=== PATIENT | female | born 1940 | race Caucasian/White ===

== ENCOUNTER → 2016-12-27 | Outpatient (CLI) | payer OTHER ==
[~2016-12-27] MED LIST: ALL60 PO; ASPI81TA28 PO; CALC1CHW2 PO; CYAN10004 PO; FEXO1TAB49 PO; GLUCTAB18 PO; HMLI SC; HYDC25 PO; HYDR-5688 PO; INSU1INJ32 SC; INSU1INJ33 SC; INSUINJ12 SC; LATA0.5S OPB; LEVO100T PO; LOSA1TAB38 PO; METF1000 PO; MULT-506 PO; NF454 PO; PRLSR20 PO; SIMV20TA5 PO
[2016-12-27 11:27] LABS: ESTIMATED AVERAGE GLUCOSE 160 mg/dl; HA1C FLAG Normal (Normal)
[2016-12-27 16:21] LABS: RATIO 11.5 mcg/mg (0-30.0)
== END | disposition home or self-care (01) ==
LOC: C.LAB1850 09:53
PROVIDERS: ATTEND Nurse Practitioner Family
DX: E11.65 Type 2 diabetes mellitus with hyperglycemia (principal)

== ENCOUNTER → 2017-02-05 | Outpatient (CLI) | payer OTHER ==
--- NOTE | 2017-02-06 15:02 | MAMMOGRAPHY REPORT ---
BILATERAL DIGITAL SCREENING MAMMOGRAM TOMOSYNTHESIS WITH CAD: 02/05/2017 CLINICAL HISTORY: Asymptomatic. Personal history of breast cancer. TECHNIQUE: Breast tomosynthesis in addition to standard 2D mammography was performed. Current study was also evaluated with a Computer Aided Detection (CAD) system. COMPARISON: Comparison is made to exams dated: 09/10/2016 mammogram, 09/10/2016 ultrasound biopsy, 08/28/2016 mammogram, 08/28/2016 ultrasound, 02/05/2016 mammogram, and 02/02/2015 mammogram - [facility]. BREAST COMPOSITION: There are scattered areas of fibroglandular density in both breasts. FINDINGS: There is a 9.9 x 7.7 x 10.0 mm mass with associated architectural distortion, a few round internal calcifications and an internal ribbon-shaped metallic biopsy marker in the 4:00 left breas t. This is increasingly dense and prominent comparing to prior mammograms. Even though pathology w as benign yielding fat necrosis, would recommend further characterization with repeat targeted ultra sound and possible additional mammographic views to ensure stability in size on ultrasound measureme nts. There are diffuse benign appearing rim calcifications throughout the left breast. Evidence of prior surgery with asymmetry of the size of the breasts, right greater than left. Stable mammographic ap pearance of the right breast, without evidence of a new suspicious mass, architectural distortion or suspicious mass or calcification. IMPRESSION: ACR BI-RADS CATEGORY 0: INCOMPLETE EVALUATION: NEED ADDITIONAL IMAGING EVALUATION The 10 mm mass with associated architectural distortion and internal biopsy marker in the left breas t needs additional evaluation. The patient will be called to schedule an appointment. Approximately 10% of breast cancers are not detected with mammography. A negative mammographic repor t should not delay biopsy if a clinically suggestive mass is present. Zara Keane M.D. ay/:02/05/2017 17:14:57 Precision Machining Instructor: Isabela RUSS)(Aneudy), [facility] letter sent: Addl Imaging 0 BI-RADS Code: ACR BI-RADS Category 0: Incomplete Evaluation: Need Additional Imaging Evaluation
== END | disposition home or self-care (01) ==
LOC: C.MAMM 10:36
PROVIDERS: ATTEND Obstetrics & Gynecology
DX: Z12.31 Encounter for screening mammogram for malignant neoplasm of breast (principal); Z85.3 Personal history of malignant neoplasm of breast; N63 Unspecified lump in breast

== ENCOUNTER → 2017-02-18 | Outpatient (CLI) | payer OTHER ==
--- NOTE | 2017-02-18 15:29 | MAMMOGRAPHY REPORT ---
ULTRASOUND OF BOTH BREASTS: 02/18/2017 CLINICAL HISTORY: 77-year-old woman called back from screening mammography for an increasing asymmet ry/mass with associated architectural distortion in the 4:00 left breast. This mass was previously biopsied under ultrasound guidance and yielded benign fat necrosis. She is a history of remote left breast cancer status post breast conservation treatment. COMPARISON: Comparison is made to exams dated: 02/05/2017 mammogram, 09/10/2016 mammogram, 6 ultrasound biopsy, 08/28/2016 mammogram, 08/28/2016 ultrasound, and 02/05/2016 mammogram - [facility]. FINDINGS: Real-time high-resolution sonographic evaluation was performed in the 4:00 left breast are reevaluate the previously biopsied hypoechoic solid mass. An irregular hypoechoic solid mass is ag ain identified measuring approximately 8.0 x 7.4 x 6.3 mm. When comparing to the prior ultrasound p erformed 08/28/2016, the mass appears minimally increased in size. At that time it measured 8.7 x 7 .1 x 5.5 mm. I discussed with the patient the interval mammographic change even when comparing to the mammograms obtained prior to biopsy. Comparing to the 08/28/2016 exam the mass containing the internal ribbon- shaped biopsy marker clip is increasingly dense and larger in size. Based on the CC measurements, i t currently measures 6.6 x 9.7 mm, previously 5.9 x 8.2 mm. Given this interval change this remains suspicious and surgical consultation for surgical excision is recommended. IMPRESSION: ACR BI-RADS CATEGORY 4: SUSPICIOUS - FOLLOW-UP RECOMMENDED An 8 mm mass with associated architectural distortion in the 4:00 left breast that has been previous ly biopsied and yielded fat necrosis is increasing in size both mammographically and sonographically since the biopsy. Therefore, it remains suspicious and surgical consultation for surgical excision al biopsy is recommended. These results and recommendations were discussed with the patient at the time of the exam. Zara Keane M.D. ay/:02/18/2017 10:49:01 Attending Technologist: Papa MORALES(Kevin)(M), [facility] Dental Hygiene Teacher: Dr. Zara Keane, [facility] letter sent: Abnormal 4/5 BI-RADS Code: ACR BI-RADS Category 4: Suspicious
== END | disposition home or self-care (01) ==
LOC: C.MAMM 10:04
PROVIDERS: ATTEND Obstetrics & Gynecology
DX: N63 Unspecified lump in breast (principal); N64.89 Other specified disorders of breast

== ENCOUNTER → 2017-03-10 | Outpatient (CLI) | payer OTHER ==
[2017-03-10 12:11] LABS: ALT/SGPT 21 U/L (12-78); BLOOD UREA NITROGEN 15 mg/dl (7-18); BUN/CREATININE RATIO 24.9 (10-20); CARBON DIOXIDE 30 mmol/L (21-32); CHLORIDE 100 mmol/L (98-107); CREATININE 0.59 mg/dl (0.60-1.20); GLUCOSE 125 mg/dl (70-99); POTASSIUM 3.8 mmol/L (3.5-5.1); SODIUM 136 mmol/L (136-145)
[2017-03-10 12:14] LABS: ALB/GLOB RATIO 1.1 (0.9-2); ALKALINE PHOSPHATASE 72 U/L (45-117); AST/SGOT 15 U/L (15-37)
[2017-03-10 13:12] LABS: CALCIUM 9.3 mg/dl (8.5-10.1)
[2017-03-10 15:15] LABS: RATIO 9.9 mcg/mg (0-30.0)
== END | disposition home or self-care (01) ==
LOC: C.LAB1850 10:01
PROVIDERS: ATTEND Internal Medicine Pulmonary Disease
DX: I10 Essential (primary) hypertension (principal); E03.9 Hypothyroidism, unspecified; E78.5 Hyperlipidemia, unspecified; E11.9 Type 2 diabetes mellitus without complications

== ENCOUNTER → 2017-03-25 | Outpatient (CLI) | payer OTHER ==
[2017-03-25 14:36] LABS: BASO % 0.5 %; BASO ABS # 0.04 K/uL (0-0.2); COMPLETE YES; EOS % 1.6 %; HEMATOCRIT 41.5 % (37-47); IG% 0.1 %; LYMPH % 20.3 %; LYMPH ABS # 1.78 K/uL (1.2-3.4); MEAN CELL VOLUME 84.9 fL (80-100); MEAN CORPUSCULAR HEMOGLOBIN 29.7 pg (25-34); MEAN CORPUSCULAR HGB CONC 34.9 g/dl (32-36); MEAN PLATELET VOLUME 10.2 fL (7.4-10.4); MONO % 8.3 %; NEUT % 69.2 %; PLATELET COUNT 282 K/uL (130-400); RED BLOOD COUNT 4.89 M/uL (4.2-5.4); WHITE BLOOD COUNT 8.76 K/uL (4.8-10.8)
== END | disposition home or self-care (01) ==
LOC: C.CPL 12:46
PROVIDERS: ATTEND Surgery
DX: Z01.810 Encounter for preprocedural cardiovascular examination (principal); Z01.812 Encounter for preprocedural laboratory examination; N63 Unspecified lump in breast

== ENCOUNTER → 2017-06-05 | Outpatient (CLI) | payer OTHER ==
[~2017-06-05] MED LIST changes: -ALL60 PO; -CALC1CHW2 PO; -INSU1INJ33 SC; -INSUINJ12 SC
[2017-06-05 12:23] LABS: ESTIMATED AVERAGE GLUCOSE 151 mg/dl; HA1C FLAG Normal (Normal)
== END | disposition home or self-care (01) ==
LOC: C.LAB1850 09:41
PROVIDERS: ATTEND Nurse Practitioner Family
DX: E11.9 Type 2 diabetes mellitus without complications (principal)

== ENCOUNTER → 2017-09-01 | Outpatient (CLI) | payer OTHER ==
[2017-09-01 10:48] LABS: ALT/SGPT 17 U/L (12-78); AST/SGOT 8 U/L (15-37); BLOOD UREA NITROGEN 12 mg/dl (7-18); CALCIUM 9.2 mg/dl (8.5-10.1); CARBON DIOXIDE 30 mmol/L (21-32); CHLORIDE 100 mmol/L (98-107); CREATININE 0.57 mg/dl (0.60-1.20); GLUCOSE 141 mg/dl (70-99); POTASSIUM 3.9 mmol/L (3.5-5.1); SODIUM 135 mmol/L (136-145)
[2017-09-01 10:58] LABS: ALKALINE PHOSPHATASE 90 U/L (45-117); CHOLESTEROL 135 mg/dl (0-200); CHOLESTEROL/HDL RATIO 2.5; HDL CHOLESTEROL 53 mg/dl; LDL CHOLESTEROL CALCULATED 61 mg/dl; TRIGLYCERIDES 104 mg/dl (0-150); VERY LOW DENSITY LIPOPROT CALC 21 mg/dl
[2017-09-01 11:12] LABS: ESTIMATED AVERAGE GLUCOSE 151 mg/dl; HA1C FLAG Normal (Normal)
== END | disposition home or self-care (01) ==
LOC: C.LAB1850 09:31
PROVIDERS: ATTEND Internal Medicine Pulmonary Disease
DX: I10 Essential (primary) hypertension (principal); E03.9 Hypothyroidism, unspecified; E78.5 Hyperlipidemia, unspecified; R93.8 Abnormal findings on diagnostic imaging of other specified body structures; E11.9 Type 2 diabetes mellitus without complications

== ENCOUNTER → 2017-09-10 | Outpatient (CLI) | payer OTHER ==
--- NOTE | 2017-09-10 14:31 | DIAGNOSTIC IMAGING REPORT ---
CAROTID DOPPLER NECK ART CLINICAL HISTORY: 77 years-old Female presenting with DIZZINESS. TECHNIQUE: Real-time grayscale and color and spectral Doppler ultrasound imaging of the bilateral carotid arteries was performed. NASCET criteria was used in evaluating this study. COMPARISON: 07/27/2015. FINDINGS: Right: Common carotid: Atherosclerosis. Peak systolic velocity 65 cm/s. Internal carotid artery: Atherosclerosis of the proximal ICA. Peak systolic velocity 81 cm/s. Systolic ratio: 1.2. External carotid artery: Atherosclerosis. Peak systolic velocity 115 cm/s. Left: Common carotid: Atherosclerosis. Peak systolic velocity 61 cm/s. Internal carotid artery: Atherosclerosis of the proximal ICA. Peak systolic velocity 88 cm/s. Systolic ratio: 1.4. External carotid artery: Atherosclerosis. Peak systolic velocity 92 cm/s. Bilateral antegrade flow within the vertebral arteries. Reference ranges: Stenosis measurements are compared to reference velocity parameters. ICA peak systolic velocity (PSV) < 125 cm/s normal or indicating < 50% stenosis; ICA PSV 125-230 cm/s equivalent to 50-69% stenosis; ICA PSV > 230 cm/s equivalent to greater than or equal to 70% stenosis. ICA PSV to common carotid artery PSV ratio < 2 normal or < 50% stenosis; 2-4 equates to 50-69% stenosis, > 4 equates to greater than or equal to 70% stenosis. Normal ICA end-diastolic velocity less than 40. Blood pressure Brachial: Right: 159/75 mmHg, Left: 161/76 mmHg. IMPRESSION: No hemodynamically significant stenosis seen within the carotid arteries. Electronically signed by: Aristides Barfield M.D. 09/10/2017 2:30 PM Dictated Date/Time: 09/10/2017 2:28 PM
== END | disposition home or self-care (01) ==
LOC: C.ULTR 13:50
PROVIDERS: ATTEND Physician Assistant Medical
DX: R42 Dizziness and giddiness (principal); R29.6 Repeated falls

== ENCOUNTER → 2017-11-21 | Outpatient (CLI) | payer OTHER ==
[2017-11-17 14:48] LABS: BLOOD UREA NITROGEN 20 mg/dl (7-18); CREATININE 0.59 mg/dl (0.60-1.20)
[~2017-11-21] MED LIST changes: +GADAVIST IV PRN; -HYDR-5688 PO; -NF454 PO; +VERA240T80 PO
--- NOTE | 2017-11-21 14:33 | DIAGNOSTIC IMAGING REPORT ---
BRAIN COMBO HISTORY: 77 years-old Female GAIT APRAXIA,E11.49,Z00.00,Z79.4 acute ataxia with dizziness COMPARISON: Brain MRI 04/19/2009 TECHNIQUE: Multiplanar multisequence MRI of the brain was obtained both with and without the use of 9 mL Gadavist FINDINGS: There is no restricted diffusion to suggest acute infarction. Midline structures including the corpus callosum, brainstem, optic chiasm and pituitary gland are unremarkable. Subcentimeter pineal gland cyst, 5 mm. No cerebellar tonsillar herniation. Degenerative changes of the cervical spine. Major flow voids at the level of the skull base appear to be patent. Mastoid air cells are clear. Orbits appear symmetric. Paranasal sinuses are generally clear. The scalp, calvarium and soft tissues are within normal limits. There is no abnormal intra-axial or extra-axial enhancement identified. The coronal postcontrast T1 images are mildly motion degraded. There is mild atrophy with redemonstration of minimal scattered T2/flair signal abnormalities in the periventricular white matter suggesting very minimal chronic microvascular ischemic changes. There is no acute intracranial hemorrhage, midline shift, abnormal extra-axial collections, hydrocephalus or intracranial mass. IMPRESSION: 1. No acute intracranial abnormality. 2. No acute infarction or abnormal enhancement. The above report was generated using voice recognition software. It may contain grammatical, syntax or spelling errors. Electronically signed by: Mikal Payne M.D. 11/21/2017 2:31 PM Dictated Date/Time: 11/21/2017 2:24 PM
== END | disposition home or self-care (01) ==
LOC: C.MRIBC 12:53
PROVIDERS: ATTEND Psychiatry & Neurology Neurology
DX: Z00.00 Encounter for general adult medical examination without abnormal findings (principal); R48.2 Apraxia; E11.49 Type 2 diabetes mellitus with other diabetic neurological complication

== ENCOUNTER → 2018-02-09 | Outpatient (CLI) | payer OTHER ==
[~2018-02-09] MED LIST changes: -GADAVIST IV PRN
--- NOTE | 2018-02-10 07:45 | MAMMOGRAPHY REPORT ---
BILATERAL DIGITAL SCREENING MAMMOGRAM TOMOSYNTHESIS WITH CAD: 02/09/2018 CLINICAL HISTORY: Asymptomatic. Personal history of breast cancer. TECHNIQUE: Bilateral breast tomosynthesis in addition to standard 2D mammography was performed. Curre nt study was also evaluated with a Computer Aided Detection (CAD) system. COMPARISON: Comparison is made to exams dated: 04/01/2017 mammogram, 04/01/2017 specimen, 04/01/2017 local ization, 02/18/2017 ultrasound, 02/05/2017 mammogram, and 09/10/2016 mammogram - [facility]. BREAST COMPOSITION: The tissue of both breasts is heterogeneously dense, which may obscure small mas ses. FINDINGS: A linear scar marker overlies the upper outer middle one third of the left breast, denoting the area of recent surgery. There is expected architectural distortion at the recent surgical site in the upper outer middle to posterior, approximate 4:00 left breast, in which final pathology result s yielded benign fat necrosis. However, there is a newly visualized 13 x 14 mm focal asymmetry in th e upper outer anterior left breast, which could be near an area of remote surgery given that previous mammograms demonstrate a periareolar scar marker, although additional spot compression tomosynthesis views and possible ultrasound are recommended. There are diffuse benign-appearing rodlike and rim calcifications throughout the left greater than ri ght breast. No other suspicious mass, architectural distortion or cluster of microcalcifications is s een. IMPRESSION: ACR BI-RADS CATEGORY 0: INCOMPLETE EVALUATION: NEED ADDITIONAL IMAGING EVALUATION The newly visualized 13 x 14 mm focal asymmetry in the upper outer anterior left breast needs additio nal evaluation. The patient will be called to schedule an appointment. Approximately 10% of breast cancers are not detected with mammography. A negative mammographic report should not delay biopsy if a clinically suggestive mass is present. Zara Keane M.D. ay/:02/09/2018 11:32:53 Horse Buyer: Kamla RUSS)(Aneudy), [facility] letter sent: Addl Imaging 0 BI-RADS Code: ACR BI-RADS Category 0: Incomplete Evaluation: Need Additional Imaging Evaluation
== END | disposition home or self-care (01) ==
LOC: C.MAMM 10:17
PROVIDERS: ATTEND Obstetrics & Gynecology
DX: Z12.31 Encounter for screening mammogram for malignant neoplasm of breast (principal); N64.89 Other specified disorders of breast

== ENCOUNTER → 2018-02-18 | Outpatient (CLI) | payer OTHER ==
--- NOTE | 2018-02-18 15:31 | MAMMOGRAPHY REPORT ---
UNILATERAL LEFT DIGITAL DIAGNOSTIC MAMMOGRAM TOMOSYNTHESIS AND TARGETED LEFT ULTRASOUND: 02/18/2018 CLINICAL HISTORY: 78-year-old woman with a remote history of left breast cancer status post breast co nservation treatment and more recently status post biopsy and excision of fat necrosis in the 4:00 le ft breast. She was called back from screening mammography performed 02/09/2018 for an increasing foca l asymmetry in the upper outer anterior left breast. TECHNIQUE: Spot compression left CC and MLO tomosynthesis images were obtained. COMPARISON: Comparison is made to exams dated: 02/09/2018 mammogram, 04/01/2017 mammogram, 04/01/2017 loc alization, 04/01/2017 specimen, 02/18/2017 ultrasound, and 02/05/2017 mammogram - [facility]. BREAST COMPOSITION: There are scattered areas of fibroglandular density in the left breast. FINDINGS: Spot compression tomosynthesis views of the left breast demonstrate expected architectural distortion in the 4:00 posterior left breast, at the site of recent benign surgical excision which polish elded fat necrosis. There is persistent irregular versus spiculated focal asymmetry in the upper out er anterior left breast measuring approximately 2.3 x 1.6 cm. When comparing to all available prior mammograms, there was always dense glandular tissue in that location but it appears to be becoming mo re concentrated. There are also numerous benign oil cysts in the same location. Further evaluation with ultrasound was performed. Overall, there are innumerable benign-appearing coarse rodlike and ri m calcifications throughout the left breast. Targeted ultrasound was performed in the upper outer left breast. The ultrasound exam is somewhat li mited given the numerous shadowing areas of oil cysts/fat necrosis as well as numerous prior surgerie s of the left breast. In the 12:00 axis, 2 cm from the nipple, there is a hypoechoic shadowing mass measuring approximately 1.3 cm, with numerous curvilinear shadowing rim calcifications along the supe rficial aspect of the mass, suggesting it represents fat necrosis. No internal vascularity is docume nted. There is another irregular hypoechoic lesion deep to the scar in the 4:00 left breast, represe nting scarring in the area of fat necrosis excision. IMPRESSION: ACR-BI-RADS CATEGORY 3: PROBABLY BENIGN, TARGETED ULTRASOUND ACR-BI-RADS CATEGORY 3: PRO BABLY BENIGN The 2.3 x 1.6 cm focal asymmetry with associated rim calcification seen mammographically most likely represents focal fat necrosis with associated oil cysts on ultrasound, identified in the 12:00 axis. Given that it appears increasingly conspicuous comparing to prior mammograms, although it most likel y represents an additional area of fat necrosis, a short follow-up left diagnostic tomosynthesis mamm ogram and repeat targeted ultrasound in approximately 4-6 months is recommended to ensure stability. These results and recommendations were discussed with the patient at the time of the exam. Approximately 10% of breast cancers are not detected with mammography. A negative mammographic report should not delay biopsy if a clinically suggestive mass is present. Zara Keane M.D. ay/:02/18/2018 12:39:32 Fire Extinguisher Charger: Natalie Medina, [facility] letter sent: Follow Up Recommended 3 BI-RADS Code: ACR-BI-RADS Category 3: Probably Benign Ultrasound BI-RADS: ACR-BI-RADS Category 3: Pr obably Benign
== END | disposition home or self-care (01) ==
LOC: C.MAMM 09:54
PROVIDERS: ATTEND Obstetrics & Gynecology
DX: N64.89 Other specified disorders of breast (principal)

== ENCOUNTER → 2018-03-03 | Outpatient (CLI) | payer OTHER ==
[2018-03-03 12:25] LABS: BASO % 0.3 %; BASO ABS # 0.02 K/uL (0-0.2); EOS % 1.5 %; EOS ABS # 0.11 K/uL (0-0.5); HEMATOCRIT 39.7 % (37-47); HEMOGLOBIN 13.9 g/dL (12.0-16.0); IG# 0.01 K/uL (0.00-0.02); LYMPH % 25.5 %; LYMPH ABS # 1.81 K/uL (1.2-3.4); MEAN CELL VOLUME 83.8 fL (80-100); MEAN CORPUSCULAR HEMOGLOBIN 29.3 pg (25-34); MEAN PLATELET VOLUME 9.9 fL (7.4-10.4); MONO % 8.3 %; MONO ABS # 0.59 K/uL (0.11-0.59); NEUT % 64.3 %; NEUT ABS # 4.57 K/uL (1.4-6.5); PLATELET COUNT 244 K/uL (130-400); RED CELL DISTRIBUTION WIDTH CV 13.2 % (11.5-14.5); WHITE BLOOD COUNT 7.11 K/uL (4.8-10.8)
[2018-03-03 12:41] LABS: ALBUMIN 3.4 gm/dl (3.4-5.0); ALT/SGPT 19 U/L (12-78); AST/SGOT 12 U/L (15-37); BLOOD UREA NITROGEN 17 mg/dl (7-18); CALCIUM 8.7 mg/dl (8.5-10.1); CARBON DIOXIDE 30 mmol/L (21-32); CHOLESTEROL 141 mg/dl (0-200); CREATININE 0.59 mg/dl (0.60-1.20); GLUCOSE 138 mg/dl (70-99); POTASSIUM 4.2 mmol/L (3.5-5.1); SODIUM 136 mmol/L (136-145)
[2018-03-03 12:45] LABS: HEMOGLOBIN A1C 7.3 % (4.5-5.6)
[2018-03-03 12:51] LABS: ALKALINE PHOSPHATASE 87 U/L (45-117); LDL CHOLESTEROL CALCULATED 77 mg/dl; TOTAL PROTEIN 6.8 gm/dl (6.4-8.2)
[2018-03-03 13:46] LABS: CREATININE RANDOM URINE 60.3 mg/dl
== END | disposition home or self-care (01) ==
LOC: C.LAB1850 10:38
PROVIDERS: ATTEND Nurse Practitioner Family
DX: I10 Essential (primary) hypertension (principal); E03.9 Hypothyroidism, unspecified; E11.49 Type 2 diabetes mellitus with other diabetic neurological complication; Z79.4 Long term (current) use of insulin

== ENCOUNTER → 2018-05-18 | Outpatient (CLI) | payer OTHER ==
--- NOTE | 2018-05-19 07:29 | MAMMOGRAPHY REPORT ---
UNILATERAL LEFT DIGITAL DIAGNOSTIC MAMMOGRAM TOMOSYNTHESIS WITH CAD: 05/18/2018 CLINICAL HISTORY: 78-year-old woman presents for follow-up in the left breast for a 2.3 x 1.6 cm foca l asymmetry with associated rim calcification in the upper outer anterior left breast, near skin irre gularity denoting a prior surgical incision. Patient has a personal history of breast cancer status p ost breast conservation treatment, and also more recently a history of biopsy-proven and surgically e xcised fat necrosis in the left breast. TECHNIQUE: The study was acquired using full field digital technology and interpreted from soft copy. Breast tomosynthesis in addition to standard 2D mammography was performed. Current study was also ev aluated with a Computer Aided Detection (CAD) system. COMPARISON: Comparison is made to exams dated: 02/18/2018 mammogram, 02/09/2018 mammogram, 04/01/2017 ma mmogram, 02/05/2017 mammogram, 09/10/2016 mammogram, and 02/05/2016 mammogram - [facility] enter. BREAST COMPOSITION: There are scattered areas of fibroglandular density in left breast. FINDINGS: There is skin irregularity in the upper outer anterior left breast, denoting 1 of the areas of prior surgical excision. There is expected architectural distortion and additional skin irregula rity in the upper outer middle to posterior left breast, denoting a second area of prior surgery. Th ere are diffuse benign rim calcifications and coarse rodlike calcifications throughout the left breas t. There are also mild to moderate vascular calcification. The previously described 23 x 16 mm foca l asymmetry in the upper outer anterior left breast is stable comparing to the 02/09/2018 mammograms a nd most likely represents normal glandular tissue and fat necrosis. However, given that it appeared more focal comparing to prior remote mammograms, another close follow-up left diagnostic tomosynthesi s mammogram and possible ultrasound is recommended in 3 more months to ensure longer stability. IMPRESSION: ACR-BI-RADS CATEGORY 3: PROBABLY BENIGN 1. Stable mammographic appearance of the left breast including postsurgical/posttreatment changes an d a 23 x 16 mm focal asymmetry in the upper outer anterior breast, which has numerous associated rim calcifications and most likely represents benign fat necrosis. Another 3 month follow-up left diagno stic tomosynthesis mammogram and possible ultrasound is recommended to ensure longer stability. These results and recommendations were discussed with the patient at the time of the exam. She tenta tively scheduled a follow-up appointment prior to leaving our department. Some breast cancers are not detected with mammography. A negative mammographic report should not rosemarie y biopsy if a clinically suggestive mass is present. Zara Keane M.D. ay/:05/18/2018 12:39:17 Professor Of Communication: RT Luis Antonio(Kevin)(M), [facility] letter sent: Follow Up Recommended 3 BI-RADS Code: ACR-BI-RADS Category 3: Probably Benign
== END | disposition home or self-care (01) ==
LOC: C.MAMM 10:42
PROVIDERS: ATTEND Obstetrics & Gynecology
DX: R92.1 Mammographic calcification found on diagnostic imaging of breast (principal); Z85.3 Personal history of malignant neoplasm of breast; Z98.890 Other specified postprocedural states

== ENCOUNTER → 2018-06-11 | Outpatient (CLI) | payer OTHER ==
[2018-06-11 12:16] LABS: BASO % 0.8 %; BASO ABS # 0.05 K/uL (0-0.2); EOS % 1.7 %; EOS ABS # 0.11 K/uL (0-0.5); HEMATOCRIT 38.3 % (37-47); HEMOGLOBIN 13.4 g/dL (12.0-16.0); IG# 0.01 K/uL (0.00-0.02); LYMPH % 21.5 %; LYMPH ABS # 1.42 K/uL (1.2-3.4); MEAN CELL VOLUME 84.7 fL (80-100); MEAN CORPUSCULAR HEMOGLOBIN 29.6 pg (25-34); MEAN PLATELET VOLUME 10.2 fL (7.4-10.4); MONO % 7.3 %; MONO ABS # 0.48 K/uL (0.11-0.59); NEUT % 68.5 %; NEUT ABS # 4.55 K/uL (1.4-6.5); PLATELET COUNT 219 K/uL (130-400); RED CELL DISTRIBUTION WIDTH CV 13.3 % (11.5-14.5); RED CELL DISTRIBUTION WIDTH SD 41.1 fL (36.4-46.3); WHITE BLOOD COUNT 6.62 K/uL (4.8-10.8)
[2018-06-11 12:29] LABS: HEMOGLOBIN A1C 7.3 % (4.5-5.6)
[2018-06-11 12:48] LABS: ALBUMIN 3.3 gm/dl (3.4-5.0); ALKALINE PHOSPHATASE 80 U/L (45-117); ALT/SGPT 21 U/L (12-78); AST/SGOT 11 U/L (15-37); BLOOD UREA NITROGEN 12 mg/dl (7-18); CALCIUM 8.9 mg/dl (8.5-10.1); CARBON DIOXIDE 26 mmol/L (21-32); CHOLESTEROL 116 mg/dl (0-200); CREATININE 0.65 mg/dl (0.60-1.20); GLUCOSE 148 mg/dl (70-99); LDL CHOLESTEROL CALCULATED 47 mg/dl; POTASSIUM 3.9 mmol/L (3.5-5.1); SODIUM 134 mmol/L (136-145); TOTAL PROTEIN 6.7 gm/dl (6.4-8.2)
== END | disposition home or self-care (01) ==
LOC: C.LAB1850 10:09
PROVIDERS: ATTEND Nurse Practitioner Family
DX: E11.49 Type 2 diabetes mellitus with other diabetic neurological complication (principal); E03.9 Hypothyroidism, unspecified; E78.5 Hyperlipidemia, unspecified

== ENCOUNTER 2022-07-09 12:04 | Inpatient (IN) ==
--- NOTE | 2022-07-09 12:57 | Emergency Department Note ---
History of Present Illness General Chief complaint: Illness Time Seen by Provider: 07/09/22 12:46 History of Present Illness This 82-year-old female patient presents to the emergency department via ambulance for evaluation of increasingly more aggressive behavior. Per EMS the patient's daughter states that her health has been progressively declining and she has a history of dementia with increasing aggressive behavior. The patient's daughter would like her evaluated and possibly placed. She was seen in the emergency department on 06/29/2022 for a possible fall, but no injury was noted on exam. She did have a work-up on 06/14/2022 that showed a normal CBC, PT/INR, APTT, and TSH. Her glucose was 287, magnesium low at 1.6, total bili elevated at 1.8, but CMP was otherwise normal. She was found to have a UTI with greater than 100,000 E. coli that was pansensitive and she was treated with antibiotics that affected her blood sugars per her granddaughter. She also had a negative CT scan of the head, normal chest x-ray, and CT scan of the C-spine with degenerative changes but no acute changes on 06/14/2022. Her EKG on 06/14/2022 showed a normal sinus rhythm at 71 bpm with the QRS axis shifted to the left with T wave inversion more evident in the anterior leads. The patient states that she has been having problems with her balance recently and having trouble with weakness getting up and down out of chairs etc. She lives at home with her daughter who also has some health issues. She has been having problems with pain under her left sided ribs, but not sure if she fell or had any injury to that area. She has also been complaining of nausea and upset stomach as well. She denies any chest pain, shortness of breath, vomiting, fevers, cough, URI symptoms, dysuria, or changes in her bowel movements. Denies hematochezia, melena, hematuria, hemoptysis, or hematemesis. At the patient's request I was able to speak with her granddaughter from [place], [place], who had been here the last time the patient had been evaluated. Her mother and father had a history of dementia and her brother had Parkinson's. She has had a tremor in her hand for years, instability, and muscle weakness and they are concerned she might have Parkinson's as well. Was treated with medication for Parkinson's in the past, but it made her sick and she stopped taking it. She has not seen a neurologist recently about her symptoms. Her grandson Kristian is her POA and makes medical decisions for her. Home Medications Medication Instructions Recorded Confirmed Type latanoprost 0.005 % eye drops 1 drp OPB HS 06/02/19 07/09/22 History multivitamin (Multiple Vitamins 1 tab PO DAILY 06/02/19 07/09/22 History tablet) insulin lispro 100 unit/mL 3 units subcut DAILY PRN SLIDING 04/13/20 07/09/22 History subcutaneous pen (Humalog KwikPen SCALE (U-100) Insulin) glucosamine-chondroitin 250 mg-200 2 tab PO QAM 02/28/21 07/09/22 History mg tablet (Osteo Bi-Flex) insulin degludec 200 unit/mL (3 14 unit (0.07 mL) subcut HS #9 mL 05/11/21 07/09/22 Rx mL) subcutaneous pen (Tresiba FlexTouch U-200 insulin) hydrochlorothiazide 25 mg tablet 25 mg PO DAILY #90 tabs 06/26/21 07/09/22 Rx losartan 100 mg tablet 100 mg PO DAILY #90 tabs 06/26/21 07/09/22 Rx metformin 1,000 mg tablet 1,000 mg PO BID #180 tabs 06/26/21 07/09/22 Rx simvastatin 20 mg tablet 20 mg PO DAILY #90 tabs 06/26/21 07/09/22 Rx levothyroxine 88 mcg tablet 88 mcg PO DAILY 90 days #90 tabs 08/03/21 07/09/22 Rx verapamil 240 mg 24 hr 240 mg PO DAILY 06/14/22 07/09/22 History capsule,extended release aspirin 81 mg tablet,delayed 81 mg PO DAILY 07/09/22 07/09/22 History release Allergies Allergy/AdvReac Type Severity Reaction Status Date / Time Bactrim Allergy Intermediate RASH Verified 11/21/17 14:01 duloxetine Allergy Intermediate BALANCE Verified 07/09/22 16:47 PROBLEMS gabapentin Allergy Intermediate BALANCE Verified 07/09/22 16:47 PROBLEMS nitrofurantoin Allergy Intermediate HIVES Verified 07/09/22 16:47 nortriptyline Allergy Intermediate balance Verified 07/09/22 16:47 problems pregabalin [From Lyrica] Allergy Intermediate BALANCE Verified 07/09/22 16:47 ISSUES sulfamethoxazole Allergy Intermediate RASH Verified 07/09/22 16:47 trimethoprim Allergy Intermediate RASH Verified 07/09/22 16:47 lisinopril AdvReac Mild COUGH Verified 07/09/22 16:47 repaglinide AdvReac Mild GI UPSET Verified 07/09/22 16:47 Fluoride Preparations AdvReac Mild SICK Uncoded 07/09/22 16:47 STOMACH, MOUTH/THROAT SORENESS FROM FLUORIDE TREATMENT Past Med/Surg History Medical History Arthritis Degenerative joint disease Diabetes mellitus, type 2 Diabetic peripheral neuropathy Gait disorder UNSTEADY BALANCE Glaucoma History of anemia History of colon polyps Hx of migraines "CLUSTER MIGRAINES" HX: breast cancer LEFT (SURGERY +RADIATION) Hyperlipidemia Hypertension Hypothyroidism Overactive bladder Syncope Transient ischemic attack (TIA) ? HX TIA'S "MANY YEARS AGO" Vaginal wall prolapse Surgical History Family history of reaction to anesthesia DAUGHTER-WAKES UP IN MIDDLE OF SURGERIES History of breast biopsy History of cataract surgery RT/LEFT History of foot surgery LEFT History of knee surgery LEFT History of lumpectomy LEFT BREAST History of tooth extraction History of total abdominal hysterectomy History of tubal ligation History of vaginal surgery anterior colporrhaphy, repair of cystocele Family History Family/Other Obstructive sleep apnea Ovarian cancer Breast cancer Father Diabetes Cardiac disorder Hypertension Family history of diabetes mellitus Grandmother Diabetes Mother Cardiac disorder Hypertension Family history of diabetes mellitus Grandfather Stroke Daughter Family history of diabetes mellitus Social History Smoking Status: Never smoker Second Hand Exposure: No; Hx Alcohol Use: No Preferred Language: [place] [employer] Required: No Beliefs That Will Affect Care: None marital status: / Current Living Situation: Family Current Living Situation Comment: WITH DAUGHTER current occupational status: retired Feels Safe at Home: Yes Assistive Devices: Cane and Walker Review of Systems See HPI for pertinent positives & negatives. and A total of 10 systems reviewed and were otherwise negative Physical Exam Vital Signs Vital Signs - 24 hr 07/09/22 12:15 07/09/22 12:27 07/09/22 13:39 Temperature 37 C 37.0 C Temperature Source Oral Oral Pulse Rate 94 H Pulse Rate [Finger] 94 H Pulse Rate from SpO2 Sensor Pulse Rhythm Regular Pulse Strength Normal Pulse Strength [Finger] Normal Respiratory Rate 24 24 Respiratory Effort / Characteristics Non-Labored Spontaneous Non-Labored Spontaneous Respiratory Depth Normal Normal Respiratory Pattern Regular Regular Blood Pressure 192/87 H Blood Pressure [Right Arm] 192/87 H Blood Pressure Mean 122 Blood Pressure Mean [Right Arm] 122 Blood Pressure Position Lying Blood Pressure Position [Right Arm] Lying Pulse Oximetry 93 93 93 Oxygen Delivery Method Room Air Room Air Room Air Sepsis Recent Fever Within 48 Hours No Sepsis New/Unexplained Change in Mental Status N/A Sepsis Action Taken by Nursing No Action Required 07/09/22 12:50 07/09/22 13:00 07/09/22 13:00 Temperature Temperature Source Pulse Rate 75 90 Pulse Rate [Finger] Pulse Rate from SpO2 Sensor 88 91 H Pulse Rhythm Pulse Strength Pulse Strength [Finger] Respiratory Rate 25 H 26 H Respiratory Effort / Characteristics Respiratory Depth Respiratory Pattern Blood Pressure 131/102 H Blood Pressure [Right Arm] Blood Pressure Mean 111 Blood Pressure Mean [Right Arm] Blood Pressure Position Blood Pressure Position [Right Arm] Pulse Oximetry 94 94 Oxygen Delivery Method Sepsis Recent Fever Within 48 Hours Sepsis New/Unexplained Change in Mental Status Sepsis Action Taken by Nursing 07/09/22 13:10 07/09/22 13:20 07/09/22 13:30 Temperature Temperature Source Pulse Rate 99 H 91 H Pulse Rate [Finger] Pulse Rate from SpO2 Sensor 99 H 89 Pulse Rhythm Pulse Strength Pulse Strength [Finger] Respiratory Rate 17 19 Respiratory Effort / Characteristics Respiratory Depth Respiratory Pattern Blood Pressure 162/74 H Blood Pressure [Right Arm] Blood Pressure Mean 103 Blood Pressure Mean [Right Arm] Blood Pressure Position Blood Pressure Position [Right Arm] Pulse Oximetry 95 95 Oxygen Delivery Method Sepsis Recent Fever Within 48 Hours Sepsis New/Unexplained Change in Mental Status Sepsis Action Taken by Nursing 07/09/22 13:30 07/09/22 13:40 07/09/22 13:50 Temperature Temperature Source Pulse Rate 74 80 79 Pulse Rate [Finger] Pulse Rate from SpO2 Sensor 75 80 80 Pulse Rhythm Pulse Strength Pulse Strength [Finger] Respiratory Rate 19 22 18 Respiratory Effort / Characteristics Respiratory Depth Respiratory Pattern Blood Pressure Blood Pressure [Right Arm] Blood Pressure Mean Blood Pressure Mean [Right Arm] Blood Pressure Position Blood Pressure Position [Right Arm] Pulse Oximetry 91 93 93 Oxygen Delivery Method Sepsis Recent Fever Within 48 Hours Sepsis New/Unexplained Change in Mental Status Sepsis Action Taken by Nursing 07/09/22 14:00 07/09/22 14:00 07/09/22 14:10 Temperature Temperature Source Pulse Rate 77 67 Pulse Rate [Finger] Pulse Rate from SpO2 Sensor 76 75 Pulse Rhythm Pulse Strength Pulse Strength [Finger] Respiratory Rate 20 14 Respiratory Effort / Characteristics Respiratory Depth Respiratory Pattern Blood Pressure 168/70 H Blood Pressure [Right Arm] Blood Pressure Mean 102 Blood Pressure Mean [Right Arm] Blood Pressure Position Blood Pressure Position [Right Arm] Pulse Oximetry 92 Oxygen Delivery Method Sepsis Recent Fever Within 48 Hours Sepsis New/Unexplained Change in Mental Status Sepsis Action Taken by Nursing 07/09/22 14:51 07/09/22 15:00 07/09/22 15:00 Temperature Temperature Source Pulse Rate 96 H Pulse Rate [Finger] Pulse Rate from SpO2 Sensor 96 H Pulse Rhythm Pulse Strength Pulse Strength [Finger] Respiratory Rate 16 23 Respiratory Effort / Characteristics Respiratory Depth Respiratory Pattern Blood Pressure 173/95 H Blood Pressure [Right Arm] Blood Pressure Mean 121 Blood Pressure Mean [Right Arm] Blood Pressure Position Blood Pressure Position [Right Arm] Pulse Oximetry 94 Oxygen Delivery Method Sepsis Recent Fever Within 48 Hours Sepsis New/Unexplained Change in Mental Status Sepsis Action Taken by Nursing 07/09/22 15:10 07/09/22 15:20 07/09/22 15:30 Temperature Temperature Source Pulse Rate 93 H 91 H Pulse Rate [Finger] Pulse Rate from SpO2 Sensor 88 91 H Pulse Rhythm Pulse Strength Pulse Strength [Finger] Respiratory Rate 22 24 Respiratory Effort / Characteristics Respiratory Depth Respiratory Pattern Blood Pressure 174/82 H Blood Pressure [Right Arm] Blood Pressure Mean 112 Blood Pressure Mean [Right Arm] Blood Pressure Position Blood Pressure Position [Right Arm] Pulse Oximetry 94 94 Oxygen Delivery Method Sepsis Recent Fever Within 48 Hours Sepsis New/Unexplained Change in Mental Status Sepsis Action Taken by Nursing 07/09/22 15:30 07/09/22 15:40 07/09/22 15:50 Temperature Temperature Source Pulse Rate 92 H 90 92 H Pulse Rate [Finger] Pulse Rate from SpO2 Sensor 92 H 91 H 93 H Pulse Rhythm Pulse Strength Pulse Strength [Finger] Respiratory Rate 19 26 H 20 Respiratory Effort / Characteristics Respiratory Depth Respiratory Pattern Blood Pressure Blood Pressure [Right Arm] Blood Pressure Mean Blood Pressure Mean [Right Arm] Blood Pressure Position Blood Pressure Position [Right Arm] Pulse Oximetry 95 93 96 Oxygen Delivery Method Sepsis Recent Fever Within 48 Hours Sepsis New/Unexplained Change in Mental Status Sepsis Action Taken by Nursing 07/09/22 16:00 07/09/22 16:00 07/09/22 16:10 Temperature Temperature Source Pulse Rate 94 H 93 H Pulse Rate [Finger] Pulse Rate from SpO2 Sensor 94 H 95 H Pulse Rhythm Pulse Strength Pulse Strength [Finger] Respiratory Rate 23 23 Respiratory Effort / Characteristics Respiratory Depth Respiratory Pattern Blood Pressure 193/95 H Blood Pressure [Right Arm] Blood Pressure Mean 127 Blood Pressure Mean [Right Arm] Blood Pressure Position Blood Pressure Position [Right Arm] Pulse Oximetry 95 95 Oxygen Delivery Method Sepsis Recent Fever Within 48 Hours Sepsis New/Unexplained Change in Mental Status Sepsis Action Taken by Nursing 07/09/22 16:20 07/09/22 16:30 07/09/22 16:31 Temperature Temperature Source Pulse Rate 92 H 96 H Pulse Rate [Finger] Pulse Rate from SpO2 Sensor 91 H 96 H Pulse Rhythm Pulse Strength Pulse Strength [Finger] Respiratory Rate 25 H 25 H Respiratory Effort / Characteristics Respiratory Depth Respiratory Pattern Blood Pressure 164/104 H Blood Pressure [Right Arm] Blood Pressure Mean 124 Blood Pressure Mean [Right Arm] Blood Pressure Position Blood Pressure Position [Right Arm] Pulse Oximetry 94 95 Oxygen Delivery Method Sepsis Recent Fever Within 48 Hours Sepsis New/Unexplained Change in Mental Status Sepsis Action Taken by Nursing 07/09/22 16:31 07/09/22 16:40 07/09/22 16:50 Temperature Temperature Source Pulse Rate 94 H 88 88 Pulse Rate [Finger] Pulse Rate from SpO2 Sensor 95 H 89 88 Pulse Rhythm Pulse Strength Pulse Strength [Finger] Respiratory Rate 22 20 9 L Respiratory Effort / Characteristics Respiratory Depth Respiratory Pattern Blood Pressure Blood Pressure [Right Arm] Blood Pressure Mean Blood Pressure Mean [Right Arm] Blood Pressure Position Blood Pressure Position [Right Arm] Pulse Oximetry 95 94 95 Oxygen Delivery Method Sepsis Recent Fever Within 48 Hours Sepsis New/Unexplained Change in Mental Status Sepsis Action Taken by Nursing VITALS: Vitals are noted on the nurse's note and reviewed by myself. Vital sig ns stable. GENERAL: 82-year-old female, in no acute distress, nondiaphoretic, well- developed well-nourished. SKIN: Capillary refill <2 sec. No tenting of the skin. HEAD: Normocephalic, atraumatic. EARS: External auditory canals clear, tympanic membranes pearly wooten without erythema or effusion bilaterally. EYES: PERRLA. EOMI. Conjunctivae without injection, sclerae without icterus. NOSE: Patent without discharge. MOUTH: Mucous membranes moist. Uvula midline. Airway patent. Tongue does not deviate. NECK: Supple without nuchal rigidity. No cervical spine tenderness. HEART: Regular rate and rhythm without murmurs gallops or rubs. LUNGS: Clear to auscultation bilaterally without wheezes, rales or rhonchi. No retractions or accessory muscle use. CHEST: The patient has had previous surgery to the left breast with scar tissue present. She has an area of ecchymosis under the left breast where she is tender to palpation. No obvious evidence for infection or abscess. ABDOMEN: Positive bowel sounds x 4. Normal tympanic percussion. Soft, tender to palpation in the left upper quadrant and left flank, without masses or organomegaly. Flores sign negative. No guarding or rebound tenderness. No focal RLQ or LLQ tenderness. MUSCULOSKELETAL: Her bilateral upper and lower extremities are nontender to palpation. Peripheral pulses 2+. NEURO: The patient has periods of lucidity and periods of confusion. The patient sometimes gives accurate information and sometimes false information per her family. Course Administered Medications Atorvastatin Calcium (Atorvastatin 10 Mg Tab) 10 mg PO PM [facility] Stop: 08/08/22 20:59 Last Admin: 07/09/22 21:27 Dose: 10 mg Documented By: BRYON Insulin Glargine (Lantus Per Unit Charge) 8 units SQ HS [facility]; Protocol Stop: 08/08/22 20:59 Last Admin: 07/09/22 21:25 Dose: 8 units Documented By: BRYON Co-signed By: RENAN Latanoprost (Latanoprost 0.005% Op Soln 2.5 Ml Btl) 1 drops OPB HS [facility] Stop: 08/08/22 20:59 Last Admin: 07/09/22 21:27 Dose: 1 drops Documented By: BRYON Discontinued Medications Sodium Chloride (Nss) 500 mls @ 999 mls/hr IV .Q31M STA Stop: 07/09/22 13:55 Last Infusion: 07/09/22 18:06 Dose: 0 mls/hr Documented By: Admin: 07/09/22 13:45 Dose: 999 mls/hr Documented By: RICARDO Ioversol (Optiray 300 100ml) 93 ml IV ONCE ONE Stop: 07/09/22 14:31 Last Admin: 07/09/22 14:26 Dose: 93 ml Documented By: YANY Medical Decision Making Differential Diagnosis Differential diagnosis includes hepatitis, pancreatitis, cholecystitis, cholelithiasis, appendicitis, kidney stone, pyelonephritis, UTI, gastritis, gastroenteritis, mesenteric adenitis, obstruction, constipation, hernia, ab dominal abscess, perforation, diverticulitis, IBD, ischemic colitis, abdominal aortic aneurysm, ovarian cyst, ovarian torsion, acute salpingitis, sepsis, pneumonia, VT, PE, COVID, dementia, acute intracranial etiology, Parkinson's, or others. Laboratory Data Attestation: I reviewed the patient's lab results. Result diagrams: 07/09/22 13:40 07/09/22 13:40 Lab Results 07/09/22 07/09/22 07/09/22 Range/Units 13:40 13:40 15:00 WBC 4.59 L (4.8-10.8) K/ul RBC 4.89 (3.93-5.22) M/uL Hgb 14.3 (12.0-16.0) g/dl Hct 41.4 (34.1-44.9) % MCV 84.7 (80.0-100.0) fL MCH 29.2 (25.0-34.0) pg MCHC 34.5 (32.0-36.0) g/dL RDW Std Deviation 37.8 (36.4-46.3) fL RDW Coeff of Thai 12.5 (11.5-14.5) % Plt Count 141 (130-400) K/uL MPV 10.2 (9.4-12.3) fL Immature Gran % (Auto) 0.2 % Neut % (Auto) 72.2 % Lymph % (Auto) 12.4 % [place] % (Auto) 15.0 % Eos % (Auto) 0.0 % Baso % (Auto) 0.2 % Neut # (Auto) 3.31 (1.4-6.5) K/uL Lymph # (Auto) 0.57 L (1.2-3.4) K/uL [place] # (Auto) 0.69 (0.24-0.82) K/uL Eos # (Auto) 0.00 (0-0.50) K/uL Baso # (Auto) 0.01 (0-0.2) K/uL Immature Gran # (Auto) 0.01 (0.00-0.02) K/uL Sodium 136 (136-145) mmol/L Potassium 3.4 L (3.5-5.1) mmol/L Chloride 97 L (98-107) mmol/L Carbon Dioxide 32 (21-32) mmol/L Anion Gap 7 (3-11) BUN 13 (6-23) mg/dl Creatinine 0.64 (0.6-1.2) mg/dl Est Cr Clr Drug Dosing 75.3 ml/min Est GFR ( Amer) 97.7 ml/min Est GFR (Non-Af Amer) 84.3 ml/min BUN/Creatinine Ratio 20.3 H (10-20) Glucose 245 H (70-99(Fasting)) mg/dl Lactate (0.4-2.0) mmol/L Calcium 8.7 (8.5-10.1) mg/dl Total Bilirubin 1.2 H (0.2-1.0) mg/dl AST 17 (13-39) U/L ALT 13 (7-52) U/L Alkaline Phosphatase 67 (34-104) U/L Troponin I High Sens 21.1 H D (0-14) pg/ml Total Protein 6.1 (6.0-8.3) gm/dl Albumin 3.5 (3.4-5.0) gm/dl Globulin 2.6 (2.5-4.0) gm/dl Albumin/Globulin Ratio 1.3 (0.9-2) Lipase 35 (11-82) U/L Urine Color Yellow Urine Appearance Clear (Clear) Urine pH 7.0 (4.5-7.5) Ur Specific [place] 1.018 (1.000-1.030) Urine Protein Negative (Negative) Urine Glucose (UA) 2+ H (Negative) Urine Ketones 1+ H (Negative) Urine Blood Negative (Negative) Urine Nitrite Negative (Negative) Urine Bilirubin Negative (Negative) Urine Urobilinogen Negative (Negative) Ur Leukocyte Esterase Negative (Negative) SARS-CoV-2, RNA, NAAT (NEGATIVE) 07/09/22 07/09/22 Range/Units 16:16 16:17 WBC (4.8-10.8) K/ul RBC (3.93-5.22) M/uL Hgb (12.0-16.0) g/dl Hct (34.1-44.9) % MCV (80.0-100.0) fL MCH (25.0-34.0) pg MCHC (32.0-36.0) g/dL RDW Std Deviation (36.4-46.3) fL RDW Coeff of Thai (11.5-14.5) % Plt Count (130-400) K/uL MPV (9.4-12.3) fL Immature Gran % (Auto) % Neut % (Auto) % Lymph % (Auto) % [place] % (Auto) % Eos % (Auto) % Baso % (Auto) % Neut # (Auto) (1.4-6.5) K/uL Lymph # (Auto) (1.2-3.4) K/uL [place] # (Auto) (0.24-0.82) K/uL Eos # (Auto) (0-0.50) K/uL Baso # (Auto) (0-0.2) K/uL Immature Gran # (Auto) (0.00-0.02) K/uL Sodium (136-145) mmol/L Potassium (3.5-5.1) mmol/L Chloride (98-107) mmol/L Carbon Dioxide (21-32) mmol/L Anion Gap (3-11) BUN (6-23) mg/dl Creatinine (0.6-1.2) mg/dl Est Cr Clr Drug Dosing ml/min Est GFR ( Amer) ml/min Est GFR (Non-Af Amer) ml/min BUN/Creatinine Ratio (10-20) Glucose (70-99(Fasting)) mg/dl Lactate 1.2 (0.4-2.0) mmol/L Calcium (8.5-10.1) mg/dl Total Bilirubin (0.2-1.0) mg/dl AST (13-39) U/L ALT (7-52) U/L Alkaline Phosphatase (34-104) U/L Troponin I High Sens (0-14) pg/ml Total Protein (6.0-8.3) gm/dl Albumin (3.4-5.0) gm/dl Globulin (2.5-4.0) gm/dl Albumin/Globulin Ratio (0.9-2) Lipase (11-82) U/L Urine Color Urine Appearance (Clear) Urine pH (4.5-7.5) Ur Specific [place] (1.000-1.030) Urine Protein (Negative) Urine Glucose (UA) (Negative) Urine Ketones (Negative) Urine Blood (Negative) Urine Nitrite (Negative) Urine Bilirubin (Negative) Urine Urobilinogen (Negative) Ur Leukocyte Esterase (Negative) SARS-CoV-2, RNA, NAAT POSITIVE A* (NEGATIVE) Imaging Data Radiologist's Impression: Abdomen/Pelvis CT 07/09/22 13:[address] WITH IV CONTRAST CT DOSE: 853.93 mGycm HISTORY: left sided abdominal pain TECHNIQUE: Multiaxial CT images of the abdomen and pelvis were performed following the use of intravenous contrast. A dose lowering technique was utilized adhering to the principles of ALARA. COMPARISON STUDY: None. FINDINGS: Mild dependent changes seen at the lung bases. No pneumoperitoneum. No pneumatosis. No suspicious lytic or blastic osseous lesions. Deformity and multiple calcifications within the left breast which is partially visualized on this study. This favors postoperative change. The gallbladder is unremarkable. The adrenal glands and pancreas are within normal limits. No hepatic or splenic masses identified. No retroperitoneal lymphadenopathy. Calcified plaque throughout the mildly ectatic abdominal aorta. There is also moderate bilateral hydroureteronephrosis to the level the bladder which is also distended. No renal or ureteral stones identified. There is pelvic floor collapse. Status post hysterectomy. Colonic diverticulosis. No evidence for acute diverticulitis. No bowel wall thickening or obstruction. Normal appendix. This is best seen on image 251. No pelvic free fluid or pelvic lymphadenopathy. IMPRESSION: 1. Mild to moderate bilateral hydroureteronephrosis to the level of the bladder which is also distended. This favors bladder outlet obstruction. This could be due to the pelvic floor collapse. Consider catheterization for decompression. 2. No bowel wall thickening or obstruction. 3. Colonic diverticulosis. No evidence for acute diverticulitis. 4. Partially visualized postoperative changes within the left breast. ACT 112: Negative or not required by law. Electronically signed by: Wilbert Figueroa M.D. 07/09/2022 3:41 PM Chest X-Ray 07/09/22 13:25 XR chest 1V portable HISTORY: left lower chest pain COMPARISON: Chest 06/14/2022. FINDINGS: The cardiac silhouette is top normal in size. The right lung is clear. No pleural fusions. No pneumothorax. No evidence for pulmonary edema. Small patchy density at the left lung base are noted. IMPRESSION: Small patchy density within the left lung base which favors subsegmental atelectasis. A pneumonia could also have a similar appearance in the appropriate clinical setting. This will be reassessed on the same day abdomen and pelvis CT. ACT 112: Negative or not required by law. Electronically signed by: Wilbert Figueroa M.D. 07/09/2022 1:53 PM MDM Narrative I examined the patient. An IV lock was placed and labs were drawn. The patient was given normal saline solution 500 mL bolus. She declined medication for pain or nausea while in the emergency department. Continuous playground monitor: Order was placed for continuous playground monitor. Patient was placed on the playground monitor. Patient was noted to be in normal sinus rhythm at an initial rate of 71 bpm. EKG was reviewed by myself and Dr. Francis and showed normal sinus rhythm at 96 bpm, but we do not appreciate any ST elevation. Troponin was mildly elevated at 21.1. White blood cell count low at 4.59 with low lymphocytes at 0.57, but remainder of CBC was normal. Glucose elevated at 245 and total bilirubin elevated at 1.2. Sodium was low at 3.4. BUN, creatinine, and remainder of the LFTs were normal. Lipase normal at 35. Lactate level normal. Urinalysis with 2+ glucose and 1+ ketones, but no obvious evidence for infection. Chest x-ray was reviewed by myself and read by radiology as above and shows small patchy density within the left lung base which favors subsegmental atelectasis. Lungs are clear on exam and she has not been coughing per patient. However, prior to admission her COVID test did come back positive. CT scan of the abdomen and pelvis with contrast was reviewed by myself and read by radiology as above and showed mild to moderate bilateral Parks ureter nephrosis as well as bladder outlet obstruction which may be due to pelvic floor collapse. No other acute findings. A Handy catheter was placed. The patient has multiple contributing factors as above as well as deterioration of her health status and being able to take care of herself at home. I have spoken with the patient's granddaughter as well as her granddaughter in law (who was in communication with her grandson who is her power of insurance defense attorney) during her evaluation in the emergency department and they feel the patient is not thriving well at home. The patient was independently evaluated by Dr. Francis, who agreed with my assessment and treatment plan and admission was recommended. Blood cultures and urine culture are pending. I spoke with the hospitalist Dr. Robins who agreed to the admission. Please see their dictation for ongoing management of this patient. The care of this patient was transferred in stable condition. Impression & Plan Behavioral change, Bladder outlet obstruction, Elevated troponin, COVID-19, Weakness Discharge Plan Visit Data Chief Complaint: Illness ED Provider: Tien Francis ED Midlevel Provider: Lamar Gill Discharge Problem: Behavioral change, Bladder outlet obstruction, Elevated troponin, COVID-19, Weakness Patient Disposition: Admitted As Inpatient Condition: Good Discharge Instructions Interventions: ED Discharge Assessment Last Done: 07/09/22 18:11
[2022-07-09] MEDS ORDERED: SODIUM CHLORIDE 0.9% 500 ML IV STA (13:25)
[2022-07-09 13:45] LABS: Basophils # (auto) 0.01 K/uL (0-0.2); Basophils % (auto) 0.2 %; Hematocrit (blood only) 41.4 % (34.1-44.9); Hemoglobin 14.3 g/dl (12.0-16.0); Immature Granulocytes # (auto) 0.01 K/uL (0.00-0.02); Immature Granulocytes % (auto) 0.2 %; Lymphocytes # (auto) 0.57 K/uL (1.2-3.4); Lymphocytes % (auto) 12.4 %; Mean Corpuscular Hemoglobin 29.2 pg (25.0-34.0); Mean Corpuscular Hgb Conc 34.5 g/dL (32.0-36.0); Mean Corpuscular Volume 84.7 fL (80.0-100.0); Mean Platelet Volume 10.2 fL (9.4-12.3); Monocytes # (auto) 0.69 K/uL (0.24-0.82); Neutrophils # (auto) 3.31 K/uL (1.4-6.5); Neutrophils % (auto) 72.2 %; Platelet Count 141 K/uL (130-400); RDW Coefficient of Variation 12.5 % (11.5-14.5); RDW Standard Deviation 37.8 fL (36.4-46.3); Red Blood Count 4.89 M/uL (3.93-5.22); White Blood Count 4.59 K/ul (4.8-10.8)
--- NOTE | 2022-07-09 13:54 | XRay Report ---
XR chest 1V portable HISTORY: left lower chest pain COMPARISON: Chest 06/14/2022. FINDINGS: The cardiac silhouette is top normal in size. The right lung is clear. No pleural fusions. No pneumothorax. No evidence for pulmonary edema. Small patchy density at the left lung base are note d. IMPRESSION: Small patchy density within the left lung base which favors subsegmental atelectasis. A pneumonia cou ld also have a similar appearance in the appropriate clinical setting. This will be reassessed on the same day abdomen and pelvis CT. ACT 112: Negative or not required by law. Electronically signed by: Wilbert Figueroa M.D. 07/09/2022 1:53 PM
[2022-07-09 14:08] LABS: Albumin Globulin Ratio 1.3 (0.9-2); Albumin Level 3.5 gm/dl (3.4-5.0); BUN Creatinine Ratio 20.3 (10-20); Bilirubin,Total 1.2 mg/dl (0.2-1.0); Calcium 8.7 mg/dl (8.5-10.1); Creatinine Clr Calc Pharmacy 75.3 ml/min; Est GFR (African American) 97.7 ml/min; Est GFR (Non-African American) 84.3 ml/min; Globulin 2.6 gm/dl (2.5-4.0); Potassium 3.4 mmol/L (3.5-5.1); Total Protein 6.1 gm/dl (6.0-8.3)
[2022-07-09 14:14] LABS: Troponin I High Sensitivity 21.1 pg/ml (0-14)
--- NOTE | 2022-07-09 14:16 | Electrocardiogram Report ---
Test Reason : Blood Pressure : / mmHG Vent. Rate : 096 BPM Atrial Rate : 096 BPM P-R Int : 162 ms QRS Dur : 096 ms QT Int : 360 ms P-R-T Axes : 074 -41 053 degrees QTc Int : 454 ms Normal sinus rhythm Left axis deviation Inferior infarct , age undetermined Nonspecific ST abnormality Abnormal ECG When compared with ECG of 14-JUN-2022 14:21, ST elevation now present in Anterior leads Confirmed by Manuel Arevalo ([id number]) on 07/09/2022 2:16:30 PM Referred By: REFERRED SELF Confirmed By:Manuel Arevalo
[2022-07-09] MEDS ORDERED: OPTIRAY 300 100mL IV ONE (14:30)
[2022-07-09 15:10] LABS: Appearance Urine Clear (Clear); Bilirubin Urine Negative (Negative); Blood Urine Negative (Negative); Color Urine Yellow; Glucose Urine UA 2+ (Negative); Ketones Urine 1+ (Negative); Leukocyte Esterase Urine Negative (Negative); Nitrite Urine Negative (Negative); Protein Urine Negative (Negative); Specific Gravity Urine 1.018 (1.000-1.030); Urobilinogen Urine Negative (Negative)
--- NOTE | 2022-07-09 15:21 | Emergency Department Note ---
ED Visit Note I was consulted by the Advanced Practice Provider. I saw the patient personally and performed a substantive portion of the visit. This includes aspects of the HPI, MDM, diagnostic interpretations, and disposition/plan. Patient presents with some weakness. She was found to be COVID-positive, she has an apparent bladder outlet obstruction. She has an elevated troponin. I suspect there is some debilitation here as well. Given the circumstances, hospitalization and further work-up is warranted. She may require inpatient hospital rehab or rehab placement. .
--- NOTE | 2022-07-09 15:42 | CT Scan Report ---
ABDOMEN AND PELVIS CT WITH IV CONTRAST CT DOSE: 853.93 mGycm HISTORY: left sided abdominal pain TECHNIQUE: Multiaxial CT images of the abdomen and pelvis were performed following the use of intrave nous contrast. A dose lowering technique was utilized adhering to the principles of ALARA. COMPARISON STUDY: None. FINDINGS: Mild dependent changes seen at the lung bases. No pneumoperitoneum. No pneumatosis. No susp icious lytic or blastic osseous lesions. Deformity and multiple calcifications within the left breast which is partially visualized on this study. This favors postoperative change. The gallbladder is un remarkable. The adrenal glands and pancreas are within normal limits. No hepatic or splenic masses id entified. No retroperitoneal lymphadenopathy. Calcified plaque throughout the mildly ectatic abdomina l aorta. There is also moderate bilateral hydroureteronephrosis to the level the bladder which is als o distended. No renal or ureteral stones identified. There is pelvic floor collapse. Status post hyst erectomy. Colonic diverticulosis. No evidence for acute diverticulitis. No bowel wall thickening or o bstruction. Normal appendix. This is best seen on image 251. No pelvic free fluid or pelvic lymphaden opathy. IMPRESSION: 1. Mild to moderate bilateral hydroureteronephrosis to the level of the bladder which is also distend ed. This favors bladder outlet obstruction. This could be due to the pelvic floor collapse. Consider catheterization for decompression. 2. No bowel wall thickening or obstruction. 3. Colonic diverticulosis. No evidence for acute diverticulitis. 4. Partially visualized postoperative changes within the left breast. ACT 112: Negative or not required by law. Electronically signed by: Wilbert Figueroa M.D. 07/09/2022 3:41 PM
--- NOTE | 2022-07-09 17:00 | History & Physical Report ---
Date of Service July 09, 2022 Assessment & Plan (1) COVID-19: Plan: Patient admitted with falls, behavior changes and gemmeralized weakness COVID 19 infection likely playing major role. Not meeting criteria for steroids at the moment. will also hold remdesevir. will monitor (2) Fall: Plan: patient vinh need PT?OT (3) Behavioral change: Plan: may be delirium from COVID 19 will monitor (4) Bladder outlet obstruction: Plan: placed rouse: draining urine Vinh monitor creatinine (5) Hypothyroidism: Plan: resume home meds (6) Parkinsonism: (7) Hypertension: Plan: resume home meds (8) Hyperlipidemia: Plan: cont statin switched to atorvastatin DUE TO INTERACTION WITH VERAPAMIL (9) Type 2 diabetes mellitus: Plan: glycemic control (10) Gait disorder: History of Present Illness Chief Complaint: worsening confusion and fall. Primary Care Provider: Anderson Dowell MD History was obtained by discussing with the grandson. Patient is a 82 yo female with PMH described below. She has been combating dementia and slowly has been decreasing her physical skills to ambulate, however in the past 2 weeks, her dementia has worsened. she has been somewhat agressive and confused. Her grandson reports that he has not seen her for past few days as he is sick. However, family has been with her and noted fall which prompted them to bring patient in the hospital. While in the ER, patient was found to have COVID 19. She has been vaccinated. Allergies Allergy/AdvReac Type Severity Reaction Status Date / Time Bactrim Allergy Intermediate RASH Verified 11/21/17 14:01 duloxetine Allergy Intermediate BALANCE Verified 07/09/22 16:47 PROBLEMS gabapentin Allergy Intermediate BALANCE Verified 07/09/22 16:47 PROBLEMS nitrofurantoin Allergy Intermediate HIVES Verified 07/09/22 16:47 nortriptyline Allergy Intermediate balance Verified 07/09/22 16:47 problems pregabalin [From Lyrica] Allergy Intermediate BALANCE Verified 07/09/22 16:47 ISSUES sulfamethoxazole Allergy Intermediate RASH Verified 07/09/22 16:47 trimethoprim Allergy Intermediate RASH Verified 07/09/22 16:47 lisinopril AdvReac Mild COUGH Verified 07/09/22 16:47 repaglinide AdvReac Mild GI UPSET Verified 07/09/22 16:47 Fluoride Preparations AdvReac Mild SICK Uncoded 07/09/22 16:47 STOMACH, MOUTH/THROAT SORENESS FROM FLUORIDE TREATMENT Home Medications Medication Instructions Recorded Confirmed Type latanoprost 0.005 % eye drops 1 drp OPB HS 06/02/19 07/09/22 History multivitamin (Multiple Vitamins 1 tab PO DAILY 06/02/19 07/09/22 History tablet) insulin lispro 100 unit/mL 3 units subcut DAILY PRN SLIDING 04/13/20 07/09/22 History subcutaneous pen (Humalog KwikPen SCALE (U-100) Insulin) glucosamine-chondroitin 250 mg-200 2 tab PO QAM 02/28/21 07/09/22 History mg tablet (Osteo Bi-Flex) insulin degludec 200 unit/mL (3 14 unit (0.07 mL) subcut HS #9 mL 05/11/21 07/09/22 Rx mL) subcutaneous pen (Tresiba FlexTouch U-200 insulin) hydrochlorothiazide 25 mg tablet 25 mg PO DAILY #90 tabs 06/26/21 07/09/22 Rx losartan 100 mg tablet 100 mg PO DAILY #90 tabs 06/26/21 07/09/22 Rx metformin 1,000 mg tablet 1,000 mg PO BID #180 tabs 06/26/21 07/09/22 Rx simvastatin 20 mg tablet 20 mg PO DAILY #90 tabs 06/26/21 07/09/22 Rx levothyroxine 88 mcg tablet 88 mcg PO DAILY 90 days #90 tabs 08/03/21 07/09/22 Rx verapamil 240 mg 24 hr 240 mg PO DAILY 06/14/22 07/09/22 History capsule,extended release aspirin 81 mg tablet,delayed 81 mg PO DAILY 07/09/22 07/09/22 History release Past Med/Surg History Medical History Arthritis Degenerative joint disease Diabetes mellitus, type 2 Diabetic peripheral neuropathy Gait disorder UNSTEADY BALANCE Glaucoma History of anemia History of colon polyps Hx of migraines "CLUSTER MIGRAINES" HX: breast cancer LEFT (SURGERY +RADIATION) Hyperlipidemia Hypertension Hypothyroidism Overactive bladder Syncope Transient ischemic attack (TIA) ? HX TIA'S "MANY YEARS AGO" Vaginal wall prolapse Surgical History Family history of reaction to anesthesia DAUGHTER-WAKES UP IN MIDDLE OF SURGERIES History of breast biopsy History of cataract surgery RT/LEFT History of foot surgery LEFT History of knee surgery LEFT History of lumpectomy LEFT BREAST History of tooth extraction History of total abdominal hysterectomy History of tubal ligation History of vaginal surgery anterior colporrhaphy, repair of cystocele Family History Family/Other Obstructive sleep apnea Ovarian cancer Breast cancer Father Diabetes Cardiac disorder Hypertension Family history of diabetes mellitus Grandmother Diabetes Mother Cardiac disorder Hypertension Family history of diabetes mellitus Grandfather Stroke Daughter Family history of diabetes mellitus Social History Smoking Status: Never smoker Second Hand Exposure: No; Hx Alcohol Use: Yes Alcohol type: hard liquor Hx Substance Use: No Preferred Language: Argentine Communication Ability: Effective Technical Sales Representatives Required: No Beliefs That Will Affect Care: None marital status: / Current Living Situation: Family Current Living Situation Comment: WITH DAUGHTER current occupational status: retired Other Information That Helps Us Care for You: No Feels Safe at Home: Yes Safety Concerns: Feels Safe At This Time Assistive Devices: Cane and Walker Review of Systems Review of Systems: Unobtainable due to cognitive status Physical Exam Physical Exam: GENERAL: Non-toxic in appearance. Confused INTEGUMENTARY: Warm, dry, and Francis. HEAD: Normocephalic. EYES: without scleral icterus or trauma. ENT/OROPHARYNX: clear and moist. LYMPHADENOPATHY/NECK: Trachea midline, no lymphdenopathy RESPIRATORY: Clear to auscultation bilaterally. No increased work of breathing. CARDIOVASCULAR: Regular rate and rhythm. GI/ABDOMEN: Soft and nontender. No organomegaly or pulsatile mass. EXTREMITIES: Warm and well perfused. NEUROLOGICAL: Intact without focal deficits. PSYCHIATRIC: normal affect. MUSCULOSKELETAL: Normally developed with good muscle tone. Results & Data Results & Data ([facility]) Vital Signs (Past 12 Hours) Vital Signs Temp Pulse Pulse Resp BP BP Pulse Ox 07/09/22 14:51 16 07/09/22 14:10 67 14 07/09/22 14:00 77 20 92 07/09/22 14:00 168/70 H 07/09/22 13:50 79 18 93 07/09/22 13:40 80 22 93 07/09/22 13:30 74 19 91 07/09/22 13:30 162/74 H 07/09/22 13:20 91 H 19 95 07/09/22 13:10 99 H 17 95 07/09/22 13:00 90 26 H 94 07/09/22 13:00 131/102 H 07/09/22 12:50 75 25 H 94 07/09/22 13:39 93 07/09/22 12:27 37.0 C 94 H 24 192/87 H 93 07/09/22 12:15 37 C 94 H 24 192/87 H 93 O2 Del Method 07/09/22 14:51 07/09/22 14:10 07/09/22 14:00 07/09/22 14:00 07/09/22 13:50 07/09/22 13:40 07/09/22 13:30 07/09/22 13:30 07/09/22 13:20 07/09/22 13:10 07/09/22 13:00 07/09/22 13:00 07/09/22 12:50 07/09/22 13:39 Room Air 07/09/22 12:27 Room Air 07/09/22 12:15 Room Air PG Care Time/CCT Total # of Minutes Spent Total Time Spent with Patient: Total time spent is greater than 50% in coordination of care (as documented) at patient's floor/unit and/or counseling patient: Coding Level of Care Code 78875 Initial Inpt Care Lvl 3 Diagnoses COVID-19 U07.1 Fall W19.XXXA Behavioral change R46.89 Bladder outlet obstruction N32.0 Hypothyroidism E03.9 Parkinsonism G20 Hypertension I10 Hyperlipidemia E78.5 Type 2 diabetes mellitus E11.9 Gait disorder R26.9
[2022-07-09] MEDS ORDERED: NON-FORMULARY MEDICATION (Insulin Lispro [Humalog Kwikpen Insulin] 100 unit/mL insulin pen SQ PRN (17:36)
[2022-07-09] MEDS ORDERED: ONDANSETRON INJ 2 MG/ML 2 ML VIAL IV PRN (17:45)
[2022-07-09] MEDS ORDERED: ACETAMINOPHEN 325 MG TAB PO PRN (17:45)
[2022-07-09] MEDS ORDERED: PHARMACY GLYCEMIC MGMT CONSULT PRN (19:26)
[2022-07-09] MEDS ORDERED: DEXTROSE 50% 50 ML SYRINGE IV PRN (19:30)
[2022-07-09] MEDS ORDERED: CARBOHYDRATES FOR HYPOGLYCEMIA PO PRN (19:30)
[2022-07-09] MEDS ORDERED: GLUCAGON FOR INJ 1 MG VIAL IM PRN (19:30)
[2022-07-09] MEDS ORDERED: GLUCOSE 10 TAB/TUBE PO PRN (19:30)
[2022-07-09] MEDS ORDERED: GLUCOSE 40% GEL 15 GM TUBE PO PRN (19:30)
--- NOTE | 2022-07-09 19:36 | Pharmacy Report ---
Pharmacy Glycemic Short Note 2 - Date of Service July 09, 2022 - Glycemic Short BSG Results (Last 24 hours): 07/09/22 13:40 Glucose 245 H OUTPATIENT ANTIDIABETIC REGIMEN: * Tresiba 14 units SC HS * Humalog sliding scale * Metformin 1000 mg PO BIDM * HbA1c pending ASSESSMENT: * 82 yo F admitted today secondary to dementia with increasingly more aggressive behavior. Pharmacy has been consulted to assist with inpatient glycemic management. Updated A1c will be drawn tomorrow morning. Patient takes both insulin and metformin as an outpatient. Currently NPO. * Serum BSG in ED was 245 mg/dL. Will have floor RN update BSG upon arrival and cover patient with Novolog. Targeting a goal of 110-140 mg/dL with Novolog based on weight/stress of 2.5. Avoiding overnight checks due to dementia. * Will transition Tresiba to Lantus. Given NPO status, will reduce home dose by ~40% this evening. Hold outpatient metformin for the time being. PLAN FOR INPATIENT GLYCEMIC CONTROL: * Hold outpatient oral diabetes medications * Basal insulin * Lantus 8 units SC HS * Bolus insulin * NovoLog per scale ACHS or Q6hrs while NPO * Goal Range: Low 110 mg/dL - High 140 mg/dL * Correction Factor: 25 mg/dL/unit * Nutritional / Prandial insulin per carb ratio of 1 unit per 8 grams CHO consumed
[2022-07-09] MEDS ORDERED: NON-FORMULARY MEDICATION (Insulin Degludec [Tresiba Flextouch U-200] 200 unit/mL (3 mL) in SQ SCH (21:00)
[2022-07-09] MEDS ORDERED: LANTUS PER UNIT CHARGE SQ SCH (21:00)
[2022-07-09] MEDS: LATANOPROST 0.005% OP SOLN 2.5 ML BTL OPB SCH (21:27)
[2022-07-09] MEDS: ATORVASTATIN 10 MG TAB PO SCH (21:27)
[2022-07-09] MEDS ORDERED: PNEUMOCOCCAL POLYSACCHARIDES 25 MCG/0.5 ML VIAL/SYR IM ONE (23:17)
[2022-07-10] MEDS: LEVOTHYROXINE SODIUM 88 MCG TABLET PO SCH (06:11)
[2022-07-10 07:43] LABS: Estimated Average Glucose 237 mg/dl; Hemoglobin A1C 9.9 % (4.5-5.6)
[2022-07-10] MEDS: ENOXAPARIN INJ 30 MG/0.3 ML SYR SQ SCH (08:47)
[2022-07-10] MEDS: ASPIRIN 81 MG ECTAB PO SCH (08:47)
[2022-07-10] MEDS: LOSARTAN POTASSIUM 50 MG TAB PO SCH (08:48)
[2022-07-10] MEDS: VERAPAMIL HCL 240 MG TABCR PO SCH (08:48)
[2022-07-10] MEDS: MULTIVITAMIN TAB PO SCH (08:48)
[2022-07-10] MEDS ORDERED: NON-FORMULARY MEDICATION (Glucosamine-Chondroitin [Osteo Bi-Flex] 250-200 mg Tablet) PO SCH (09:00)
[2022-07-10] MEDS ORDERED: Nursing to Pharmacy Communication SCH (11:15)
--- NOTE | 2022-07-10 11:54 | Pharmacy Report ---
Pharmacy Glycemic Short Note 2 - Date of Service July 10, 2022 - Glycemic Short BSG Results (Last 24 hours): 07/09/22 07/09/22 07/10/22 13:40 23:55 06:25 Glucose 245 H POC Glucose 192 H 157 H 07/10/22 11:24 Glucose POC Glucose 153 H OUTPATIENT ANTIDIABETIC REGIMEN: * Tresiba 14 units SC HS * Humalog sliding scale * Metformin 1000 mg PO BIDM * HbA1c 9.9% (07/10/22) ASSESSMENT: 07/10/22 * Patient's BSG this morning was 157 mg/dL. * Will increase Lantus to 10 units as fasting BSG slightly above goal range. * Continue Novolog weight-based stress 2-3 BACKGROUND * 82 yo F admitted today secondary to dementia with increasingly more aggressive behavior. Pharmacy has been consulted to assist with inpatient glycemic management. Updated A1c will be drawn tomorrow morning. Patient takes both insulin and metformin as an outpatient. Currently NPO. * Serum BSG in ED was 245 mg/dL. Will have floor RN update BSG upon arrival and cover patient with Novolog. Targeting a goal of 110-140 mg/dL with Novolog based on weight/stress of 2.5. Avoiding overnight checks due to dementia. * Will transition Tresiba to Lantus. Given NPO status, will reduce home dose by ~40% this evening. Hold outpatient metformin for the time being. PLAN FOR INPATIENT GLYCEMIC CONTROL: * Hold outpatient oral diabetes medications * Basal insulin * Bddkaw19 units SC HS * Bolus insulin * NovoLog per scale ACHS or Q6hrs while NPO * Goal Range: Low 110 mg/dL - High 140 mg/dL * Correction Factor: 25 mg/dL/unit * Nutritional / Prandial insulin per carb ratio of 1 unit per 8 grams CHO consumed
[2022-07-10] MEDS: INSULIN ASPART PER UNIT SC SCH ×3 (12:24→20:19)
--- NOTE | 2022-07-10 16:36 | OB/GYN Consultation ---
Date of Consultation July 10, 2022 History of Present Illness Reason for Consultation: cystocele with urinary retention Attending Physician: Frederick Robins History of Present Illness Patient is an 82-year-old 3 para 3-0-0-3 female who was admitted because of change in mental status along with a positive COVID test. She was noted to have a large cystocele on admission with difficulty with urination. This is resolved when a Handy catheter was placed. The patient states that she had been able to urinate without much difficulty prior to her admission. She may have to change position to empty her bladder more completely prior to this admission but otherwise feels she can empty her bladder fairly well. She has had a longstanding cystocele following abdominal hysterectomy and BSO which was performed in her 40s for abnormal bleeding.. She had undergone an anterior repair, enterocele and rectocele repair in 1999. Unfortunately this was unsuccessful and she was having issues of pelvic pressure several months later. Since then she has intermittently been seen in our office with a complaints of pelvic pressure. In 2002 cube pessary was placed but was very uncomfortable and had to be removed. Since then she has been reluctant to have a pessary because of the unpleasant experience she had with the cube pessary. She was last seen for an exam in 2018.At that visit, the cystocele was addressed but at that time she was not interested in a pessary as she felt it was not necessary. She does not have any vaginal bleeding or discharge that has been a problem. On exam, done in the hospital bed, there is no obvious cystocele nor does it protrude with cough and Valsalva maneuver. Handy catheter is still in place however. On vaginal exam, she does have a redundant anterior vaginal wall but otherwise it is hard to assess the degree of prolapse. At this time, we will wait till she is discharged from the hospital and is feeling better before we pursue a pessary fitting in the office. We will have our office call her to set up appointment in the near future. Allergies Allergy/AdvReac Type Severity Reaction Status Date / Time Bactrim Allergy Intermediate RASH Verified 11/21/17 14:01 duloxetine Allergy Intermediate BALANCE Verified 07/09/22 16:47 PROBLEMS gabapentin Allergy Intermediate BALANCE Verified 07/09/22 16:47 PROBLEMS nitrofurantoin Allergy Intermediate HIVES Verified 07/09/22 16:47 nortriptyline Allergy Intermediate balance Verified 07/09/22 16:47 problems pregabalin [From Lyrica] Allergy Intermediate BALANCE Verified 07/09/22 16:47 ISSUES sulfamethoxazole Allergy Intermediate RASH Verified 07/09/22 16:47 trimethoprim Allergy Intermediate RASH Verified 07/09/22 16:47 lisinopril AdvReac Mild COUGH Verified 07/09/22 16:47 repaglinide AdvReac Mild GI UPSET Verified 07/09/22 16:47 Fluoride Preparations AdvReac Mild SICK Uncoded 07/09/22 16:47 STOMACH, MOUTH/THROAT SORENESS FROM FLUORIDE TREATMENT Home Medications Medication Instructions Recorded Confirmed Type latanoprost 0.005 % eye drops 1 drp OPB HS 06/02/19 07/09/22 History multivitamin (Multiple Vitamins 1 tab PO DAILY 06/02/19 07/09/22 History tablet) insulin lispro 100 unit/mL 3 units subcut DAILY PRN SLIDING 04/13/20 07/09/22 History subcutaneous pen (Humalog KwikPen SCALE (U-100) Insulin) glucosamine-chondroitin 250 mg-200 2 tab PO QAM 02/28/21 07/09/22 History mg tablet (Osteo Bi-Flex) insulin degludec 200 unit/mL (3 14 unit (0.07 mL) subcut HS #9 mL 05/11/21 07/09/22 Rx mL) subcutaneous pen (Tresiba FlexTouch U-200 insulin) hydrochlorothiazide 25 mg tablet 25 mg PO DAILY #90 tabs 06/26/21 07/09/22 Rx losartan 100 mg tablet 100 mg PO DAILY #90 tabs 06/26/21 07/09/22 Rx metformin 1,000 mg tablet 1,000 mg PO BID #180 tabs 06/26/21 07/09/22 Rx simvastatin 20 mg tablet 20 mg PO DAILY #90 tabs 06/26/21 07/09/22 Rx levothyroxine 88 mcg tablet 88 mcg PO DAILY 90 days #90 tabs 08/03/21 07/09/22 Rx verapamil 240 mg 24 hr 240 mg PO DAILY 06/14/22 07/09/22 History capsule,extended release aspirin 81 mg tablet,delayed 81 mg PO DAILY 07/09/22 07/09/22 History release Patient History Medical History Arthritis Degenerative joint disease Diabetes mellitus, type 2 Diabetic peripheral neuropathy Gait disorder UNSTEADY BALANCE Glaucoma History of anemia History of colon polyps Hx of migraines "CLUSTER MIGRAINES" HX: breast cancer LEFT (SURGERY +RADIATION) Hyperlipidemia Hypertension Hypothyroidism Overactive bladder Syncope Transient ischemic attack (TIA) ? HX TIA'S "MANY YEARS AGO" Vaginal wall prolapse Surgical History Family history of reaction to anesthesia DAUGHTER-WAKES UP IN MIDDLE OF SURGERIES History of breast biopsy History of cataract surgery RT/LEFT History of foot surgery LEFT History of knee surgery LEFT History of lumpectomy LEFT BREAST History of tooth extraction History of total abdominal hysterectomy History of tubal ligation History of vaginal surgery anterior colporrhaphy, repair of cystocele Family History Family/Other Obstructive sleep apnea Ovarian cancer Breast cancer Father Diabetes Cardiac disorder Hypertension Family history of diabetes mellitus Grandmother Diabetes Mother Cardiac disorder Hypertension Family history of diabetes mellitus Grandfather Stroke Daughter Family history of diabetes mellitus Social History Smoking Status: Never smoker Second Hand Exposure: No; Hx Alcohol Use: Yes Alcohol type: hard liquor Hx Substance Use: No Preferred Language: Maltese Communication Ability: Effective Lard Mixer Required: No Beliefs That Will Affect Care: None marital status: / Current Living Situation: Family Current Living Situation Comment: WITH DAUGHTER current occupational status: retired Other Information That Helps Us Care for You: No Feels Safe at Home: Yes Safety Concerns: Feels Safe At This Time Assistive Devices: Cane and Walker Results & Data ([facility]) Vital Signs (Past 12 Hours) Vital Signs Temp Pulse Pulse Resp BP Pulse Ox O2 Del Method 07/10/22 15:50 97.9 F 84 18 110/65 94 Room Air 07/10/22 14:53 85 07/10/22 11:00 98.2 F 74 16 138/72 94 Room Air 07/10/22 08:27 Room Air 07/10/22 07:57 97.7 F 71 16 184/76 H 95 Room Air 07/10/22 06:58 69 PG Care Time/CCT Total # of Minutes Spent Total Time Spent with Patient: Total time spent is greater than 50% in coordination of care (as documented) at patient's floor/unit and/or counseling patient: Coding Level of Care Code 66076 Inpt Consult Level 3
[2022-07-10] MEDS ORDERED: INSULIN ASPART PER UNIT SC SCH (19:30)
[2022-07-10] MEDS ORDERED: OLANZapine 10 MG/2.1 ML SDV IM STA (20:17)
[2022-07-10] MEDS: LATANOPROST 0.005% OP SOLN 2.5 ML BTL OPB SCH (20:20)
[2022-07-10] MEDS: LANTUS PER UNIT CHARGE SQ SCH (20:20)
[2022-07-10] MEDS: ATORVASTATIN 10 MG TAB PO SCH (20:21)
--- NOTE | 2022-07-10 21:01 | Hospitalist Progress Note ---
Date of Service July 10, 2022 Assessment & Plan (1) COVID-19: Plan: Patient admitted with falls, behavior changes and generalized weakness for past 2 weeks COVID 19 infection likely playing role. Not meeting criteria for steroids at the moment. will also hold remdesevir. will monitor Stable on 07/10 (2) Fall: Plan: patient vinh need PT?OT Given her repeat falls patient will need to be placed. D/W Kristian who is the POA/GrandSon on 07/10 He showed be the first contact on the chart, informed rice milling supervisor. (3) Behavioral change: Plan: may be delirium from COVID 19 will monitor Appears improved on 07/10 This will likely wax and wane (4) Bladder outlet obstruction: Plan: Secondary to pelvic floor collapse Appears with rouse cathete, urine is draining consulted CITY COLLECTOR (5) Hypothyroidism: Plan: resume home meds (6) Parkinsonism: Plan: appears stable. may consider discussion with Neuro is meds need to be started. Doubt this played role into recurrent falls. Likely more COVID 19 (7) Hypertension: Plan: resume home meds (8) Hyperlipidemia: Plan: cont statin switched to satorvastatin (9) Type 2 diabetes mellitus: Plan: glycemic control (10) Gait disorder: Plan: consult PT./OT Plan LOVENOX DNR/DNI after discussing with Kristian HUNG Admission and Anticipated Discharge Date Admission Date: July 09, 2022 Subjective 82 YO FEMALE reports feeling well. She is enjoying the view of [employer]. She reports no new symptoms. Review of Systems Review of Systems: All systems reviewed & are unremarkable except as noted in HPI & below Physical Exam Constitutional: WD/WN, vitals as above Eyes: PERRL, conjunctivae normal, anicteric sclerae ENMT: external ear and nose normal, oropharynx normal Neck: trachea midline, no thyromegaly Respiratory: normal respiratory effort, lungs clear to auscultation Cardiovascular: RRR, no murmur, no edema Gastrointestinal (Abdomen): normal bowel sounds, soft, nontender, no hepatosplenomegaly Musculoskeletal: no cyanosis or clubbing, extremities motor strength 5/5 Skin: no rashes, warm and dry Neurologic: PERRL, EOMI, accommodation nl, no face palsy, no dysarthria Psychiatric: A+Ox3, euthymic affect (only does not know year, but is correct with month and day) Lymphatic: no cervical or axillary lymphadenopathy Results & Data Results & Data ([facility]) Vital Signs (Past 12 Hours) Vital Signs Temp Pulse Pulse Resp BP Pulse Ox O2 Del Method 07/10/22 19:34 36.9 C 82 16 168/72 H 96 Room Air 07/10/22 15:50 36.6 C 84 18 110/65 94 Room Air 07/10/22 14:53 85 07/10/22 11:00 36.8 C 74 16 138/72 94 Room Air PG Care Time/CCT Total # of Minutes Spent Total Time Spent with Patient: Total time spent is greater than 50% in coordination of care (as documented) at patient's floor/unit and/or counseling patient: Coding Level of Care Code 29120 Subseq Hosp Care Lvl 3 Diagnoses COVID-19 U07.1 Fall W19.XXXA Behavioral change R46.89 Bladder outlet obstruction N32.0 Hypothyroidism E03.9 Parkinsonism G20 Hypertension I10 Hyperlipidemia E78.5 Type 2 diabetes mellitus E11.9 Gait disorder R26.9 Time Spent (min) 35
[2022-07-11] MEDS: LEVOTHYROXINE SODIUM 88 MCG TABLET PO SCH (05:58)
[2022-07-11 08:31] LABS: Hematocrit (blood only) 45.4 % (34.1-44.9); Hemoglobin 16.2 g/dl (12.0-16.0); Mean Corpuscular Hemoglobin 29.5 pg (25.0-34.0); Mean Corpuscular Hgb Conc 35.7 g/dL (32.0-36.0); Mean Corpuscular Volume 82.7 fL (80.0-100.0); Mean Platelet Volume 10.2 fL (9.4-12.3); Platelet Count 158 K/uL (130-400); RDW Coefficient of Variation 12.6 % (11.5-14.5); RDW Standard Deviation 38.2 fL (36.4-46.3); Red Blood Count 5.49 M/uL (3.93-5.22); White Blood Count 4.86 K/ul (4.8-10.8)
[2022-07-11] MEDS: MULTIVITAMIN TAB PO SCH (08:38)
[2022-07-11] MEDS: ASPIRIN 81 MG ECTAB PO SCH (08:38)
[2022-07-11] MEDS: VERAPAMIL HCL 240 MG TABCR PO SCH (08:38)
[2022-07-11] MEDS: LOSARTAN POTASSIUM 50 MG TAB PO SCH (08:38)
[2022-07-11] MEDS: ENOXAPARIN INJ 30 MG/0.3 ML SYR SQ SCH (08:39)
[2022-07-11] MEDS: INSULIN ASPART PER UNIT SC SCH ×4 (08:52→21:30)
[2022-07-11 08:59] LABS: BUN Creatinine Ratio 24.6 (10-20); Creatinine Clr Calc Pharmacy 75.5 ml/min; Est GFR (African American) 99.2 ml/min; Est GFR (Non-African American) 85.6 ml/min; Potassium 2.5 mmol/L (3.5-5.1)
[2022-07-11] MEDS ORDERED: POTASSIUM CHLORIDE CRTAB 20 MEQ TABCR PO STA ×2 (09:02→17:49)
--- NOTE | 2022-07-11 17:02 | Hospitalist Progress Note ---
Date of Service July 11, 2022 Assessment & Plan (1) COVID-19: Plan: Patient admitted with falls, behavior changes and generalized weakness for past 2 weeks COVID 19 infection likely playing role. Not meeting criteria for steroids at the moment. will also hold remdesevir. (2) Hypokalemia: Plan: K 2.5 this morning from 3.4 two days ago. She is on HCTZ as outpatient and may just be overall body depleted in potassium. Will replace and trend for now. (3) Fall: Plan: Appreciate PT/OT evals Given her repeat falls patient will need to be placed. D/W Kristian who is the POA/GrandSon on 07/10 He showed be the first contact on the chart, informed social secretary. (4) Behavioral change: Plan: may be delirium from COVID 19 will monitor This will likely wax and wane (5) Bladder outlet obstruction: Plan: Secondary to pelvic floor collapse Resolved with rouse catheter, urine is draining consulted TWISTER DOFFER - will follow up as outpatient (6) Hypothyroidism: Plan: TSH 2.55 in May resume home meds (7) Parkinsonism: Plan: appears stable. may consider discussion with Neuro is meds need to be started. Doubt this played role into recurrent falls. Likely more COVID 19 (8) Hypertension: Plan: resume home meds (9) Hyperlipidemia: Plan: cont statin switched to atorvastatin DUE TO INTERACTION WITH VERAPAMIL (10) Type 2 diabetes mellitus: Plan: HbA1C 9.9 Appreciate pharmacy glycemic control (11) Gait disorder: Plan: consult PT/OT (12) Abnormal EKG: Plan: Initial ekg reported with ST elevations in anterior leads. Troponin Plan Lovenox 30mg sq daily DNR/DNI after discussing with Kristian HUNG on admission Admission and Anticipated Discharge Date Admission Date: July 09, 2022 Subjective Unable to get any history from the patient. Alert but orientated to self only. No current complaints other than her poor appetite. Review of Systems Review of Systems: All systems reviewed & are unremarkable except as noted in Subjective Physical Exam Constitutional: WD/WN, vitals as above + frail appearing Eyes: + anicteric sclerae; normal pupil size Neck: trachea midline, no thyromegaly Respiratory: normal respiratory effort, lungs clear to auscultation Cardiovascular: RRR, no murmur, no edema Gastrointestinal (Abdomen): normal bowel sounds, soft, nontender, no hepatosplenomegaly Skin: no rashes, warm and dry Neurologic: moves all extremities and awake; no focal motor deficits and not confused Psychiatric: Orientation: alert and oriented to person; + not oriented to place and + not oriented to time Results & Data Results & Data ([facility]) Vital Signs (Past 12 Hours) Vital Signs Temp Pulse Pulse Resp BP Pulse Ox O2 Del Method 07/11/22 15:46 36.9 C 74 19 111/68 94 Room Air 07/11/22 15:00 73 07/11/22 11:24 36.8 C 86 20 115/69 94 Room Air 07/11/22 09:00 Room Air 07/11/22 07:00 96 H 07/11/22 06:47 36.3 C L 84 16 173/78 H 95 Room Air PG Care Time/CCT Total # of Minutes Spent Total Time Spent with Patient: Total time spent is greater than 50% in coordination of care (as documented) at patient's floor/unit and/or counseling patient: Coding Level of Care Code 64549 Subseq Hosp Care Lvl 2 Diagnoses COVID-19 U07.1 Hypokalemia E87.6 Fall W19.XXXA Behavioral change R46.89 Bladder outlet obstruction N32.0 Hypothyroidism E03.9 Parkinsonism G20 Hypertension I10 Hyperlipidemia E78.5 Type 2 diabetes mellitus E11.9 Gait disorder R26.9 Abnormal EKG R94.31
[2022-07-11 17:31] LABS: BUN Creatinine Ratio 21.2 (10-20); Calcium 8.6 mg/dl (8.5-10.1); Creatinine Clr Calc Pharmacy 69.8 ml/min; Est GFR (African American) 96.7 ml/min; Est GFR (Non-African American) 83.4 ml/min; Potassium 2.6 mmol/L (3.5-5.1)
[2022-07-11] MEDS: LANTUS PER UNIT CHARGE SQ SCH (21:31)
[2022-07-11] MEDS: ATORVASTATIN 10 MG TAB PO SCH (21:33)
[2022-07-11] MEDS: LATANOPROST 0.005% OP SOLN 2.5 ML BTL OPB SCH (21:37)
[2022-07-12] MEDS: LEVOTHYROXINE SODIUM 88 MCG TABLET PO SCH (05:55)
[2022-07-12] MEDS: ASPIRIN 81 MG ECTAB PO SCH (08:05)
[2022-07-12] MEDS: MULTIVITAMIN TAB PO SCH (08:05)
[2022-07-12] MEDS: LOSARTAN POTASSIUM 50 MG TAB PO SCH (08:06)
[2022-07-12] MEDS: VERAPAMIL HCL 240 MG TABCR PO SCH (08:06)
[2022-07-12] MEDS: ENOXAPARIN INJ 30 MG/0.3 ML SYR SQ SCH (08:06)
[2022-07-12] MEDS: INSULIN ASPART PER UNIT SC SCH ×4 (09:42→20:33)
[2022-07-12 10:09] LABS: BUN Creatinine Ratio 22.9 (10-20); Calcium 8.7 mg/dl (8.5-10.1); Creatinine Clr Calc Pharmacy 55.8 ml/min; Est GFR (African American) 77.2 ml/min; Est GFR (Non-African American) 66.6 ml/min; Potassium 3.3 mmol/L (3.5-5.1)
--- NOTE | 2022-07-12 13:43 | Pharmacy Report ---
Pharmacy Glycemic Short Note 2 - Date of Service July 12, 2022 - Glycemic Short BSG Results (Last 24 hours): 07/11/22 07/11/22 07/11/22 16:27 16:57 20:05 Glucose 100 H POC Glucose 110 H 278 H 07/12/22 07/12/22 07/12/22 07:43 08:34 11:14 Glucose 125 H POC Glucose 125 H 158 H OUTPATIENT ANTIDIABETIC REGIMEN: * Tresiba 14 units SC HS * Humalog sliding scale * Metformin 1000 mg PO BIDM * HbA1c 9.9% (07/10/22) ASSESSMENT: 07/12/22 * Patient's BSGs yesterday were [phone] mg/dL. * Patient received 33 units of insulin (10 units of basal and 23 units of bolus). * Continue Lantus as fasting BSG is steady at 125 mg/dL today. * Loosen correction factor as patient trends downwards throughout the day. Tighten CR. 07/10/22 * Patient's BSG this morning was 157 mg/dL. * Will increase Lantus to 10 units as fasting BSG slightly above goal range. * Continue Novolog weight-based stress 2-3 BACKGROUND * 82 yo F admitted today secondary to dementia with increasingly more aggressive behavior. Pharmacy has been consulted to assist with inpatient glycemic management. Updated A1c will be drawn tomorrow morning. Patient takes both insulin and metformin as an outpatient. Currently NPO. * Serum BSG in ED was 245 mg/dL. Will have floor RN update BSG upon arrival and cover patient with Novolog. Targeting a goal of 110-140 mg/dL with Novolog based on weight/stress of 2.5. Avoiding overnight checks due to dementia. * Will transition Tresiba to Lantus. Given NPO status, will reduce home dose by ~40% this evening. Hold outpatient metformin for the time being. PLAN FOR INPATIENT GLYCEMIC CONTROL: * Hold outpatient oral diabetes medications * Basal insulin * Lantus 10 units SC HS * Bolus insulin * NovoLog per scale ACHS or Q6hrs while NPO * Goal Range: Low 110 mg/dL - High 140 mg/dL * Correction Factor: 30 mg/dL/unit * Nutritional / Prandial insulin per carb ratio of 1 unit per 7 grams CHO consumed
[2022-07-12] MEDS: LANTUS PER UNIT CHARGE SQ SCH (20:32)
[2022-07-12] MEDS: ATORVASTATIN 10 MG TAB PO SCH (20:33)
[2022-07-12] MEDS: LATANOPROST 0.005% OP SOLN 2.5 ML BTL OPB SCH (20:34)
[2022-07-13] MEDS: LEVOTHYROXINE SODIUM 88 MCG TABLET PO SCH (05:51)
[2022-07-13] MEDS: MULTIVITAMIN TAB PO SCH (08:36)
[2022-07-13] MEDS: ASPIRIN 81 MG ECTAB PO SCH (08:36)
[2022-07-13] MEDS: VERAPAMIL HCL 240 MG TABCR PO SCH (08:37)
[2022-07-13] MEDS: LOSARTAN POTASSIUM 50 MG TAB PO SCH (08:37)
[2022-07-13] MEDS: INSULIN ASPART PER UNIT SC SCH ×4 (08:39→21:59)
[2022-07-13] MEDS: ENOXAPARIN INJ 30 MG/0.3 ML SYR SQ SCH (09:16)
[2022-07-13 09:25] LABS: BUN Creatinine Ratio 23.8 (10-20); Calcium 8.8 mg/dl (8.5-10.1); Creatinine Clr Calc Pharmacy 54.7 ml/min; Est GFR (African American) 76.1 ml/min; Est GFR (Non-African American) 65.6 ml/min
[2022-07-13] MEDS ORDERED: POTASSIUM CHLORIDE CRTAB 20 MEQ TABCR PO STA (10:41)
--- NOTE | 2022-07-13 10:43 | Hospitalist Progress Note ---
Date of Service July 12, 2022 Assessment & Plan (1) COVID-19: Plan: Patient admitted with falls, behavior changes and generalized weakness for past 2 weeks COVID 19 infection likely playing role. Not meeting criteria for steroids at the moment. will also hold remdesevir. (2) Hypokalemia: Plan: K 3.3. Continue to measure and replace as needed. Suspect overal body depletion due to poor appetite and previous HCTZ use. (3) Fall: Plan: Appreciate PT/OT evals Given her repeat falls patient will need to be placed. D/W Kristian who is the POA/GrandSon on 07/10 He showed be the first contact on the chart, informed workers compensation legal secretary. (4) Behavioral change: Plan: may be delirium from COVID 19 will monitor This will likely wax and wane (5) Bladder outlet obstruction: Plan: Secondary to pelvic floor collapse Resolved with rouse catheter, urine is draining consulted CONTAINER FINISHER - will follow up as outpatient (6) Hypothyroidism: Plan: TSH 2.55 in May resume home meds (7) Parkinsonism: Plan: appears stable. may consider discussion with Neuro is meds need to be started. Doubt this played role into recurrent falls. Likely more COVID 19 (8) Hypertension: Plan: resume home meds, holding HCTZ due to hypokalemia (9) Hyperlipidemia: Plan: cont statin switched to atorvastatin DUE TO INTERACTION WITH VERAPAMIL (10) Type 2 diabetes mellitus: Plan: HbA1C 9.9 Appreciate pharmacy glycemic control (11) Gait disorder: Plan: consult PT/OT (12) Abnormal EKG: Plan: Initial ekg reported with ST elevations in anterior leads. Troponin stable Plan Lovenox 30mg sq daily DNR/DNI after discussing with Kristian HUNG on admission Patient is medically stable for discharge pending placement at this time Admission and Anticipated Discharge Date Admission Date: July 09, 2022 Subjective Patient on one to one as keeps climbing out of bed. No new acute concerns or questions from the patient. Review of Systems Review of Systems: All systems reviewed & are unremarkable except as noted in Subjective Physical Exam Constitutional: WD/WN, vitals as above + frail appearing Eyes: + anicteric sclerae; normal pupil size Neck: trachea midline, no thyromegaly Respiratory: normal respiratory effort, lungs clear to auscultation Cardiovascular: RRR, no murmur, no edema Gastrointestinal (Abdomen): normal bowel sounds, soft, nontender, no hepatosplenomegaly Skin: no rashes, warm and dry Neurologic: moves all extremities and awake; no focal motor deficits and not confused Psychiatric: Orientation: alert and oriented to person; + not oriented to place and + not oriented to time Results & Data Results & Data ([facility]) Vital Signs (Past 12 Hours) Vital Signs Temp Pulse Pulse Resp BP BP Pulse Ox 07/13/22 09:00 07/13/22 09:51 36.6 C 95 H 18 115/79 96 07/13/22 07:17 69 07/13/22 07:00 36.5 C 85 18 153/84 H 94 07/13/22 03:50 36.5 C 72 18 107/59 L 97 07/13/22 01:30 92 H 07/13/22 01:30 07/12/22 23:01 36.5 C 67 18 146/78 H 97 O2 Del Method 07/13/22 09:00 Room Air 07/13/22 09:51 Room Air 07/13/22 07:17 07/13/22 07:00 Room Air 07/13/22 03:50 Room Air 07/13/22 01:30 07/13/22 01:30 Room Air 07/12/22 23:01 Room Air PG Care Time/CCT Total # of Minutes Spent Total Time Spent with Patient: Total time spent is greater than 50% in coordination of care (as documented) at patient's floor/unit and/or counseling patient: Coding Level of Care Code 02301 Subseq Hosp Care Lvl 1 Diagnoses COVID-19 U07.1 Hypokalemia E87.6 Fall W19.XXXA Behavioral change R46.89 Bladder outlet obstruction N32.0 Hypothyroidism E03.9 Parkinsonism G20 Hypertension I10 Hyperlipidemia E78.5 Type 2 diabetes mellitus E11.9 Gait disorder R26.9 Abnormal EKG R94.31
[2022-07-13] MEDS: LANTUS PER UNIT CHARGE SQ SCH (21:48)
[2022-07-13] MEDS: LATANOPROST 0.005% OP SOLN 2.5 ML BTL OPB SCH (21:53)
[2022-07-13] MEDS: ATORVASTATIN 10 MG TAB PO SCH (21:54)
--- NOTE | 2022-07-13 21:58 | Hospitalist Progress Note ---
Date of Service July 13, 2022 Assessment & Plan (1) COVID-19: Plan: Patient admitted with falls, behavior changes and generalized weakness for past 2 weeks COVID 19 infection likely playing role. Not meeting criteria for steroids at the moment. will also hold remdesevir. Patient is medically stable for discharge pending placement (2) Hypokalemia: Plan: K 3.0. Continue to measure and replace as needed. Suspect overal body depletion due to poor appetite and previous HCTZ use. (3) Fall: Plan: Appreciate PT/OT evals Given her repeat falls patient will need to be placed. D/W Kristian who is the POA/GrandSon on 07/10 He showed be the first contact on the chart, informed medical secretary receptionist. (4) Behavioral change: Plan: may be delirium from COVID 19 will monitor This will likely wax and wane (5) Bladder outlet obstruction: Plan: Secondary to pelvic floor collapse Resolved with rouse catheter, urine is draining consulted GLOBAL MARKETING COORDINATOR - will follow up as outpatient (6) Hypothyroidism: Plan: TSH 2.55 in May resume home meds (7) Parkinsonism: Plan: appears stable. may consider discussion with Neuro is meds need to be started. Doubt this played role into recurrent falls. Likely more COVID 19 (8) Hypertension: Plan: resume home meds, holding HCTZ due to hypokalemia (9) Hyperlipidemia: Plan: cont statin switched to atorvastatin DUE TO INTERACTION WITH VERAPAMIL (10) Type 2 diabetes mellitus: Plan: HbA1C 9.9 Appreciate pharmacy glycemic control (11) Gait disorder: Plan: consult PT/OT (12) Abnormal EKG: Plan: Initial ekg reported with ST elevations in anterior leads. Troponin stable Plan Lovenox 30mg sq daily DNR/DNI after discussing with Kristian HUNG on admission Patient is medically stable for discharge pending placement at this time Admission and Anticipated Discharge Date Admission Date: July 09, 2022 Subjective Patient on one to one as keeps climbing out of bed. No new acute concerns or questions from the patient. Appears more confused today but also seen later on in the day and known to have sundowning. Review of Systems Review of Systems: All systems reviewed & are unremarkable except as noted in Subjective Physical Exam Constitutional: WD/WN, vitals as above + frail appearing Eyes: + anicteric sclerae; normal pupil size Respiratory: normal respiratory effort, lungs clear to auscultation Cardiovascular: RRR, no murmur, no edema Gastrointestinal (Abdomen): normal bowel sounds, soft, nontender, no hepatosplenomegaly Skin: no rashes, warm and dry Neurologic: moves all extremities and awake; no focal motor deficits and not confused Psychiatric: Orientation: alert and oriented to person; + not oriented to place and + not oriented to time Results & Data Results & Data ([facility]) Vital Signs (Past 12 Hours) Vital Signs Temp Pulse Pulse Resp BP Pulse Ox O2 Del Method 07/13/22 19:17 36.5 C 79 18 121/68 97 Room Air 07/13/22 14:56 36.9 C 67 18 131/70 95 Room Air 07/13/22 14:50 64 PG Care Time/CCT Total # of Minutes Spent Total Time Spent with Patient: Total time spent is greater than 50% in coordination of care (as documented) at patient's floor/unit and/or counseling patient: Coding Level of Care Code 47421 Subseq Hosp Care Lvl 1 Diagnoses COVID-19 U07.1 Hypokalemia E87.6 Fall W19.XXXA Behavioral change R46.89 Bladder outlet obstruction N32.0 Hypothyroidism E03.9 Parkinsonism G20 Hypertension I10 Hyperlipidemia E78.5 Type 2 diabetes mellitus E11.9 Gait disorder R26.9 Abnormal EKG R94.31
[2022-07-14] MEDS: LEVOTHYROXINE SODIUM 88 MCG TABLET PO SCH ×2 (05:59→06:22)
[2022-07-14 07:14] LABS: Calcium 8.5 mg/dl (8.5-10.1); Creatinine Clr Calc Pharmacy 79.2 ml/min; Est GFR (African American) 100.9 ml/min; Est GFR (Non-African American) 87.1 ml/min
[2022-07-14] MEDS: INSULIN ASPART PER UNIT SC SCH ×4 (08:25→21:07)
[2022-07-14] MEDS: ASPIRIN 81 MG ECTAB PO SCH (08:26)
[2022-07-14] MEDS: ENOXAPARIN INJ 30 MG/0.3 ML SYR SQ SCH (08:26)
[2022-07-14] MEDS: VERAPAMIL HCL 240 MG TABCR PO SCH (08:26)
[2022-07-14] MEDS: LOSARTAN POTASSIUM 50 MG TAB PO SCH (08:26)
[2022-07-14] MEDS: MULTIVITAMIN TAB PO SCH (08:26)
[2022-07-14] MEDS: POTASSIUM CHLORIDE CRTAB 20 MEQ TABCR PO SCH ×2 (08:27→21:09)
--- NOTE | 2022-07-14 19:03 | Hospitalist Progress Note ---
Date of Service July 14, 2022 Assessment & Plan (1) COVID-19: Plan: Patient admitted with falls, behavior changes and generalized weakness for past 2 weeks COVID 19 infection likely playing role. Not meeting criteria for steroids at the moment. will also hold remdesevir. Patient is medically stable for discharge pending placement (2) Hypokalemia: Plan: K 3.0. Continue to measure and replace as needed. Suspect overal body depletion due to poor appetite and previous HCTZ use. (3) Fall: Plan: Appreciate PT/OT evals Given her repeat falls patient will need to be placed. D/W Kristian who is the POA/GrandSon on 07/10 He showed be the first contact on the chart, informed corporation secretary. (4) Behavioral change: Plan: may be delirium from COVID 19 will monitor This will likely wax and wane (5) Bladder outlet obstruction: Plan: Secondary to pelvic floor collapse Resolved with rouse catheter, urine is draining consulted JOB SETTER - will follow up as outpatient (6) Hypothyroidism: Plan: TSH 2.55 in May resume home meds (7) Parkinsonism: Plan: appears stable. may consider discussion with Neuro is meds need to be started. Doubt this played role into recurrent falls. Likely more COVID 19 (8) Hypertension: Plan: resume home meds, holding HCTZ due to hypokalemia (9) Hyperlipidemia: Plan: cont statin switched to atorvastatin DUE TO INTERACTION WITH VERAPAMIL (10) Type 2 diabetes mellitus: Plan: HbA1C 9.9 Appreciate pharmacy glycemic control (11) Gait disorder: Plan: consult PT/OT (12) Abnormal EKG: Plan: Initial ekg reported with ST elevations in anterior leads. Troponin stable Plan Lovenox 30mg sq daily DNR/DNI after discussing with Kristian HUNG on admission Patient is medically stable for discharge pending placement at this time Admission and Anticipated Discharge Date Admission Date: July 09, 2022 Subjective Patient is pleasantly confused. No acute concerns or questions. Review of Systems Review of Systems: Unobtainable due to cognitive status Physical Exam Constitutional: WD/WN, vitals as above + frail appearing Eyes: + anicteric sclerae; normal pupil size Skin: no rashes, warm and dry Neurologic: moves all extremities and awake; no focal motor deficits and not confused Psychiatric: Orientation: alert and oriented to person; + not oriented to place and + not oriented to time Results & Data Results & Data ([facility]) Vital Signs (Past 12 Hours) Vital Signs Temp Pulse Pulse Resp BP Pulse Ox O2 Del Method 07/14/22 15:37 64 07/14/22 15:22 36.5 C 68 18 114/71 98 Room Air 07/14/22 11:09 36.5 C 80 18 119/75 94 Room Air 07/14/22 08:00 Room Air 07/14/22 08:09 36.6 C 81 16 147/83 H 93 Room Air PG Care Time/CCT Total # of Minutes Spent Total Time Spent with Patient: Total time spent is greater than 50% in coordination of care (as documented) at patient's floor/unit and/or counseling patient: Coding Level of Care Code 50546 Subseq Hosp Care Lvl 1 Diagnoses COVID-19 U07.1 Hypokalemia E87.6 Fall W19.XXXA Behavioral change R46.89 Bladder outlet obstruction N32.0 Hypothyroidism E03.9 Parkinsonism G20 Hypertension I10 Hyperlipidemia E78.5 Type 2 diabetes mellitus E11.9 Gait disorder R26.9 Abnormal EKG R94.31
[2022-07-14] MEDS: LANTUS PER UNIT CHARGE SQ SCH (21:07)
[2022-07-14] MEDS: LATANOPROST 0.005% OP SOLN 2.5 ML BTL OPB SCH (21:08)
[2022-07-14] MEDS: ATORVASTATIN 10 MG TAB PO SCH (21:09)
[2022-07-15] MEDS: LEVOTHYROXINE SODIUM 88 MCG TABLET PO SCH (05:42)
[2022-07-15] MEDS: INSULIN ASPART PER UNIT SC SCH ×4 (08:38→21:19)
[2022-07-15] MEDS: ASPIRIN 81 MG ECTAB PO SCH (08:44)
[2022-07-15] MEDS: VERAPAMIL HCL 240 MG TABCR PO SCH (08:44)
[2022-07-15] MEDS: MULTIVITAMIN TAB PO SCH (08:44)
[2022-07-15] MEDS: POTASSIUM CHLORIDE CRTAB 20 MEQ TABCR PO SCH ×2 (08:45→21:29)
[2022-07-15] MEDS: LOSARTAN POTASSIUM 50 MG TAB PO SCH (08:45)
[2022-07-15] MEDS: ENOXAPARIN INJ 30 MG/0.3 ML SYR SQ SCH (08:45)
--- NOTE | 2022-07-15 09:13 | Pharmacy Report ---
Pharmacy Glycemic Short Note 2 - Date of Service July 15, 2022 - Glycemic Short BSG Results (Last 24 hours): 07/14/22 07/14/22 07/14/22 11:25 11:26 15:19 POC Glucose 325 H* 329 H* 195 H 07/14/22 07/14/22 07/15/22 16:38 19:48 08:03 POC Glucose 117 H 175 H 149 H OUTPATIENT ANTIDIABETIC REGIMEN: * Tresiba 14 units SC HS * Humalog sliding scale * Metformin 1000 mg PO BIDM * HbA1c 9.9% (07/10/22) ASSESSMENT: 07/15/22 * BSGs have been reasonably well-controlled over past several days, except for unexplained 329 mg/dL at lunch yesterday * Fasting BSG of 149 mg/dL this morning - will plan to increase basal insulin today * Not anticipating any further changes to insulin regimen today 07/12/22 * Patient's BSGs yesterday were [phone] mg/dL. * Patient received 33 units of insulin (10 units of basal and 23 units of bolus). * Continue Lantus as fasting BSG is steady at 125 mg/dL today. * Loosen correction factor as patient trends downwards throughout the day. Tighten CR. BACKGROUND * 82 yo F admitted today secondary to dementia with increasingly more aggressive behavior. Pharmacy has been consulted to assist with inpatient glycemic management. Updated A1c will be drawn tomorrow morning. Patient takes both insulin and metformin as an outpatient. Currently NPO. * Serum BSG in ED was 245 mg/dL. Will have floor RN update BSG upon arrival and cover patient with Novolog. Targeting a goal of 110-140 mg/dL with Novolog based on weight/stress of 2.5. Avoiding overnight checks due to dementia. * Will transition Tresiba to Lantus. Given NPO status, will reduce home dose by ~40% this evening. Hold outpatient metformin for the time being. PLAN FOR INPATIENT GLYCEMIC CONTROL: * Hold outpatient oral diabetes medications * Basal insulin * Lantus 12 units SC HS * Bolus insulin * NovoLog per scale ACHS or Q6hrs while NPO * Goal Range: Low 110 mg/dL - High 140 mg/dL * Correction Factor: 30 mg/dL/unit * Nutritional / Prandial insulin per carb ratio of 1 unit per 7 grams CHO consumed
--- NOTE | 2022-07-15 18:11 | Hospitalist Progress Note ---
Date of Service July 15, 2022 Assessment & Plan (1) COVID-19: Plan: Patient admitted with falls, behavior changes and generalized weakness for past 2 weeks COVID 19 infection likely playing role. Not meeting criteria for steroids at the moment. will also hold remdesevir. No new symptoms or concerns today Patient is medically stable for discharge pending placement (2) Hypokalemia: Plan: K 3.0. Continue to measure and replace as needed. Suspect overal body depletion due to poor appetite and previous HCTZ use. Repeat BMP in AM (3) Fall: Plan: Appreciate PT/OT evals Given her repeat falls patient will need to be placed. D/W Kristian who is the POA/GrandSon on 07/10 He showed be the first contact on the chart, informed pathology secretary/transcriptionist. (4) Behavioral change: Plan: may be delirium from COVID 19 will monitor This will likely wax and wane Will repeat TSH and B12 levels with AM labs (5) Bladder outlet obstruction: Plan: Secondary to pelvic floor collapse Resolved with rouse catheter, urine is draining consulted ANGLE SHEARER - will follow up as outpatient (6) Hypothyroidism: Plan: TSH 2.55 in May resume home meds (7) Parkinsonism: Plan: appears stable. may consider discussion with Neuro is meds need to be started. Doubt this played role into recurrent falls. Likely more COVID 19 (8) Hypertension: Plan: resume home meds, holding HCTZ due to hypokalemia (9) Hyperlipidemia: Plan: cont statin switched to atorvastatin DUE TO INTERACTION WITH VERAPAMIL (10) Type 2 diabetes mellitus: Plan: HbA1C 9.9 Appreciate pharmacy glycemic control (11) Gait disorder: Plan: consult PT/OT (12) Abnormal EKG: Plan: Initial ekg reported with ST elevations in anterior leads. Troponin stable Plan Lovenox 30mg sq daily DNR/DNI after discussing with Kristian HUNG on admission Patient is medically stable for discharge pending placement at this time Admission and Anticipated Discharge Date Admission Date: July 09, 2022 Subjective No acute concerns or questions. Patient is pleasantly confused. Does not remember my name or who I am from previous days. Talking in full sentences but doesn't really make sense. Updated her grandson Kristian over the phone. Reports confusion is a progression but relatively rapidly over months but was going on when she had her last CT head in May when she came to the ER for altered mental state. Review of Systems Review of Systems: Unobtainable due to cognitive status (patient denies any pain) Physical Exam Constitutional: WD/WN, vitals as above + frail appearing Eyes: + anicteric sclerae; normal pupil size Neck: trachea midline, no thyromegaly Respiratory: normal respiratory effort, lungs clear to auscultation Cardiovascular: RRR, no murmur, no edema Gastrointestinal (Abdomen): normal bowel sounds, soft, nontender, no hepatosplenomegaly Skin: no rashes, warm and dry Neurologic: moves all extremities and awake; no focal motor deficits and not confused Psychiatric: Orientation: alert; + not oriented to person, + not oriented to place and + not oriented to time Results & Data Results & Data ([facility]) Vital Signs (Past 12 Hours) Vital Signs Temp Pulse Pulse Resp BP Pulse Ox O2 Del Method 07/15/22 16:08 77 07/15/22 11:41 36.7 C 106 H 20 116/73 93 Room Air 07/15/22 09:12 Room Air 07/15/22 07:17 36.5 C 89 18 149/84 H 96 Room Air 07/15/22 07:04 81 PG Care Time/CCT Total # of Minutes Spent Total Time Spent with Patient: Total time spent is greater than 50% in coordination of care (as documented) at patient's floor/unit and/or counseling patient: Coding Level of Care Code 50164 Subseq Hosp Care Lvl 1 Diagnoses COVID-19 U07.1 Hypokalemia E87.6 Fall W19.XXXA Behavioral change R46.89 Bladder outlet obstruction N32.0 Hypothyroidism E03.9 Parkinsonism G20 Hypertension I10 Hyperlipidemia E78.5 Type 2 diabetes mellitus E11.9 Gait disorder R26.9 Abnormal EKG R94.31
[2022-07-15] MEDS: LANTUS PER UNIT CHARGE SQ SCH (21:20)
[2022-07-15] MEDS: ATORVASTATIN 10 MG TAB PO SCH (21:29)
[2022-07-15] MEDS: LATANOPROST 0.005% OP SOLN 2.5 ML BTL OPB SCH (21:29)
[2022-07-16 06:54] LABS: BUN Creatinine Ratio 24.6 (10-20); Calcium 8.6 mg/dl (8.5-10.1); Creatinine Clr Calc Pharmacy 70.9 ml/min; Est GFR (African American) 97.2 ml/min; Est GFR (Non-African American) 83.9 ml/min; Potassium 3.7 mmol/L (3.5-5.1)
[2022-07-16] MEDS: LEVOTHYROXINE SODIUM 88 MCG TABLET PO SCH (07:10)
[2022-07-16] MEDS: INSULIN ASPART PER UNIT SC SCH ×4 (08:23→20:58)
[2022-07-16] MEDS: CYANOCOBALAMIN 1000 MCG/ML VIAL IM SCH (08:35)
[2022-07-16] MEDS: ASPIRIN 81 MG ECTAB PO SCH (08:36)
[2022-07-16] MEDS: VERAPAMIL HCL 240 MG TABCR PO SCH (08:36)
[2022-07-16] MEDS: ENOXAPARIN INJ 30 MG/0.3 ML SYR SQ SCH (08:37)
[2022-07-16] MEDS: MULTIVITAMIN TAB PO SCH (08:37)
[2022-07-16] MEDS: LOSARTAN POTASSIUM 50 MG TAB PO SCH (08:37)
[2022-07-16] MEDS: POTASSIUM CHLORIDE CRTAB 20 MEQ TABCR PO SCH (08:37)
--- NOTE | 2022-07-16 20:30 | Hospitalist Progress Note ---
Date of Service July 16, 2022 Assessment & Plan (1) COVID-19: Plan: Patient admitted with falls, behavior changes and generalized weakness for past 2 weeks COVID 19 infection likely playing role. Not meeting criteria for steroids at the moment. will also hold remdesevir. No new symptoms or concerns today. Will consider removal of rouse catheter tomorrow to see if she still has urinary retention Patient is medically stable for discharge pending placement (2) Hypokalemia: Plan: K 3.0. Continue to measure and replace as needed. Suspect overal body depletion due to poor appetite and previous HCTZ use. Continue KCl 20meq PO daily (3) Fall: Plan: Appreciate PT/OT evals Given her repeat falls patient will need to be placed. D/W Kristian who is the POA/GrandSon on 07/10 He showed be the first contact on the chart, informed sales secretary. (4) Behavioral change: Plan: may be delirium from COVID 19 will monitor This will likely wax and wane TSH WNL B12 354, will give IM replacement given < 400 but doubtful this is having a large effect on her memory issues (5) Bladder outlet obstruction: Plan: Secondary to pelvic floor collapse Resolved with rouse catheter, urine is draining consulted WATER RESOURCE AGENT - will follow up as outpatient (6) Hypothyroidism: Plan: TSH 2.45 resume home meds (7) Parkinsonism: Plan: appears stable. may consider discussion with Neuro is meds need to be started. Doubt this played role into recurrent falls. Likely more COVID 19 (8) Hypertension: Plan: resume home meds, holding HCTZ due to hypokalemia (9) Hyperlipidemia: Plan: cont statin switched to atorvastatin DUE TO INTERACTION WITH VERAPAMIL (10) Type 2 diabetes mellitus: Plan: HbA1C 9.9 Appreciate pharmacy glycemic control (11) Gait disorder: Plan: consult PT/OT (12) Abnormal EKG: Plan: Initial ekg reported with ST elevations in anterior leads. Troponin stable Plan Lovenox 30mg sq daily DNR/DNI after discussing with Kristian HUNG on admission Patient is medically stable for discharge pending placement at this time Admission and Anticipated Discharge Date Admission Date: July 09, 2022 Subjective No acute concerns or questions from patient. Remains pleasantly confused. Awaiting placement at this time. Remains on 1:1. Review of Systems Review of Systems: All systems reviewed & are unremarkable except as noted in Subjective Physical Exam Constitutional: WD/WN, vitals as above + frail appearing Eyes: + anicteric sclerae; normal pupil size Respiratory: normal respiratory effort, lungs clear to auscultation Cardiovascular: RRR, no murmur, no edema Gastrointestinal (Abdomen): normal bowel sounds, soft, nontender, no hepatosplenomegaly Skin: no rashes, warm and dry Neurologic: moves all extremities, awake and + confused Psychiatric: Orientation: alert; + not oriented to person, + not oriented to place and + not oriented to time Results & Data Results & Data ([facility]) Vital Signs (Past 12 Hours) Vital Signs Temp Pulse Pulse Resp BP Pulse Ox Pulse Ox 07/16/22 15:00 88 07/16/22 17:00 95 07/16/22 15:12 37 C 89 20 134/78 96 07/16/22 11:37 37.3 C 97 H 17 148/87 H 96 O2 Del Method O2 Del Method 07/16/22 15:00 07/16/22 17:00 Room Air 07/16/22 15:12 Room Air 07/16/22 11:37 Room Air PG Care Time/CCT Total # of Minutes Spent Total Time Spent with Patient: Total time spent is greater than 50% in coordination of care (as documented) at patient's floor/unit and/or counseling patient: Coding Level of Care Code 04346 Subseq Hosp Care Lvl 1 Diagnoses COVID-19 U07.1 Hypokalemia E87.6 Fall W19.XXXA Behavioral change R46.89 Bladder outlet obstruction N32.0 Hypothyroidism E03.9 Parkinsonism G20 Hypertension I10 Hyperlipidemia E78.5 Type 2 diabetes mellitus E11.9 Gait disorder R26.9 Abnormal EKG R94.31
[2022-07-16] MEDS: LANTUS PER UNIT CHARGE SQ SCH (20:59)
[2022-07-16] MEDS: ATORVASTATIN 10 MG TAB PO SCH (21:31)
[2022-07-16] MEDS: LATANOPROST 0.005% OP SOLN 2.5 ML BTL OPB SCH (21:31)
[2022-07-17] MEDS: LEVOTHYROXINE SODIUM 88 MCG TABLET PO SCH (06:29)
[2022-07-17] MEDS: INSULIN ASPART PER UNIT SC SCH ×4 (09:01→20:04)
[2022-07-17] MEDS: MULTIVITAMIN TAB PO SCH (09:11)
[2022-07-17] MEDS: VERAPAMIL HCL 240 MG TABCR PO SCH (09:11)
[2022-07-17] MEDS: ASPIRIN 81 MG ECTAB PO SCH (09:11)
[2022-07-17] MEDS: CYANOCOBALAMIN 1000 MCG/ML VIAL IM SCH (09:12)
[2022-07-17] MEDS: POTASSIUM CHLORIDE CRTAB 20 MEQ TABCR PO SCH (09:12)
[2022-07-17] MEDS: LOSARTAN POTASSIUM 50 MG TAB PO SCH (09:12)
[2022-07-17] MEDS: ENOXAPARIN INJ 30 MG/0.3 ML SYR SQ SCH (09:13)
--- NOTE | 2022-07-17 09:42 | Pharmacy Report ---
Pharmacy Glycemic Sign Off Nt - Date of Service July 17, 2022 - Assessment & Plan ASSESSMENT: * Pharmacy was consulted by Dr Robins on 07/09/22 for glycemic control and to write orders per [facility] inpatient glycemic control protocol. * Major changes made by pharmacy to antidiabetic regimen include: * titration of Lantus and Novolog parameters * Patient has been receiving/requiring 20-25 units of insulin per day for adequate glycemic control * BSGs ranging 116-180 mg/dl * Regimen has only required minor adjustments over the past 48hrs to achieve this level of control * Do not anticipate further changes in patient status that would quickly deteriorate glycemic control (i.e. patient to be NPO for upcoming procedure, steroids tapering, starting tube feedings, etc). * Please see recommendations for outpatient antidiabetic regimen below. PLAN FOR INPATIENT GLYCEMIC CONTROL: No changes needed to current regimen. * Continue basal insulin with Lantus 12 units SC HS * Continue NovoLog per scale ACHS/Q6hrs while NPO * Goal range = 120-160 mg/dl * CF = 30 mg/dl/unit * CR = 1 unit for ever 7 g CHO consumed * Pharmacy is signing off of glycemic consult and will no longer be making adjustments to inpatient regimen. Please feel free to re-consult if needed. Thank you.
[2022-07-17] MEDS: LATANOPROST 0.005% OP SOLN 2.5 ML BTL OPB SCH (20:02)
[2022-07-17] MEDS: ATORVASTATIN 10 MG TAB PO SCH (20:03)
[2022-07-17] MEDS: LANTUS PER UNIT CHARGE SQ SCH (20:17)
--- NOTE | 2022-07-17 23:20 | Hospitalist Progress Note ---
Date of Service July 17, 2022 Assessment & Plan (1) COVID-19: Plan: Patient admitted with falls, behavior changes and generalized weakness for past 2 weeks COVID 19 infection likely playing role. No hypoxia, is asymptomatic P/w acute encephalopathy which is now resolved Not meeting criteria for steroids and was not treated with remdesevir. No new symptoms or concerns today. Will consider removal of rouse catheter tomorrow to see if she still has urinary retention Patient is medically stable for discharge pending placement (2) Hypokalemia: Plan: Improved after replacement Suspect overal body depletion due to poor appetite and previous HCTZ use. Continue KCl 20meq PO daily dcd HCTZ (3) Fall: Plan: Appreciate PT/OT evals Given her repeat falls patient will need to be placed. D/W Kristian who is the POA/GrandSon on 07/10 He should be the first contact on the chart (4) Behavioral change: Plan: may be delirium from COVID 19 will monitor This will likely wax and wane TSH WNL B12 354, will give IM replacement given < 400 but doubtful this is having a large effect on her memory issues (5) Bladder outlet obstruction: Plan: Secondary to pelvic floor collapse Resolved with rouse catheter, urine is draining consulted RETOUCHER - will follow up as outpatient, offered pesary -remove Rouse prior to discharge and perform trial of void (6) Hypothyroidism: Plan: TSH 2.45 continue home LT4 (7) Parkinsonism: Plan: appears stable. may consider discussion with Neuro if meds need to be started. Doubt this played role into recurrent falls. Likely more COVID 19 (8) Hypertension: Plan: resume home meds, holding HCTZ due to hypokalemia (9) Hyperlipidemia: Plan: cont statin switched to atorvastatin DUE TO INTERACTION WITH VERAPAMIL (10) Type 2 diabetes mellitus: Plan: HbA1C 9.9 Appreciate pharmacy glycemic control-they have now signed off (11) Gait disorder: Plan: consult PT/OT (12) Abnormal EKG: Plan: Initial ekg reported with ST elevations in anterior leads. Troponin stable Plan Lovenox 30mg sq daily DNR/DNI after discussing with Kristian HUNG on admission Patient is medically stable for discharge pending placement at this time Admission and Anticipated Discharge Date Admission Date: July 09, 2022 Subjective Pt pleasantly confused. Has no complaints. Can't remember if she ate today or when her last BM was. Review of Systems Review of Systems: All systems reviewed & are unremarkable except as noted in HPI & below Physical Exam Constitutional: WD/WN, vitals as above Neck: trachea midline, no thyromegaly Respiratory: normal respiratory effort, lungs clear to auscultation Cardiovascular: RRR, no murmur, no edema Chest (Breasts): Chest: normal inspection of chest Gastrointestinal (Abdomen): normal bowel sounds, soft, nontender, no hepatosplenomegaly Musculoskeletal: Extremities: extremities normal to inspection; no cyanosis and no clubbing Skin: no rashes, warm and dry Neurologic: moves all extremities and awake; no focal motor deficits Psychiatric: Orientation: alert, oriented to person and cooperative Lymphatic: no lymphedema Results & Data Results & Data ([place]) Vital Signs (Past 12 Hours) Vital Signs Temp Pulse Resp BP Pulse Ox Pulse Ox O2 Del Method 07/17/22 22:53 36.6 C 73 18 111/67 96 Room Air 07/17/22 22:39 Room Air 07/17/22 17:00 95 O2 Del Method 07/17/22 22:53 07/17/22 22:39 07/17/22 17:00 Room Air PG Care Time/CCT Total # of Minutes Spent Total Time Spent with Patient: Total time spent is greater than 50% in coordination of care (as documented) at patient's floor/unit and/or counseling patient: Coding Level of Care Code 72858 Subseq Hosp Care Lvl 1 Diagnoses COVID-19 U07.1 Hypokalemia E87.6 Fall W19.XXXA Behavioral change R46.89 Bladder outlet obstruction N32.0 Hypothyroidism E03.9 Parkinsonism G20 Hypertension I10 Hyperlipidemia E78.5 Type 2 diabetes mellitus E11.9 Gait disorder R26.9 Abnormal EKG R94.31
[2022-07-18] MEDS: LEVOTHYROXINE SODIUM 88 MCG TABLET PO SCH (06:29)
[2022-07-18] MEDS: INSULIN ASPART PER UNIT SC SCH ×4 (09:34→20:12)
[2022-07-18] MEDS: ASPIRIN 81 MG ECTAB PO SCH (09:42)
[2022-07-18] MEDS: VERAPAMIL HCL 240 MG TABCR PO SCH (09:43)
[2022-07-18] MEDS: CYANOCOBALAMIN 1000 MCG/ML VIAL IM SCH (09:43)
[2022-07-18] MEDS: LOSARTAN POTASSIUM 50 MG TAB PO SCH (09:43)
[2022-07-18] MEDS: ENOXAPARIN INJ 30 MG/0.3 ML SYR SQ SCH (09:44)
[2022-07-18] MEDS: MULTIVITAMIN TAB PO SCH (09:45)
[2022-07-18] MEDS: POTASSIUM CHLORIDE CRTAB 20 MEQ TABCR PO SCH (09:45)
[2022-07-18] MEDS ORDERED: NYSTATIN POWDER 15GM BTL EXT PRN (11:53)
--- NOTE | 2022-07-18 19:18 | Hospitalist Progress Note ---
Date of Service July 18, 2022 Assessment & Plan (1) COVID-19: Plan: Patient admitted with falls, behavior changes and generalized weakness for past 2 weeks COVID 19 infection likely playing role. No hypoxia, is asymptomatic P/w acute encephalopathy which is now resolved Not meeting criteria for steroids and was not treated with remdesevir. No new symptoms or concerns today. Will remove rouse catheter and do TOV in AM Patient is medically stable for discharge pending placement (2) Hypokalemia: Plan: Improved after replacement Suspect overal body depletion due to poor appetite and previous HCTZ use. Continue KCl 20meq PO daily dcd HCTZ (3) Fall: Plan: Appreciate PT/OT evals Given her repeat falls patient will need to be placed. D/W Kristian who is the POA/GrandSon on 07/10 He should be the first contact on the chart (4) Behavioral change: Plan: may be delirium from COVID 19 will monitor-seems stable at this point This will likely wax and wane TSH WNL B12 354, will give IM replacement given < 400 but doubtful this is having a la rge effect on her memory issues (5) Bladder outlet obstruction: Plan: Secondary to pelvic floor collapse Resolved with rouse catheter, urine is draining consulted STARCH COOKER - will follow up as outpatient, offered pesary -remove Rouse prior to discharge and perform trial of void (6) Hypothyroidism: Plan: TSH 2.45 continue home LT4 (7) Parkinsonism: Plan: appears stable. may consider discussion with Neuro if meds need to be started. Doubt this played role into recurrent falls. Likely more COVID 19 (8) Hypertension: Plan: BPs controlled continue home losartan, verapamil - holding HCTZ due to hypokalemia (9) Hyperlipidemia: Plan: cont statin switched to atorvastatin DUE TO INTERACTION WITH VERAPAMIL (10) Type 2 diabetes mellitus: Plan: HbA1C 9.9 Appreciate pharmacy glycemic control-they have now signed off (11) Gait disorder: Plan: consult PT/OT (12) Abnormal EKG: Plan: Initial ekg reported with ST elevations in anterior leads but not overtly apparent Troponin stable Plan Lovenox 30mg sq daily DNR/DNI after discussing with Krisitan HUNG on admission Patient is medically stable for discharge pending placement at this time- likely next week Admission and Anticipated Discharge Date Admission Date: July 09, 2022 Subjective Pt pleasantly confused, no complaints. Review of Systems Review of Systems: All systems reviewed & are unremarkable except as noted in HPI & below Physical Exam Constitutional: WD/WN, vitals as above Eyes: + anicteric sclerae Neck: trachea midline, no thyromegaly Respiratory: normal respiratory effort, lungs clear to auscultation Cardiovascular: RRR, no murmur, no edema Chest (Breasts): Chest: normal inspection of chest Gastrointestinal (Abdomen): normal bowel sounds, soft, nontender, no hepatosplenomegaly Musculoskeletal: Extremities: extremities normal to inspection; no cyanosis and no clubbing Skin: no rashes, warm and dry Neurologic: moves all extremities and awake; no focal motor deficits Psychiatric: Orientation: alert, oriented to person and cooperative Lymphatic: no lymphedema Results & Data Results & Data ([facility]) Vital Signs (Past 12 Hours) Vital Signs Temp Pulse Resp BP Pulse Ox O2 Del Method 07/18/22 19:01 36.3 C L 87 18 130/66 95 Room Air 07/18/22 11:26 Room Air 07/18/22 08:00 36.4 C L 89 18 125/69 95 Room Air PG Care Time/CCT Total # of Minutes Spent Total Time Spent with Patient: Total time spent is greater than 50% in coordination of care (as documented) at patient's floor/unit and/or counseling patient: Coding Level of Care Code 49521 Subseq Hosp Care Lvl 1 Diagnoses COVID-19 U07.1 Hypokalemia E87.6 Fall W19.XXXA Behavioral change R46.89 Bladder outlet obstruction N32.0 Hypothyroidism E03.9 Parkinsonism G20 Hypertension I10 Hyperlipidemia E78.5 Type 2 diabetes mellitus E11.9 Gait disorder R26.9 Abnormal EKG R94.31
[2022-07-18] MEDS: ATORVASTATIN 10 MG TAB PO SCH (20:47)
[2022-07-18] MEDS: LATANOPROST 0.005% OP SOLN 2.5 ML BTL OPB SCH (20:47)
[2022-07-18] MEDS: LANTUS PER UNIT CHARGE SQ SCH (20:59)
[2022-07-19] MEDS: LEVOTHYROXINE SODIUM 88 MCG TABLET PO SCH (05:35)
[2022-07-19] MEDS: MULTIVITAMIN TAB PO SCH (08:00)
[2022-07-19] MEDS: POTASSIUM CHLORIDE CRTAB 20 MEQ TABCR PO SCH (08:00)
[2022-07-19] MEDS: LOSARTAN POTASSIUM 50 MG TAB PO SCH (08:01)
[2022-07-19] MEDS: CYANOCOBALAMIN (B-12) 500 MCG TABLET PO SCH (08:01)
[2022-07-19] MEDS: ENOXAPARIN INJ 30 MG/0.3 ML SYR SQ SCH (08:01)
[2022-07-19] MEDS: VERAPAMIL HCL 240 MG TABCR PO SCH (08:01)
[2022-07-19] MEDS: ASPIRIN 81 MG ECTAB PO SCH (08:01)
[2022-07-19] MEDS: INSULIN ASPART PER UNIT SC SCH ×4 (08:49→21:28)
--- NOTE | 2022-07-19 17:06 | Hospitalist Progress Note ---
Date of Service July 19, 2022 Assessment & Plan (1) COVID-19: Plan: Patient admitted with falls, behavior changes and generalized weakness for past 2 weeks COVID 19 infection likely playing role. No hypoxia, is asymptomatic P/w acute encephalopathy which is now resolved Not meeting criteria for steroids and was not treated with remdesevir. No new symptoms or concerns today. Has since had rouse catheter removed and passed TOV Patient is medically stable for discharge pending placement (2) Hypokalemia: Plan: Improved after replacement Suspect overal body depletion due to poor appetite and previous HCTZ use. Continue KCl 20meq PO daily dcd HCTZ (3) Fall: Plan: Appreciate PT/OT evals Given her repeat falls patient will need to be placed. D/W Kristian who is the POA/GrandSon on 07/10 He should be the first contact on the chart (4) Behavioral change: Plan: may be delirium from COVID 19 will monitor-seems stable at this point This will likely wax and wane TSH WNL B12 354, received IM replacement and now on po B12 since B12 level was < 400 but doubtful this is having a large effect on her memory issues (5) Bladder outlet obstruction: Plan: Secondary to pelvic floor collapse Resolved with rouse catheter, urine is draining--> Rouse now removed and voiding well consulted TECHNICAL PUBLICATIONS WRITER - will follow up as outpatient, offered pessary as an outpt (6) Hypothyroidism: Plan: TSH 2.45 continue home LT4 (7) Parkinsonism: Plan: appears stable. may consider discussion with Neuro if meds need to be started. Doubt this played role into recurrent falls which were likely due to COVID 19 (8) Hypertension: Plan: BPs controlled continue home losartan, verapamil - holding HCTZ due to hypokalemia (9) Hyperlipidemia: Plan: cont statin switched to atorvastatin DUE TO INTERACTION WITH VERAPAMIL (10) Type 2 diabetes mellitus: Plan: HbA1C 9.9 Appreciate pharmacy glycemic control-they have now signed off (11) Gait disorder: Plan: consult PT/OT (12) Abnormal EKG: Plan: Initial ekg reported with ST elevations in anterior leads but not overtly apparent Troponin stable Plan Lovenox 30mg sq daily DNR/DNI after discussing with Kristian HUNG on admission Patient is medically stable for discharge pending placement at this time- likely next week Admission and Anticipated Discharge Date Admission Date: July 09, 2022 Subjective Pt pleasantly confused. No complaints, denies SOB Review of Systems Review of Systems: All systems reviewed & are unremarkable except as noted in HPI & below Physical Exam Constitutional: WD/WN, vitals as above Eyes: + anicteric sclerae Neck: trachea midline, no thyromegaly Respiratory: normal respiratory effort, lungs clear to auscultation Cardiovascular: RRR, no murmur, no edema Chest (Breasts): Chest: normal inspection of chest Gastrointestinal (Abdomen): normal bowel sounds, soft, nontender, no hepatosplenomegaly Musculoskeletal: Extremities: extremities normal to inspection; no cyanosis and no clubbing Skin: no rashes, warm and dry Neurologic: moves all extremities and awake; no focal motor deficits Psychiatric: Orientation: alert, oriented to person and cooperative Lymphatic: no lymphedema Results & Data Results & Data ([facility]) Vital Signs (Past 12 Hours) Vital Signs Temp Pulse Resp BP Pulse Ox O2 Del Method 07/19/22 10:35 Room Air 07/19/22 07:58 36.5 C 90 19 148/76 H 97 Room Air 07/19/22 06:18 36.5 C 91 H 20 153/78 H 96 Room Air Laboratory Results 07/19/22 07/19/22 07/19/22 Range/Units 16:35 12:15 07:57 POC Glucose 111 H 199 H 128 H (70-99) mg/dl 07/18/22 Range/Units 19:44 POC Glucose 158 H (70-99) mg/dl PG Care Time/CCT Total # of Minutes Spent Total Time Spent with Patient: Total time spent is greater than 50% in coordination of care (as documented) at patient's floor/unit and/or counseling patient: Coding Level of Care Code 41925 Subseq Hosp Care Lvl 1 Diagnoses COVID-19 U07.1 Hypokalemia E87.6 Fall W19.XXXA Behavioral change R46.89 Bladder outlet obstruction N32.0 Hypothyroidism E03.9 Parkinsonism G20 Hypertension I10 Hyperlipidemia E78.5 Type 2 diabetes mellitus E11.9 Gait disorder R26.9 Abnormal EKG R94.31
[2022-07-19] MEDS: LATANOPROST 0.005% OP SOLN 2.5 ML BTL OPB SCH (21:24)
[2022-07-19] MEDS: ATORVASTATIN 10 MG TAB PO SCH (21:25)
[2022-07-19] MEDS: LANTUS PER UNIT CHARGE SQ SCH (21:28)
[2022-07-20 05:56] LABS: Basophils # (auto) 0.01 K/uL (0-0.2); Basophils % (auto) 0.2 %; Eosinophils # (auto) 0.03 K/uL (0-0.50); Eosinophils % (auto) 0.7 %; Hematocrit (blood only) 38.3 % (34.1-44.9); Hemoglobin 13.2 g/dl (12.0-16.0); Immature Granulocytes # (auto) 0.01 K/uL (0.00-0.02); Immature Granulocytes % (auto) 0.2 %; Lymphocytes # (auto) 1.48 K/uL (1.2-3.4); Lymphocytes % (auto) 32.5 %; Mean Corpuscular Hemoglobin 29.4 pg (25.0-34.0); Mean Corpuscular Hgb Conc 34.5 g/dL (32.0-36.0); Mean Corpuscular Volume 85.3 fL (80.0-100.0); Mean Platelet Volume 10.2 fL (9.4-12.3); Monocytes # (auto) 0.42 K/uL (0.24-0.82); Monocytes % (auto) 9.2 %; Neutrophils % (auto) 57.2 %; Platelet Count 167 K/uL (130-400); RDW Coefficient of Variation 12.8 % (11.5-14.5); RDW Standard Deviation 39.9 fL (36.4-46.3); Red Blood Count 4.49 M/uL (3.93-5.22); White Blood Count 4.55 K/ul (4.8-10.8)
[2022-07-20] MEDS: LEVOTHYROXINE SODIUM 88 MCG TABLET PO SCH (06:16)
[2022-07-20 06:24] LABS: Albumin Globulin Ratio 1.1 (0.9-2); BUN Creatinine Ratio 31.4 (10-20); Bilirubin,Total 0.8 mg/dl (0.2-1.0); Calcium 9.3 mg/dl (8.5-10.1); Creatinine Clr Calc Pharmacy 65.6 ml/min; Est GFR (African American) 94.8 ml/min; Est GFR (Non-African American) 81.8 ml/min; Globulin 2.7 gm/dl (2.5-4.0); Potassium 4.7 mmol/L (3.5-5.1); Total Protein 5.7 gm/dl (6.0-8.3)
[2022-07-20] MEDS: ASPIRIN 81 MG ECTAB PO SCH (08:12)
[2022-07-20] MEDS: ENOXAPARIN INJ 30 MG/0.3 ML SYR SQ SCH (08:12)
[2022-07-20] MEDS: LOSARTAN POTASSIUM 50 MG TAB PO SCH (08:12)
[2022-07-20] MEDS: VERAPAMIL HCL 240 MG TABCR PO SCH (08:12)
[2022-07-20] MEDS: POTASSIUM CHLORIDE CRTAB 20 MEQ TABCR PO SCH (08:12)
[2022-07-20] MEDS: CYANOCOBALAMIN (B-12) 500 MCG TABLET PO SCH (08:13)
[2022-07-20] MEDS: MULTIVITAMIN TAB PO SCH (08:13)
[2022-07-20] MEDS: INSULIN ASPART PER UNIT SC SCH ×4 (08:35→21:11)
--- NOTE | 2022-07-20 12:23 | Hospitalist Progress Note ---
Date of Service July 20, 2022 Assessment & Plan (1) COVID-19: Plan: Patient admitted with falls, behavior changes and generalized weakness for past 2 weeks COVID 19 infection likely playing role. No hypoxia, is asymptomatic P/w acute encephalopathy which is now resolved Not meeting criteria for steroids and was not treated with remdesevir. No new symptoms or concerns today. Has since had rouse catheter removed and passed TOV Patient is medically stable for discharge pending placement (2) Hypokalemia: Plan: Improved after replacement Suspect overal body depletion due to poor appetite and previous HCTZ use. Potassium remains normal on last check 07/20 will now stop daily replacement as HCTZ stopped and replete dcd HCTZ (3) Fall: Plan: Appreciate PT/OT evals Given her repeat falls patient will need to be placed. D/W Kristian who is the POA/GrandSon on 07/10 He should be the first contact on the chart (4) Behavioral change: Plan: may be delirium from COVID 19 will monitor-seems stable at this point This will likely wax and wane TSH WNL B12 354, received IM replacement and now on po B12 since B12 level was < 400 but doubtful this is having a large effect on her memory issues (5) Bladder outlet obstruction: Plan: Secondary to pelvic floor collapse Resolved with rouse catheter, urine is draining--> Rouse now removed and voiding well consulted GRANT SPECIALIST - will follow up as outpatient, offered pessary as an outpt (6) Hypothyroidism: Plan: TSH 2.45 continue home LT4 (7) Parkinsonism: Plan: appears stable. may consider discussion with Neuro if meds need to be started. Doubt this played role into recurrent falls which were likely due to COVID 19 (8) Hypertension: Plan: BPs controlled continue home losartan, verapamil - dcd HCTZ due to hypokalemia (9) Hyperlipidemia: Plan: cont statin switched to atorvastatin DUE TO INTERACTION WITH VERAPAMIL (10) Type 2 diabetes mellitus: Plan: HbA1C 9.9 Appreciate pharmacy glycemic control-they have now signed off (11) Gait disorder: Plan: consult PT/OT (12) Abnormal EKG: Plan: Initial ekg reported with ST elevations in anterior leads but not overtly apparent Troponin stable Plan Lovenox 30mg sq daily DNR/DNI after discussing with Kristian HUNG on admission Patient is medically stable for discharge pending placement at this time- likely next week Admission and Anticipated Discharge Date Admission Date: July 09, 2022 Subjective Pt pleasantly confused. No complaints, denies SOB. Is mentally much improved today as was seen at lunchtime perhaps. Says "there are times where I just don't know where I am." Review of Systems Review of Systems: All systems reviewed & are unremarkable except as noted in HPI & below Physical Exam Constitutional: WD/WN, vitals as above Eyes: + anicteric sclerae Neck: trachea midline, no thyromegaly Respiratory: normal respiratory effort, lungs clear to auscultation Cardiovascular: RRR, no murmur, no edema Chest (Breasts): Chest: normal inspection of chest Gastrointestinal (Abdomen): normal bowel sounds, soft, nontender, no hepatosplenomegaly Musculoskeletal: Extremities: extremities normal to inspection; no cyanosis and no clubbing Skin: no rashes, warm and dry Neurologic: moves all extremities and awake; no focal motor deficits Psychiatric: Orientation: alert, oriented to person and cooperative Lymphatic: no lymphedema Results & Data Results & Data ([facility]) Vital Signs (Past 12 Hours) Vital Signs Temp Pulse Resp BP BP Pulse Ox O2 Del Method 07/20/22 10:59 36.4 C L 97 H 20 130/64 100 Room Air 07/20/22 10:03 Room Air 07/20/22 08:11 37.1 C 80 19 150/73 H 96 Room Air 07/20/22 03:33 36.6 C 89 16 122/70 93 Room Air 07/20/22 00:24 Room Air Laboratory Results 07/20/22 07/20/22 07/20/22 Range/Units 12:09 08:00 05:21 WBC (4.8-10.8) K/ul RBC (3.93-5.22) M/uL Hgb (12.0-16.0) g/dl Hct (34.1-44.9) % MCV (80.0-100.0) fL MCH (25.0-34.0) pg MCHC (32.0-36.0) g/dL RDW Std Deviation (36.4-46.3) fL RDW Coeff of Thai (11.5-14.5) % Plt Count (130-400) K/uL MPV (9.4-12.3) fL Immature Gran % (Auto) % Neut % (Auto) % Lymph % (Auto) % Long % (Auto) % Eos % (Auto) % Baso % (Auto) % Neut # (Auto) (1.4-6.5) K/uL Lymph # (Auto) (1.2-3.4) K/uL Long # (Auto) (0.24-0.82) K/uL Eos # (Auto) (0-0.50) K/uL Baso # (Auto) (0-0.2) K/uL Immature Gran # (Auto) (0.00-0.02) K/uL Sodium 143 (136-145) mmol/L Potassium 4.7 (3.5-5.1) mmol/L Chloride 110 H (98-107) mmol/L Carbon Dioxide 28 (21-32) mmol/L Anion Gap 5 (3-11) BUN 22 (6-23) mg/dl Creatinine 0.70 (0.6-1.2) mg/dl Est Cr Clr Drug Dosing 65.6 ml/min Est GFR ( Amer) 94.8 ml/min Est GFR (Non-Af Amer) 81.8 ml/min BUN/Creatinine Ratio 31.4 H (10-20) Glucose 100 H (70-99(Fasting)) mg/dl POC Glucose 198 H 125 H (70-99) mg/dl Calcium 9.3 (8.5-10.1) mg/dl Total Bilirubin 0.8 (0.2-1.0) mg/dl AST 16 (13-39) U/L ALT 14 (7-52) U/L Alkaline Phosphatase 67 (34-104) U/L Total Protein 5.7 L (6.0-8.3) gm/dl Albumin 3.0 L (3.4-5.0) gm/dl Globulin 2.7 (2.5-4.0) gm/dl Albumin/Globulin Ratio 1.1 (0.9-2) 07/20/22 07/19/22 07/19/22 Range/Units 05:21 20:35 16:35 WBC 4.55 L (4.8-10.8) K/ul RBC 4.49 (3.93-5.22) M/uL Hgb 13.2 (12.0-16.0) g/dl Hct 38.3 (34.1-44.9) % MCV 85.3 (80.0-100.0) fL MCH 29.4 (25.0-34.0) pg MCHC 34.5 (32.0-36.0) g/dL RDW Std Deviation 39.9 (36.4-46.3) fL RDW Coeff of Thai 12.8 (11.5-14.5) % Plt Count 167 (130-400) K/uL MPV 10.2 (9.4-12.3) fL Immature Gran % (Auto) 0.2 % Neut % (Auto) 57.2 % Lymph % (Auto) 32.5 % Long % (Auto) 9.2 % Eos % (Auto) 0.7 % Baso % (Auto) 0.2 % Neut # (Auto) 2.60 (1.4-6.5) K/uL Lymph # (Auto) 1.48 (1.2-3.4) K/uL Long # (Auto) 0.42 (0.24-0.82) K/uL Eos # (Auto) 0.03 (0-0.50) K/uL Baso # (Auto) 0.01 (0-0.2) K/uL Immature Gran # (Auto) 0.01 (0.00-0.02) K/uL Sodium (136-145) mmol/L Potassium (3.5-5.1) mmol/L Chloride (98-107) mmol/L Carbon Dioxide (21-32) mmol/L Anion Gap (3-11) BUN (6-23) mg/dl Creatinine (0.6-1.2) mg/dl Est Cr Clr Drug Dosing ml/min Est GFR ( Amer) ml/min Est GFR (Non-Af Amer) ml/min BUN/Creatinine Ratio (10-20) Glucose (70-99(Fasting)) mg/dl POC Glucose 74 111 H (70-99) mg/dl Calcium (8.5-10.1) mg/dl Total Bilirubin (0.2-1.0) mg/dl AST (13-39) U/L ALT (7-52) U/L Alkaline Phosphatase (34-104) U/L Total Protein (6.0-8.3) gm/dl Albumin (3.4-5.0) gm/dl Globulin (2.5-4.0) gm/dl Albumin/Globulin Ratio (0.9-2) PG Care Time/CCT Total # of Minutes Spent Total Time Spent with Patient: Total time spent is greater than 50% in coordination of care (as documented) at patient's floor/unit and/or counseling patient: Coding Level of Care Code 10667 Subseq Hosp Care Lvl 1 Diagnoses COVID-19 U07.1 Hypokalemia E87.6 Fall W19.XXXA Behavioral change R46.89 Bladder outlet obstruction N32.0 Hypothyroidism E03.9 Parkinsonism G20 Hypertension I10 Hyperlipidemia E78.5 Type 2 diabetes mellitus E11.9 Gait disorder R26.9 Abnormal EKG R94.31
[2022-07-20] MEDS: ATORVASTATIN 10 MG TAB PO SCH (21:11)
[2022-07-20] MEDS: LANTUS PER UNIT CHARGE SQ SCH (21:11)
[2022-07-20] MEDS: LATANOPROST 0.005% OP SOLN 2.5 ML BTL OPB SCH (21:12)
[2022-07-21] MEDS: LEVOTHYROXINE SODIUM 88 MCG TABLET PO SCH (05:43)
[2022-07-21] MEDS: INSULIN ASPART PER UNIT SC SCH ×4 (08:45→20:45)
[2022-07-21] MEDS: LOSARTAN POTASSIUM 50 MG TAB PO SCH (09:08)
[2022-07-21] MEDS: ASPIRIN 81 MG ECTAB PO SCH (09:08)
[2022-07-21] MEDS: MULTIVITAMIN TAB PO SCH (09:08)
[2022-07-21] MEDS: CYANOCOBALAMIN (B-12) 500 MCG TABLET PO SCH (09:08)
[2022-07-21] MEDS: ENOXAPARIN INJ 30 MG/0.3 ML SYR SQ SCH (09:08)
[2022-07-21] MEDS: VERAPAMIL HCL 240 MG TABCR PO SCH (09:08)
--- NOTE | 2022-07-21 13:56 | Hospitalist Progress Note ---
Date of Service July 21, 2022 Assessment & Plan (1) COVID-19: Plan: Patient admitted with falls, behavior changes and generalized weakness for past 2 weeks COVID 19 infection likely playing role. No hypoxia, is asymptomatic P/w acute encephalopathy which is now resolved Not meeting criteria for steroids and was not treated with remdesevir. No new symptoms or concerns today. Has since had rouse catheter removed and passed TOV Patient is medically stable for discharge pending placement (2) Hypokalemia: Plan: Improved after replacement Suspect overal body depletion due to poor appetite and previous HCTZ use. Potassium remains normal on last check 07/20 dcd HCTZ (3) Fall: Plan: Appreciate PT/OT evals Given her repeat falls patient will need to be placed. (4) Behavioral change: Plan: may be delirium from COVID 19 will monitor-seems stable at this point to improved This will likely wax and wane TSH WNL B12 354, received IM replacement and now on po B12 since B12 level was < 400 but doubtful this is having a large effect on her memory issues (5) Bladder outlet obstruction: Plan: Secondary to pelvic floor collapse Resolved with rouse catheter, urine is draining--> Rouse now removed and voiding well consulted NEIGHBORHOOD PLANNER - will follow up as outpatient, offered pessary as an outpt (6) Hypothyroidism: Plan: TSH 2.45 continue home LT4 (7) Parkinsonism: Plan: appears stable. may consider discussion with Neuro if meds need to be started. Doubt this played role into recurrent falls which were likely due to COVID 19 (8) Hypertension: Plan: BPs controlled continue home losartan, verapamil - dcd HCTZ due to hypokalemia (9) Hyperlipidemia: Plan: cont statin switched to atorvastatin DUE TO INTERACTION WITH VERAPAMIL (10) Type 2 diabetes mellitus: Plan: HbA1C 9.9 Appreciate pharmacy glycemic control-they have now signed off (11) Gait disorder: Plan: consult PT/OT (12) Abnormal EKG: Plan: Initial ekg reported with ST elevations in anterior leads but not overtly apparent Troponin stable Plan Lovenox 30mg sq daily DNR/DNI after discussing with Kristian HUNG on admission Patient is medically stable for discharge pending placement at this time- likely next week Discussed her care with her daughter on the phone on 07/21-she will have clothes brought in for patient when ready to go to rehab Admission and Anticipated Discharge Date Admission Date: July 09, 2022 Subjective Pt has no complaints. When I mentioned rehab, she said "yeah somebody was telling me about rehab." Otherwise, pleasantly confused and goes off on tangesnts about unrelated topics at times. Is eating well. Review of Systems Review of Systems: All systems reviewed & are unremarkable except as noted in HPI & below Physical Exam Constitutional: WD/WN, vitals as above Eyes: + anicteric sclerae Neck: trachea midline, no thyromegaly Respiratory: normal respiratory effort, lungs clear to auscultation Cardiovascular: RRR, no murmur, no edema Chest (Breasts): Chest: normal inspection of chest Gastrointestinal (Abdomen): normal bowel sounds, soft, nontender, no hepatosplenomegaly Musculoskeletal: Extremities: extremities normal to inspection; no cyanosis and no clubbing Skin: no rashes, warm and dry Neurologic: moves all extremities and awake; no focal motor deficits Psychiatric: Orientation: alert, oriented to person and cooperative Lymphatic: no lymphedema Results & Data Results & Data ([facility]) Vital Signs (Past 12 Hours) Vital Signs Temp Pulse Resp BP Pulse Ox O2 Del Method 07/21/22 11:58 36.6 C 111 H 18 112/70 98 Room Air 07/21/22 07:47 36.5 C 111 H 19 130/75 97 Room Air 07/21/22 04:00 36.9 C 69 18 132/70 97 Room Air PG Care Time/CCT Total # of Minutes Spent Total Time Spent with Patient: Total time spent is greater than 50% in coordination of care (as documented) at patient's floor/unit and/or counseling patient: Coding Level of Care Code 40597 Subseq Hosp Care Lvl 1 Diagnoses COVID-19 U07.1 Hypokalemia E87.6 Fall W19.XXXA Behavioral change R46.89 Bladder outlet obstruction N32.0 Hypothyroidism E03.9 Parkinsonism G20 Hypertension I10 Hyperlipidemia E78.5 Type 2 diabetes mellitus E11.9 Gait disorder R26.9 Abnormal EKG R94.31
[2022-07-21] MEDS: ATORVASTATIN 10 MG TAB PO SCH (20:25)
[2022-07-21] MEDS: LANTUS PER UNIT CHARGE SQ SCH (20:46)
[2022-07-21] MEDS: LATANOPROST 0.005% OP SOLN 2.5 ML BTL OPB SCH (20:47)
[2022-07-22] MEDS: LEVOTHYROXINE SODIUM 88 MCG TABLET PO SCH (06:09)
[2022-07-22] MEDS: MULTIVITAMIN TAB PO SCH (08:18)
[2022-07-22] MEDS: CYANOCOBALAMIN (B-12) 500 MCG TABLET PO SCH (08:18)
[2022-07-22] MEDS: ASPIRIN 81 MG ECTAB PO SCH (08:19)
[2022-07-22] MEDS: VERAPAMIL HCL 240 MG TABCR PO SCH (08:19)
[2022-07-22] MEDS: LOSARTAN POTASSIUM 50 MG TAB PO SCH (08:19)
[2022-07-22] MEDS: ENOXAPARIN INJ 30 MG/0.3 ML SYR SQ SCH (08:20)
[2022-07-22] MEDS: INSULIN ASPART PER UNIT SC SCH ×4 (08:24→20:47)
--- NOTE | 2022-07-22 20:02 | Hospitalist Progress Note ---
Date of Service July 22, 2022 Assessment & Plan (1) COVID-19: Plan: Patient admitted with falls, behavior changes and generalized weakness for past 2 weeks COVID 19 infection likely playing role. No hypoxia, is asymptomatic P/w acute encephalopathy which is now resolved Not meeting criteria for steroids and was not treated with remdesevir. Has since had rouse catheter removed and passed TOV Patient is medically stable for discharge pending placement (2) Hypokalemia: Plan: Improved after replacement Suspect overal body depletion due to poor appetite and previous HCTZ use. Potassium remains normal on last check 07/20 dcd HCTZ (3) Fall: Plan: Appreciate PT/OT evals Given her repeat falls patient will need to be placed. (4) Behavioral change: Plan: Acute metabolic encephalopathy Likely was secondary to delirium from COVID 19 Now resolved TSH WNL B12 354, received IM replacement and now on po B12 since B12 level was < 400 but doubtful this is having a large effect on her memory issues (5) Bladder outlet obstruction: Plan: Secondary to pelvic floor collapse Resolved with rouse catheter placement--> Rouse now removed consulted MINER OPERATOR - will follow up as outpatient, offered pessary as an outpt Voiding Will unknown at this point (6) Hypothyroidism: Plan: TSH 2.45 continue home LT4 (7) Parkinsonism: Plan: appears stable. may consider discussion with Neuro if meds need to be started. Doubt this played role into recurrent falls which were likely due to COVID 19 (8) Hypertension: Plan: BPs controlled continue home losartan, verapamil - dcd HCTZ due to hypokalemia (9) Hyperlipidemia: Plan: cont statin switched to atorvastatin DUE TO INTERACTION WITH VERAPAMIL (10) Type 2 diabetes mellitus: Plan: HbA1C 9.9 Appreciate pharmacy glycemic control-they have now signed off (11) Gait disorder: Plan: consult PT/OT (12) Abnormal EKG: Plan: Initial ekg reported with ST elevations in anterior leads but not overtly apparent Troponin stable Plan Lovenox 30mg sq daily DNR/DNI after discussing with Kristian HUNG on admission Patient is medically stable for discharge pending placement at this time-still awaiting bed at rehab Discussed her care with her daughter on the phone on 07/21-she will have clothes brought in for patient when ready to go to rehab Admission and Anticipated Discharge Date Admission Date: July 09, 2022 Subjective Patient has no complaints, pleasantly confused but seems clear today than previously. Review of Systems Review of Systems: All systems reviewed & are unremarkable except as noted in HPI & below Physical Exam Constitutional: WD/WN, vitals as above Eyes: + anicteric sclerae Neck: trachea midline, no thyromegaly Respiratory: normal respiratory effort, lungs clear to auscultation Cardiovascular: RRR, no murmur, no edema Chest (Breasts): Chest: normal inspection of chest Gastrointestinal (Abdomen): normal bowel sounds, soft, nontender, no hepatosplenomegaly Musculoskeletal: Extremities: extremities normal to inspection; no cyanosis and no clubbing Skin: no rashes, warm and dry Neurologic: moves all extremities and awake; no focal motor deficits Psychiatric: Orientation: alert, oriented to person and cooperative Lymphatic: no lymphedema Results & Data Results & Data ([facility]) Vital Signs (Past 12 Hours) Vital Signs Temp Pulse Resp BP Pulse Ox O2 Del Method 07/22/22 19:25 Room Air 07/22/22 15:15 36.8 C 79 20 132/61 96 Room Air 07/22/22 11:06 36.8 C 86 20 108/65 95 Room Air PG Care Time/CCT Total # of Minutes Spent Total Time Spent with Patient: Total time spent is greater than 50% in coordination of care (as documented) at patient's floor/unit and/or counseling patient: Coding Level of Care Code 15147 Subseq Hosp Care Lvl 1 Diagnoses COVID-19 U07.1 Hypokalemia E87.6 Fall W19.XXXA Behavioral change R46.89 Bladder outlet obstruction N32.0 Hypothyroidism E03.9 Parkinsonism G20 Hypertension I10 Hyperlipidemia E78.5 Type 2 diabetes mellitus E11.9 Gait disorder R26.9 Abnormal EKG R94.31
[2022-07-22] MEDS: ATORVASTATIN 10 MG TAB PO SCH (20:47)
[2022-07-22] MEDS: LANTUS PER UNIT CHARGE SQ SCH (20:51)
[2022-07-22] MEDS: LATANOPROST 0.005% OP SOLN 2.5 ML BTL OPB SCH (20:52)
[2022-07-22] MEDS ORDERED: MELATONIN 3 MG TAB PO PRN (21:06)
[2022-07-22] MEDS: ONDANSETRON 4 MG OD TAB PO PRN (21:20)
[2022-07-23] MEDS: LEVOTHYROXINE SODIUM 88 MCG TABLET PO SCH (05:41)
[2022-07-23] MEDS: INSULIN ASPART PER UNIT SC SCH ×4 (08:16→23:35)
[2022-07-23] MEDS: ENOXAPARIN INJ 30 MG/0.3 ML SYR SQ SCH (08:17)
[2022-07-23] MEDS: ASPIRIN 81 MG ECTAB PO SCH (08:18)
[2022-07-23] MEDS: LOSARTAN POTASSIUM 50 MG TAB PO SCH (08:18)
[2022-07-23] MEDS: MULTIVITAMIN TAB PO SCH (08:19)
[2022-07-23] MEDS: VERAPAMIL HCL 240 MG TABCR PO SCH (08:19)
[2022-07-23] MEDS: CYANOCOBALAMIN (B-12) 500 MCG TABLET PO SCH (08:19)
--- NOTE | 2022-07-23 21:31 | Hospitalist Progress Note ---
Date of Service July 23, 2022 Assessment & Plan (1) COVID-19: Plan: Patient admitted with falls, behavior changes and generalized weakness for past 2 weeks COVID 19 infection likely playing role. No hypoxia, is asymptomatic P/w acute encephalopathy which is now resolved Not meeting criteria for steroids and was not treated with remdesevir. Has since had rouse catheter removed and passed TOV Patient is medically stable for discharge pending placement (2) Hypokalemia: Plan: Improved after replacement Suspect overal body depletion due to poor appetite and previous HCTZ use. Potassium remains normal on last check 07/20 dcd HCTZ (3) Fall: Plan: Appreciate PT/OT evals Given her repeat falls patient will need to be placed. (4) Behavioral change: Plan: Acute metabolic encephalopathy Likely was secondary to delirium from COVID 19 Now resolved TSH WNL B12 354, received IM replacement and now on po B12 since B12 level was < 400 but doubtful this is having a large effect on her memory issues (5) Bladder outlet obstruction: Plan: Secondary to pelvic floor collapse Resolved with rouse catheter placement--> Rouse now removed consulted CLOTHING CONSULTANT - will follow up as outpatient, offered pessary as an outpt Voiding Will unknown at this point (6) Hypothyroidism: Plan: TSH 2.45 continue home LT4 (7) Parkinsonism: Plan: appears stable. may consider discussion with Neuro if meds need to be started. Doubt this played role into recurrent falls which were likely due to COVID 19 (8) Hypertension: Plan: BPs controlled continue home losartan, verapamil - dcd HCTZ due to hypokalemia (9) Hyperlipidemia: Plan: cont statin switched to atorvastatin DUE TO INTERACTION WITH VERAPAMIL (10) Type 2 diabetes mellitus: Plan: HbA1C 9.9 Appreciate pharmacy glycemic control-they have now signed off (11) Gait disorder: Plan: consult PT/OT (12) Abnormal EKG: Plan: Initial ekg reported with ST elevations in anterior leads but not overtly apparent Troponin stable Plan Lovenox 30mg sq daily DNR/DNI after discussing with Kristian HUNG on admission Patient is medically stable for discharge pending placement at this time-still awaiting bed at rehab Discussed her care with her daughter on the phone on 07/21-she will have clothes brought in for patient when ready to go to rehab Admission and Anticipated Discharge Date Admission Date: July 09, 2022 Subjective 82 yo female reports feeling well. Patient has no new complaints. Review of Systems Review of Systems: All systems reviewed & are unremarkable except as noted in HPI & below Physical Exam Constitutional: WD/WN, vitals as above Eyes: + anicteric sclerae Neck: trachea midline, no thyromegaly Respiratory: normal respiratory effort, lungs clear to auscultation Cardiovascular: RRR, no murmur, no edema Chest (Breasts): Chest: normal inspection of chest Gastrointestinal (Abdomen): normal bowel sounds, soft, nontender, no hepatosplenomegaly Musculoskeletal: Extremities: extremities normal to inspection; no cyanosis and no clubbing Skin: no rashes, warm and dry Neurologic: moves all extremities and awake; no focal motor deficits Psychiatric: Orientation: alert, oriented to person and cooperative Lymphatic: no lymphedema Results & Data Results & Data ([facility]) Vital Signs (Past 12 Hours) Vital Signs Temp Pulse Resp BP Pulse Ox O2 Del Method 07/23/22 15:53 37.2 C 71 18 123/65 96 Room Air 07/23/22 12:33 36.5 C 84 18 112/63 93 Room Air PG Care Time/CCT Total # of Minutes Spent Total Time Spent with Patient: Total time spent is greater than 50% in coordination of care (as documented) at patient's floor/unit and/or counseling patient: Coding Level of Care Code 12027 Subseq Hosp Care Lvl 2 Diagnoses COVID-19 U07.1 Hypokalemia E87.6 Fall W19.XXXA Behavioral change R46.89 Bladder outlet obstruction N32.0 Hypothyroidism E03.9 Parkinsonism G20 Hypertension I10 Hyperlipidemia E78.5 Type 2 diabetes mellitus E11.9 Gait disorder R26.9 Abnormal EKG R94.31 Time Spent (min) 25 Comment chart review
[2022-07-23] MEDS: LATANOPROST 0.005% OP SOLN 2.5 ML BTL OPB SCH (23:41)
[2022-07-23] MEDS: LANTUS PER UNIT CHARGE SQ SCH (23:41)
[2022-07-23] MEDS: ATORVASTATIN 10 MG TAB PO SCH (23:42)
[2022-07-24] MEDS: LEVOTHYROXINE SODIUM 88 MCG TABLET PO SCH (05:38)
[2022-07-24 06:38] LABS: Hematocrit (blood only) 34.8 % (34.1-44.9); Hemoglobin 12.4 g/dl (12.0-16.0); Mean Corpuscular Hemoglobin 29.8 pg (25.0-34.0); Mean Corpuscular Hgb Conc 35.6 g/dL (32.0-36.0); Mean Corpuscular Volume 83.7 fL (80.0-100.0); Mean Platelet Volume 10.5 fL (9.4-12.3); Platelet Count 186 K/uL (130-400); RDW Coefficient of Variation 12.8 % (11.5-14.5); RDW Standard Deviation 38.9 fL (36.4-46.3); Red Blood Count 4.16 M/uL (3.93-5.22); White Blood Count 5.55 K/ul (4.8-10.8)
[2022-07-24 07:32] LABS: BUN Creatinine Ratio 31.9 (10-20); Calcium 8.5 mg/dl (8.5-10.1); Creatinine Clr Calc Pharmacy 66.6 ml/min; Est GFR (African American) 95.3 ml/min; Est GFR (Non-African American) 82.2 ml/min; Potassium 4.1 mmol/L (3.5-5.1)
[2022-07-24] MEDS: INSULIN ASPART PER UNIT SC SCH ×4 (09:02→20:28)
[2022-07-24] MEDS: ENOXAPARIN INJ 30 MG/0.3 ML SYR SQ SCH (09:03)
[2022-07-24] MEDS: LOSARTAN POTASSIUM 50 MG TAB PO SCH (09:04)
[2022-07-24] MEDS: MULTIVITAMIN TAB PO SCH (09:04)
[2022-07-24] MEDS: ASPIRIN 81 MG ECTAB PO SCH (09:04)
[2022-07-24] MEDS: VERAPAMIL HCL 240 MG TABCR PO SCH (09:04)
[2022-07-24] MEDS: CYANOCOBALAMIN (B-12) 500 MCG TABLET PO SCH (09:05)
[2022-07-24] MEDS: ATORVASTATIN 10 MG TAB PO SCH (20:26)
[2022-07-24] MEDS: LATANOPROST 0.005% OP SOLN 2.5 ML BTL OPB SCH (20:27)
[2022-07-24] MEDS: LANTUS PER UNIT CHARGE SQ SCH (20:29)
--- NOTE | 2022-07-24 23:47 | Hospitalist Progress Note ---
Date of Service July 24, 2022 Assessment & Plan (1) COVID-19: Plan: Patient admitted with falls, behavior changes and generalized weakness for past 2 weeks COVID 19 infection likely playing role. No hypoxia, is asymptomatic P/w acute encephalopathy which is now resolved Not meeting criteria for steroids and was not treated with remdesevir. Has since had rouse catheter removed and passed TOV Patient is medically stable for discharge pending placement (2) Hypokalemia: Plan: Improved after replacement Suspect overal body depletion due to poor appetite and previous HCTZ use. Potassium remains normal on last check 07/20 dcd HCTZ (3) Fall: Plan: Appreciate PT/OT evals Given her repeat falls patient will need to be placed. (4) Behavioral change: Plan: Acute metabolic encephalopathy Likely was secondary to delirium from COVID 19 Now resolved TSH WNL B12 354, received IM replacement and now on po B12 since B12 level was < 400 but doubtful this is having a large effect on her memory issues (5) Bladder outlet obstruction: Plan: Secondary to pelvic floor collapse Resolved with rouse catheter placement--> Rouse now removed consulted SHRIMP PEELING MACHINE OPERATOR - will follow up as outpatient, offered pessary as an outpt Voiding Will unknown at this point (6) Hypothyroidism: Plan: TSH 2.45 continue home LT4 (7) Parkinsonism: Plan: appears stable. may consider discussion with Neuro if meds need to be started. Doubt this played role into recurrent falls which were likely due to COVID 19 (8) Hypertension: Plan: BPs controlled continue home losartan, verapamil - dcd HCTZ due to hypokalemia (9) Hyperlipidemia: Plan: cont statin switched to atorvastatin DUE TO INTERACTION WITH VERAPAMIL (10) Type 2 diabetes mellitus: Plan: HbA1C 9.9 Appreciate pharmacy glycemic control-they have now signed off (11) Gait disorder: Plan: consult PT/OT (12) Abnormal EKG: Plan: Initial ekg reported with ST elevations in anterior leads but not overtly apparent Troponin stable Plan Lovenox 30mg sq daily DNR/DNI after discussing with Kristian HUNG on admission Patient is medically stable for discharge pending placement at this time-still awaiting bed at rehab Discussed her care with her daughter on the phone on 07/21-she will have clothes brought in for patient when ready to go to rehab Admission and Anticipated Discharge Date Admission Date: July 09, 2022 Subjective Patient reports no new symptoms. Patient unable to answer orientation questions. Review of Systems Review of Systems: All systems reviewed & are unremarkable except as noted in HPI & below Physical Exam Physical Exam: GENERAL: Non-toxic in appearance. Confused INTEGUMENTARY: Warm, dry, and [place]. HEAD: Normocephalic. EYES: without scleral icterus or trauma. ENT/OROPHARYNX: clear and moist. LYMPHADENOPATHY/NECK: Trachea midline, no lymphdenopathy RESPIRATORY: Clear to auscultation bilaterally. No increased work of breathing. CARDIOVASCULAR: Regular rate and rhythm. GI/ABDOMEN: Soft and nontender. No organomegaly or pulsatile mass. EXTREMITIES: Warm and well perfused. NEUROLOGICAL: Intact without focal deficits. PSYCHIATRIC: normal affect. MUSCULOSKELETAL: Normally developed with good muscle tone. Results & Data Results & Data ([facility]) Vital Signs (Past 12 Hours) Vital Signs Temp Pulse Resp BP Pulse Ox O2 Del Method 07/24/22 23:14 36.3 C L 73 16 107/64 97 Room Air 07/24/22 15:40 36.7 C 85 18 127/68 95 Room Air PG Care Time/CCT Total # of Minutes Spent Total Time Spent with Patient: Total time spent is greater than 50% in coordination of care (as documented) at patient's floor/unit and/or counseling patient: Coding Level of Care Code 14425 Subseq Hosp Care Lvl 2 Diagnoses COVID-19 U07.1 Hypokalemia E87.6 Fall W19.XXXA Behavioral change R46.89 Bladder outlet obstruction N32.0 Hypothyroidism E03.9 Parkinsonism G20 Hypertension I10 Hyperlipidemia E78.5 Type 2 diabetes mellitus E11.9 Gait disorder R26.9 Abnormal EKG R94.31
[2022-07-25] MEDS: LEVOTHYROXINE SODIUM 88 MCG TABLET PO SCH (05:35)
[2022-07-25] MEDS: INSULIN ASPART PER UNIT SC SCH ×4 (08:14→20:45)
[2022-07-25] MEDS: ASPIRIN 81 MG ECTAB PO SCH (08:20)
[2022-07-25] MEDS: CYANOCOBALAMIN (B-12) 500 MCG TABLET PO SCH (08:20)
[2022-07-25] MEDS: LOSARTAN POTASSIUM 50 MG TAB PO SCH (08:20)
[2022-07-25] MEDS: VERAPAMIL HCL 240 MG TABCR PO SCH (08:20)
[2022-07-25] MEDS: ENOXAPARIN INJ 30 MG/0.3 ML SYR SQ SCH (08:20)
[2022-07-25] MEDS: MULTIVITAMIN TAB PO SCH (08:20)
[2022-07-25] MEDS: ONDANSETRON 4 MG OD TAB PO PRN (11:46)
--- NOTE | 2022-07-25 12:34 | Hospitalist Progress Note ---
Date of Service July 25, 2022 Assessment & Plan (1) COVID-19: Plan: Patient admitted with falls, behavior changes and generalized weakness for past 2 weeks COVID 19 infection likely playing role. No hypoxia, is asymptomatic P/w acute encephalopathy which is now resolved Did not meet criteria for steroids and was not treated with remdesevir. Has since had rouse catheter removed and passed TOV Patient is medically stable for discharge pending placement (2) Hypokalemia: Plan: Improved after replacement Suspect overal body depletion due to poor appetite and previous HCTZ use. dcd HCTZ Repeat BMP (3) Fall: Plan: Appreciate PT/OT evals Given her repeat falls patient will need to be placed. 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 may consider discussion with Neuro if meds need to be started. Doubt this played role into recurrent falls which were likely due to COVID 19 (8) Hypertension: Plan: BPs controlled continue home losartan, verapamil - dcd HCTZ due to hypokalemia (9) Hyperlipidemia: Plan: cont statin switched to atorvastatin DUE TO INTERACTION WITH VERAPAMIL (10) Type 2 diabetes mellitus: Plan: HbA1C 9.9 Appreciate pharmacy glycemic control-they have now signed off (11) Gait disorder: Plan: consult PT/OT (12) Abnormal EKG: Plan: Initial ekg reported with ST elevations in anterior leads but not overtly apparent Troponin stable Plan Lovenox 30mg sq daily DNR/DNI after discussing with Kristian HUNG on admission Patient is medically stable for discharge pending placement at this time-still awaiting bed at rehab Admission and Anticipated Discharge Date Admission Date: July 09, 2022 Subjective patient seen and examined, lying quietly in bed, participating in PT, occasionally confused Review of Systems Review of Systems: All systems reviewed are negative, apart from the ones contained in the history. Physical Exam Physical Exam: The patient is awake, alert and oriented 3, well developed and well nourished, normocephalic and atraumatic, lying in bed and in no acute distress. HEENT--PERRL, EOMI, mucous membranes and oropharynx mildly dry Neck--supple. No JVD. No bruits. Thyroid normal, trachea midline, no evelin nopathy. Heart--normal S1 and S2. No murmurs, rubs or gallops. Lungs--clear bilaterally, no respiratory distress, no accessory muscle use. Abdomen--normal bowel sounds and soft. Mild epigastric and left sided abdominal pain Extremities--no cyanosis or clubbing. No edema. Dermatologic--normal skin turgor, normal color, no abnormal lymph nodes, no rash. Neurologic--cranial nerves II through XII grossly intact. Rheumatologic--normal range of motion. Psychiatric--normal affect. Results & Data Results & Data ([facility]) Vital Signs (Past 12 Hours) Vital Signs Temp Pulse Resp BP Pulse Ox O2 Del Method 07/25/22 10:32 98.1 F 90 18 118/63 93 Room Air 07/25/22 06:28 98.2 F 86 20 105/56 L 95 Room Air PG Care Time/CCT Total # of Minutes Spent Total Time Spent with Patient: Total time spent is greater than 50% in coordination of care (as documented) at patient's floor/unit and/or counseling patient: Coding Level of Care Code 42625 Subseq Hosp Care Lvl 2 Diagnoses COVID-19 U07.1 Hypokalemia E87.6 Fall W19.XXXA Behavioral change R46.89 Bladder outlet obstruction N32.0 Hypothyroidism E03.9 Parkinsonism G20 Hypertension I10 Hyperlipidemia E78.5 Type 2 diabetes mellitus E11.9 Gait disorder R26.9 Abnormal EKG R94.31 Time Spent (min) 35
[2022-07-25 13:11] LABS: BUN Creatinine Ratio 28.9 (10-20); Calcium 8.8 mg/dl (8.5-10.1); Creatinine Clr Calc Pharmacy 51.8 ml/min; Est GFR (Non-African American) 60.4 ml/min; Potassium 3.4 mmol/L (3.5-5.1)
[2022-07-25] MEDS: ATORVASTATIN 10 MG TAB PO SCH (20:45)
[2022-07-25] MEDS: LATANOPROST 0.005% OP SOLN 2.5 ML BTL OPB SCH (20:46)
[2022-07-25] MEDS: LANTUS PER UNIT CHARGE SQ SCH (20:46)
[2022-07-26] MEDS: LEVOTHYROXINE SODIUM 88 MCG TABLET PO SCH (05:32)
[2022-07-26] MEDS: INSULIN ASPART PER UNIT SC SCH ×4 (08:48→22:36)
[2022-07-26] MEDS: ASPIRIN 81 MG ECTAB PO SCH (08:49)
[2022-07-26] MEDS: MULTIVITAMIN TAB PO SCH (08:49)
[2022-07-26] MEDS: CYANOCOBALAMIN (B-12) 500 MCG TABLET PO SCH (08:49)
[2022-07-26] MEDS: ENOXAPARIN INJ 30 MG/0.3 ML SYR SQ SCH (08:49)
[2022-07-26] MEDS: LOSARTAN POTASSIUM 50 MG TAB PO SCH (08:49)
[2022-07-26] MEDS: VERAPAMIL HCL 240 MG TABCR PO SCH (08:49)
--- NOTE | 2022-07-26 12:07 | CT Scan Report ---
CT SCAN OF THE BRAIN WITHOUT IV CONTRAST CLINICAL HISTORY: Fall. COMPARISON STUDY: CT of the brain dated 06/14/2022. TECHNIQUE: Unenhanced axial CT scan of the brain is performed from the vertex to the skull base. A do se lowering technique was utilized adhering to the principles of ALARA. CT DOSE: 614.27 mGy.cm FINDINGS: Brain parenchyma: There is age-related involutional change noting mild subcortical and periventricula r microangiopathic disease. There is no hemorrhage, mass effect, or evidence of acute territorial isc hemia by CT criteria. Ayala-white matter differentiation is preserved. No extra-axial fluid collection is seen. Ventricles, sulci, cisterns: Prominent secondary to involutional change. Intracranial vasculature: There is atherosclerotic calcification of the cavernous carotid artery. Calvarium: The skeletal structures are osteopenic. No depressed calvarial fracture is identified. Sinuses and mastoids: The visualized sinuses are clear. The mastoid air cells are well pneumatized. Orbits: The bony orbits are grossly intact. There are bilateral ocular lens implants. IMPRESSION: There is no hemorrhage, mass effect, or evidence of acute territorial ischemia by CT cande murillo. ACT 112: Negative or not required by law. Electronically signed by: Tien Geiger M.D. 07/26/2022 12:05 PM
[2022-07-26] MEDS: ONDANSETRON 4 MG OD TAB PO PRN (13:27)
--- NOTE | 2022-07-26 14:50 | Hospitalist Progress Note ---
Date of Service July 26, 2022 Assessment & Plan (1) COVID-19: Plan: Patient admitted with falls, behavior changes and generalized weakness for past 2 weeks COVID 19 infection likely playing role. No hypoxia, is asymptomatic P/w acute encephalopathy which is now resolved Did not meet criteria for steroids and was not treated with remdesevir. Has since had rouse catheter removed and passed TOV Patient is medically stable for discharge pending placement, however, was denied SNF by [employer] even after peer to peer (2) Hypokalemia: Plan: Improved after replacement Suspect overal body depletion due to poor appetite and previous HCTZ use. dcd HCTZ Repeat BMP (3) Fall: Plan: Appreciate PT/OT evals Given her repeat falls patient will need to be placed. 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 may consider discussion with Neuro if meds need to be started. Doubt this played role into recurrent falls which were likely due to COVID 19 (8) Hypertension: Plan: BPs controlled continue home losartan, verapamil - dcd HCTZ due to hypokalemia (9) Hyperlipidemia: Plan: cont statin switched to atorvastatin DUE TO INTERACTION WITH VERAPAMIL (10) Type 2 diabetes mellitus: Plan: HbA1C 9.9 Appreciate pharmacy glycemic control-they have now signed off (11) Gait disorder: Plan: consult PT/OT (12) Abnormal EKG: Plan: Initial ekg reported with ST elevations in anterior leads but not overtly apparent Troponin stable Plan Lovenox 30mg sq daily DNR/DNI after discussing with Kristian HUNG on admission Patient is medically stable for discharge pending placement at this time-still awaiting bed at rehab Admission and Anticipated Discharge Date Admission Date: July 09, 2022 Subjective patient seen and examined, sitting up in the chair, participating in PT, occasionally confused Review of Systems Review of Systems: All systems reviewed are negative, apart from the ones contained in the history. Physical Exam Physical Exam: The patient is awake, alert and oriented 3, well developed and well nourished, normocephalic and atraumatic, lying in bed and in no acute distress. HEENT--PERRL, EOMI, mucous membranes and oropharynx mildly dry Neck--supple. No JVD. No bruits. Thyroid normal, trachea midline, no adenopathy. Heart--normal S1 and S2. No murmurs, rubs or gallops. Lungs--clear bilaterally, no respiratory distress, no accessory muscle use. Abdomen--normal bowel sounds and soft. Mild epigastric and left sided abdominal pain Extremities--no cyanosis or clubbing. No edema. Dermatologic--normal skin turgor, normal color, no abnormal lymph nodes, no rash. Neurologic--cranial nerves II through XII grossly intact. Rheumatologic--normal range of motion. Psychiatric--normal affect. Results & Data Results & Data ([facility]) Vital Signs (Past 12 Hours) Vital Signs Temp Pulse Resp BP BP Pulse Ox O2 Del Method 07/26/22 10:54 97.7 F 103 H 17 119/70 99 Room Air 07/26/22 07:15 97.9 F 75 17 121/64 95 Room Air PG Care Time/CCT Total # of Minutes Spent Total Time Spent with Patient: Total time spent is greater than 50% in coordination of care (as documented) at patient's floor/unit and/or counseling patient: Coding Level of Care Code 40679 Subseq Hosp Care Lvl 2 Diagnoses COVID-19 U07.1 Hypokalemia E87.6 Fall W19.XXXA Behavioral change R46.89 Bladder outlet obstruction N32.0 Hypothyroidism E03.9 Parkinsonism G20 Hypertension I10 Hyperlipidemia E78.5 Type 2 diabetes mellitus E11.9 Gait disorder R26.9 Abnormal EKG R94.31 Time Spent (min) 35
[2022-07-26] MEDS ORDERED: METOCLOPRAMIDE HCL INJ 5 MG/ML 2 ML VIAL IV PRN (17:40)
[2022-07-26] MEDS ORDERED: bisacodyL 10 MG SUPP PR PRN (17:57)
[2022-07-26] MEDS: SODIUM CHLORIDE 0.9% 1000ML 1,000 ML IV SCH (18:14)
[2022-07-26 18:35] LABS: Hemoglobin 12.7 g/dl (12.0-16.0); Mean Corpuscular Hemoglobin 29.5 pg (25.0-34.0); Mean Corpuscular Hgb Conc 35.3 g/dL (32.0-36.0); Mean Corpuscular Volume 83.5 fL (80.0-100.0); Mean Platelet Volume 10.3 fL (9.4-12.3); Platelet Count 190 K/uL (130-400); RDW Coefficient of Variation 12.8 % (11.5-14.5); RDW Standard Deviation 39.1 fL (36.4-46.3); Red Blood Count 4.31 M/uL (3.93-5.22); White Blood Count 9.92 K/ul (4.8-10.8)
[2022-07-26 18:55] LABS: BUN Creatinine Ratio 37.2 (10-20); Calcium 8.6 mg/dl (8.5-10.1); Creatinine Clr Calc Pharmacy 54.2 ml/min; Est GFR (African American) 73.9 ml/min; Est GFR (Non-African American) 63.8 ml/min; Potassium 3.4 mmol/L (3.5-5.1)
[2022-07-26] MEDS: LATANOPROST 0.005% OP SOLN 2.5 ML BTL OPB SCH (22:30)
[2022-07-26] MEDS: ATORVASTATIN 10 MG TAB PO SCH (22:30)
[2022-07-26] MEDS: LANTUS PER UNIT CHARGE SQ SCH (22:34)
[2022-07-27] MEDS: SODIUM CHLORIDE 0.9% 1000ML 1,000 ML IV SCH (05:41)
[2022-07-27] MEDS: LEVOTHYROXINE SODIUM 88 MCG TABLET PO SCH (05:42)
[2022-07-27] MEDS: ENOXAPARIN INJ 30 MG/0.3 ML SYR SQ SCH (08:24)
[2022-07-27] MEDS: VERAPAMIL HCL 240 MG TABCR PO SCH (08:25)
[2022-07-27] MEDS: ASPIRIN 81 MG ECTAB PO SCH (08:25)
[2022-07-27] MEDS: LOSARTAN POTASSIUM 50 MG TAB PO SCH (08:25)
[2022-07-27] MEDS: INSULIN ASPART PER UNIT SC SCH (08:26)
[2022-07-27] MEDS: MULTIVITAMIN TAB PO SCH (08:26)
[2022-07-27] MEDS: CYANOCOBALAMIN (B-12) 500 MCG TABLET PO SCH (08:26)
--- NOTE | 2022-07-27 13:49 | Discharge Summary ---
Date of Service July 27, 2022 Admission HPI Per Admitting Provider History was obtained by discussing with the grandson. Patient is a 82 yo female with PMH described below. She has been combating dementia and slowly has been decreasing her physical skills to ambulate, however in the past 2 weeks, her dementia has worsened. she has been somewhat agressive and confused. Her grandson reports that he has not seen her for past few days as he is sick. However, family has been with her and noted fall which prompted them to bring patient in the hospital. While in the ER, patient was found to have COVID 19. She has been vaccinated. Principal Diagnosis covid infection, weakness Discharge Exam The patient is awake, alert and oriented 3, well developed and well nourished, normocephalic and atraumatic, lying in bed and in no acute distress. HEENT--PERRL, EOMI, mucous membranes and oropharynx mildly dry Neck--supple. No JVD. No bruits. Thyroid normal, trachea midline, no adenopathy. Heart--normal S1 and S2. No murmurs, rubs or gallops. Lungs--clear bilaterally, no respiratory distress, no accessory muscle use. Abdomen--normal bowel sounds and soft. Mild epigastric and left sided abdominal pain Extremities--no cyanosis or clubbing. No edema. Dermatologic--normal skin turgor, normal color, no abnormal lymph nodes, no rash. Neurologic--cranial nerves II through XII grossly intact. Rheumatologic--normal range of motion. Psychiatric--normal affect. Discharge Data Allergies Allergy/AdvReac Type Severity Reaction Status Date / Time Bactrim Allergy Intermediate RASH Verified 11/21/17 14:01 duloxetine Allergy Intermediate BALANCE Verified 07/09/22 16:47 PROBLEMS gabapentin Allergy Intermediate BALANCE Verified 07/09/22 16:47 PROBLEMS nitrofurantoin Allergy Intermediate HIVES Verified 07/09/22 16:47 nortriptyline Allergy Intermediate balance Verified 07/09/22 16:47 problems pregabalin [From Lyrica] Allergy Intermediate BALANCE Verified 07/09/22 16:47 ISSUES sulfamethoxazole Allergy Intermediate RASH Verified 07/09/22 16:47 trimethoprim Allergy Intermediate RASH Verified 07/09/22 16:47 lisinopril AdvReac Mild COUGH Verified 07/09/22 16:47 repaglinide AdvReac Mild GI UPSET Verified 07/09/22 16:47 Fluoride Preparations AdvReac Mild SICK Uncoded 07/09/22 16:47 STOMACH, MOUTH/THROAT SORENESS FROM FLUORIDE TREATMENT Consultations 07/09/22 18:51 ED Decision to Admit Stat 07/10/22 10:59 Consult Gynecology Routine Ordered Studies 07/09/22 13:25 CT abd pelvis IV con only Stat 07/26/22 10:59 CT head/brain wo con Routine Diabetes Follow up Diabetes Follow-up Needed for HgbA1c >9% Hospital Course (1) COVID-19: Patient admitted with falls, behavior changes and generalized weakness for past 2 weeks COVID 19 infection likely playing role. No hypoxia, is asymptomatic P/w acute encephalopathy which is now resolved Did not meet criteria for steroids and was not treated with remdesevir. Has since had rouse catheter removed and passed TOV Patient is medically stable for discharge pending placement, however, was denied SNF by [employer] even after peer to peer (2) Hypokalemia: Improved after replacement Suspect overal body depletion due to poor appetite and previous HCTZ use. dcd HCTZ Repeat BMP (3) Fall: Appreciate PT/OT evals Given her repeat falls patient will need to be placed. 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 may consider discussion with Neuro if meds need to be started. Doubt this played role into recurrent falls which were likely due to COVID 19 (8) Hypertension: BPs controlled continue home losartan, verapamil - dcd HCTZ due to hypokalemia (9) Hyperlipidemia: cont statin switched to atorvastatin DUE TO INTERACTION WITH VERAPAMIL (10) Type 2 diabetes mellitus: HbA1C 9.9 Appreciate pharmacy glycemic control-they have now signed off (11) Gait disorder: consult PT/OT (12) Abnormal EKG: Initial ekg reported with ST elevations in anterior leads but not overtly apparent Troponin stable Plan Lovenox 30mg sq daily DNR/DNI after discussing with Kristian HUNG on admission Patient is medically stable for discharge pending placement at this time-still awaiting bed at rehab Total Time Total Time Spent Total Time Spent (In Minutes): 35 Discharge Plan Discharge Items Patient Disposition: Transfer [facility] Fac Reason For Visit: COVID/WEAKNESS Discharge Diagnosis: COVID 19 infection, weakness, Condition on Discharge: Good Activity: Resume your previous activity Non-emergency contact: Primary Care Provider Call non-emergency contact if: you have any medication questions Follow-up/Referrals: Anderson Dowell MD [Primary Care Provider] - Diet: Regular Addtl Attending Provider Instructions: please make appointment to follow up with your regular PCP Pending Studies at Discharge: No Stand-Alone Forms: My [facility] Skilled Items Patient informed of condition?: Yes DNR: Yes Discharge Level of Care: Skilled Communicable Disease: No Discharge Prognosis: Stable Lines: None Urinary Catheter: No Medications and DC Order Prescriptions: New atorvastatin 10 mg Tablet 10 mg PO PM 30 Days Qty: 30 0RF Continued Tresiba FlexTouch U-200 200 unit/mL (3 mL) insulin pen 14 unit SQ HS Qty: 9 3RF losartan 100 mg tablet 100 mg PO DAILY Qty: 90 3RF Label Comments: TAKES QAM metformin 1,000 mg tablet 1,000 mg PO BID Qty: 180 3RF latanoprost 0.005 % drops 1 drp OPB HS multivitamin [Multiple Vitamins] tablet 1 tab PO DAILY insulin lispro [Humalog KwikPen Insulin] 100 unit/mL insulin pen 3 units SQ DAILY PRN (Reason: SLIDING SCALE) Rx Instructions: before dinner levothyroxine 88 mcg tablet 88 mcg PO DAILY 90 Days Qty: 90 3RF Label Comments: QAM verapamil 240 mg capsule,ext rel. pellets 24 hr 240 mg PO DAILY Label Comments: TAKES HS Rx Instructions: Take 1 capsule by mouth once daily glucosamine-chondroitin [Osteo Bi-Flex] 250-200 mg Tablet 2 tab PO QAM aspirin 81 mg Tablet,Delayed Release (Dr/Ec) 81 mg PO DAILY Discontinued hydrochlorothiazide 25 mg tablet 25 mg PO DAILY Qty: 90 3RF simvastatin 20 mg tablet 20 mg PO DAILY Qty: 90 3RF Discharge Orders: Discharge Order (Routine); Ordered 07/27/22 Ordered By: Michel Chandra Admission Data Admit Date/Time: 07/09/22 16:59 Attending Provider: Michel Chandra Admit Provider: Frederick Robins Primary Care Provider: Anderson Dowell Other Providers: [facility] ; Frederick Robins ; Dunia Lo ; Connor Gagnon ; Beatriz Leo ; Toña Greer ; Estrella Francois ; Kwame Yang ; Sima Lawrence ; Jazmin Acuña ; Yasmin Strong ; Cecily Hart ; Eduardo Blanco Other Interventions: Discharge Summary Assessment (RN) Last Done: 07/27/22 10:49 Coding Level of Care Code D/C DAY MANAGEMENT >30 MINS Diagnoses COVID-19 U07.1 Hypokalemia E87.6 Fall W19.XXXA Behavioral change R46.89 Bladder outlet obstruction N32.0 Hypothyroidism E03.9 Parkinsonism G20 Hypertension I10 Hyperlipidemia E78.5 Type 2 diabetes mellitus E11.9 Gait disorder R26.9 Abnormal EKG R94.31 Time Spent (min) 35
== END 2022-07-27 11:55 | DRG 177 ==
LOC: ED 12:04 → SUATTDRO 16:59 → 2W 16:59

== ENCOUNTER 2024-10-26 12:57 | Inpatient (IN) ==
--- NOTE | 2024-10-26 13:06 | Emergency Department Note ---
Impression & Plan Closed intertrochanteric fracture, Fall, Ambulatory dysfunction, Acute hip pain ED Provider Note NAME: SHANNAN ALEGRIA AGE: 84 SEX: F : 1940 ARRIVES VIA: Ambulance INFORMANT: Patient, Nursing report ED PROVIDER(S): Yony Archibald MD CHIEF COMPLAINT: Fall, increasing confusion MEDICAL DECISION MAKING: Patient presents from the with the above. IV was established and blood work was obtained along with bilateral hip and pelvis x-rays, chest x-ray as well as CT of the head. Blood work shows a normal white count H&H and platelet count. Kidney function is unremarkable prerenal azotemia noted. Bilirubin 1.3. This has been elevated in the past. No abdominal pain. Patient's BioFire negative. The patient's CT of the head negative. The patient does have concern for possible right intertrochanteric hip fracture. Chest x-ray negative. CT head negative. I did message Dr. Martinez about the hip fracture. After further discussion with Dr. Martinez he would like CT of the hip so this was ordered. It is with the on-call hospital service and the patient was admitted to the medicine service. Urinalysis pending at the time of admission. Review of the patient's urinalysis does show concern for possible infection. Per review of the H&P this was noted and are currently deferring antibiotic treatment at this time. Treatment deferred to inpatient service. Discussion w/ other healthcare providers: Wilbert Day PA-C and Dr. Rosy Martinez orthopedics Prior /Outside records reviewed: None Differential diagnosis: Fracture, UTI, ICH, worsening dementia, dehydration, electrolyte abnormality, sprain, strain, subluxation, dislocation, contusion, ligamentous injury, neurovascular, as well as other etiologies were considered. Diagnostics, as interpreted by me: ECG: Normal sinus rhythm, rate of 95, normal intervals, left axis deviation no obvious ST elevations. Q waves noted in lead III as well as anteriorly and V3 Cardiac monitoring: An order was placed for continuous cardiac monitoring. The monitor shows a rate of 88 with sinus rhythm. Patient was placed on pulse oximetry Medical decision rules: None Imaging studies: I informally interpreted the patient's bilateral hip and pelvis x-ray does show concern for right-sided intertrochanteric fracture with formal report to follow. HPI: The patient presents due to concern for fall that occurred approximately 3 days ago. Patient brought in today as they believe that the patient's confusion at baseline is worse than her normal. Patient does have a known history of dementia. Unknown details with regards the fall. Patient not currently on any aspirin anymore due to history of falls. Patient is unable to provide any significant history as she does have some repetitive confused speech. Patient is oriented to person. When asked the patient does not complain of any pain to her head neck chest back or abdomen. Patient might have some pain in her legs but is unsure. Per nursing report staff at her care facility but the patient may have left-sided hip pain. PAST MEDICAL HISTORY: See Below PAST SURGICAL HISTORY: See Below SOCIAL HISTORY: See Below HOME MEDICATIONS: See Below ALLERGIES: See Below VITALS: See Below PHYSICAL EXAMINATION: GENERAL: NAD, non-toxic. EYE EXAM: Normal conjunctiva. PERRL, no anisocoria and EOM's grossly intact w/o pain. OROPHARYNX: Moist mucus membranes, grossly normal dentition. NECK: Trachea midline, no stridor. Supple, no nuchal rigidity, no adenopathy, non-tender. No signs of meningismus. FROM of the neck with good chin to chest and neck extension. LUNGS: Clear to auscultation. Normal chest wall mechanics. HEART: NSR, no MRG. ABDOMEN: Abdomen soft, non-tender, no masses, no rebound or guarding. BACK: No CVA TTP. SKIN: No rashes and no bruising. UPPER EXTREMITIES: Upper extremities are grossly normal. LOWER EXTREMITIES: Right lower extremity may be slightly shorter compared to the left although not significantly so. No significant TTP with passive range of motion with elevating both legs off the bed individually. Well-perfused bilaterally. Compartments are soft throughout. No significant TTP to palpation over the pelvis and hips bilaterally. NEURO EXAM: A&O x3, cranial nerves II-XII grossly intact, normal speech, moves all 4 extremities. Past Med/Surg History Problem List (Updated 10/26/24 @ 19:45 by Yony Archibald MD) Acute hip pain (Acute) Ambulatory dysfunction (Acute) Fall (Acute) Closed intertrochanteric fracture (Acute) Fracture of greater trochanter Abnormal EKG Hypokalemia Behavioral change (Acute) Bladder outlet obstruction (Acute) Elevated troponin (Acute) COVID-19 (Acute) Weakness (Acute) Diarrhea Parkinsonism (Chronic) Hypothyroidism (Chronic) Hypertension (Chronic) Hyperlipidemia (Chronic) Esophageal reflux (Chronic) Degeneration of cervical intervertebral disc (Chronic) Cerebrovascular disease (Chronic) Allergic rhinitis (Chronic) Type 2 diabetes mellitus (Chronic) Glaucoma LVH (left ventricular hypertrophy) Gait disorder UNSTEADY BALANCE Diabetic peripheral neuropathy Degenerative joint disease (Chronic) Medical History History of colon polyps Arthritis Overactive bladder Diabetes mellitus, type 2 Hypothyroidism HX: breast cancer LEFT (SURGERY +RADIATION) History of anemia Glaucoma Hx of migraines "CLUSTER MIGRAINES" Transient ischemic attack (TIA) ? HX TIA'S "MANY YEARS AGO" Hypertension Hyperlipidemia Syncope Vaginal wall prolapse Surgical History Family history of reaction to anesthesia DAUGHTER-WAKES UP IN MIDDLE OF SURGERIES History of tooth extraction History of vaginal surgery anterior colporrhaphy, repair of cystocele History of breast biopsy History of knee surgery LEFT History of tubal ligation History of cataract surgery RT/LEFT History of total abdominal hysterectomy History of foot surgery LEFT History of lumpectomy LEFT BREAST Family History Family/Other Obstructive sleep apnea Ovarian cancer Breast cancer Father Diabetes Cardiac disorder Hypertension Family history of diabetes mellitus Grandmother Diabetes Mother Cardiac disorder Hypertension Family history of diabetes mellitus Grandfather Stroke Daughter Family history of diabetes mellitus Social History Smoking Status: Unknown if ever smoked Second Hand Exposure: No; Hx Alcohol Use: Yes Alcohol type: hard liquor Hx Substance Use: No Preferred Language: Citizen Of [place] Communication Ability: Effective Underwriting Support Specialist Required: No Beliefs That Will Affect Care: None marital status: / Current Living Situation: Family Current Living Situation Comment: WITH DAUGHTER current occupational status: retired Feels Safe at Home: Yes Assistive Devices: Cane and Walker Allergies Allergies Allergy/AdvReac Type Severity Reaction Status Date / Time duloxetine Allergy Intermediate BALANCE Verified 10/26/24 15:48 PROBLEMS gabapentin Allergy Intermediate BALANCE Verified 10/26/24 15:48 PROBLEMS nitrofurantoin Allergy Intermediate HIVES Verified 10/26/24 15:48 nortriptyline Allergy Intermediate balance Verified 10/26/24 15:48 problems pregabalin [From Lyrica] Allergy Intermediate BALANCE Verified 10/26/24 15:48 ISSUES sulfamethoxazole Allergy Intermediate RASH Verified 10/26/24 15:48 trimethoprim Allergy Intermediate RASH Verified 10/26/24 15:48 lisinopril AdvReac Mild COUGH Verified 10/26/24 15:48 repaglinide AdvReac Mild GI UPSET Verified 10/26/24 15:48 Fluoride Preparations AdvReac Mild SICK Uncoded 02/24/24 16:11 STOMACH, MOUTH/THROAT SORENESS FROM FLUORIDE TREATMENT Home Meds Home Medications Medication Instructions Recorded Confirmed latanoprost 0.005 % eye drops 1 drp OPB HS 06/02/19 10/26/24 multivitamin (Multiple Vitamins 1 tab PO DAILY 06/02/19 10/26/24 tablet) glucosamine-chondroitin 250 mg-200 2 tab PO QAM 02/28/21 10/26/24 mg tablet (Osteo Bi-Flex) acetaminophen 325 mg tablet 650 mg PO Q6H PRN PAIN/FEVER 02/24/24 10/26/24 (Tylenol) dulaglutide 0.75 mg/0.5 mL 0.75 mg subcut WK 02/24/24 10/26/24 subcutaneous pen injector (Trulicity) levothyroxine 88 mcg tablet 88 mcg PO DAILYBB 02/24/24 10/26/24 losartan 100 mg tablet 100 mg PO QAM 02/24/24 10/26/24 metformin 1,000 mg tablet 1,000 mg PO BIDM 02/24/24 10/26/24 ondansetron HCl 4 mg tablet 4 mg PO Q6H PRN NAUSEA/VOMITING 02/24/24 10/26/24 potassium chloride 20 mEq 20 meq PO QAM 02/24/24 10/26/24 tablet,extended release(part/cryst) bisacodyl 10 mg rectal suppository 10 mg NJ DAILY PRN Constipation 10/26/24 10/26/24 (Dulcolax (bisacodyl)) glucagon 1 mg solution for 1 mg IM UD PRN Hypoglycemia 10/26/24 10/26/24 injection (Glucagon Emergency Kit) magnesium hydroxide 400 mg/5 mL See Rx Instructions .Route 10/26/24 10/26/24 oral suspension (Milk of Magnesia) .COMPLEX PRN Constipation sodium phosphates 19 gram-7 118 ml NJ DAILY PRN Constipation 10/26/24 10/26/24 gram/118 mL enema (Fleet Enema) verapamil 120 mg tablet 120 mg PO BID 10/26/24 10/26/24 Results & Data (ED) Vital Signs Vital Signs - 24 hr 10/26/24 12:41 10/26/24 13:24 10/26/24 14:10 Temperature 36.5 C Temperature Source Oral Pulse Rate 93 H Pulse Rate [Apical] 101 H Pulse Rate from SpO2 Sensor Pulse Strength [Apical] Normal Respiratory Rate 17 19 Respiratory Effort / Characteristics Non-Labored Spontaneous Respiratory Depth Normal Respiratory Pattern Regular Blood Pressure 160/98 H Blood Pressure [Right Arm] 126/70 Blood Pressure Mean 118 Blood Pressure Mean [Right Arm] 88 Pulse Oximetry 94 94 95 Oxygen Delivery Method Room Air Room Air Sepsis Recent Fever Within 48 Hours No Sepsis New/Unexplained Change in Mental Status No Sepsis Action Taken by Nursing No Action Required 10/26/24 14:57 10/26/24 15:12 10/26/24 16:00 Temperature Temperature Source Pulse Rate 86 95 H 92 H Pulse Rate [Apical] Pulse Rate from SpO2 Sensor 91 H 90 91 H Pulse Strength [Apical] Respiratory Rate 24 22 19 Respiratory Effort / Characteristics Respiratory Depth Respiratory Pattern Blood Pressure Blood Pressure [Right Arm] Blood Pressure Mean Blood Pressure Mean [Right Arm] Pulse Oximetry 94 95 95 Oxygen Delivery Method Sepsis Recent Fever Within 48 Hours Sepsis New/Unexplained Change in Mental Status Sepsis Action Taken by Nursing 10/26/24 17:15 10/26/24 18:03 10/26/24 18:52 Temperature Temperature Source Pulse Rate 97 H 98 H Pulse Rate [Apical] 88 Pulse Rate from SpO2 Sensor 98 H 98 H Pulse Strength [Apical] Respiratory Rate 27 H 20 18 Respiratory Effort / Characteristics Respiratory Depth Respiratory Pattern Blood Pressure Blood Pressure [Right Arm] 125/79 Blood Pressure Mean Blood Pressure Mean [Right Arm] 94 Pulse Oximetry 96 96 95 Oxygen Delivery Method Room Air Sepsis Recent Fever Within 48 Hours Sepsis New/Unexplained Change in Mental Status Sepsis Action Taken by Care Home Medications Current Medication List: was personally reviewed by me Laboratory Data Attestation: I reviewed the patient's lab results. 10/26/24 13:20 10/26/24 13:20 Lab Results 10/26/24 10/26/24 Range/Units 13:20 Unknown WBC 8.31 (4.8-10.8) K/ul RBC 4.34 (4.20-5.40) M/uL Hgb 12.9 (12.0-16.0) g/dl Hct 38.0 (37.0-47.0) % MCV 87.6 (80.0-100.0) fL MCH 29.7 (25.0-34.0) pg MCHC 33.9 (32.0-36.0) g/dL RDW Std Deviation 40.1 (36.4-46.3) fL RDW Coeff of Thai 12.5 (11.5-14.5) % Plt Count 198 (130-400) K/uL MPV 9.8 (9.4-12.4) fL Immature Gran % (Auto) 0.2 % Neut % (Auto) 77.6 % Lymph % (Auto) 14.2 % [place] % (Auto) 6.9 % Eos % (Auto) 0.6 % Baso % (Auto) 0.5 % Neut # (Auto) 6.45 (1.40-6.50) K/uL Lymph # (Auto) 1.18 L (1.20-3.40) K/uL [place] # (Auto) 0.57 (0.11-0.59) K/uL Eos # (Auto) 0.05 (0.00-0.50) K/uL Baso # (Auto) 0.04 (0.00-0.20) K/uL Immature Gran # (Auto) 0.02 (0.01-0.20) K/uL Sodium 138 (136-145) mmol/L Potassium 4.4 (3.5-5.1) mmol/L Chloride 102 (98-107) mmol/L Carbon Dioxide 29 (21-32) mmol/L Anion Gap 7 (3-11) BUN 27 H (6-23) mg/dl Creatinine 0.55 L (0.6-1.2) mg/dl Est Cr Clr Drug Dosing 73.8 ml/min eGFR 91.46 BUN/Creatinine Ratio 49.1 H (10-20) Glucose 154 H (70-99(Fasting)) mg/dl Calcium 9.7 (8.6-10.3) mg/dl Total Bilirubin 1.3 H (0.2-1.0) mg/dl AST 11 L (13-39) U/L ALT 7 (7-52) U/L Alkaline Phosphatase 70 (34-104) U/L Total Protein 6.5 (6.0-8.3) gm/dl Albumin 3.7 (3.4-5.0) gm/dl Globulin 2.8 (2.5-4.0) gm/dl Albumin/Globulin Ratio 1.3 (0.9-2) TSH 1.284 (0.300-4.500) uIu/ml Urine Color Yellow Urine Appearance Turbid A (Clear) Urine pH 7.0 (4.5-7.5) Ur Specific [place] 1.019 (1.000-1.030) Urine Protein 1+ H (Negative) Urine Glucose (UA) Negative (Negative) Urine Ketones Trace H (Negative) Urine Blood Negative (Negative) Urine Nitrite Positive A (Negative) Urine Bilirubin Negative (Negative) Urine Urobilinogen Negative (Negative) Ur Leukocyte Esterase 2+ H (Negative) Urine WBC (Auto) 21-50 H (0-5) /hpf Urine RBC (Auto) 0-2 (0-2) /hpf U Hyaline Cast (Auto) 0-2 (0-2) /lpf U Epithel Cells (Auto) 11-20 H (0-2) /hpf Urine Bacteria (Auto) 4+ H (None Seen) Adenovirus (PCR) Not Detected (NotDetected) B. pertussis DNA (PCR) Not Detected (NotDetected) B.parapertussis DNA PCR Not Detected (NotDetected) C. pneumoniae DNA (PCR) Not Detected (NotDetected) Coronavirus OC43 (PCR) Not Detected (NotDetected) Coronavirus HKU1 (PCR) Not Detected (NotDetected) Coronavirus 229E (PCR) Not Detected (NotDetected) SARS-CoV-2 (PCR) Not Detected (NotDetected) Coronavirus NL63 (PCR) Not Detected (NotDetected) Human Metapneumovir PCR Not Detected (NotDetected) Influenza Type A (PCR) Not Detected (NotDetected) Influenza Type B (PCR) Not Detected (NotDetected) M. pneumoniae (PCR) Not Detected (NotDetected) Parainfluenza 1 (PCR) Not Detected (NotDetected) Parainfluenza 2 (PCR) Not Detected (NotDetected) Parainfluenza 3 (PCR) Not Detected (NotDetected) Parainfluenza 4 (PCR) Not Detected (NotDetected) RSV (PCR) Not Detected (NotDetected) Entero/Rhino (PCR) Not Detected (NotDetected) Administered Medications Discontinued Medications Acetaminophen (Acetaminophen 500 Mg Tab) Confirm Administered Dose 1,000 mg .ROUTE .STK-MED ONE Stop: 10/26/24 18:13 Last Admin: 10/26/24 19:11 Dose: Not Given Documented By: K Enoxaparin Sodium (Enoxaparin Inj 40 Mg/0.4 Ml Syr) Confirm Administered Dose 40 mg .ROUTE .STK-MED ONE Stop: 10/26/24 18:31 Last Admin: 10/26/24 19:11 Dose: Not Given Documented By: ROCKK Imaging Data Radiologist's Impression: Chest X-Ray 10/26/24 13:12 XR chest 1V portable CLINICAL HISTORY: weakness TECHNIQUE: Single frontal radiograph of the chest was obtained. Comparison: Comparison is made to chest radiograph 02/24/2024 FINDINGS: No lines and tubes are seen. Calcified aortic knob is seen. The lungs are clear. No evidence of pleural effusion or pneumothorax. IMPRESSION: No acute chest disease. ACT 112: Negative or not required by law. Electronically signed by: Orville Amaya M.D. 10/26/2024 2:02 PM Hip/Pelvis X-Ray 10/26/24 13:12 XR hips CANDIDO 1v w pelvis CLINICAL HISTORY: Fall. Left hip pain. COMPARISON: CT of the abdomen and pelvis February 24, 2024. FINDINGS: Sacroiliac joints and symphysis pubis are intact. There is a large amount of stool within the rectum. No left hip fracture is present. There is an acute comminuted mildly displaced fracture involving the greater trochanter of the right hip. There is possible intertrochanteric extension. There is mild bilateral hip osteoarthritis. IMPRESSION: 1. Acute appearing comminuted mildly displaced fracture involving the greater trochanter of the right hip with possible intertrochanteric extension. A CT of the right hip to assess for intertrochanteric extension is recommended. 2. No left rib fractures. ACT 112: Negative or not required by law. Electronically signed by: Varun Hernandez M.D. 10/26/2024 2:[address] 10/26/24 13:13 CT head/brain wo con CLINICAL HISTORY: confusion, fall Technique: Contiguous axial CT images of the head were acquired from the base of the skull to the vertex without intravenous contrast administration. Images were viewed in brain, subdural and bone windows. Automated dose lowering techniques and/or adjustment according to patient size were utilized for this exam. Comparison: None available at the time of this dictation. Findings: Areas of decreased attenuation are present in the periventricular and subcortical white matter bilaterally consistent with small vessel ischemic disease. Generalized cerebral atrophy with commensurate enlargement of the ventricles, sulci, and cisterns is also present. There is no acute intracranial hemorrhage or evidence of acute territorial infarction. No shift of the midline structures, mass effect, or extra-axial abnormalities are shown. Atherosclerotic calcifications are present in the intracranial segments of the internal carotid arteries. Imaged portions of the paranasal sinuses and mastoid air cells are clear. The orbits appear normal. There are no acute fractures of the calvaria. Scalp swelling is seen in the left frontal soft tissues. Impression: No acute intracranial hemorrhage or skull fractures. Scalp swelling is seen in the left frontal soft tissues. ACT 112: Negative or not required by law. Electronically signed by: Orville Amaya M.D. 10/26/2024 1:[address] 10/26/24 16:56 EXAM: CT Pelvis Without Intravenous Contrast INDICATION: Evaluate fracture. TECHNIQUE: Axial computed tomography images of the pelvis without intravenous contrast. Sagittal and coronal reformatted images were created and reviewed. This CT exam was performed using one or more of the following dose reduction techniques: automated exposure control, adjustment of the mA and/or kV according to patient size, and/or use of iterative reconstruction technique. 3D reconstructed images were created and reviewed. COMPARISON: 02/24/2024 FINDINGS: Bones/joints: There is an acute nondisplaced fracture of the greater trochanter. Femoral neck intact. There is minimal narrowing and spurring of the acetabular joint. No dislocation. Soft tissues: There is a 1.7 x 3.4 x 4.8 cm long hematoma in the subcutaneous fat abutting the fascia cranial to the fracture. There is mild periarticular edema. Stomach and bowel: Moderate stool in the rectal vault. Bladder: Appears normal for the degree of filling. No stones or inflammation. No large mass. Masses may not be detected in the absence of opacification. IMPRESSION: 1. There is an acute nondisplaced fracture involving the greater trochanter. 2. Periarticular edema about the right hip with small subcutaneous hematoma cranial to the greater trochanter. ACT 112: Negative or not required by law. Electronically signed by Anna Martin 10-26-2024 6:01 PM Discharge Plan Visit Data Chief Complaint: Fall Stated Complaint: PELVIC PAIN, FALL ED Provider: Yony Archibald Discharge Problem: Closed intertrochanteric fracture, Fall, Ambulatory dysfunction, Acute hip pain Forms Stand Alone Forms: My [employer] Prescriptions Prescriptions: No Action latanoprost 0.005 % drops 1 drp OPB HS multivitamin [Multiple Vitamins] tablet 1 tab PO DAILY glucosamine-chondroitin [Osteo Bi-Flex] 250-200 mg Tablet 2 tab PO QAM acetaminophen [Tylenol] 325 mg Tablet 650 mg PO Q6H MDD 3gm/24hr PRN (Reason: PAIN/FEVER) ondansetron HCl [Zofran] 4 mg Tablet 4 mg PO Q6H PRN (Reason: NAUSEA/VOMITING) potassium chloride 20 mEq tablet,ER particles/crystals 20 meq PO QAM Trulicity 0.75 mg/0.5 mL pen injector 0.75 mg SUBCUT WK Rx Instructions: FRIDAYS levothyroxine 88 mcg tablet 88 mcg PO DAILYBB Patient Comments: QAM metformin 1,000 mg tablet 1,000 mg PO BIDM losartan 100 mg tablet 100 mg PO QAM Patient Comments: TAKES QAM verapamil 120 mg tablet 120 mg PO BID magnesium hydroxide [Milk of Magnesia] 400 mg/5 mL Suspension See Rx Instructions .ROUTE .COMPLEX PRN (Reason: Constipation) Rx Instructions: Magnesia Marcy 7.75%: Give 30ml by mouth as needed for constipation if no BM in 3 days; administer on 7-3 shift bisacodyl [Dulcolax (bisacodyl)] 10 mg Suppository 10 mg NJ DAILY PRN (Reason: Constipation) Rx Instructions: Give on day 3; 3-11 shift if no BM after MOM Fleet Enema 19-7 gram/118 mL Enema 118 ml NJ DAILY PRN (Reason: Constipation) Rx Instructions: Give on day 4 ; 7-3 shift if no BM after Dulcolax Glucagon Emergency Kit (human) 1 mg Recon Soln 1 mg IM UD PRN (Reason: Hypoglycemia) Referrals Referrals: [facility] [Primary Care Provider] - Discharge Problem: Closed intertrochanteric fracture Qualifiers: Encounter type: initial encounter Fracture alignment: nondisplaced Laterality: right Qualified Code(s): S72.144A - Nondisplaced intertrochanteric fracture of right femur, initial encounter for closed fracture Fall Qualifiers: Encounter type: initial encounter Qualified Code(s): W19.XXXA - Unspecified fall, initial encounter Acute hip pain Qualifiers: Laterality: right Qualified Code(s): M25.551 - Pain in right hip
--- NOTE | 2024-10-26 13:37 | CT Scan Report ---
CT head/brain wo con CLINICAL HISTORY: confusion, fall Technique: Contiguous axial CT images of the head were acquired from the base of the skull to the [facility] without intravenous contrast administration. Images were viewed in brain, subdural and bone [facility]. Automated dose lowering techniques and/or adjustment according to patient size were utilized for this exam. Comparison: None available at the time of this dictation. Findings: Areas of decreased attenuation are present in the periventricular and subcortical white matter bilate rally consistent with small vessel ischemic disease. Generalized cerebral atrophy with commensurate e nlargement of the ventricles, sulci, and cisterns is also present. There is no acute intracranial hem orrhage or evidence of acute territorial infarction. No shift of the midline structures, mass effect, or extra-axial abnormalities are shown. Atherosclerotic calcifications are present in the intracran ial segments of the internal carotid arteries. Imaged portions of the paranasal sinuses and mastoid air cells are clear. The orbits appear normal. There are no acute fractures of the calvaria. Scalp swelling is seen in the left frontal soft tissues . Impression: No acute intracranial hemorrhage or skull fractures. Scalp swelling is seen in the left frontal soft tissues. ACT 112: Negative or not required by law. Electronically signed by: Orville Amaya M.D. 10/26/2024 1:36 PM
[2024-10-26 13:43] LABS: Basophils # (auto) 0.04 K/uL (0.00-0.20); Basophils % (auto) 0.5 %; Eosinophils # (auto) 0.05 K/uL (0.00-0.50); Eosinophils % (auto) 0.6 %; Hemoglobin 12.9 g/dl (12.0-16.0); Immature Granulocytes # (auto) 0.02 K/uL (0.01-0.20); Immature Granulocytes % (auto) 0.2 %; Lymphocytes # (auto) 1.18 K/uL (1.20-3.40); Lymphocytes % (auto) 14.2 %; Mean Corpuscular Hemoglobin 29.7 pg (25.0-34.0); Mean Corpuscular Hgb Conc 33.9 g/dL (32.0-36.0); Mean Corpuscular Volume 87.6 fL (80.0-100.0); Mean Platelet Volume 9.8 fL (9.4-12.4); Monocytes # (auto) 0.57 K/uL (0.11-0.59); Monocytes % (auto) 6.9 %; Neutrophils # (auto) 6.45 K/uL (1.40-6.50); Neutrophils % (auto) 77.6 %; Platelet Count 198 K/uL (130-400); RDW Coefficient of Variation 12.5 % (11.5-14.5); RDW Standard Deviation 40.1 fL (36.4-46.3); Red Blood Count 4.34 M/uL (4.20-5.40); White Blood Count 8.31 K/ul (4.8-10.8)
[2024-10-26 13:56] LABS: Albumin Globulin Ratio 1.3 (0.9-2); Albumin Level 3.7 gm/dl (3.4-5.0); BUN Creatinine Ratio 49.1 (10-20); Bilirubin,Total 1.3 mg/dl (0.2-1.0); Calcium 9.7 mg/dl (8.6-10.3); Creatinine Clr Calc Pharmacy 73.8 ml/min; Globulin 2.8 gm/dl (2.5-4.0); Potassium 4.4 mmol/L (3.5-5.1); Total Protein 6.5 gm/dl (6.0-8.3)
--- NOTE | 2024-10-26 14:03 | XRay Report ---
XR chest 1V portable CLINICAL HISTORY: weakness TECHNIQUE: Single frontal radiograph of the chest was obtained. Comparison: Comparison is made to chest radiograph 02/24/2024 FINDINGS: No lines and tubes are seen. Calcified aortic knob is seen. The lungs are clear. No evidence of pleur al effusion or pneumothorax. IMPRESSION: No acute chest disease. ACT 112: Negative or not required by law. Electronically signed by: Orville Amaya M.D. 10/26/2024 2:02 PM
[2024-10-26 14:10] LABS: Thyroid Stimulating Hormone 1.284 uIu/ml (0.300-4.500)
--- NOTE | 2024-10-26 14:33 | XRay Report ---
XR hips CANDIDO 1v w pelvis CLINICAL HISTORY: Fall. Left hip pain. COMPARISON: CT of the abdomen and pelvis February 24, 2024. FINDINGS: Sacroiliac joints and symphysis pubis are intact. There is a large amount of stool within the rectum. No left hip fracture is present. There is an acute comminuted mildly displaced fracture i nvolving the greater trochanter of the right hip. There is possible intertrochanteric extension. Ther e is mild bilateral hip osteoarthritis. IMPRESSION: 1. Acute appearing comminuted mildly displaced fracture involving the greater trochanter of the right hip with possible intertrochanteric extension. A CT of the right hip to assess for intertrochanteric extension is recommended. 2. No left rib fractures. ACT 112: Negative or not required by law. Electronically signed by: Varun Hernandez M.D. 10/26/2024 2:32 PM
[2024-10-26 14:54] LABS: Appearance Urine Turbid (Clear); Bacteria Urine Automated 4+ (None Seen); Bilirubin Urine Negative (Negative); Blood Urine Negative (Negative); Cast Urine Automated 0-2 /lpf (0-2); Color Urine Yellow; Glucose Urine UA Negative (Negative); Ketones Urine Trace (Negative); Leukocyte Esterase Urine 2+ (Negative); Nitrite Urine Positive (Negative); Protein Urine 1+ (Negative); RBC Urine Automated 0-2 /hpf (0-2); Specific Gravity Urine 1.019 (1.000-1.030); Urobilinogen Urine Negative (Negative); WBC Urine Automated 21-50 /hpf (0-5)
[2024-10-26 15:17] LABS: Adenovirus PCR Not Detected (NotDetected); Bordetella parapertussis PCR Not Detected (NotDetected); Bordetella pertussis PCR Not Detected (NotDetected); Chlamydia pneumoniae PCR Not Detected (NotDetected); Coronavirus 229E PCR Not Detected (NotDetected); Coronavirus CoV-2 (COVID19)PCR Not Detected (NotDetected); Coronavirus HKU1 PCR Not Detected (NotDetected); Coronavirus NL63 PCR Not Detected (NotDetected); Coronavirus OC43PCR Not Detected (NotDetected); Human Metapneumovirus PCR Not Detected (NotDetected); Influenza A PCR Not Detected (NotDetected); Influenza B PCR Not Detected (NotDetected); Mycoplasma pneumoniae PCR Not Detected (NotDetected); Parainfluenza Virus 1 PCR Not Detected (NotDetected); Parainfluenza Virus 2 PCR Not Detected (NotDetected); Parainfluenza Virus 3 PCR Not Detected (NotDetected); Parainfluenza Virus 4 PCR Not Detected (NotDetected); Respiratory Syncytial VirusPCR Not Detected (NotDetected); Rhinovirus/Enterovirus PCR Not Detected (NotDetected)
[2024-10-26] MEDS ORDERED: MAGNESIUM HYDROXIDE SUSP 30 ML UDC PO PRN (16:57)
[2024-10-26] MEDS ORDERED: ALUMINUM/MAGNESIUM SUSP 30 ML UDC PO PRN (16:57)
[2024-10-26] MEDS ORDERED: POLYETHYLENE (MIRALAX) 17 GM PACK PO PRN (16:57)
[2024-10-26] MEDS ORDERED: bisacodyL 10 MG SUPP PR PRN (17:01)
[2024-10-26] MEDS ORDERED: SOD PHOSPHATE/SOD BIPHOSPHATE ENEMA 132 ML BTL PR PRN (17:01)
--- NOTE | 2024-10-26 18:02 | CT Scan Report ---
EXAM: CT Pelvis Without Intravenous Contrast INDICATION: Evaluate fracture. TECHNIQUE: Axial computed tomography images of the pelvis without intravenous contrast. Sagittal and coronal reformatted images were created and reviewed. This CT exam was performed using one or more of the following dose reduction techniques: automated exposure control, adjustment of the mA and/or kV according to patient size, and/or use of iterative reconstruction technique. 3D reconstructed images were created and reviewed. COMPARISON: 02/24/2024 FINDINGS: Bones/joints: There is an acute nondisplaced fracture of the greater trochanter. Femoral neck intact. There is minimal narrowing and spurring of the acetabular joint. No dislocation. Soft tissues: There is a 1.7 x 3.4 x 4.8 cm long hematoma in the subcutaneous fat abutting the fascia cranial to the fracture. There is mild periarticular edema. Stomach and bowel: Moderate stool in the rectal vault. Bladder: Appears normal for the degree of filling. No stones or inflammation. No large mass. Masses may not be detected in the absence of opacification. IMPRESSION: 1. There is an acute nondisplaced fracture involving the greater trochanter. 2. Periarticular edema about the right hip with small subcutaneous hematoma cranial to the greater trochanter. ACT 112: Negative or not required by law. Electronically signed by Anna Martin 10-26-2024 6:01 PM
--- NOTE | 2024-10-26 18:53 | History & Physical Report ---
Date of Service October 26, 2024 Assessment & Plan (1) Fracture of greater trochanter: Plan: Non displaced and no intertrochanteric extension - likely conservative management with bedrest and pain control, DVT Px Await Ortho eval / recommendations Diabetes DM Diet Trulacity QFri, Hold metformin Serial Accu checks with ISS coverage Hypertension Controlled with current regimen, cont Hypothyroid Cont Levothyroxine Dementia Supportive care Fall precautions Abnormal UA No fever or leukocytosis h/o ESBL Ecoli ? likely colonozied, will hold off abx at this time Constipation Cont outpatient bowel regimen Bedrest until final ortho recommendations DVT Px DNR / DNI History of Present Illness Chief Complaint: left hip pain Primary Care Provider: [facility] Patient is a 84 y/o lady sent to ED for evaluation of increased confusion and left hip pain. She has severe dementia and is unable to provide any history or answer any questions relevantly. Meli is at bedside and reports that her confusion waxes and wanes. Apparently 3 days ago patient fell and today on imaging intertrochanteric fracture L is reported on XR but CT shows nondisplaced fracture of the greater trochanter. Meli is agreeable to surgery if recommended. She is DNR / DNI, agrees to change to full code for surgery. She appears comfortable and not c/o pain. Meli notes that earlier she tried to lift her left leg up and then winced. There is no report of fever or chills Unable to obtain ROS due to patient's mental status Allergies Allergy/AdvReac Type Severity Reaction Status Date / Time duloxetine Allergy Intermediate BALANCE Verified 10/26/24 15:48 PROBLEMS gabapentin Allergy Intermediate BALANCE Verified 10/26/24 15:48 PROBLEMS nitrofurantoin Allergy Intermediate HIVES Verified 10/26/24 15:48 nortriptyline Allergy Intermediate balance Verified 10/26/24 15:48 problems pregabalin [From Lyrica] Allergy Intermediate BALANCE Verified 10/26/24 15:48 ISSUES sulfamethoxazole Allergy Intermediate RASH Verified 10/26/24 15:48 trimethoprim Allergy Intermediate RASH Verified 10/26/24 15:48 lisinopril AdvReac Mild COUGH Verified 10/26/24 15:48 repaglinide AdvReac Mild GI UPSET Verified 10/26/24 15:48 Fluoride Preparations AdvReac Mild SICK Uncoded 02/24/24 16:11 STOMACH, MOUTH/THROAT SORENESS FROM FLUORIDE TREATMENT Home Medications Medication Instructions Recorded Confirmed Type latanoprost 0.005 % eye drops 1 drp OPB HS 06/02/19 10/26/24 History multivitamin (Multiple Vitamins 1 tab PO DAILY 06/02/19 10/26/24 History tablet) glucosamine-chondroitin 250 mg-200 2 tab PO QAM 02/28/21 10/26/24 History mg tablet (Osteo Bi-Flex) acetaminophen 325 mg tablet 650 mg PO Q6H PRN PAIN/FEVER 02/24/24 10/26/24 History (Tylenol) dulaglutide 0.75 mg/0.5 mL 0.75 mg subcut WK 02/24/24 10/26/24 History subcutaneous pen injector (Trulicity) levothyroxine 88 mcg tablet 88 mcg PO DAILYBB 02/24/24 10/26/24 History losartan 100 mg tablet 100 mg PO QAM 02/24/24 10/26/24 History metformin 1,000 mg tablet 1,000 mg PO BIDM 02/24/24 10/26/24 History ondansetron HCl 4 mg tablet 4 mg PO Q6H PRN NAUSEA/VOMITING 02/24/24 10/26/24 History potassium chloride 20 mEq 20 meq PO QAM 02/24/24 10/26/24 History tablet,extended release(part/cryst) bisacodyl 10 mg rectal suppository 10 mg MN DAILY PRN Constipation 10/26/24 10/26/24 History (Dulcolax (bisacodyl)) glucagon 1 mg solution for 1 mg IM UD PRN Hypoglycemia 10/26/24 10/26/24 History injection (Glucagon Emergency Kit) magnesium hydroxide 400 mg/5 mL See Rx Instructions .Route 10/26/24 10/26/24 History oral suspension (Milk of Magnesia) .COMPLEX PRN Constipation sodium phosphates 19 gram-7 118 ml MN DAILY PRN Constipation 10/26/24 10/26/24 History gram/118 mL enema (Fleet Enema) verapamil 120 mg tablet 120 mg PO BID 10/26/24 10/26/24 History Past Med/Surg History Problem List (Updated 10/26/24 @ 18:57 by Yanique Gallegos MD) Fracture of greater trochanter Abnormal EKG Hypokalemia Behavioral change (Acute) Bladder outlet obstruction (Acute) Elevated troponin (Acute) COVID-19 (Acute) Weakness (Acute) Diarrhea Parkinsonism (Chronic) Hypothyroidism (Chronic) Hypertension (Chronic) Hyperlipidemia (Chronic) Esophageal reflux (Chronic) Degeneration of cervical intervertebral disc (Chronic) Cerebrovascular disease (Chronic) Allergic rhinitis (Chronic) Type 2 diabetes mellitus (Chronic) Glaucoma LVH (left ventricular hypertrophy) Gait disorder UNSTEADY BALANCE Diabetic peripheral neuropathy Degenerative joint disease (Chronic) Medical History Arthritis Degenerative joint disease Diabetes mellitus, type 2 Diabetic peripheral neuropathy Gait disorder UNSTEADY BALANCE Glaucoma History of anemia History of colon polyps Hx of migraines "CLUSTER MIGRAINES" HX: breast cancer LEFT (SURGERY +RADIATION) Hyperlipidemia Hypertension Hypothyroidism Overactive bladder Syncope Transient ischemic attack (TIA) ? HX TIA'S "MANY YEARS AGO" Vaginal wall prolapse Surgical History Family history of reaction to anesthesia DAUGHTER-WAKES UP IN MIDDLE OF SURGERIES History of breast biopsy History of cataract surgery RT/LEFT History of foot surgery LEFT History of knee surgery LEFT History of lumpectomy LEFT BREAST History of tooth extraction History of total abdominal hysterectomy History of tubal ligation History of vaginal surgery anterior colporrhaphy, repair of cystocele Family History Family/Other Obstructive sleep apnea Ovarian cancer Breast cancer Father Diabetes Cardiac disorder Hypertension Family history of diabetes mellitus Grandmother Diabetes Mother Cardiac disorder Hypertension Family history of diabetes mellitus Grandfather Stroke Daughter Family history of diabetes mellitus Social History Smoking Status: Unknown if ever smoked Second Hand Exposure: No; Hx Alcohol Use: Yes Alcohol type: hard liquor Hx Substance Use: No Preferred Language: Italian Communication Ability: Effective Supervisor [employer] M[employer] Required: No Beliefs That Will Affect Care: None marital status: / Current Living Situation: Family Current Living Situation Comment: WITH DAUGHTER current occupational status: retired Feels Safe at Home: Yes Assistive Devices: Cane and Walker Physical Exam Physical Exam: Elderly lady talking continuously to herself, AAO#0, moving all 4 ext Not following commands Lungs clear to auscultation b/l Heart RRR PA soft, NT, ND, BS+ Skin no rash Tender left lateral hip to palpation Results & Data Results & Data Vital Signs (Past 12 Hours) Vital Signs Temp Pulse Pulse Resp BP BP Pulse Ox 10/26/24 14:10 101 H 19 126/70 95 10/26/24 13:24 94 10/26/24 12:41 36.5 C 93 H 17 160/98 H 94 O2 Del Method 10/26/24 14:10 Room Air 10/26/24 13:24 Room Air 10/26/24 12:41 Laboratory Results reviewed Diagnostic Findings reviewed Code Status & VTE Plan Code Status DNR / DNI VTE Prophylaxis Plan VTE Prophylaxis will be ordered: Yes PG Care Time/CCT Total # of Minutes Spent Total Time Spent with Patient: Total time spent is greater than 50% in coordination of care (as documented) at patient's floor/unit and/or counseling patient: Coding Level of Care Code 24398 INT INP/OBS CARE 3/75MIN Diagnoses Fracture of greater trochanter S72.113A
[2024-10-26] MEDS: ACETAMINOPHEN 500 MG TAB ONE (19:11)
[2024-10-26] MEDS: ENOXAPARIN INJ 40 MG/0.4 ML SYR ONE (19:11)
[2024-10-26] MEDS: ACETAMINOPHEN 500 MG TAB PO SCH (19:51)
[2024-10-26] MEDS: ENOXAPARIN INJ 40 MG/0.4 ML SYR SQ SCH (19:52)
[2024-10-26] MEDS ORDERED: GLUCAGON FOR INJ 1 MG VIAL SQ PRN (20:00)
[2024-10-26] MEDS ORDERED: GLUCOSE 40% GEL 15 GM TUBE PO PRN (20:00)
[2024-10-26] MEDS ORDERED: CARBOHYDRATES FOR HYPOGLYCEMIA PO PRN (20:00)
[2024-10-26] MEDS ORDERED: DEXTROSE 50% 50 ML SYRINGE IV PRN (20:00)
[2024-10-26] MEDS ORDERED: GLUCOSE 10 TAB/TUBE PO PRN (20:00)
--- NOTE | 2024-10-26 20:20 | Electrocardiogram Report ---
Test Reason : Blood Pressure : */* mmHG Vent. Rate : 95 BPM Atrial Rate : 95 BPM P-R Int : 168 ms QRS Dur : 84 ms QT Int : 328 ms P-R-T Axes : 88 -53 68 degrees QTcB Int : 412 ms Normal sinus rhythm Left axis deviation Anterior infarct , age undetermined Abnormal ECG When compared with ECG of 24-Feb-2024 15:33, Anterior infarct is now Present Confirmed by David Galvan ([id number]) on 10/26/2024 8:20:37 PM Referred By: Confirmed By: David Galvan
[2024-10-26 21:04] LABS: BUN Creatinine Ratio 57.1 (10-20); Calcium 9.3 mg/dl (8.6-10.3); Creatinine Clr Calc Pharmacy 96.7 ml/min; Potassium 3.8 mmol/L (3.5-5.1)
[2024-10-26] MEDS: cefTRIAXone SODIUM 2,000 MG/50 ML BAG IV STA (21:20)
[2024-10-26] MEDS: VERAPAMIL HCL 40 MG TAB PO SCH (22:13)
[2024-10-26] MEDS: LATANOPROST 0.005% OP SOLN 2.5 ML BTL OPB SCH (22:15)
[2024-10-27 04:01] LABS: Basophils # (auto) 0.04 K/uL (0.00-0.20); Basophils % (auto) 0.6 %; Eosinophils # (auto) 0.06 K/uL (0.00-0.50); Eosinophils % (auto) 0.9 %; Hematocrit (blood only) 33.5 % (37.0-47.0); Hemoglobin 11.3 g/dl (12.0-16.0); Immature Granulocytes # (auto) 0.02 K/uL (0.01-0.20); Immature Granulocytes % (auto) 0.3 %; Lymphocytes # (auto) 1.54 K/uL (1.20-3.40); Lymphocytes % (auto) 22.4 %; Mean Corpuscular Hgb Conc 33.7 g/dL (32.0-36.0); Mean Corpuscular Volume 86.1 fL (80.0-100.0); Mean Platelet Volume 10.1 fL (9.4-12.4); Monocytes # (auto) 0.52 K/uL (0.11-0.59); Monocytes % (auto) 7.5 %; Neutrophils # (auto) 4.71 K/uL (1.40-6.50); Neutrophils % (auto) 68.3 %; Platelet Count 194 K/uL (130-400); RDW Coefficient of Variation 12.3 % (11.5-14.5); RDW Standard Deviation 39.1 fL (36.4-46.3); Red Blood Count 3.89 M/uL (4.20-5.40); White Blood Count 6.89 K/ul (4.8-10.8)
[2024-10-27 04:19] LABS: BUN Creatinine Ratio 56.5 (10-20); Calcium 9.1 mg/dl (8.6-10.3); Creatinine Clr Calc Pharmacy 88.3 ml/min; Potassium 3.8 mmol/L (3.5-5.1)
--- NOTE | 2024-10-27 07:27 | Orthopedic Consultation ---
Date of Service October 27, 2024 Assessment & Plan (1) Fracture of greater trochanter: I discussed with her diagnosis and treatment options at bedside. I will give her son a call later today. Fortunately, we can treat this nonoperatively. She can be weightbearing as tolerated. This will take about 4 to 6 weeks before it becomes less painful and 3 months to fully heal. No need for orthopedic follow- up. History of Present Illness Reason for Consultation: Right greater trochanteric hip fracture. Requesting Physician: . Attending Physician: Yanique Gallegos MD Almita is a pleasant 84-year-old female with advanced dementia. She had a fall about 3 days ago. She has been having some increased confusion and increasing right hip pain. She was brought to the emergency room. Radiographs and CT scan showed a minimally displaced greater trochanteric right hip fracture. She was admitted to the medical service. Orthopedics was consulted to evaluate and treat.. Allergies Allergy/AdvReac Type Severity Reaction Status Date / Time duloxetine Allergy Intermediate BALANCE Verified 10/26/24 15:48 PROBLEMS gabapentin Allergy Intermediate BALANCE Verified 10/26/24 15:48 PROBLEMS nitrofurantoin Allergy Intermediate HIVES Verified 10/26/24 15:48 nortriptyline Allergy Intermediate balance Verified 10/26/24 15:48 problems pregabalin [From Lyrica] Allergy Intermediate BALANCE Verified 10/26/24 15:48 ISSUES sulfamethoxazole Allergy Intermediate RASH Verified 10/26/24 15:48 trimethoprim Allergy Intermediate RASH Verified 10/26/24 15:48 lisinopril AdvReac Mild COUGH Verified 10/26/24 15:48 repaglinide AdvReac Mild GI UPSET Verified 10/26/24 15:48 Fluoride Preparations AdvReac Mild SICK Uncoded 02/24/24 16:11 STOMACH, MOUTH/THROAT SORENESS FROM FLUORIDE TREATMENT Home Medications Medication Instructions Recorded Confirmed Type latanoprost 0.005 % eye drops 1 drp OPB HS 06/02/19 10/26/24 History multivitamin (Multiple Vitamins 1 tab PO DAILY 06/02/19 10/26/24 History tablet) glucosamine-chondroitin 250 mg-200 2 tab PO QAM 02/28/21 10/26/24 History mg tablet (Osteo Bi-Flex) acetaminophen 325 mg tablet 650 mg PO Q6H PRN PAIN/FEVER 02/24/24 10/26/24 History (Tylenol) dulaglutide 0.75 mg/0.5 mL 0.75 mg subcut WK 02/24/24 10/26/24 History subcutaneous pen injector (Trulicity) levothyroxine 88 mcg tablet 88 mcg PO DAILYBB 02/24/24 10/26/24 History losartan 100 mg tablet 100 mg PO QAM 02/24/24 10/26/24 History metformin 1,000 mg tablet 1,000 mg PO BIDM 02/24/24 10/26/24 History ondansetron HCl 4 mg tablet 4 mg PO Q6H PRN NAUSEA/VOMITING 02/24/24 10/26/24 History potassium chloride 20 mEq 20 meq PO QAM 02/24/24 10/26/24 History tablet,extended release(part/cryst) bisacodyl 10 mg rectal suppository 10 mg DC DAILY PRN Constipation 10/26/24 10/26/24 History (Dulcolax (bisacodyl)) glucagon 1 mg solution for 1 mg IM UD PRN Hypoglycemia 10/26/24 10/26/24 History injection (Glucagon Emergency Kit) magnesium hydroxide 400 mg/5 mL See Rx Instructions .Route 10/26/24 10/26/24 History oral suspension (Milk of Magnesia) .COMPLEX PRN Constipation sodium phosphates 19 gram-7 118 ml DC DAILY PRN Constipation 10/26/24 10/26/24 History gram/118 mL enema (Fleet Enema) verapamil 120 mg tablet 120 mg PO BID 10/26/24 10/26/24 History Past Med/Surg History Problem List (Updated 10/27/24 @ 07:26 by Raudel Martinez DO) Acute hip pain (Acute) Ambulatory dysfunction (Acute) Fall (Acute) Fracture of greater trochanter Abnormal EKG Hypokalemia Behavioral change (Acute) Bladder outlet obstruction (Acute) Elevated troponin (Acute) COVID-19 (Acute) Weakness (Acute) Diarrhea Parkinsonism (Chronic) Hypothyroidism (Chronic) Hypertension (Chronic) Hyperlipidemia (Chronic) Esophageal reflux (Chronic) Degeneration of cervical intervertebral disc (Chronic) Cerebrovascular disease (Chronic) Allergic rhinitis (Chronic) Type 2 diabetes mellitus (Chronic) Glaucoma LVH (left ventricular hypertrophy) Gait disorder UNSTEADY BALANCE Diabetic peripheral neuropathy Degenerative joint disease (Chronic) Medical History History of colon polyps Arthritis Overactive bladder Diabetes mellitus, type 2 Hypothyroidism HX: breast cancer LEFT (SURGERY +RADIATION) History of anemia Glaucoma Hx of migraines "CLUSTER MIGRAINES" Transient ischemic attack (TIA) ? HX TIA'S "MANY YEARS AGO" Hypertension Hyperlipidemia Syncope Vaginal wall prolapse Surgical History Family history of reaction to anesthesia DAUGHTER-WAKES UP IN MIDDLE OF SURGERIES History of tooth extraction History of vaginal surgery anterior colporrhaphy, repair of cystocele History of breast biopsy History of knee surgery LEFT History of tubal ligation History of cataract surgery RT/LEFT History of total abdominal hysterectomy History of foot surgery LEFT History of lumpectomy LEFT BREAST Family History Family/Other Obstructive sleep apnea Ovarian cancer Breast cancer Father Diabetes Cardiac disorder Hypertension Family history of diabetes mellitus Grandmother Diabetes Mother Cardiac disorder Hypertension Family history of diabetes mellitus Grandfather Stroke Daughter Family history of diabetes mellitus Social History Smoking Status: Unknown if ever smoked Second Hand Exposure: No; Hx Alcohol Use: Yes Alcohol type: hard liquor Hx Substance Use: No Preferred Language: Bermudian Communication Ability: Effective Rail Splitter Required: No Beliefs That Will Affect Care: None marital status: / Current Living Situation: Family Current Living Situation Comment: WITH DAUGHTER current occupational status: retired Feels Safe at Home: Yes Assistive Devices: Cane and Walker Review of Systems All systems reviewed & are unremarkable except as noted in HPI & below. Physical Exam On physical exam of the right hip, she does have some pain with range of motion of the hip. It is consistently more painful than the left hip. All of her pains located over the greater trochanteric region. She does not have much pain in the groin.. Constitutional WD/WN, vitals as above Eyes PERRL, conjunctivae normal, anicteric sclerae ENMT external ear and nose normal, oropharynx normal Neck trachea midline, no thyromegaly Respiratory normal respiratory effort Cardiovascular RRR, no murmur, no edema Gastrointestinal (Abdomen) normal bowel sounds, soft, nontender, no hepatosplenomegaly Psychiatric A+Ox3, euthymic affect Results & Data Results & Data Laboratory Results . Diagnostic Findings X-rays of the right hip show a minimally displaced right greater trochanteric hip fracture CT scan of the right hip confirms a right greater trochanteric hip fracture. I do not see any intertrochanteric extension of the fracture.. PG Care Time/CCT Total # of Minutes Spent Total Time Spent with Patient: Total time spent is greater than 50% in coordination of care (as documented) at patient's floor/unit and/or counseling patient: Coding Level of Care Code 85216 IN/OBS CONSULT LVL 4,60M Diagnoses Fracture of greater trochanter S72.113A
[2024-10-27] MEDS: LOSARTAN POTASSIUM 50 MG TAB PO SCH (08:59)
[2024-10-27] MEDS: MULTIVITAMIN TAB PO SCH (08:59)
[2024-10-27] MEDS: LEVOTHYROXINE SODIUM 88 MCG TABLET PO SCH (09:00)
[2024-10-27] MEDS: POTASSIUM CHLORIDE CRTAB 20 MEQ TABCR PO SCH (11:53)
--- NOTE | 2024-10-27 19:56 | Hospitalist Progress Note ---
Date of Service October 27, 2024 Assessment & Plan (1) Fracture of greater trochanter: Plan: Non displaced and no intertrochanteric extension- conservative management with weightbearing as tolerated and pain control, DVT Px Ortho eval completed - appreciate recommendations PT/OT eval Diabetes DM Diet Trulacity QFri, Hold metformin Serial Accu checks with ISS coverage Hypertension Controlled with current regimen, cont Hypothyroid Cont Levothyroxine Dementia Supportive care Fall precautions Abnormal UA No fever or leukocytosis h/o ESBL Ecoli ? likely colonozied, will hold off abx at this time Constipation Cont outpatient bowel regimen Bedrest until final ortho recommendations DVT Px DNR / DNI Admission and Anticipated Discharge Date Admission Date: October 26, 2024 Subjective pleasantly confused and appears comfortable Physical Exam Physical Exam: Elderly lady talking continuously to herself, AAO#0 Not following commands Lungs clear to auscultation b/l Heart RRR PA soft, NT, ND, BS+ Skin no rash Tender left lateral hip to palpation Results & Data Results & Data Vital Signs (Past 12 Hours) Vital Signs Temp Pulse Resp BP Pulse Ox O2 Del Method 10/27/24 15:30 36.3 C L 61 16 97/61 L 96 Room Air 10/27/24 09:40 Room Air 10/27/24 09:30 36.7 C 82 16 104/80 93 Room Air PG Care Time/CCT Total # of Minutes Spent Total Time Spent with Patient: Total time spent is greater than 50% in coordination of care (as documented) at patient's floor/unit and/or counseling patient: Coding Level of Care Code 11460 SUB INP/OBS CARE 2/35MIN Diagnoses Fracture of greater trochanter S72.113A
--- NOTE | 2024-10-28 15:50 | Hospitalist Progress Note ---
Date of Service October 28, 2024 Assessment & Plan (1) Fracture of greater trochanter: Plan: 84-year-old female with severe end-stage dementia who presents with a left hip fracture, nonoperative per Ortho and is pending PT evaluations and placement. Had a infected appearing UA although cognitive status has not changed, no leukocytosis, and denies urinary symptoms. Likely colonized, treating as asymptomatic bacteria at this time. Left hip fracture Nondisplaced, no intertrochanteric extension Seen by orthopedics. Recommended for nonoperative management. Weightbearing as tolerated. Will have reduced pain after 4 to 6 weeks in 3 months to fully heal. No need for orthopedic follow-up at this time. PT/OT following, placement pending. Previously at [facility] care will need insurance authorizations to progress back, CM following Did call daughter, and attempted to call number for brother and case management note. Daughter's voicemail was full at time of call, and brothers number did not connect. Will reattempt calls tomorrow Type II DM Adequately controlled today, BSG 111 later in the morning Continue SSI Hypertension Continue current medications Dementia, severe Supportive care, fall precautions Placement pending Infected appearing UA History very limited from the patient, denies dysuria but cannot tell how often she pees or if she has had any pain recently UCx is with high colony counts of ESBL E. coli and E faecalis. Enterococcus is fluoroquinolone sensitive however the ESBL E. coli is not. She has not had fever or chills, has not had cognitive change/sedation, and denies dysuria/polyuria at the bedside. Likely colonized. Will defer antibiotics at this time however if she becomes symptomatic or shows evidence of true UTI then would start Zosyn at that time DVT prophylaxis: Lovenox CODE STATUS: DNR/DNI Admission and Anticipated Discharge Date Admission Date: October 26, 2024 Subjective Pleasantly confused the bedside. Does not give any meaningful history, but at time of assessment denies pain, chest pain, hip pain, shortness of breath. She is not oriented to place or reason for hospitalization, but is oriented to name. Physical Exam Physical Exam: General: Oriented to name only. Does not follow commands HEENT: Atraumatic, normocephalic. Pulm: CTAB A&P. -wheezes, -rales, -rhonchi. Symmetrical chest rise. No increase in work of breathing. No respiratory distress. Cardiac: RRR, -mrg. Radial pulses intact and symmetrical. Extremities: Left hip mildly tender to palpation, patient no distress. Ankle dorsiflexion/plantarflexion 5/5. PT pulses intact bilaterally Results & Data Results & Data Vital Signs (Past 12 Hours) Vital Signs Temp Pulse Resp BP BP Pulse Ox Pulse Ox 10/28/24 15:25 36.5 C 88 16 136/78 94 10/28/24 11:58 95 10/28/24 08:01 36.3 C L 81 16 145/77 H 95 O2 Del Method O2 Flow Rate 10/28/24 15:25 Room Air 10/28/24 11:58 0 10/28/24 08:01 Room Air PG Care Time/CCT Total # of Minutes Spent Total Time Spent with Patient: Total time spent is greater than 50% in coordination of care (as documented) at patient's floor/unit and/or counseling patient: Coding Level of Care Code 37285 SUB INP/OBS CARE 2/35MIN Diagnoses Fracture of greater trochanter S72.113A
[2024-10-28] MEDS: MELATONIN 3 MG TAB PO PRN (21:40)
[2024-10-29 07:59] VITALS: RESP 16; TEMP 97.7; O2SAT 95
[2024-10-29 08:26] LABS: Basophils # (auto) 0.03 K/uL (0.00-0.20); Basophils % (auto) 0.4 %; Eosinophils # (auto) 0.06 K/uL (0.00-0.50); Eosinophils % (auto) 0.9 %; Hemoglobin 12.2 g/dl (12.0-16.0); Immature Granulocytes # (auto) 0.02 K/uL (0.01-0.20); Immature Granulocytes % (auto) 0.3 %; Lymphocytes # (auto) 1.33 K/uL (1.20-3.40); Lymphocytes % (auto) 18.9 %; Mean Corpuscular Hemoglobin 29.6 pg (25.0-34.0); Mean Corpuscular Hgb Conc 33.9 g/dL (32.0-36.0); Mean Corpuscular Volume 87.4 fL (80.0-100.0); Mean Platelet Volume 9.7 fL (9.4-12.4); Monocytes # (auto) 0.52 K/uL (0.11-0.59); Monocytes % (auto) 7.4 %; Neutrophils # (auto) 5.09 K/uL (1.40-6.50); Neutrophils % (auto) 72.1 %; Platelet Count 231 K/uL (130-400); RDW Coefficient of Variation 12.4 % (11.5-14.5); RDW Standard Deviation 39.8 fL (36.4-46.3); Red Blood Count 4.12 M/uL (4.20-5.40); White Blood Count 7.05 K/ul (4.8-10.8)
[2024-10-29 08:46] LABS: BUN Creatinine Ratio 45.1 (10-20); Calcium 9.2 mg/dl (8.6-10.3); Creatinine Clr Calc Pharmacy 79.6 ml/min; Potassium 4.2 mmol/L (3.5-5.1)
[2024-10-29] MEDS: AMOXICILLIN/CLAVULANATE 875 MG TAB PO SCH (12:12)
--- NOTE | 2024-10-29 12:57 | Discharge Summary ---
Discharge Summary Date of Service October 29, 2024 Principal Dx & Hospital Course #1 = Principal Diagnosis (1) Fracture of greater trochanter: 84-year-old female with severe end-stage dementia who presents with a left hip fracture, nonoperative per Ortho and is pending PT evaluations and placement. Had a infected appearing UA although cognitive status has not changed, no leukocytosis, and denies urinary symptoms although subsequently with possibly more incontinence and with limited mental status and high colony counts did treat with Augmentin. With respect to her hip fracture this did not have intertrochanteric extension was recommended for nonoperative management, may weight-bear as tolerated. No need for orthopedic follow-up per orthopedic surgery consultation. RIGHT hip fracture Nondisplaced, no intertrochanteric extension Seen by orthopedics. Recommended for nonoperative management. Weightbearing as tolerated. Will have reduced pain after 4 to 6 weeks in 3 months to fully heal. No need for orthopedic follow-up at this time. PT/OT following, placement pending. Discharged to [facility] care Type II DM Adequately controlled today, BSG 111 later in the morning Continue SSI Hypertension Continue current medications Dementia, severe Supportive care, fall precautions Placement pending UTI versus colonization History very limited from the patient, denies dysuria but cannot tell how often she pees or if she has had any pain recently UCx is with high colony counts of ESBL E. coli and E faecalis. Enterococcus is fluoroquinolone sensitive however the ESBL E. coli is not. Patient does not have fever or chills, had been incontinent at baseline but some concern for nurses asked for worsening incontinence. They have accepted help for suspected asymptomatic bacteria however given increased incontinence an d possible mental status fluctuation and that patient is an unreliable historian will treat for potential underlying UTI. Was placed on Augmentin twice daily for a 5-day course. She is not septic or toxic appearing at the bedside Admission HPI Per Admitting Provider Patient is a 84 y/o lady sent to ED for evaluation of increased confusion and left hip pain. She has severe dementia and is unable to provide any history or answer any questions relevantly. Meli is at bedside and reports that her confusion waxes and wanes. Apparently 3 days ago patient fell and today on imaging intertrochanteric fracture L is reported on XR but CT shows nondisplaced fracture of the greater trochanter. Meli is agreeable to surgery if recommended. She is DNR / DNI, agrees to change to full code for surgery. She appears comfortable and not c/o pain. Meli notes that earlier she tried to lift her left leg up and then winced. There is no report of fever or chills Unable to obtain ROS due to patient's mental status Discharge Exam General: No meaningful history able to be obtained due to dementia. Pleasant, denies pain HEENT: Atraumatic, normocephalic. Pulm: CTAB A&P. -wheezes, -rales, -rhonchi. Symmetrical chest rise. No increased work of breathing. No respiratory distress. Cardiac: RRR, -mrg. Radial pulses intact and symmetrical. Abdominal: Nontender, nondistended, soft. BS present. Extremity: Ankle dorsiflexion/plantarflexion 5/5, sensation grossly intact. Cap refill is brisk. Right hip mildly tender to palpation but without deformity. Tolerates logroll of the right leg Discharge Plan Discharge Items Patient Disposition: Transfer Half-Way Fac Reason For Visit: HIP FRACTURE Discharge Diagnosis: Nonoperative hip fracture Activity: Per Instructions section Non-emergency contact: Primary Care Provider Call non-emergency contact if: you have any medication questions and your symptoms worsen Follow-up/Referrals: [facility] [Primary Care Provider] - Diet: Regular Addtl Attending Provider Instructions: You are seen in the hospital for a right nondisplaced hip fracture. You were seen by orthopedic surgery who reviewed the images. Surgery was not indicated or recommended. Nonoperative management was recommended. You may weight-bear as tolerated and pain should gradually improve over 3 to 4 weeks. Full healing will take up to 3 months. Orthopedic follow-up was not recommended unless there were complications or acute concerns develop Your urine culture was suspicious for possible colonization versus UTI. You have been prescribed an antibiotic, Augmentin for 5 days for UTI. Please take Augmentin 875-125 mg twice daily for 5 days If you develop any new or worsening symptoms including fever, chills, sweats, chest pain, chest pressure, difficulty breathing, uncontrolled nausea/vomiting, rash, wheezing, passing out or nearly passing out, bleeding, black/bloody bowel movements, or other new or concerning symptoms please call your primary care physician, or call 911 for re-evaluation in the emergency department if you are very concerned. Pending Studies at Discharge: No Stand-Alone Forms: [facility] Skilled Items Patient informed of condition?: Yes DNR: No Discharge Level of Care: Skilled Communicable Disease: No Discharge Prognosis: Stable Lines: None Urinary Catheter: No Medications and DC Order Prescriptions: New amoxicillin-pot clavulanate 875-125 mg Tablet 1 tab PO BIDM 5 Days Qty: 10 0RF Continued latanoprost 0.005 % drops 1 drp OPB HS multivitamin [Multiple Vitamins] tablet 1 tab PO DAILY glucosamine-chondroitin [Osteo Bi-Flex] 250-200 mg Tablet 2 tab PO QAM acetaminophen [Tylenol] 325 mg Tablet 650 mg PO Q6H MDD 3gm/24hr PRN (Reason: PAIN/FEVER) ondansetron HCl [Zofran] 4 mg Tablet 4 mg PO Q6H PRN (Reason: NAUSEA/VOMITING) potassium chloride 20 mEq tablet,ER particles/crystals 20 meq PO QAM Trulicity 0.75 mg/0.5 mL pen injector 0.75 mg SUBCUT WK Rx Instructions: FRIDAYS levothyroxine 88 mcg tablet 88 mcg PO DAILYBB Patient Comments: QAM metformin 1,000 mg tablet 1,000 mg PO BIDM losartan 100 mg tablet 100 mg PO QAM Patient Comments: TAKES QAM verapamil 120 mg tablet 120 mg PO BID magnesium hydroxide [Milk of Magnesia] 400 mg/5 mL Suspension See Rx Instructions .ROUTE .COMPLEX PRN (Reason: Constipation) Rx Instructions: Magnesia Marcy 7.75%: Give 30ml by mouth as needed for constipation if no BM in 3 days; administer on 7-3 shift bisacodyl [Dulcolax (bisacodyl)] 10 mg Suppository 10 mg AZ DAILY PRN (Reason: Constipation) Rx Instructions: Give on day 3; 3-11 shift if no BM after MOM Fleet Enema 19-7 gram/118 mL Enema 118 ml AZ DAILY PRN (Reason: Constipation) Rx Instructions: Give on day 4 ; 7-3 shift if no BM after Dulcolax Glucagon Emergency Kit (human) 1 mg Recon Soln 1 mg IM UD PRN (Reason: Hypoglycemia) Discharge Orders: Discharge Order (Routine); Ordered 10/29/24 Ordered By: Aristides Burns Admission Data Admit Date/Time: 10/26/24 16:58 Attending Provider: Aristides Burns Admit Provider: Yanique Gallegos Primary Care Provider: [facility] Other Providers: Raudel Martinez; Yanique Gallegos Hospital Stay Data Consultations 10/26/24 14:39 Consult Orthopedic Surgery Routine ED Decision to Admit Stat Procedures Performed Operation Date: 10/27/24 10:00 <No data on this case meets the specified criteria> Diagnostic Imagining Performed 10/26/24 13:13 CT head/brain wo con Stat 10/26/24 16:56 CT hip RT wo con Stat Discharge Instructions Given to Patient (Per Discharging Provider) You are seen in the hospital for a right nondisplaced hip fracture. You were seen by orthopedic surgery who reviewed the images. Surgery was not indicated or recommended. Nonoperative management was recommended. You may weight-bear as tolerated and pain should gradually improve over 3 to 4 weeks. Full healing will take up to 3 months. Orthopedic follow-up was not recommended unless there were complications or acute concerns develop Your urine culture was suspicious for possible colonization versus UTI. You have been prescribed an antibiotic, Augmentin for 5 days for UTI. Please take Augmentin 875-125 mg twice daily for 5 days If you develop any new or worsening symptoms including fever, chills, sweats, chest pain, chest pressure, difficulty breathing, uncontrolled nausea/vomiting, rash, wheezing, passing out or nearly passing out, bleeding, black/bloody bowel movements, or other new or concerning symptoms please call your primary care physician, or call 911 for re-evaluation in the emergency department if you are very concerned. Total Time Total Time Spent Total Time Spent (In Minutes): Time spend day of discharge 35 minutes including direct patient care, documentation, review of labs and images, and coordination of care. Coding Level of Care Code 60875 INP/OBS DISCH >30 MIN Diagnoses Fracture of greater trochanter S72.113A
[2024-10-29 13:04] VITALS: BP 145/77; PULSE 88
== END 2024-10-29 13:17 | DRG 536 ==
LOC: ED 12:57 → SUATTDRO 16:58 → EDINP 16:58 → 3W 20:00

== ENCOUNTER 2025-10-17 09:00 | Inpatient (IN) ==
[2025-10-17] MEDS: PLASMA-LYTE A 500 ML IV ONE ×3 (09:25→11:52)
--- NOTE | 2025-10-17 09:26 | Emergency Department Note ---
Impression & Plan Septic shock, Non-sustained ventricular tachycardia, CHANCE (acute kidney injury), Complicated urinary tract infection, Hypomagnesemia, Acute hypoxic respiratory failure, Acidosis, lactic, Non-ST elevation [place] (NSTEMI), Acute encephalopathy, Adult failure to thrive ED Provider Note NAME: SHANNAN ALEGRIA AGE: 85 SEX: F : 1940 ARRIVES VIA: Ambulance INFORMANT: Patient, EMS, family ED PROVIDER(S): Harjit Ferrari DO CHIEF COMPLAINT: AMS, hypotension HPI: This is an 85-year-old female with the PMHx of failure to thrive, parkinsonism, severe dementia, DM2, diabetic neuropathy, GERD, HTN, HLD and hypothyroidism presenting to [facility] for further evaluation of AMS. Patient is accompanied by EMS who provide additional history. The patient arrives from her group home. It is reported that the patient has had altered mental status with generalized weakness. They note that she possibly had a syncopal episode today. They also noted her to be hypotensive at the group home. EMS reports that she has been hemodynamically stable and route but altered. The patient currently has no complaints but she is significantly confused and inattentive. It is difficult to obtain further history or review of systems from the patient. Patient offers no other complaints, today. ADDITIONAL HISTORY OBTAINED: Per HPI Chronic Medical/Social Conditions Affecting Care: Per HPI PAST MEDICAL HISTORY: See Below PAST SURGICAL HISTORY: See Below FAMILY HISTORY: See Below SOCIAL HISTORY: See Below HOME MEDICATIONS: See Below ALLERGIES: See Below VITALS: See Below PHYSICAL EXAMINATION: GENERAL: Lying in bed with significant contractures, alert, ill appearing, well nourished, no distress, non-toxic EYE EXAM: normal conjunctiva. PERRL and EOM's grossly intact. OROPHARYNX: no exudate, no erythema, lips, buccal mucosa, and tongue normal and mucous membranes are dry NECK: supple, no nuchal rigidity, no adenopathy, non-tender LUNGS: Clear to auscultation. Normal chest wall mechanics HEART: no murmurs, tachycardic rate, regular rhythm ABDOMEN: abdomen soft, non-tender, no masses, no rebound or guarding. BACK: Back is symmetrical on inspection and there is no deformity, no midline tenderness, no CVA tenderness. SKIN: no rashes and no bruising UPPER EXTREMITIES: upper extremities are grossly normal. LOWER EXTREMITIES: No pitting edema. NEURO EXAM: GCS 14 with confusion and inattention, no gross weakness of arms, no gross weakness of legs. Significant contractures of the extremities. MEDICAL DECISION MAKING: Differential diagnoses includes but not limited to hypoglycemia, electrolyte derangements, dehydration, shock, UTI, pneumonia, viral URI, postictal period, ACS, dysrhythmia, metabolic encephalopathy, multifactorial encephalopathy, hypercapnia, hypoxia, polypharmacy In summary, this is an 85 year old female who presented with AMS. Differential as above. Nursing notes and pertinent past medical records reviewed. Vital signs reviewed and the patient is hypotensive and tachycardic. She is afebrile but meets SIRS criteria given other vital signs. History and presentation revealed poor baseline mental status and quality of life. She has severe dementia with poor mobility and contractures. Patient was hypotensive and confused today with possible syncopal episode. Vital signs are concerning and will meet criteria for further evaluation with infectious pathology. Physical examination revealed as above. As a result of my initial evaluation, IV access was established and the patient was placed on CCRM. Therapeutics ordered include IVFR and broad spectrum abx including IV Cefepime. Diagnostics interpreted by me include EKG and cardiac monitoring as listed below: -Cardiac Monitoring: An order was placed for continuous cardiac monitoring. The monitor shows a rate of 80-130s with regular rhythm. There was a run of ventricular tachycardia including 18 beats on the monitor. -ECG: Normal sinus rhythm at a ventricular rate of [address] segment changes to suggest STEMI however there are T wave inversions throughout the precordial leads. There is a right bundle branch block present. Left axis deviation. Intervals otherwise been normal limits. -Repeat ECG: Sinus tachycardia at a rate of 109 bpm. There is a right bundle branch block present. No significant ST segment changes to suggest STEMI. Intervals are otherwise unremarkable. Patient completed laboratory studies and imaging. CXR independently interpreted by me reveals no evidence of focal consolidation to suggest pna. No large pneumothorax or pleural effusion. No obvious displaced rib fracture. Results independently interpreted by me are Leukocytosis. Stable anemia as compared to prior. Mild elevation in procalcitonin. Patient has an CHANCE with mild hyperkalemia. Noted to be hyperglycemic. Patient has a lactic acidosis. She is acidotic on VBG likely secondary to elevated lactate. Hypomagnesemia present and IV replenishment ordered with 2g. UA shows evidence of infection and fell this could be her source of sepsis. Viral swab was negative. The patient was managed initially with broad-spectrum antibiotics as well as crystalloid resuscitation. She received 1 L of crystalloid resuscitation and then an additional 500 mL liter boluses x 2. Patient's blood pressure continued to downtrend and she was started on norepinephrine infusion after discussion with family members. Please see below for further discussions regarding the patient's goals of care. Patient was originally ordered a CT PE study as well as a CT abdomen/pelvis for further evaluation of the patient's presentation. CT PE study was ordered given the patient's vital signs as well as significant troponinemia. Her NSTEMI is likely from demand ischemia and consist of a type II [place]. Given the patient's elevation of troponin level consistent with NSTEMI as well as difficulty with completely ruling out pulmonary embolism, the patient was started on a heparin infusion with a bolus. Patient continued to require norepinephrine infusion but this was able to be titrated down as we improved her fluid status with crystalloid resuscitation. The critical care medicine team was made aware of the patient and we discussed the case. The patient did become progressively hypoxic while in the emergency department. Patient was started on high flow nasal cannula. Do feel the patient is likely acutely hypoxic but also feel that some of her hypoxia is related to her poor perfusion in the setting of septic shock as well as extremity contractures in the setting of failure to thrive. Ultimately, the decision was made to admit the patient for septic shock secondary to complicated UTI which is further complicated by multiple electrolyte derangements, CHANCE, acute hypoxic respiratory failure, acute multifactorial encephalopathy and NSTEMI. I discussed the case with the hospitalist service via telephone/TigerText and they are agreeable to admit the patient to their services by Dr. Fox, [facility] Hospitalist Group. Patient was additionally discussed with [facility] residents. Based on the above, including the patient's age, coexisting illnesses, labs, imaging, and exam findings the decision to treat as an inpatient. I discussed the patient with the hospitalist team who recommended admission to their services. They received the medications, treatments, interventions indicated above and their condition remained critical but she did show improvement throughout the ED course. I discussed my findings with the patient and their family and they understand and agree with the treatment plan. All patient / family questions were answered to their satisfaction. Extensive discussions were held by telephone as well as in person with the patient's family members. These family members include granddaughter and grandson, Guadalupe and Kristian as well as [id number]. We had extensive discussions on the patient's goals and wishes. She is a known DNR DNI and they agree to this. They state that their loved one would never want extensive life- sustaining treatments. The patient would not want surgery or cardiac catheterization. They are agreeable to norepinephrine infusions, IV fluids, antibiotics and hospital admission. They would like to see if the patient improves. If the patient fails to improve, they would be open to further discussions to ensure no further harm is done to the patient and that she is made comfortable. We had further discussions regarding CT imaging. We discussed that this would not necessarily foreign exchange position clerk at this time. CT discussion held at 1125 and will be canceled at the patient's family request. Case discussed with consultants including ANAND, Dr. Tejeda. Consults/Care Managements Discussions: Per MDM ER treatment provided: See above Procedures: None Critical Care: I have personally spent 50 minutes of critical care time in direct management of this patient. This includes bedside care, interpretation of diagnostic studies, and testing, discussion with consultants, patient, and family members, and other require inpatient management activities. This 50 minutes is in excess of all separately billable procedures. The chart was completed utilizing [employer] Speech voice recognition software. Grammatical errors, random word insertions, pronoun errors, and incomplete sentences are an occasional consequence of this system due to software limitations, ambient noise, and hardware issues. Any formal questions or concerns about the content, text, or information contained within the body of this dictation should be directly addressed to the physician for clarification. Past Med/Surg History Problem List (Updated 10/17/25 @ 19:20 by Harjit Ferrari DO) Adult failure to thrive (Acute) Acute encephalopathy (Acute) Non-ST elevation [place] (NSTEMI) (Acute) Acidosis, lactic (Acute) Acute hypoxic respiratory failure (Acute) Hypomagnesemia (Acute) Complicated urinary tract infection (Acute) CHANCE (acute kidney injury) (Acute) Non-sustained ventricular tachycardia (Acute) Septic shock (Acute) Bedridden Dementia CHANCE (acute kidney injury) UTI (urinary tract infection) Septic shock Acute hip pain (Acute) Ambulatory dysfunction (Acute) Fall (Acute) Fracture of greater trochanter Abnormal EKG Hypokalemia Behavioral change (Acute) Bladder outlet obstruction (Acute) Elevated troponin (Acute) COVID-19 (Acute) Weakness (Acute) Diarrhea Parkinsonism (Chronic) Hypothyroidism (Chronic) Hypertension (Chronic) Hyperlipidemia (Chronic) Esophageal reflux (Chronic) Degeneration of cervical intervertebral disc (Chronic) Cerebrovascular disease (Chronic) Allergic rhinitis (Chronic) Type 2 diabetes mellitus (Chronic) Glaucoma LVH (left ventricular hypertrophy) Gait disorder UNSTEADY BALANCE Diabetic peripheral neuropathy Degenerative joint disease (Chronic) Medical History History of colon polyps Arthritis Overactive bladder Diabetes mellitus, type 2 Hypothyroidism HX: breast cancer LEFT (SURGERY +RADIATION) History of anemia Glaucoma Hx of migraines "CLUSTER MIGRAINES" Transient ischemic attack (TIA) ? HX TIA'S "MANY YEARS AGO" Hypertension Hyperlipidemia Syncope Vaginal wall prolapse Surgical History Family history of reaction to anesthesia DAUGHTER-WAKES UP IN MIDDLE OF SURGERIES History of tooth extraction History of vaginal surgery anterior colporrhaphy, repair of cystocele History of breast biopsy History of knee surgery LEFT History of tubal ligation History of cataract surgery RT/LEFT History of total abdominal hysterectomy History of foot surgery LEFT History of lumpectomy LEFT BREAST Family History Family/Other Obstructive sleep apnea Ovarian cancer Breast cancer Father Diabetes Cardiac disorder Hypertension Family history of diabetes mellitus Grandmother Diabetes Mother Cardiac disorder Hypertension Family history of diabetes mellitus Grandfather Stroke Daughter Family history of diabetes mellitus Social History Smoking Status: Never smoker Second Hand Exposure: No; Hx Alcohol Use: No Hx Substance Use: No Preferred Language: Greek Communication Ability: Effective Icer Air Conditioning Required: No Beliefs That Will Affect Care: Caodaism marital status: / Current Living Situation: Personal Care Facility Current Living Situation Comment: WITH DAUGHTER current occupational status: retired Feels Safe at Home: Yes Safety Concerns: Feels Safe At This Time Assistive Devices: Glasses Allergies Allergies Allergy/AdvReac Type Severity Reaction Status Date / Time duloxetine Allergy Intermediate BALANCE Verified 10/26/24 15:48 PROBLEMS gabapentin Allergy Intermediate BALANCE Verified 10/26/24 15:48 PROBLEMS nitrofurantoin Allergy Intermediate HIVES Verified 10/26/24 15:48 nortriptyline Allergy Intermediate balance Verified 10/26/24 15:48 problems pregabalin [From Lyrica] Allergy Intermediate BALANCE Verified 10/26/24 15:48 ISSUES sulfamethoxazole Allergy Intermediate RASH Verified 10/26/24 15:48 trimethoprim Allergy Intermediate RASH Verified 10/26/24 15:48 fluoride AdvReac Mild SICK Verified 10/17/25 15:02 STOMACH, MOUTH/THROAT SORENESS FROM FLUORIDE TREATMENT lisinopril AdvReac Mild COUGH Verified 10/26/24 15:48 repaglinide AdvReac Mild GI UPSET Verified 10/26/24 15:48 Home Meds Home Medications Medication Instructions Recorded Confirmed latanoprost 0.005 % eye drops 1 drp OPB HS 06/02/19 10/17/25 multivitamin (Multiple Vitamins 1 tab PO DAILY 06/02/19 10/17/25 tablet) glucosamine-chondroitin 250 mg-200 2 tab PO QAM 02/28/21 10/17/25 mg tablet (Osteo Bi-Flex) acetaminophen 325 mg tablet 650 mg PO Q6H PRN PAIN/FEVER 02/24/24 10/17/25 (Tylenol) levothyroxine 88 mcg tablet 88 mcg PO DAILYBB 02/24/24 10/17/25 losartan 100 mg tablet 100 mg PO QAM 02/24/24 10/17/25 metformin 1,000 mg tablet 1,000 mg PO BIDM 02/24/24 10/17/25 ondansetron HCl 4 mg tablet 4 mg PO Q6H PRN NAUSEA/VOMITING 02/24/24 10/17/25 potassium chloride 20 mEq 20 meq PO QAM 02/24/24 10/17/25 tablet,extended release(part/cryst) bisacodyl 10 mg rectal suppository 10 mg IA DAILY PRN Constipation 10/26/24 10/17/25 (Dulcolax (bisacodyl)) glucagon 1 mg solution for 1 mg IM UD PRN Hypoglycemia 10/26/24 10/17/25 injection (Glucagon Emergency Kit) magnesium hydroxide 400 mg/5 mL 30 ml PO ONCE PRN Constipation 10/26/24 10/17/25 oral suspension (Milk of Magnesia) sodium phosphates 19 gram-7 118 ml IA DAILY PRN Constipation 10/26/24 10/17/25 gram/118 mL enema (Fleet Enema) verapamil 120 mg tablet 120 mg PO BID 10/26/24 10/17/25 ciprofloxacin HCl 250 mg tablet 250 mg PO AMHS 10/17/25 10/17/25 Results & Data (ED) Vital Signs Vital Signs - 24 hr 10/17/25 09:05 10/17/25 09:30 10/17/25 10:01 Temperature 36.7 C Temperature Source Axillary Pulse Rate 86 Pulse Rate [Apical] 84 Pulse Rate [Ear Lobe] 106 H Pulse Rhythm [Apical] Regular Respiratory Rate 16 16 27 H Respiratory Effort / Characteristics Non-Labored Spontaneous Spontaneous Non-Labored Spontaneous Respiratory Depth Normal Normal Normal Respiratory Pattern Regular Regular Regular Blood Pressure 120/97 Blood Pressure [Right Arm] 113/68 58/32 L Blood Pressure Mean 104 Blood Pressure Mean [Right Arm] 83 40 Blood Pressure Position [Right Arm] Semi-fowlers Pulse Oximetry 97 93 Oxygen Delivery Method Room Air Room Air Oxygen Flow Rate Fraction of Inspired Oxygen Sepsis Recent Fever Within 48 Hours No Sepsis New/Unexplained Change in Mental Status Yes Sepsis Action Taken by Nursing No Action Required Oxygen Flow Rate - Titration Pulse Oximetry Post Tiitration 10/17/25 10:10 10/17/25 10:15 10/17/25 10:23 Temperature Temperature Source Pulse Rate 92 H Pulse Rate [Apical] 85 93 H Pulse Rate [Ear Lobe] Pulse Rhythm [Apical] Regular Regular Respiratory Rate 33 H 30 H Respiratory Effort / Characteristics Spontaneous Spontaneous Respiratory Depth Normal Normal Respiratory Pattern Regular Regular Blood Pressure Blood Pressure [Right Arm] 66/39 L 58/32 L Blood Pressure Mean Blood Pressure Mean [Right Arm] 48 40 Blood Pressure Position [Right Arm] Semi-fowlers Semi-fowlers Pulse Oximetry 60 L Oxygen Delivery Method Room Air Nasal Cannula Oxygen Flow Rate 6 Fraction of Inspired Oxygen Sepsis Recent Fever Within 48 Hours Sepsis New/Unexplained Change in Mental Status Sepsis Action Taken by Nursing Oxygen Flow Rate - Titration Pulse Oximetry Post Tiitration 10/17/25 10:30 10/17/25 10:51 10/17/25 11:07 Temperature Temperature Source Pulse Rate 96 H Pulse Rate [Apical] 95 H Pulse Rate [Ear Lobe] Pulse Rhythm [Apical] Regular Respiratory Rate 32 H 22 Respiratory Effort / Characteristics Spontaneous Respiratory Depth Normal Respiratory Pattern Regular Blood Pressure 66/44 L Blood Pressure [Right Arm] 81/51 L Blood Pressure Mean 45 Blood Pressure Mean [Right Arm] 61 Blood Pressure Position [Right Arm] Semi-fowlers Pulse Oximetry 80 L 60 L 91 Oxygen Delivery Method Non-rebreather Room Air High Flow Nasal Cannula Oxygen Flow Rate 15 0 60 Fraction of Inspired Oxygen 80 Sepsis Recent Fever Within 48 Hours Sepsis New/Unexplained Change in Mental Status Sepsis Action Taken by Nursing Oxygen Flow Rate - Titration 8 Pulse Oximetry Post Tiitration 80 L 10/17/25 11:10 10/17/25 11:15 10/17/25 11:20 Temperature Temperature Source Pulse Rate 113 H 117 H 107 H Pulse Rate [Apical] Pulse Rate [Ear Lobe] Pulse Rhythm [Apical] Respiratory Rate 21 18 19 Respiratory Effort / Characteristics Respiratory Depth Respiratory Pattern Blood Pressure 101/81 141/81 H 119/72 Blood Pressure [Right Arm] Blood Pressure Mean 86 118 100 Blood Pressure Mean [Right Arm] Blood Pressure Position [Right Arm] Pulse Oximetry 98 92 98 Oxygen Delivery Method High Flow Nasal Cannula High Flow Nasal Cannula High Flow Nasal Cannula Oxygen Flow Rate 60 60 60 Fraction of Inspired Oxygen 80 80 80 Sepsis Recent Fever Within 48 Hours Sepsis New/Unexplained Change in Mental Status Sepsis Action Taken by Nursing Oxygen Flow Rate - Titration Pulse Oximetry Post Tiitration 10/17/25 11:22 10/17/25 11:24 10/17/25 11:25 Temperature Temperature Source Pulse Rate 114 H 120 H Pulse Rate [Apical] Pulse Rate [Ear Lobe] 106 H Pulse Rhythm [Apical] Respiratory Rate 22 25 H Respiratory Effort / Characteristics Spontaneous Respiratory Depth Respiratory Pattern Blood Pressure 124/75 Blood Pressure [Right Arm] Blood Pressure Mean 93 Blood Pressure Mean [Right Arm] Blood Pressure Position [Right Arm] Pulse Oximetry 92 92 Oxygen Delivery Method High Flow Nasal Cannula High Flow Nasal Cannula Oxygen Flow Rate 60 60 Fraction of Inspired Oxygen 80 80 Sepsis Recent Fever Within 48 Hours Sepsis New/Unexplained Change in Mental Status Sepsis Action Taken by Nursing Oxygen Flow Rate - Titration Pulse Oximetry Post Tiitration 10/17/25 11:25 10/17/25 11:30 10/17/25 11:40 Temperature Temperature Source Pulse Rate 107 H 127 H 108 H Pulse Rate [Apical] Pulse Rate [Ear Lobe] Pulse Rhythm [Apical] Respiratory Rate 19 20 27 H Respiratory Effort / Characteristics Respiratory Depth Respiratory Pattern Blood Pressure 124/75 117/74 109/83 Blood Pressure [Right Arm] Blood Pressure Mean 93 83 93 Blood Pressure Mean [Right Arm] Blood Pressure Position [Right Arm] Pulse Oximetry 95 98 100 Oxygen Delivery Method High Flow Nasal Cannula High Flow Nasal Cannula High Flow Nasal Cannula Oxygen Flow Rate 60 60 60 Fraction of Inspired Oxygen 80 80 80 Sepsis Recent Fever Within 48 Hours Sepsis New/Unexplained Change in Mental Status Sepsis Action Taken by Nursing Oxygen Flow Rate - Titration Pulse Oximetry Post Tiitration 10/17/25 11:45 10/17/25 12:00 10/17/25 12:06 Temperature 37 C Temperature Source Pulse Rate 112 H 112 H 104 H Pulse Rate [Apical] Pulse Rate [Ear Lobe] Pulse Rhythm [Apical] Respiratory Rate 20 24 26 H Respiratory Effort / Characteristics Respiratory Depth Respiratory Pattern Blood Pressure 124/77 125/92 88/69 L Blood Pressure [Right Arm] Blood Pressure Mean 81 105 74 Blood Pressure Mean [Right Arm] Blood Pressure Position [Right Arm] Pulse Oximetry 100 99 97 Oxygen Delivery Method High Flow Nasal Cannula High Flow Nasal Cannula High Flow Nasal Cannula Oxygen Flow Rate 60 60 60 Fraction of Inspired Oxygen 80 80 80 Sepsis Recent Fever Within 48 Hours Sepsis New/Unexplained Change in Mental Status Sepsis Action Taken by Nursing Oxygen Flow Rate - Titration Pulse Oximetry Post Tiitration 10/17/25 12:10 Temperature Temperature Source Pulse Rate 105 H Pulse Rate [Apical] Pulse Rate [Ear Lobe] Pulse Rhythm [Apical] Respiratory Rate 28 H Respiratory Effort / Characteristics Respiratory Depth Respiratory Pattern Blood Pressure 126/79 Blood Pressure [Right Arm] Blood Pressure Mean 90 Blood Pressure Mean [Right Arm] Blood Pressure Position [Right Arm] Pulse Oximetry 96 Oxygen Delivery Method High Flow Nasal Cannula Oxygen Flow Rate 60 Fraction of Inspired Oxygen 80 Sepsis Recent Fever Within 48 Hours Sepsis New/Unexplained Change in Mental Status Sepsis Action Taken by Nursing Oxygen Flow Rate - Titration Pulse Oximetry Post Tiitration Laboratory Data 10/17/25 09:10 10/17/25 09:10 Lab Results 10/17/25 10/17/25 10/17/25 Range/Units 09:10 09:13 10:24 WBC 16.55 H (4.8-10.8) K/ul RBC 3.93 L (4.20-5.40) M/uL Hgb 11.8 L (12.0-16.0) g/dL Hct 34.6 L (37.0-47.0) % MCV 88.0 (80.0-100.0) fL MCH 30.0 (25.0-34.0) pg MCHC 34.1 (32.0-36.0) g/dL RDW Std Deviation 45.0 (36.4-46.3) fL RDW Coeff of Thai 14.0 (11.5-14.5) % Plt Count 157 (130-400) K/uL MPV 10.6 (9.4-12.4) fL Immature Gran % (Auto) 0.5 % Neut % (Auto) 86.1 % Lymph % (Auto) 7.4 % [place] % (Auto) 5.8 % Eos % (Auto) 0.0 % Baso % (Auto) 0.2 % Neut # (Auto) 14.23 H (1.40-6.50) K/uL Lymph # (Auto) 1.23 (1.20-3.40) K/uL [place] # (Auto) 0.96 H (0.11-0.59) K/uL Eos # (Auto) 0.00 (0.00-0.50) K/uL Baso # (Auto) 0.04 (0.00-0.20) K/uL Immature Gran # (Auto) 0.09 (0.01-0.20) K/uL PT (9.0-12.0) Seconds INR (0.9-1.1) VBG pH 7.31 L (7.36-7.41) VBG pCO2 46 (38-50) mmHg VBG pO2 27 mmHg VBG HCO3 23 mmol/L VBG O2 Saturation < 60.0 % VBG Base Excess -3.2 mEq/L Sodium 138 (136-145) mmol/L Potassium 5.4 H (3.5-5.1) mmol/L Chloride 104 (98-107) mmol/L Carbon Dioxide 25 (21-32) mmol/L Anion Gap 9 (3-11) BUN 61 H (6-23) mg/dl Creatinine 1.56 H (0.6-1.2) mg/dl Est Cr Clr Drug Dosing Not Reportable eGFR 32.78 BUN/Creatinine Ratio 39.1 H (10-20) Glucose 277 H (70-99(Fasting)) mg/dl POC Glucose 289 H (70-99) mg/dl Lactate 3.2 H* (0.4-2.0) mmol/L Calcium 9.6 (8.6-10.3) mg/dl Magnesium 1.5 L (1.7-2.4) mg/dl Total Bilirubin 0.7 (0.2-1.0) mg/dl AST 38 (13-39) U/L ALT 32 (7-52) U/L Alkaline Phosphatase 69 (34-104) U/L Troponin I High Sens 3839.0 H* (0-14) pg/ml Total Protein 6.6 (6.0-8.3) gm/dl Albumin 3.7 (3.4-5.0) gm/dl Globulin 2.9 (2.5-4.0) gm/dl Albumin/Globulin Ratio 1.3 (0.9-2) Lipase 13 (11-82) U/L Procalcitonin 0.88 H (0-0.5) ng/ml Urine Color Urine Appearance (Clear) Urine pH (4.5-7.5) Ur Specific Hagan (1.000-1.030) Urine Protein (Negative) Urine Glucose (UA) (Negative) Urine Ketones (Negative) Urine Blood (Negative) Urine Nitrite (Negative) Urine Bilirubin (Negative) Urine Urobilinogen (Negative) Ur Leukocyte Esterase (Negative) Urine WBC (Auto) (0-5) /hpf Urine RBC (Auto) (0-2) /hpf U Hyaline Cast (Auto) (0-2) /lpf U Epithel Cells (Auto) (0-2) /hpf Urine Bacteria (Auto) (None Seen) Urine Mucus (None Prsent) Urine Comment Nasal Screen MRSA (PCR) (Negative) Adenovirus (PCR) Not Detected (NotDetected) B. pertussis DNA (PCR) Not Detected (NotDetected) B.parapertussis DNA PCR Not Detected (NotDetected) C. pneumoniae DNA (PCR) Not Detected (NotDetected) Coronavirus OC43 (PCR) Not Detected (NotDetected) Coronavirus HKU1 (PCR) Not Detected (NotDetected) Coronavirus 229E (PCR) Not Detected (NotDetected) SARS-CoV-2 (PCR) Not Detected (NotDetected) Coronavirus NL63 (PCR) Not Detected (NotDetected) Human Metapneumovir PCR Not Detected (NotDetected) Influenza Type A (PCR) Not Detected (NotDetected) Influenza Type B (PCR) Not Detected (NotDetected) M. pneumoniae (PCR) Not Detected (NotDetected) Parainfluenza 1 (PCR) Not Detected (NotDetected) Parainfluenza 2 (PCR) Not Detected (NotDetected) Parainfluenza 3 (PCR) Not Detected (NotDetected) Parainfluenza 4 (PCR) Not Detected (NotDetected) RSV (PCR) Not Detected (NotDetected) Entero/Rhino (PCR) Not Detected (NotDetected) 10/17/25 10/17/25 10/17/25 Range/Units 10:33 10:51 10:56 WBC (4.8-10.8) K/ul RBC (4.20-5.40) M/uL Hgb (12.0-16.0) g/dL Hct (37.0-47.0) % MCV (80.0-100.0) fL MCH (25.0-34.0) pg MCHC (32.0-36.0) g/dL RDW Std Deviation (36.4-46.3) fL RDW Coeff of Thai (11.5-14.5) % Plt Count (130-400) K/uL MPV (9.4-12.4) fL Immature Gran % (Auto) % Neut % (Auto) % Lymph % (Auto) % [place] % (Auto) % Eos % (Auto) % Baso % (Auto) % Neut # (Auto) (1.40-6.50) K/uL Lymph # (Auto) (1.20-3.40) K/uL [place] # (Auto) (0.11-0.59) K/uL Eos # (Auto) (0.00-0.50) K/uL Baso # (Auto) (0.00-0.20) K/uL Immature Gran # (Auto) (0.01-0.20) K/uL PT (9.0-12.0) Seconds INR (0.9-1.1) VBG pH (7.36-7.41) VBG pCO2 (38-50) mmHg VBG pO2 mmHg VBG HCO3 mmol/L VBG O2 Saturation % VBG Base Excess mEq/L Sodium (136-145) mmol/L Potassium (3.5-5.1) mmol/L Chloride (98-107) mmol/L Carbon Dioxide (21-32) mmol/L Anion Gap (3-11) BUN (6-23) mg/dl Creatinine (0.6-1.2) mg/dl Est Cr Clr Drug Dosing eGFR BUN/Creatinine Ratio (10-20) Glucose (70-99(Fasting)) mg/dl POC Glucose (70-99) mg/dl Lactate (0.4-2.0) mmol/L Calcium (8.6-10.3) mg/dl Magnesium (1.7-2.4) mg/dl Total Bilirubin (0.2-1.0) mg/dl AST (13-39) U/L ALT (7-52) U/L Alkaline Phosphatase (34-104) U/L Troponin I High Sens 3379.0 H* (0-14) pg/ml Total Protein (6.0-8.3) gm/dl Albumin (3.4-5.0) gm/dl Globulin (2.5-4.0) gm/dl Albumin/Globulin Ratio (0.9-2) Lipase (11-82) U/L Procalcitonin (0-0.5) ng/ml Urine Color Dark Yellow Urine Appearance Cloudy A (Clear) Urine pH 5.0 (4.5-7.5) Ur Specific H[place] 1.024 (1.000-1.030) Urine Protein 2+ H (Negative) Urine Glucose (UA) Negative (Negative) Urine Ketones Trace H (Negative) Urine Blood 2+ H (Negative) Urine Nitrite Negative (Negative) Urine Bilirubin 1+ H (Negative) Urine Urobilinogen Negative (Negative) Ur Leukocyte Esterase 2+ H (Negative) Urine WBC (Auto) 21-50 H (0-5) /hpf Urine RBC (Auto) 6-10 H (0-2) /hpf U Hyaline Cast (Auto) 11-20 H (0-2) /lpf U Epithel Cells (Auto) 0-2 (0-2) /hpf Urine Bacteria (Auto) 2+ H (None Seen) Urine Mucus Present A (None Prsent) Urine Comment Nasal Screen MRSA (PCR) Negative (Negative) Adenovirus (PCR) (NotDetected) B. pertussis DNA (PCR) (NotDetected) B.parapertussis DNA PCR (NotDetected) C. pneumoniae DNA (PCR) (NotDetected) Coronavirus OC43 (PCR) (NotDetected) Coronavirus HKU1 (PCR) (NotDetected) Coronavirus 229E (PCR) (NotDetected) SARS-CoV-2 (PCR) (NotDetected) Coronavirus NL63 (PCR) (NotDetected) Human Metapneumovir PCR (NotDetected) Influenza Type A (PCR) (NotDetected) Influenza Type B (PCR) (NotDetected) M. pneumoniae (PCR) (NotDetected) Parainfluenza 1 (PCR) (NotDetected) Parainfluenza 2 (PCR) (NotDetected) Parainfluenza 3 (PCR) (NotDetected) Parainfluenza 4 (PCR) (NotDetected) RSV (PCR) (NotDetected) Entero/Rhino (PCR) (NotDetected) 10/17/25 10/17/25 Range/Units 11:00 12:09 WBC (4.8-10.8) K/ul RBC (4.20-5.40) M/uL Hgb (12.0-16.0) g/dL Hct (37.0-47.0) % MCV (80.0-100.0) fL MCH (25.0-34.0) pg MCHC (32.0-36.0) g/dL RDW Std Deviation (36.4-46.3) fL RDW Coeff of Thai (11.5-14.5) % Plt Count (130-400) K/uL MPV (9.4-12.4) fL Immature Gran % (Auto) % Neut % (Auto) % Lymph % (Auto) % [place] % (Auto) % Eos % (Auto) % Baso % (Auto) % Neut # (Auto) (1.40-6.50) K/uL Lymph # (Auto) (1.20-3.40) K/uL [place] # (Auto) (0.11-0.59) K/uL Eos # (Auto) (0.00-0.50) K/uL Baso # (Auto) (0.00-0.20) K/uL Immature Gran # (Auto) (0.01-0.20) K/uL PT 11.9 (9.0-12.0) Seconds INR 1.1 (0.9-1.1) VBG pH (7.36-7.41) VBG pCO2 (38-50) mmHg VBG pO2 mmHg VBG HCO3 mmol/L VBG O2 Saturation % VBG Base Excess mEq/L Sodium (136-145) mmol/L Potassium (3.5-5.1) mmol/L Chloride (98-107) mmol/L Carbon Dioxide (21-32) mmol/L Anion Gap (3-11) BUN (6-23) mg/dl Creatinine (0.6-1.2) mg/dl Est Cr Clr Drug Dosing eGFR BUN/Creatinine Ratio (10-20) Glucose (70-99(Fasting)) mg/dl POC Glucose 286 H (70-99) mg/dl Lactate (0.4-2.0) mmol/L Calcium (8.6-10.3) mg/dl Magnesium (1.7-2.4) mg/dl Total Bilirubin (0.2-1.0) mg/dl AST (13-39) U/L ALT (7-52) U/L Alkaline Phosphatase (34-104) U/L Troponin I High Sens (0-14) pg/ml Total Protein (6.0-8.3) gm/dl Albumin (3.4-5.0) gm/dl Globulin (2.5-4.0) gm/dl Albumin/Globulin Ratio (0.9-2) Lipase (11-82) U/L Procalcitonin (0-0.5) ng/ml Urine Color Urine Appearance (Clear) Urine pH (4.5-7.5) Ur Specific [place] (1.000-1.030) Urine Protein (Negative) Urine Glucose (UA) (Negative) Urine Ketones (Negative) Urine Blood (Negative) Urine Nitrite (Negative) Urine Bilirubin (Negative) Urine Urobilinogen (Negative) Ur Leukocyte Esterase (Negative) Urine WBC (Auto) (0-5) /hpf Urine RBC (Auto) (0-2) /hpf U Hyaline Cast (Auto) (0-2) /lpf U Epithel Cells (Auto) (0-2) /hpf Urine Bacteria (Auto) (None Seen) Urine Mucus (None Prsent) Urine Comment Nasal Screen MRSA (PCR) (Negative) Adenovirus (PCR) (NotDetected) B. pertussis DNA (PCR) (NotDetected) B.parapertussis DNA PCR (NotDetected) C. pneumoniae DNA (PCR) (NotDetected) Coronavirus OC43 (PCR) (NotDetected) Coronavirus HKU1 (PCR) (NotDetected) Coronavirus 229E (PCR) (NotDetected) SARS-CoV-2 (PCR) (NotDetected) Coronavirus NL63 (PCR) (NotDetected) Human Metapneumovir PCR (NotDetected) Influenza Type A (PCR) (NotDetected) Influenza Type B (PCR) (NotDetected) M. pneumoniae (PCR) (NotDetected) Parainfluenza 1 (PCR) (NotDetected) Parainfluenza 2 (PCR) (NotDetected) Parainfluenza 3 (PCR) (NotDetected) Parainfluenza 4 (PCR) (NotDetected) RSV (PCR) (NotDetected) Entero/Rhino (PCR) (NotDetected) Administered Medications Norepinephrine Bitartrate (Levophed/D5w) 4 mg in 250 mls @ 20.79 mls/hr IV .Q12H2M [facility]; Protocol Stop: 11/16/25 10:14 Last Titration: 10/17/25 19:03 Dose: 0.11 mcg/kg/min, 25.4 mls/hr Documented By: ESG Co-signed By: ESG(2) Titration: 10/17/25 17:38 Dose: 0.11 mcg/kg/min, 25.4 mls/hr Documented By: ESG(2) Co-signed By: NMK Titration: 10/17/25 12:18 Dose: 0.09 mcg/kg/min, 20.8 mls/hr Documented By: JER Co-signed By: RYNE Titration: 10/17/25 11:19 Dose: 0.11 mcg/kg/min, 25.4 mls/hr Documented By: FG Co-signed By: RYNE Titration: 10/17/25 11:06 Dose: 0.13 mcg/kg/min, 30 mls/hr Documented By: FG Co-signed By: JW Titration: 10/17/25 10:53 Dose: 0.11 mcg/kg/min, 25.4 mls/hr Documented By: CAP Co-signed By: FG Titration: 10/17/25 10:35 Dose: 0.09 mcg/kg/min, 20.8 mls/hr Documented By: FG Co-signed By: MNE Titration: 10/17/25 10:30 Dose: 0.07 mcg/kg/min, 16.2 mls/hr Documented By: FG Co-signed By: MNE Admin: 10/17/25 10:23 Dose: 0.05 mcg/kg/min, 11.6 mls/hr Documented By: AVM Co-signed By: LAURA Heparin Sodium/Dextrose (Heparin 55957 Unit/500 Ml D5w) 25,000 units in 500 mls @ 22 mls/hr IV .[id number] [facility]AKASH; Protocol Stop: 11/16/25 10:29 Last Titration: 10/17/25 19:03 Dose: 1,100 units/hr, 22 mls/hr Documented By: JUNI Co-signed By: JUNI(2) Admin: 10/17/25 10:33 Dose: 1,100 units/hr, 22 mls/hr Documented By: FG Co-signed By: DARRIAN Parenteral Electrolytes (Plasma-Lyte A Ph 7.4) 1,000 mls @ 100 mls/hr IV .Q10H AAKASH Stop: 10/18/25 00:07 Last Admin: 10/17/25 14:54 Dose: 100 mls/hr Documented By: ESG(2) Insulin Aspart (Insulin Aspart Per Unit Charge) 0 units SC ACHS [facility] Stop: 11/16/25 16:29 Last Admin: 10/17/25 15:45 Dose: 4 units Documented By: ESG(2) Co-signed By: RAFAEL Miscellaneous (Icu Protocol For Hyperglycemia) 1 each N/A ACHS [facility] Stop: 10/19/25 16:29 Last Admin: 10/17/25 14:55 Dose: Not Given Documented By: ESG(2) Discontinued Medications Heparin Sodium (Porcine) (Heparin Sod (Porcine) 1000 Unit/Ml) 1 units IV NOW ONE Stop: 10/17/25 10:29 Last Admin: 10/17/25 10:33 Dose: 5,000 units Documented By: JER Co-signed By: DARRIAN Heparin Sodium/Dextrose (Heparin Iv Adult Wt-Based Standard W/ Initial Bolus Protocol) 1 each IV NOW STA; Protocol Stop: 10/17/25 10:14 Last Admin: 10/17/25 10:34 Dose: Not Given Documented By: JER Parenteral Electrolytes (Plasma-Lyte A Ph 7.4) 500 mls @ 999 mls/hr IV .Q31M ONE Stop: 10/17/25 09:35 Last Infusion: 10/17/25 12:22 Dose: Infused Documented By: Admin: 10/17/25 09:25 Dose: 999 mls/hr Documented By: JER Cefepime HCl (Maxipime 2000mg) 2,000 mg in 20 mls @ 5 mls/min IV NOW STA; Protocol Stop: 10/17/25 09:46 Last Admin: 10/17/25 10:26 Dose: 5 mls/min Documented By: DARRIAN Parenteral Electrolytes (Plasma-Lyte A Ph 7.4) 500 mls @ 999 mls/hr IV .Q31M ONE Stop: 10/17/25 10:14 Last Infusion: 10/17/25 12:22 Dose: Infused Documented By: Admin: 10/17/25 10:25 Dose: 999 mls/hr Documented By: DARRIAN Calcium Gluconate () 1,000 mg in 60 mls @ 240 mls/hr IV NOW STA Stop: 10/17/25 10:04 Last Infusion: 10/17/25 11:08 Dose: Infused Documented By: Admin: 10/17/25 10:25 Dose: 240 mls/hr Documented By: DARRIAN Insulin Human Regular 5 units/ (Syringe) 9.9 mls @ 3 mls/sec IV ONE STA Stop: 10/17/25 09:51 Last Admin: 10/17/25 10:25 Dose: 3 mls/sec Documented By: DARRIAN Co-signed By: LAURA Magnesium Sulfate/Dextrose (Magnesium Sulfate / D5w) 1 gm in 100 mls @ 200 mls/hr IV Q30M AAKASH Stop: 10/17/25 10:50 Last Infusion: 10/17/25 12:21 Dose: Infused Documented By: Admin: 10/17/25 11:06 Dose: 200 mls/hr Documented By: Infusion: 10/17/25 11:05 Dose: Infused Documented By: Admin: 10/17/25 10:32 Dose: 200 mls/hr Documented By: JER Parenteral Electrolytes (Plasma-Lyte A Ph 7.4) 500 mls @ 999 mls/hr IV .Q31M ONE Stop: 10/17/25 12:18 Last Infusion: 10/17/25 12:23 Dose: Infused Documented By: Admin: 10/17/25 11:52 Dose: 999 mls/hr Documented By: JER Piperacillin Sod/Tazobactam Sod (Zosyn) 4.5 gm in 100 mls @ 200 mls/hr IV ONE ONE; Protocol Stop: 10/17/25 16:29 Last Infusion: 10/17/25 15:47 Dose: Infused Documented By: JUNI(2) Admin: 10/17/25 14:55 Dose: 200 mls/hr Documented By: ESG(2) Miscellaneous (Stat Iv Infusion Titration Per Protocol) 1 each N/A NOW STA Stop: 10/17/25 10:14 Last Admin: 10/17/25 10:34 Dose: Not Given Documented By: JER Norepinephrine Bitartrate (Norepinephrine/D5w 4 Mg/250 Ml) Confirm Administered Dose 4 mg IV .STK-MED ONE Stop: 10/17/25 10:13 Last Admin: 10/17/25 10:34 Dose: Not Given Documented By: JER Imaging Data Radiologist's Impression: Chest X-Ray 10/17/25 09:05 XR chest 1V portable HISTORY: 85 years-old Female syncope COMPARISON: 10/26/2024 TECHNIQUE: AP view of the chest FINDINGS: Atherosclerosis of the aorta. The cardiomediastinal and hilar silhouettes are within normal limits. The patient is slightly rotated and side bending. No pneumothorax, large pleural effusion or overt pulmonary edema. Degenerative changes of the shoulders and spine. IMPRESSION: No acute process. ACT 112: Negative or not required by law. The above report was generated using voice recognition software. It may contain grammatical, syntax or spelling errors. Electronically signed by: Eduardo Payne M.D. 10/17/2025 9:45 AM Discharge Plan Visit Data Chief Complaint: Altered Mental Status Stated Complaint: decreased mental status/hyperglycemia ED Provider: Harjit Ferrari Discharge Problem: Septic shock, Non-sustained ventricular tachycardia, CHANCE (acute kidney injury), Complicated urinary tract infection, Hypomagnesemia, Acute hypoxic respiratory failure, Acidosis, lactic, Non-ST elevation [place] (NSTEMI), Acute encephalopathy, Adult failure to thrive Patient Disposition: Admitted As Inpatient Condition: Critical Discharge Instructions Interventions: ED Discharge Assessment Last Done: 10/17/25 13:25
[2025-10-17 09:28] LABS: Base Excess VBG -3.2 mEq/L; HCO3 VBG 23 mmol/L; Hematocrit (blood only) 34.6 % (37.0-47.0); Hemoglobin 11.8 g/dL (12.0-16.0); Immature Granulocytes # (auto) 0.09 K/uL (0.01-0.20); Immature Granulocytes % (auto) 0.5 %; Mean Corpuscular Hemoglobin 30.0 pg (25.0-34.0); Mean Corpuscular Volume 88.0 fL (80.0-100.0); Oxygen Saturation VBG < 60.0 %; PCO2 VBG 46 mmHg (38-50); PO2 VBG 27 mmHg; Platelet Count 157 K/uL (130-400); RDW Standard Deviation 45.0 fL (36.4-46.3); Red Blood Count 3.93 M/uL (4.20-5.40); White Blood Count 16.55 K/ul (4.8-10.8); pH VBG 7.31 (7.36-7.41)
[2025-10-17 09:46] LABS: Alanine Aminotransferase 32 U/L (7-52); Albumin Globulin Ratio 1.3 (0.9-2); Albumin Level 3.7 gm/dl (3.4-5.0); Alkaline Phosphatase 69 U/L (34-104); Anion Gap 9 (3-11); Bilirubin,Total 0.7 mg/dl (0.2-1.0); Blood Urea Nitrogen 61 mg/dl (6-23); Calcium 9.6 mg/dl (8.6-10.3); Carbon Dioxide 25 mmol/L (21-32); Chloride 104 mmol/L (98-107); Globulin 2.9 gm/dl (2.5-4.0); Glucose 277 mg/dl (70-99(Fasting)); Lipase 13 U/L (11-82); Magnesium 1.5 mg/dl (1.7-2.4); Potassium 5.4 mmol/L (3.5-5.1); Sodium 138 mmol/L (136-145); Total Protein 6.6 gm/dl (6.0-8.3)
--- NOTE | 2025-10-17 09:47 | XRay Report ---
XR chest 1V portable HISTORY: 85 years-old Female syncope COMPARISON: 10/26/2024 TECHNIQUE: AP view of the chest FINDINGS: Atherosclerosis of the aorta. The cardiomediastinal and hilar silhouettes are within normal limits. T he patient is slightly rotated and side bending. No pneumothorax, large pleural effusion or overt pul monary edema. Degenerative changes of the shoulders and spine. IMPRESSION: No acute process. ACT 112: Negative or not required by law. The above report was generated using voice recognition software. It may contain grammatical, syntax o r spelling errors. Electronically signed by: Eduardo Payne M.D. 10/17/2025 9:45 AM
[2025-10-17] MEDS: NOREPINEPHRINE/D5W 4 MG/250 ML PLCT IV SCH (10:23)
[2025-10-17] MEDS: CALCIUM GLUCONATE 1,000 MG/60 ML BAG IV STA (10:25)
[2025-10-17] MEDS: INSULIN HUMAN REGULAR PER UNIT 5 UNITS in SYRINGE 9.9 ML IV STA (10:25)
[2025-10-17] MEDS: CEFEPIME 2000MG 2,000 MG/20 ML SYR IV STA (10:26)
[2025-10-17] MEDS: MAGNESIUM SULFATE / D5W 1 GM/100 ML BAG IV SCH ×2 (10:32→20:54)
[2025-10-17] MEDS: HEPARIN SOD (PORCINE) 1000 UNIT/ML IV ONE (10:33)
[2025-10-17] MEDS: HEPARIN 25000 UNIT/500 ML D5W 25,000 UNITS/500 ML BAG IV SCH (10:33)
[2025-10-17] MEDS: NOREPINEPHRINE/D5W 4 MG/250 ML IV ONE (10:34)
[2025-10-17] MEDS: Heparin IV Adult Wt-Based Standard w/ INITIAL Bolus Protocol IV STA (10:34)
[2025-10-17] MEDS: STAT IV Infusion **Titration per Protocol STA (10:34)
[2025-10-17 11:20] LABS: Appearance Urine Cloudy (Clear); Bacteria Urine Automated 2+ (None Seen); Epithelial Cell Urine Auto 0-2 /hpf (0-2); Glucose Urine UA Negative (Negative); WBC Urine Automated 21-50 /hpf (0-5)
[2025-10-17 11:57] LABS: Chlamydia pneumoniae PCR Not Detected (NotDetected); Coronavirus 229E PCR Not Detected (NotDetected); Coronavirus CoV-2 (COVID19)PCR Not Detected (NotDetected); Coronavirus HKU1 PCR Not Detected (NotDetected); Coronavirus NL63 PCR Not Detected (NotDetected); Coronavirus OC43PCR Not Detected (NotDetected); Human Metapneumovirus PCR Not Detected (NotDetected); Parainfluenza Virus 1 PCR Not Detected (NotDetected); Parainfluenza Virus 2 PCR Not Detected (NotDetected); Parainfluenza Virus 3 PCR Not Detected (NotDetected); Parainfluenza Virus 4 PCR Not Detected (NotDetected); Respiratory Syncytial VirusPCR Not Detected (NotDetected); Rhinovirus/Enterovirus PCR Not Detected (NotDetected)
--- NOTE | 2025-10-17 12:02 | History & Physical Report ---
Date of Service October 17, 2025 Assessment & Plan (1) Septic shock: (2) UTI (urinary tract infection): (3) Elevated troponin: (4) CHANCE (acute kidney injury): Plan Patient is an 85 y/o F who was admitted for management of hypotension/septic shock. Septic Shock // UTI - Patient with septic shock thought to be related to UTI - Syncopal episode in senior care likely secondary to hypotension - S/p ~1500mL of IVF in ED w/o improvement in BP, therefore, Levophed started with subsequent attempt to wean off leading to hypotension of MAP < 65 - Suspect may have also lead to hypoxia, leading to use of HFNC; no acute changes on CXR - Will admit to ICU for vasopressors - Considering possible urinary source, as well as hx of ESBL in previous cultures, will cover with Zosyn for now; follow blood and urine cultures - Monitor am labs Elevated troponin - Troponin in 3000s at time of admission with 2-hr repeat showing decrease to 900s - EKG w/o significant ST segment or T wave changes - Patient not endorsing chest pain or other sxs, though hx is limited due to severe dementia - Considered possibility of PE since patient is not very mobile and now has new oxygen need, but held off from chest CTA until more stable - Suspect likely secondary to shock - Heparin gtt pending chest CTA - Continue to monitor CHANCE - Cr elevated to 1.5 from 0.4 a few weeks ago - Likely secondary to shock - S/p fluid resuscitation and vasopressors as mentioned above - Monitor am labs; would avoid nephrotoxic medications Hyperkalemia - Noted to be 5.4 at time of admission - No EKG changes as mentioned above - s/p fluid administration; recheck BMP Hypomagnesemia - S/p replacement in ED - Recheck levels with am labs HTN - Hold home antihypertensives Dementia, severe - Daughters concerned this is now affecting her QOL - Started discussions to establish GOC, but family will discuss amongst themselves first Dispo: ICU Patient currently DNR/DNI; patient's daughters who are at bedside state that patient has had a poor QOL due to her dementia, therefore, they have been discussing about whether or not to change to Hospice/[facility] status. They wanted to discuss with a nephew before making any decisions, therefore, will be admitting to ICU for pressor support until GOC are determined. History of Present Illness Chief Complaint: AMS, Syncope Primary Care Provider: Garry Garcia III, Patient is a 85 y/o F who comes to the ED from [facility] after experiencing a syncopal episode, at which point she was noted to be significantly hypotensive. On arrival to ED, patient found to be normotensive but confused, and daughters who are at bedside provide hx as patient is poor historian. Patient with severe dementia at baseline but they state that she has been more confused that usual over the last few days. Of note, patient has recent admission to [facility] from 10/26/24-10/29/24 due to right hip fracture that that was managed non-operatively and was noted to have a UTI with cultures growing Enterococcus and ESBL, thus was discharged with 5-day course of Augmentin since she was experiencing delirium and increased urinary frequency. Daughters deny any noted fevers or other sxs prior to today. ED Course: given Cefepime 2 gm x1, ~1500mL bolus, Magnesium 2 gm IV, started Heparin drip for possible PE (no CTA done due to hypotension and relative instability), patient developed hypotension of 58/32 despite above mentioned fluid administration, therefore Levophed was started for BP support in the setting of possible septic shock; ICU physician notified of patient status Labs/Imaging:CBC w/ leukocytosis of 16.55 w/ neutrophilic predominance, Hgb of 11.8 (close to baseline), plt of 157. CMP w/ hyperkalemia of 5.4, Cr elevated at 1.56 (was 0.44 a few weeks ago), bsg of 277. Lactate elevated at 3.2. Procal of 0.88. Magnesium of 1.5 (before replacement). LFTs unremarkable. Troponin of 3839 w/ 2-hr repeat showing level of 944.3. U/A suggestive of UTI. MRSA nares negative. Respiratory biofire negative. Blood culture and Urine culture collected and pending. CXR unremarkable. Allergies Allergy/AdvReac Type Severity Reaction Status Date / Time duloxetine Allergy Intermediate BALANCE Verified 10/26/24 15:48 PROBLEMS gabapentin Allergy Intermediate BALANCE Verified 10/26/24 15:48 PROBLEMS nitrofurantoin Allergy Intermediate HIVES Verified 10/26/24 15:48 nortriptyline Allergy Intermediate balance Verified 10/26/24 15:48 problems pregabalin [From Lyrica] Allergy Intermediate BALANCE Verified 10/26/24 15:48 ISSUES sulfamethoxazole Allergy Intermediate RASH Verified 10/26/24 15:48 trimethoprim Allergy Intermediate RASH Verified 10/26/24 15:48 fluoride AdvReac Mild SICK Verified 10/17/25 15:02 STOMACH, MOUTH/THROAT SORENESS FROM FLUORIDE TREATMENT lisinopril AdvReac Mild COUGH Verified 10/26/24 15:48 repaglinide AdvReac Mild GI UPSET Verified 10/26/24 15:48 Home Medications Medication Instructions Recorded Confirmed Type latanoprost 0.005 % eye drops 1 drp OPB HS 06/02/19 10/17/25 History multivitamin (Multiple Vitamins 1 tab PO DAILY 06/02/19 10/17/25 History tablet) glucosamine-chondroitin 250 mg-200 2 tab PO QAM 02/28/21 10/17/25 History mg tablet (Osteo Bi-Flex) acetaminophen 325 mg tablet 650 mg PO Q6H PRN PAIN/FEVER 02/24/24 10/17/25 History (Tylenol) levothyroxine 88 mcg tablet 88 mcg PO DAILYBB 02/24/24 10/17/25 History losartan 100 mg tablet 100 mg PO QAM 02/24/24 10/17/25 History metformin 1,000 mg tablet 1,000 mg PO BIDM 02/24/24 10/17/25 History ondansetron HCl 4 mg tablet 4 mg PO Q6H PRN NAUSEA/VOMITING 02/24/24 10/17/25 History potassium chloride 20 mEq 20 meq PO QAM 02/24/24 10/17/25 History tablet,extended release(part/cryst) bisacodyl 10 mg rectal suppository 10 mg NH DAILY PRN Constipation 10/26/24 10/17/25 History (Dulcolax (bisacodyl)) glucagon 1 mg solution for 1 mg IM UD PRN Hypoglycemia 10/26/24 10/17/25 History injection (Glucagon Emergency Kit) magnesium hydroxide 400 mg/5 mL 30 ml PO ONCE PRN Constipation 10/26/24 10/17/25 History oral suspension (Milk of Magnesia) sodium phosphates 19 gram-7 118 ml NH DAILY PRN Constipation 10/26/24 10/17/25 History gram/118 mL enema (Fleet Enema) verapamil 120 mg tablet 120 mg PO BID 10/26/24 10/17/25 History ciprofloxacin HCl 250 mg tablet 250 mg PO AMHS 10/17/25 10/17/25 History Past Med/Surg History Problem List (Updated 10/17/25 @ 13:22 by Roxana Juan MD) CHANCE (acute kidney injury) UTI (urinary tract infection) Septic shock Acute hip pain (Acute) Ambulatory dysfunction (Acute) Fall (Acute) Fracture of greater trochanter Abnormal EKG Hypokalemia Behavioral change (Acute) Bladder outlet obstruction (Acute) Elevated troponin (Acute) COVID-19 (Acute) Weakness (Acute) Diarrhea Parkinsonism (Chronic) Hypothyroidism (Chronic) Hypertension (Chronic) Hyperlipidemia (Chronic) Esophageal reflux (Chronic) Degeneration of cervical intervertebral disc (Chronic) Cerebrovascular disease (Chronic) Allergic rhinitis (Chronic) Type 2 diabetes mellitus (Chronic) Glaucoma LVH (left ventricular hypertrophy) Gait disorder UNSTEADY BALANCE Diabetic peripheral neuropathy Degenerative joint disease (Chronic) Medical History History of colon polyps Arthritis Overactive bladder Diabetes mellitus, type 2 Hypothyroidism HX: breast cancer LEFT (SURGERY +RADIATION) History of anemia Glaucoma Hx of migraines "CLUSTER MIGRAINES" Transient ischemic attack (TIA) ? HX TIA'S "MANY YEARS AGO" Hypertension Hyperlipidemia Syncope Vaginal wall prolapse Surgical History Family history of reaction to anesthesia DAUGHTER-WAKES UP IN MIDDLE OF SURGERIES History of tooth extraction History of vaginal surgery anterior colporrhaphy, repair of cystocele History of breast biopsy History of knee surgery LEFT History of tubal ligation History of cataract surgery RT/LEFT History of total abdominal hysterectomy History of foot surgery LEFT History of lumpectomy LEFT BREAST Family History Family/Other Obstructive sleep apnea Ovarian cancer Breast cancer Father Diabetes Cardiac disorder Hypertension Family history of diabetes mellitus Grandmother Diabetes Mother Cardiac disorder Hypertension Family history of diabetes mellitus Grandfather Stroke Daughter Family history of diabetes mellitus Social History Smoking Status: Never smoker Second Hand Exposure: No; Hx Alcohol Use: No Hx Substance Use: No Preferred Language: Korean Communication Ability: Effective Hot Plate [employer] Offbearer Required: No Beliefs That Will Affect Care: Bahai marital status: / Current Living Situation: Personal Care Facility Current Living Situation Comment: WITH DAUGHTER current occupational status: retired Feels Safe at Home: Yes Safety Concerns: Feels Safe At This Time Assistive Devices: Glasses Review of Systems Review of Systems: As per HPI Physical Exam Physical Exam: GENERAL: awake and alert, confused, afebrile, thin, NAD CHEST: symmetric chest expansions with respirations, no tenderness to palpation of anterior chest wall CARDIO: tachycardic GI: soft, NT, ND : Handy in place draining slightly dark urine w/ no blood or sediment in line or collecting bag EXTREMITIES: no swelling in b/l LE Results & Data Results & Data Vital Signs (Past 12 Hours) Vital Signs Temp Pulse Pulse Pulse Resp BP BP 10/17/25 11:24 114 H 10/17/25 11:22 106 H 22 10/17/25 10:51 10/17/25 10:30 95 H 32 H 81/51 L 10/17/25 10:23 93 H 30 H 58/32 L 10/17/25 10:15 92 H 10/17/25 10:10 85 33 H 66/39 L 10/17/25 10:01 84 27 H 58/32 L 10/17/25 09:30 106 H 16 113/68 10/17/25 09:05 36.7 C 86 16 120/97 Pulse Ox O2 Del Method O2 Flow Rate FiO2 10/17/25 11:24 10/17/25 11:22 92 High Flow Nasal Cannula 60 80 10/17/25 10:51 60 L Room Air 0 10/17/25 10:30 80 L Non-rebreather 15 10/17/25 10:23 60 L Nasal Cannula 6 10/17/25 10:15 10/17/25 10:10 Room Air 10/17/25 10:01 10/17/25 09:30 93 Room Air 10/17/25 09:05 97 Room Air Supervising Physician Co-Signing Physician Notes Resident Physician Supervision Note: I personally examined the patient and verified all mathew points of history and exam, discussed case, and agree with decision making with Dr. Juan Patient presented from intermediate facility appeared to be in shock. Not determine the exact origin of shock considered to be possibly septic shock from urinary source. Patient did have elevation of troponin without acute current of injury on EKG. Unclear if this is cardiogenic shock but less likely. Patient had no complaints of chest discomfort. Patient did receive crystalloid resuscitation in the emergency department antibiotics cultures and was heparinized. There was no immediate infectious etiology identified however the patient did require pressor therapy through her peripheral IV and did improve with her blood pressure after that. Advance care planning discussion occurred with family in the emergency dep artment they wish to wait for her nephew before deciding if we should pursue comfort care measures therefore we continued support with IV fluid pressors and antibiotics. Patient remains a DNR at this time. Physical examination the patient was oriented to person only she was mentating and answering questions although at times inappropriately. Her cardiac exam was regular with a systolic murmur her lungs had reasonable air movement her abdomen was nontender there was bowel sounds present extremities were with some contracture but she was spontaneously moving all extremities without focal loss. Patient continues on supportive care with IV fluid IV antibiotics and further determination of trending of troponins. Discussion for advance care planning with her family continues as her current quality of life is poor [place] is guarded I discussed the case with the resident and agree with the findings and plan as documented in the note. Any exceptions or clarifications are listed here: Documented By: Carlos Fox MD Resident Activity Tracking Resident Involvement: Resident Care Provided Care Provided: Adult Hospital Medicine
[2025-10-17 12:56] LABS: INR 1.1 (0.9-1.1); Prothrombin Time 11.9 Seconds (9.0-12.0)
[2025-10-17] MEDS ORDERED: DEXTROSE 50% 50 ML SYRINGE IV PRN (14:08)
[2025-10-17] MEDS ORDERED: GLUCOSE 40% GEL 15 GM TUBE PO PRN (14:08)
[2025-10-17] MEDS ORDERED: CARBOHYDRATES FOR HYPOGLYCEMIA PO PRN (14:08)
[2025-10-17] MEDS ORDERED: GLUCOSE 10 TAB/TUBE PO PRN (14:08)
[2025-10-17] MEDS ORDERED: GLUCAGON FOR INJ 1 MG VIAL SQ PRN (14:08)
--- NOTE | 2025-10-17 14:34 | Electrocardiogram Report ---
Test Reason : Blood Pressure : */* mmHG Vent. Rate : 86 BPM Atrial Rate : 86 BPM P-R Int : 156 ms QRS Dur : 116 ms QT Int : 418 ms P-R-T Axes : 66 -37 -42 degrees QTcB Int : 500 ms Normal sinus rhythm Left axis deviation Low voltage QRS Right bundle branch block Cannot rule out Anterior infarct (cited on or before 26-Oct-2024) T wave abnormality, consider lateral ischemia Abnormal ECG When compared with ECG of 26-Oct-2024 13:19, Right bundle branch block is now Present Confirmed by Marcos Garcia ([id number]) on 10/17/2025 2:33:40 PM Referred By: Confirmed By: Marcos Garcia
--- NOTE | 2025-10-17 14:37 | Electrocardiogram Report ---
Test Reason : Blood Pressure : */* mmHG Vent. Rate : 109 BPM Atrial Rate : 109 BPM P-R Int : 84 ms QRS Dur : 154 ms QT Int : 362 ms P-R-T Axes : * 6 -35 degrees QTcB Int : 487 ms Sinus tachycardia Right bundle branch block possible Inferior infarct , age undetermined Abnormal ECG When compared with ECG of 17-Oct-2025 09:21, (unconfirmed) NH interval has decreased QRS duration has increased Nonspecific T wave abnormality has replaced inverted T waves in Lateral leads Confirmed by Marcos Garcia ([id number]) on 10/17/2025 2:37:27 PM Referred By: REFERRED SELF Confirmed By: Marcos Garcia
[2025-10-17] MEDS: PLASMA-LYTE A 1,000 ML IV SCH (14:54)
[2025-10-17] MEDS: PIPERACILLIN/TAZOBACTAM 4.5 GM/100 ML BAG IV ONE (14:55)
--- NOTE | 2025-10-17 15:42 | Billing Data ---
Date of Service October 17, 2025 Coding Level of Care Code 51520 INT INP/OBS CARE
[2025-10-17] MEDS: INSULIN ASPART PER UNIT CHARGE SC SCH (15:45)
--- NOTE | 2025-10-17 16:57 | Critical Care Consultation ---
Date of Consultation October 17, 2025 Assessment & Plan (1) Septic shock: (2) UTI (urinary tract infection): (3) CHANCE (acute kidney injury): (4) Dementia: (5) Bedridden: Plan Patient is a 85-year-old female with a history of dementia, hip fracture approximately 1 year ago, bed ridden and residing in a [facility], history of ESBL UTI. Presented to the hospital after a syncopal episode and hypotension in the [facility]. Admission labs are suggestive of UTI. Also elevated troponin. She was hypotensive and required Levophed after crystalloid resuscitation with 2 L of fluid. Will be admitted to the ICU due to Levophed requirement. Reason Critically Ill: Shock state, likely septic shock UTI CHANCE Mild hyperkalemia Neuro: Underlying dementia. Living in a [facility]. Bedridden. Poor quality of life. Cardiac: Shock state, likely septic. Troponin is elevated however downtrending. Continue Levophed. Received 2 L of fluid resuscitation. Continue maintenance for today. Consider echo if family does not want to pursue comfort care. On heparin infusion, could consider continuing for 24 to 48 hours. Massive PE is unlikely given that she is on room air. Elevated troponin is likely secondary to demand ischemia in setting of sepsis and dehydration. Respiratory: Patient is on room air. Was reportedly hypoxic in the ER however does not have any oxygen requirement once in the ICU. Chest x-ray is clear. GI: Patient is currently NPO. If continues on norepinephrine and n.p.o. in the ICU consider GI prophylaxis. RENAL/LYTES: CHANCE Mild hyperkalemia Seems dehydrated, likely prerenal. Continue fluid resuscitation. Monitor urine output. ENDO: Mildly hyperglycemic. Monitor glucose periodically. Sliding scale insulin as needed. HEME: No evidence of bleeding. WBC elevated slightly. Repeat CBC in the morning. ID: [id number]. History of ESBL. Patient was given cefepime, transition to Zosyn. Follow cultures, blood and urine have been sent. MRSA nares is negative. Respirate BioFire negative. Feeding: N.p.o. Fluids: Plasma-Lyte Analgesia: None Activity: Bedrest, bed ridden individual Thromboprophylaxis: Heparin infusion Ulcer prophylaxis: None Glycemic control: Insulin as needed Bowels: None Indwelling catheters: Peripheral IV Antibiotics: Zosyn Plan: Patient will be admitted to the ICU. She is DNR/DNI. Family are having discussions on whether or not to pursue comfort care. They did not want adva nced imaging such as CT imaging. Continue fluid resuscitation. Continue Levophed for now. Will hold off on placing any indwelling invasive catheters including central line at this time given that family do not want to be aggressive with her care. Continue antibiotics. Follow cultures. Consider palliative care consultation. I have personally spent 45 minutes of critical care time in the direct management of this patient. This is a life/limb threatening event. This includes time spent evaluating patient, direct bedside care, chart review, placing orders, interpretation of diagnostic studies, discussion with consultants, patient, and family members, as well as other required patient management activities. This time is exclusive of all separately billable procedures, and teaching time and separate from and in addition to any other critical care service time. History of Present Illness Reason for Consultation: Hypotension Requesting Physician: Carlos Fox MD Attending Physician: Carlos Fox MD History of Present Illness Patient is a 85-year-old female with a past medical history significant for dementia, currently bedridden in a [facility], hip fracture and UTI with ESBL. The patient had a syncopal episode at the [facility] today and was noted to be significantly hypotensive. On presentation to the emergency department the patient was hypotensive. She was given crystalloids with 1.5 L with some improvement in her blood pressure. She was started on broad-spectrum antibiotics. Troponin was significantly elevated, EKG did not show evidence of STEMI. She was started on heparin infusion. Due to persistent hypotension she was started on Levophed via peripheral IV. Family arrived at bedside, the plan was to take the patient for CT imaging with CTA to rule out PE however family did not want her to have this imaging performed. Admission labs were significant for WBC of 16.5, hemoglobin 11, and platelets of 157. She was mildly hyperkalemic at 5.4, was in CHANCE with a creatinine of 1. 5 6 (baseline 0.44), hyperglycemic at 277, lactic acid was elevated at 3.2 and Pro-Carlos Alberto was 0.88. Magnesium was replaced (was 1.5 on admission). Urinalysis was suggestive of UTI. MRSA nares were negative. BioFire was negative. Chest x-ray was obtained and did not show any acute cardiopulmonary process. Due to continued hypotension the patient was admitted to the ICU. According to the chart she is DNR/DNI. The family are discussing possible comfort care. When examined the patient in the ICU she is resting comfortably in bed. Sleeping. Does not follow commands. Does not communicate with me. Contracted, she is apparently bedridden. I do not appreciate any bedsores however. Still requiring some Levophed. On maintenance fluids. Lungs are clear. She is on room air. Allergies Allergy/AdvReac Type Severity Reaction Status Date / Time duloxetine Allergy Intermediate BALANCE Verified 10/26/24 15:48 PROBLEMS gabapentin Allergy Intermediate BALANCE Verified 10/26/24 15:48 PROBLEMS nitrofurantoin Allergy Intermediate HIVES Verified 10/26/24 15:48 nortriptyline Allergy Intermediate balance Verified 10/26/24 15:48 problems pregabalin [From Lyrica] Allergy Intermediate BALANCE Verified 10/26/24 15:48 ISSUES sulfamethoxazole Allergy Intermediate RASH Verified 10/26/24 15:48 trimethoprim Allergy Intermediate RASH Verified 10/26/24 15:48 fluoride AdvReac Mild SICK Verified 10/17/25 15:02 STOMACH, MOUTH/THROAT SORENESS FROM FLUORIDE TREATMENT lisinopril AdvReac Mild COUGH Verified 10/26/24 15:48 repaglinide AdvReac Mild GI UPSET Verified 10/26/24 15:48 Home Medications Medication Instructions Recorded Confirmed Type latanoprost 0.005 % eye drops 1 drp OPB HS 06/02/19 10/17/25 History multivitamin (Multiple Vitamins 1 tab PO DAILY 06/02/19 10/17/25 History tablet) glucosamine-chondroitin 250 mg-200 2 tab PO QAM 02/28/21 10/17/25 History mg tablet (Osteo Bi-Flex) acetaminophen 325 mg tablet 650 mg PO Q6H PRN PAIN/FEVER 02/24/24 10/17/25 History (Tylenol) levothyroxine 88 mcg tablet 88 mcg PO DAILYBB 02/24/24 10/17/25 History losartan 100 mg tablet 100 mg PO QAM 02/24/24 10/17/25 History metformin 1,000 mg tablet 1,000 mg PO BIDM 02/24/24 10/17/25 History ondansetron HCl 4 mg tablet 4 mg PO Q6H PRN NAUSEA/VOMITING 02/24/24 10/17/25 History potassium chloride 20 mEq 20 meq PO QAM 02/24/24 10/17/25 History tablet,extended release(part/cryst) bisacodyl 10 mg rectal suppository 10 mg [place] DAILY PRN Constipation 10/26/24 10/17/25 History (Dulcolax (bisacodyl)) glucagon 1 mg solution for 1 mg IM UD PRN Hypoglycemia 10/26/24 10/17/25 History injection (Glucagon Emergency Kit) magnesium hydroxide 400 mg/5 mL 30 ml PO ONCE PRN Constipation 10/26/24 10/17/25 History oral suspension (Milk of Magnesia) sodium phosphates 19 gram-7 118 ml [place] DAILY PRN Constipation 10/26/24 10/17/25 History gram/118 mL enema (Fleet Enema) verapamil 120 mg tablet 120 mg PO BID 10/26/24 10/17/25 History ciprofloxacin HCl 250 mg tablet 250 mg PO AMHS 10/17/25 10/17/25 History Patient History Medical History History of colon polyps Arthritis Overactive bladder Diabetes mellitus, type 2 Hypothyroidism HX: breast cancer LEFT (SURGERY +RADIATION) History of anemia Glaucoma Hx of migraines "CLUSTER MIGRAINES" Transient ischemic attack (TIA) ? HX TIA'S "MANY YEARS AGO" Hypertension Hyperlipidemia Syncope Vaginal wall prolapse Surgical History Family history of reaction to anesthesia DAUGHTER-WAKES UP IN MIDDLE OF SURGERIES History of tooth extraction History of vaginal surgery anterior colporrhaphy, repair of cystocele History of breast biopsy History of knee surgery LEFT History of tubal ligation History of cataract surgery RT/LEFT History of total abdominal hysterectomy History of foot surgery LEFT History of lumpectomy LEFT BREAST Family History Family/Other Obstructive sleep apnea Ovarian cancer Breast cancer Father Diabetes Cardiac disorder Hypertension Family history of diabetes mellitus Grandmother Diabetes Mother Cardiac disorder Hypertension Family history of diabetes mellitus Grandfather Stroke Daughter Family history of diabetes mellitus Social History (Reviewed 10/27/24 @ 07:25 by MOE Monroe Smoking Status: Never smoker Second Hand Exposure: No; Hx Alcohol Use: No Hx Substance Use: No Preferred Language: Egyptian Communication Ability: Effective Treasury Assistant Required: No Beliefs That Will Affect Care: Mandaeism marital status: / Current Living Situation: Personal Care Facility Current Living Situation Comment: WITH DAUGHTER current occupational status: retired Feels Safe at Home: Yes Safety Concerns: Feels Safe At This Time Assistive Devices: Glasses Review of Systems Review of Systems: Not able to be obtained due to poor historian and not communicating. Physical Exam Physical Exam: Physical examination: General: Chronically ill-appearing, frail, resting comfortably in bed. Not in distress at this time. HEENT: Normocephalic, atraumatic. No JVD appreciated. Sclera are nonicteric. Skin: Warm and dry. No rashes, bedsores or jaundice appreciated. Cardiovascular: Heart is a regular rate and rhythm, no murmurs appreciated on my exam. No significant lower extremity edema. Lungs: Clear bilaterally, no wheezing appreciated. No crackles. Nontachypneic. Resting comfortably on room air. Musculoskeletal: Contracted, decreased muscle mass. Neurologic: Sleepy, moaning occasionally, will not answer questions or follow commands. Results & Data Results & Data Vital Signs (Past 12 Hours) Vital Signs Temp Pulse Pulse Pulse Resp BP BP 10/17/25 16:15 37.7 C H 109 H 25 H 10/17/25 16:15 105/54 L 10/17/25 16:15 105/54 L 10/17/25 16:15 105/54 L 10/17/25 16:15 105/54 L 10/17/25 16:15 105/54 L 10/17/25 16:00 37.7 C H 98 H 26 H 10/17/25 16:00 78/36 L 10/17/25 15:30 37.4 C 108 H 23 10/17/25 15:30 95/76 L 10/17/25 15:30 95/76 L 10/17/25 15:30 95/76 L 10/17/25 15:30 95/76 L 10/17/25 15:30 95/76 L 10/17/25 15:00 37.6 C H 112 H 22 10/17/25 15:00 110/84 10/17/25 15:00 110/84 10/17/25 15:00 110/84 10/17/25 15:00 110/84 10/17/25 15:00 110/84 10/17/25 14:30 37.6 C H 108 H 18 10/17/25 14:30 121/58 L 10/17/25 14:30 121/58 L 10/17/25 14:30 121/58 L 10/17/25 14:30 121/58 L 10/17/25 14:30 121/58 L 10/17/25 14:08 10/17/25 14:02 10/17/25 14:00 37.5 C 112 H 18 10/17/25 14:00 120/60 10/17/25 14:00 120/60 10/17/25 13:55 37.4 C 122 H 18 85/43 L 10/17/25 13:25 132/85 10/17/25 13:24 107 H 22 10/17/25 13:20 124/83 10/17/25 13:20 124/83 10/17/25 13:20 124/83 10/17/25 13:18 101 H 21 10/17/25 13:15 124/86 10/17/25 13:15 102 H 22 124/86 10/17/25 13:00 109 H 21 125/73 10/17/25 12:55 107 H 21 127/99 10/17/25 12:50 97 H 20 120/67 10/17/25 12:45 106 H 20 108/72 10/17/25 12:40 85 21 116/86 10/17/25 12:40 80 21 116/86 10/17/25 12:35 106 H 21 103/55 L 10/17/25 12:25 106 H 21 106/63 10/17/25 12:24 106 H 20 10/17/25 12:20 110 H 20 113/72 10/17/25 12:17 132 H 20 139/87 10/17/25 12:10 105 H 28 H 126/79 10/17/25 12:06 104 H 26 H 88/69 L 10/17/25 12:00 37 C 112 H 24 125/92 10/17/25 11:45 112 H 20 124/77 10/17/25 11:40 108 H 27 H 109/83 12/22/25 11:30 127 H 20 117/74 10/17/25 11:25 107 H 19 124/75 10/17/25 11:25 120 H 25 H 124/75 10/17/25 11:24 114 H 10/17/25 11:22 106 H 22 10/17/25 11:20 107 H 19 119/72 10/17/25 11:15 117 H 18 141/81 H 10/17/25 11:10 113 H 21 101/81 10/17/25 11:07 96 H 22 66/44 L 10/17/25 10:51 10/17/25 10:30 95 H 32 H 81/51 L 10/17/25 10:23 93 H 30 H 58/32 L 10/17/25 10:15 92 H 10/17/25 10:10 85 33 H 66/39 L 10/17/25 10:01 84 27 H 58/32 L 10/17/25 09:30 106 H 16 113/68 10/17/25 09:05 36.7 C 86 16 120/97 Pulse Ox O2 Del Method O2 Flow Rate FiO2 10/17/25 16:15 91 10/17/25 16:15 10/17/25 16:15 10/17/25 16:15 10/17/25 16:15 10/17/25 16:15 10/17/25 16:00 99 10/17/25 16:00 10/17/25 15:30 100 10/17/25 15:30 10/17/25 15:30 10/17/25 15:30 10/17/25 15:30 10/17/25 15:30 10/17/25 15:00 99 10/17/25 15:00 10/17/25 15:00 10/17/25 15:00 10/17/25 15:00 10/17/25 15:00 10/17/25 14:30 100 10/17/25 14:30 10/17/25 14:30 10/17/25 14:30 10/17/25 14:30 10/17/25 14:30 10/17/25 14:08 Oxymask 4 10/17/25 14:02 Oxymask 4 10/17/25 14:00 99 10/17/25 14:00 10/17/25 14:00 10/17/25 13:55 95 Oxymask 4 10/17/25 13:25 10/17/25 13:24 100 10/17/25 13:20 10/17/25 13:20 10/17/25 13:20 10/17/25 13:18 100 10/17/25 13:15 10/17/25 13:15 100 High Flow Nasal Cannula 60 80 10/17/25 13:00 100 High Flow Nasal Cannula 60 80 10/17/25 12:55 100 High Flow Nasal Cannula 60 80 10/17/25 12:50 100 High Flow Nasal Cannula 60 80 10/17/25 12:45 100 High Flow Nasal Cannula 60 80 10/17/25 12:40 100 High Flow Nasal Cannula 60 80 10/17/25 12:40 100 High Flow Nasal Cannula 60 80 10/17/25 12:35 100 High Flow Nasal Cannula 60 80 10/17/25 12:25 100 High Flow Nasal Cannula 60 80 10/17/25 12:24 100 High Flow Nasal Cannula 10/17/25 12:20 100 High Flow Nasal Cannula 60 80 10/17/25 12:17 100 High Flow Nasal Cannula 60 80 10/17/25 12:10 96 High Flow Nasal Cannula 60 80 10/17/25 12:06 97 High Flow Nasal Cannula 60 80 10/17/25 12:00 99 High Flow Nasal Cannula 60 80 10/17/25 11:45 100 High Flow Nasal Cannula 60 80 10/17/25 11:40 100 High Flow Nasal Cannula 60 80 10/17/25 11:30 98 High Flow Nasal Cannula 60 80 10/17/25 11:25 95 High Flow Nasal Cannula 60 80 10/17/25 11:25 92 High Flow Nasal Cannula 60 80 10/17/25 11:24 10/17/25 11:22 92 High Flow Nasal Cannula 60 80 10/17/25 11:20 98 High Flow Nasal Cannula 60 80 10/17/25 11:15 92 High Flow Nasal Cannula 60 80 10/17/25 11:10 98 High Flow Nasal Cannula 60 80 10/17/25 11:07 91 High Flow Nasal Cannula 60 80 10/17/25 10:51 60 L Room Air 0 10/17/25 10:30 80 L Non-rebreather 15 10/17/25 10:23 60 L Nasal Cannula 6 10/17/25 10:15 10/17/25 10:10 Room Air 10/17/25 10:01 10/17/25 09:30 93 Room Air 10/17/25 09:05 97 Room Air Laboratory Results Labs reviewed, significant leukocytosis. Hemoglobin appears at baseline. Has an CHANCE. Bun is also elevated, likely prerenal. Troponin is elevated, downtrending however. Diagnostic Findings Chest x-ray was reviewed, no acute cardiopulmonary process. Lungs are clear. No pleural effusion, no pneumothorax. Coding Level of Care Code 60007 CRITICAL CARE 1ST 30-74M Diagnoses Septic shock A41.9; R65.21 UTI (urinary tract infection) N39.0 CHANCE (acute kidney injury) N17.9 Dementia F03.90 Bedridden Z74.01
[2025-10-17] MEDS: PIPERACILLIN/TAZOBACTAM 4.5 GM/100 ML BAG IV SCH (19:59)
[2025-10-17] MEDS: ACETAMINOPHEN 1,000 MG/100 ML VIAL IV PRN (20:14)
[2025-10-17 20:46] LABS: ANTI-Xa, UFH(UnfractionatedHep 1.04 IU/ml (0.3-0.7)
[2025-10-18 01:17] LABS: ANTI-Xa, UFH(UnfractionatedHep 0.10 IU/ml (0.3-0.7)
[2025-10-18 04:51] LABS: Hematocrit (blood only) 30.5 % (37.0-47.0); Hemoglobin 10.5 g/dL (12.0-16.0); Immature Granulocytes # (auto) 0.08 K/uL (0.01-0.20); Immature Granulocytes % (auto) 0.5 %; Mean Corpuscular Hemoglobin 30.1 pg (25.0-34.0); Mean Corpuscular Volume 87.4 fL (80.0-100.0); Platelet Count 168 K/uL (130-400); RDW Standard Deviation 44.0 fL (36.4-46.3); Red Blood Count 3.49 M/uL (4.20-5.40); White Blood Count 14.81 K/ul (4.8-10.8)
[2025-10-18 05:17] LABS: Anion Gap 11.0 (3-11); Blood Urea Nitrogen 59.0 mg/dl (6-23); Calcium 8.4 mg/dl (8.6-10.3); Carbon Dioxide 22.0 mmol/L (21-32); Chloride 102.0 mmol/L (98-107); Creatinine Clr Calc Pharmacy 31.1 ml/min; Glucose 235.0 mg/dl (70-99(Fasting)); Magnesium 2.8 mg/dl (1.7-2.4); Potassium 3.8 mmol/L (3.5-5.1); Sodium 135.0 mmol/L (136-145)
[2025-10-18] MEDS: INSULIN ASPART PER UNIT CHARGE SC SCH (06:30)
--- NOTE | 2025-10-18 07:39 | Critical Care Progress Note ---
Date of Service October 18, 2025 Assessment & Plan (1) Septic shock: (2) UTI (urinary tract infection): (3) CHANCE (acute kidney injury): (4) Dementia: (5) Bedridden: Plan Patient is a 85-year-old female with a history of dementia, hip fracture approximately 1 year ago, bed ridden and residing in a [facility], history of ESBL UTI. Presented to the hospital after a syncopal episode and hypotension in the [facility]. Admission labs are suggestive of UTI. Also elevated troponin. She was hypotensive and required Levophed after crystalloid resuscitation with 2 L of fluid. Patient was admitted to the ICU on 10/17/2025 due to Levophed requirement. Reason Critically Ill: Shock state, likely septic shock UTI CHANCE Mild hyperkalemia Neuro: Underlying dementia. Living in a [facility]. Bedridden. Poor quality of life. Less encephalopathic today. Cardiac: Shock state, likely septic. Troponin is elevated however downtrending. A-fib RVR Levophed is off, now on phenylephrine. Did not tolerate beta-izabel, had significant hypotension after this. Received 2 L of fluid resuscitation. Was also on maintenance fluids. Consider echo if family does not want to pursue comfort care. On heparin infusion, could consider continuing for 24 to 48 hours. Massive PE is unlikely given that she is on room air. Elevated troponin is likely secondary to demand ischemia in setting of sepsis and dehydration. Respiratory: Patient is on room air. Was reportedly hypoxic in the ER however does not have any oxygen requirement once in the ICU. Chest x-ray is clear. GI: Patient is currently NPO. If continues on norepinephrine and n.p.o. in the ICU consider GI prophylaxis. I have asked nutrition to look into her [facility] records to see if she is on a special diet. She could probably eat now that she is awake. RENAL/LYTES: CHANCE Mild hyperkalemia Seems dehydrated, likely prerenal. Continue fluid resuscitation. Urine output slightly decreased. There are no labs done today. ENDO: Mildly hyperglycemic. Monitor glucose periodically. Sliding scale insulin as needed. HEME: No evidence of bleeding. WBC elevated slightly. No labs done today. ID: UTI. History of ESBL. Patient was given cefepime, transition to Zosyn. Follow cultures, blood and urine have been sent. MRSA nares is negative. Respirate BioFire negative. Feeding: N.p.o. Fluids: Plasma-Lyte Analgesia: None Activity: Bedrest, bed ridden individual Thromboprophylaxis: Heparin infusion Ulcer prophylaxis: None Glycemic control: Insulin as needed Bowels: None Indwelling catheters: Peripheral IV Antibiotics: Zosyn Plan: Patient will remain in the ICU due to continued pressor requirement. The patient is more awake today. Saying her name. Still has significant underlying dementia. Palliative care was consulted, they had discussions with family. Similar family is at bedside today, the POA is coming in later today. They will likely decide on comfort care this evening. No labs were done today. Will hold off on escalating care at this time. Patient is already DNR DNI. Blood pressure is okay with phenylephrine. Would hold off on adding other pressors. Heart rate is better as well. I have personally spent 45 minutes of critical care time in the direct management of this patient. This is a life/limb threatening event. This includes time spent evaluating patient, direct bedside care, chart review, placing orders, interpretation of diagnostic studies, discussion with consultants, patient, and family members, as well as other required patient management activities. This time is exclusive of all separately billable procedures, and teaching time and separate from and in addition to any other critical care service time. Admission and Anticipated Discharge Date Admission Date: October 17, 2025 Subjective Past 24-hour events: Admitted to the ICU yesterday evening due to hypotension and need for Levophed. Remained on Levophed overnight, currently at 0.05. No acute events overnight. Family still deciding on goals of care. Patient more lucid overnight as well. Rounding: Plan of care was consulted this morning. Patient is more awake, has significant dementia but is able to say her name and talks to herself. Blood pressure is still low. On Levophed. We added yumiko because she went into A-fib RVR. Now she is only on yumiko-, Levophed is off. Urine output is sluggish. Intake: 3985 mL Output: 724 mL Net: +3261 mL Mechanical ventilation: On room air. Feeding: N.p.o. IV infusions: Phenylephrine, heparin Laboratory: Labs were not drawn today. Review of Systems Review of Systems: Not answering questions directly. When I asked her about pain she says it hurt all over but then cannot tell me anything else about it. Could not tell me if she was nauseous. Physical Exam Physical Exam: Physical examination: General: Chronically ill-appearing, frail, resting comfortably in bed. Not in distress at this time. HEENT: Normocephalic, atraumatic. No JVD appreciated. Sclera are nonicteric. Skin: Warm and dry. No rashes, bedsores or jaundice appreciated. Cardiovascular: Heart is a regular rate and rhythm, no murmurs appreciated on my exam. No significant lower extremity edema. Lungs: Clear bilaterally, no wheezing appreciated. No crackles. Nontachypneic. Resting comfortably on room air. Musculoskeletal: Contracted, decreased muscle mass. Neurologic: Awake this morning. Talking occasionally to herself. Able to say her name. Less encephalopathic. Significant dementia appreciated. Results & Data Results & Data Vital Signs (Past 12 Hours) Vital Signs Temp Pulse Resp BP Pulse Ox O2 Del Method O2 Flow Rate 10/18/25 07:10 95/64 L 10/18/25 07:10 95/64 L 10/18/25 07:10 95/64 L 10/18/25 07:10 95/64 L 10/18/25 07:10 95/64 L 10/18/25 07:09 36.4 C L 133 H 29 H 10/18/25 07:06 36.4 C L 126 H 22 10/18/25 07:06 103/66 10/18/25 07:06 103/66 10/18/25 07:06 103/66 10/18/25 07:06 103/66 10/18/25 07:06 103/66 10/18/25 07:02 92/54 L 10/18/25 07:02 92/54 L 10/18/25 07:02 92/54 L 10/18/25 07:02 92/54 L 10/18/25 07:00 36.4 C L 128 H 23 10/18/25 07:00 93/57 L 10/18/25 07:00 93/57 L 10/18/25 06:58 88/45 L 10/18/25 06:57 88/56 L 10/18/25 06:57 36.3 C L 133 H 23 10/18/25 06:48 36.0 C L 124 H 20 10/18/25 06:48 65/52 L 10/18/25 06:48 65/52 L 10/18/25 06:48 65/52 L 10/18/25 06:48 65/52 L 10/18/25 06:48 65/52 L 10/18/25 06:43 79/57 L 10/18/25 06:43 79/57 L 10/18/25 06:43 79/57 L 10/18/25 06:43 79/57 L 10/18/25 06:43 79/57 L 10/18/25 06:42 80/49 L 10/18/25 06:42 35.9 C L 114 H 32 H 70 L 10/18/25 06:32 73/51 L 10/18/25 06:32 73/51 L 10/18/25 06:32 73/51 L 10/18/25 06:32 73/51 L 10/18/25 06:32 73/51 L 10/18/25 06:31 72/50 L 10/18/25 06:31 72/50 L 10/18/25 06:30 36.4 C L 126 H 20 92 10/18/25 06:00 104/62 10/18/25 06:00 104/62 10/18/25 06:00 104/62 10/18/25 06:00 104/62 10/18/25 06:00 104/62 10/18/25 06:00 36.6 C 84 18 100 10/18/25 05:30 109/70 10/18/25 05:00 95/58 L 10/18/25 05:00 36.9 C 89 17 100 10/18/25 04:30 87/58 L 10/18/25 04:30 37.0 C 91 H 18 100 10/18/25 04:00 37.0 C 88 20 100 Oxymask 2 10/18/25 04:00 106/59 L 10/18/25 03:30 105/65 10/18/25 03:30 105/65 10/18/25 03:30 37.1 C 95 H 18 97 10/18/25 03:00 37.2 C 96 H 17 96 10/18/25 03:00 100/72 10/18/25 02:30 102/59 L 10/18/25 02:30 102/59 L 10/18/25 02:30 37.3 C 93 H 20 93 10/18/25 02:00 37.4 C 92 H 18 90 10/18/25 02:00 100/68 10/18/25 01:42 37.5 C 94 H 18 98 10/18/25 01:42 97/56 L 10/18/25 01:30 37.6 C H 94 H 19 93 10/18/25 01:30 148/73 H 10/18/25 01:00 124/54 L 10/18/25 01:00 37.8 C H 94 H 19 91 10/18/25 00:46 91/50 L 10/18/25 00:45 38.0 C H 94 H 21 100 10/18/25 00:30 127/72 10/18/25 00:30 38.1 C H 96 H 21 94 10/18/25 00:00 111/61 10/18/25 00:00 38.1 C H 101 H 21 98 10/18/25 00:00 102 H 10/17/25 23:30 114/56 L 10/17/25 23:30 114/56 L 10/17/25 23:30 38.4 C H 103 H 22 99 10/17/25 23:00 38.7 C H 103 H 22 98 10/17/25 23:00 102/59 L 10/17/25 22:30 93/44 L 10/17/25 22:30 93/44 L 10/17/25 22:30 38.8 C H 106 H 21 91 Oxymask 2 10/17/25 22:13 81/55 L 10/17/25 22:12 38.6 C H 109 H 31 H 96 10/17/25 22:12 79/52 L 10/17/25 22:00 38.6 C H 109 H 32 H 95 10/17/25 22:00 89/37 L 10/17/25 21:33 38.5 C H 109 H 28 H 95 10/17/25 21:31 95/43 L 10/17/25 21:30 38.5 C H 123 H 30 H 95 10/17/25 21:01 122/62 10/17/25 21:00 38.4 C H 131 H 30 H 93 10/17/25 20:30 38.5 C H 107 H 25 H 95 10/17/25 20:30 93/47 L 10/17/25 20:19 102/43 L 10/17/25 20:18 38.4 C H 115 H 29 H 95 10/17/25 20:00 124/61 10/17/25 20:00 38.4 C H 120 H 32 H 90 10/17/25 20:00 Room Air Coding Level of Care Code 75287 CRITICAL CARE 1ST 30-74M Diagnoses Septic shock A41.9; R65.21 UTI (urinary tract infection) N39.0 CHANCE (acute kidney injury) N17.9 Dementia F03.90 Bedridden Z74.01
[2025-10-18 07:59] LABS: ANTI-Xa, UFH(UnfractionatedHep 0.34 IU/ml (0.3-0.7)
[2025-10-18] MEDS: METOPROLOL TARTRATE 1 MG/ML VIAL IV STA (08:40)
--- NOTE | 2025-10-18 08:47 | Hospitalist Progress Note ---
Date of Service October 18, 2025 Assessment & Plan (1) Septic shock: (2) UTI (urinary tract infection): (3) Elevated troponin: (4) CHANCE (acute kidney injury): (5) Dementia: (6) Bedridden: Plan Patient is an 85 y/o F who was admitted for management of hypotension/septic shock. Septic Shock // UTI - Patient with septic shock thought to be related to UTI - Syncopal episode in residential likely secondary to hypotension - S/p ~1500mL of IVF in ED w/o improvement in BP, therefore, Levophed started with subsequent attempt to wean off leading to hypotension of MAP < 65 (10/17/25). - MAP is currently 73 (10/18/25) - Suspect may have also lead to hypoxia, leading to use of HFNC; no acute changes on CXR - Admitted to ICU for vasopressors - Considering possible urinary source, as well as hx of ESBL in previous cultures, will cover with Zosyn for now; follow blood and urine cultures - Monitor am labs - Patient had episode of a.fib this AM (10/18/25). Gave aspirin 81mg. Elevated troponin - Troponin on 3839 at time of admission with 2-hr repeat showing 3379. - EKG w/o significant ST segment or T wave changes - Patient not endorsing chest pain or other sxs, though hx is limited due to severe dementia - Patient is now on 97% room air and family has declined any advanced imaging at this time. - Suspect likely secondary to shock - Continue to monitor CHANCE - Cr elevated to 1.5 from 0.4 a few weeks ago. Creatine on 10/18/25 went down to 1.20. - Likely secondary to shock - S/p fluid resuscitation and vasopressors as mentioned above - Monitor am labs; would avoid nephrotoxic medications Hyperkalemia - Noted to be 5.4 at time of admission - No EKG changes as mentioned above - s/p fluid administration; recheck BMP Hypomagnesemia - S/p replacement in ED - Magnesium was 2.8 on 10/18/25. HTN - Hold home antihypertensives Dementia, severe - Daughters concerned this is now affecting her QOL - Started discussions to establish GOC, but family will discuss amongst themselves first - Palliative Care was consulted - Palliative care spoke with patient's grandson who will be giving his copy of the HCPOA today. Palliative care stated the family is in agreement that comfort directed care is appropriate. Dispo: ICU Patient currently DNR/DNI; patient's daughters who are at bedside state that patient has had a poor QOL due to her dementia, therefore, they have been discussing about whether or not to change to Hospice/[facility] status. They wanted to discuss with a nephew before making any decisions, therefore, will be admitting to ICU for pressor support until GOC are determined. Admission and Anticipated Discharge Date Admission Date: October 17, 2025 Supervising Physician Co-Signing Physician Notes Resident Physician Supervision Note: I personally examined the patient and verified all mathew points of history and exam, discussed case, and agree with decision making with Dr. Juan Patient presented from senior care facility appeared to be in shock. pt still requiring pressor support, without good improvement family is considering moving to comfort measure status and withdrawing pressor support, pt remains DNR Physical examination the patient was oriented to person only she was mentating and answering questions although at times mumbling inappropriately. Her cardiac exam was regular with a systolic murmur her lungs had reasonable air movement her abdomen was nontender there was bowel sounds present Patient continues on supportive care with IV fluid IV antibiotics. Elevated Troponin suggests nstemi, no acs at this time, supportive care with discussion for advance care planning with her family continues as her current quality of life is poor Crawford is guarded I discussed the case with the resident and agree with the findings and plan as documented in the note. Any exceptions or clarifications are listed here: Documented By: Carlos Fox MD Subjective Past 24-hour events in ICU: Admitted to the ICU yesterday evening due to hypotension and need for Levophed. Remained on Levophed overnight, currently at 0.05. No acute events overnight. Family still deciding on goals of care. Rounding: Palliative care consulted this morning. Intake: 3985 mL Output: 7 to 4 mL Net: +3261 mL Mechanical ventilation: None, on 2 L via OxyMask Feeding: N.p.o. IV infusions: Norepinephrine, heparin Indwelling catheters: Laboratory: CBC: WBC 14.8, hemoglobin 10.5, platelets 168 Chemistry: Sodium 135, potassium 3.8, chloride 102, bicarb 22, BUN 59, creatinine 1.20, glucose 235 ABG: None this a.m. Patient this morning appeared stable this AM, however due to dementia cannot speak. ICU nurse reports she slept most of the night and had her pressors up to 0.07. Review of Systems Review of Systems: As per HPI Physical Exam Constitutional: WD/WN, vitals as above Eyes: + anicteric sclerae and EOM intact bilat erally Respiratory: Auscultation: lungs clear to auscultation bilaterally Cardiovascular: Rate/Rhythm: + abnormal rate and + abnormal rhythm Heart Sounds: normal S1 and normal S2; no murmur Skin: no rashes, warm and dry Results & Data Results & Data Vital Signs (Past 12 Hours) Vital Signs Temp Pulse Resp BP Pulse Ox O2 Del Method O2 Flow Rate 10/18/25 08:00 36.2 C L 133 H 24 90/59 L 95 Room Air 10/18/25 07:30 36.3 C L 107 H 24 103/69 95 Room Air 10/18/25 07:27 36.4 C L 129 H 19 98/67 L 94 Room Air 10/18/25 07:10 95/64 L 10/18/25 07:10 95/64 L 10/18/25 07:10 95/64 L 10/18/25 07:10 95/64 L 10/18/25 07:10 95/64 L 10/18/25 07:09 36.4 C L 133 H 29 H 10/18/25 07:06 36.4 C L 126 H 22 10/18/25 07:06 103/66 10/18/25 07:06 103/66 10/18/25 07:06 103/66 10/18/25 07:06 103/66 10/18/25 07:06 103/66 10/18/25 07:02 92/54 L 10/18/25 07:02 92/54 L 10/18/25 07:02 92/54 L 10/18/25 07:02 92/54 L 10/18/25 07:00 36.4 C L 128 H 23 10/18/25 07:00 93/57 L 10/18/25 07:00 93/57 L 10/18/25 06:58 88/45 L 10/18/25 06:57 88/56 L 10/18/25 06:57 36.3 C L 133 H 23 10/18/25 06:48 36.0 C L 124 H 20 10/18/25 06:48 65/52 L 10/18/25 06:48 65/52 L 10/18/25 06:48 65/52 L 10/18/25 06:48 65/52 L 10/18/25 06:48 65/52 L 10/18/25 06:43 79/57 L 10/18/25 06:43 79/57 L 10/18/25 06:43 79/57 L 10/18/25 06:43 79/57 L 10/18/25 06:43 79/57 L 10/18/25 06:42 80/49 L 10/18/25 06:42 35.9 C L 114 H 32 H 70 L 10/18/25 06:32 73/51 L 10/18/25 06:32 73/51 L 10/18/25 06:32 73/51 L 10/18/25 06:32 73/51 L 10/18/25 06:32 73/51 L 10/18/25 06:31 72/50 L 10/18/25 06:31 72/50 L 10/18/25 06:30 36.4 C L 126 H 20 92 10/18/25 06:00 104/62 10/18/25 06:00 104/62 10/18/25 06:00 104/62 10/18/25 06:00 104/62 10/18/25 06:00 104/62 10/18/25 06:00 36.6 C 84 18 100 10/18/25 05:30 109/70 10/18/25 05:00 95/58 L 10/18/25 05:00 36.9 C 89 17 100 10/18/25 04:30 87/58 L 10/18/25 04:30 37.0 C 91 H 18 100 10/18/25 04:00 37.0 C 88 20 100 Oxymask 2 10/18/25 04:00 106/59 L 10/18/25 03:30 105/65 10/18/25 03:30 105/65 10/18/25 03:30 37.1 C 95 H 18 97 10/18/25 03:00 37.2 C 96 H 17 96 10/18/25 03:00 100/72 10/18/25 02:30 102/59 L 10/18/25 02:30 102/59 L 10/18/25 02:30 37.3 C 93 H 20 93 10/18/25 02:00 37.4 C 92 H 18 90 10/18/25 02:00 100/68 10/18/25 01:42 37.5 C 94 H 18 98 10/18/25 01:42 97/56 L 10/18/25 01:30 37.6 C H 94 H 19 93 10/18/25 01:30 148/73 H 10/18/25 01:00 124/54 L 10/18/25 01:00 37.8 C H 94 H 19 91 10/18/25 00:46 91/50 L 10/18/25 00:45 38.0 C H 94 H 21 100 10/18/25 00:30 127/72 10/18/25 00:30 38.1 C H 96 H 21 94 10/18/25 00:00 111/61 10/18/25 00:00 38.1 C H 101 H 21 98 10/18/25 00:00 102 H 10/17/25 23:30 114/56 L 10/17/25 23:30 114/56 L 10/17/25 23:30 38.4 C H 103 H 22 99 10/17/25 23:00 38.7 C H 103 H 22 98 10/17/25 23:00 102/59 L 10/17/25 22:30 93/44 L 10/17/25 22:30 93/44 L 10/17/25 22:30 38.8 C H 106 H 21 91 Oxymask 2 10/17/25 22:13 81/55 L 10/17/25 22:12 38.6 C H 109 H 31 H 96 10/17/25 22:12 79/52 L 10/17/25 22:00 38.6 C H 109 H 32 H 95 10/17/25 22:00 89/37 L 10/17/25 21:33 38.5 C H 109 H 28 H 95 10/17/25 21:31 95/43 L 10/17/25 21:30 38.5 C H 123 H 30 H 95 10/17/25 21:01 122/62 10/17/25 21:00 38.4 C H 131 H 30 H 93 Laboratory Results 10/18/25 10/18/25 10/18/25 Range/Units 07:17 06:22 04:30 WBC 14.81 H (4.8-10.8) K/ul RBC 3.49 L (4.20-5.40) M/uL Hgb 10.5 L (12.0-16.0) g/dL Hct 30.5 L (37.0-47.0) % MCV 87.4 (80.0-100.0) fL MCH 30.1 (25.0-34.0) pg MCHC 34.4 (32.0-36.0) g/dL RDW Std Deviation 44.0 (36.4-46.3) fL RDW Coeff of Thai 13.8 (11.5-14.5) % Plt Count 168 (130-400) K/uL MPV 10.5 (9.4-12.4) fL Immature Gran % (Auto) 0.5 % Neut % (Auto) 82.0 % Lymph % (Auto) 11.3 % [place] % (Auto) 6.0 % Eos % (Auto) 0.0 % Baso % (Auto) 0.2 % Neut # (Auto) 12.14 H (1.40-6.50) K/uL Lymph # (Auto) 1.67 (1.20-3.40) K/uL [place] # (Auto) 0.89 H (0.11-0.59) K/uL Eos # (Auto) 0.00 (0.00-0.50) K/uL Baso # (Auto) 0.03 (0.00-0.20) K/uL Immature Gran # (Auto) 0.08 (0.01-0.20) K/uL PT (9.0-12.0) Seconds INR (0.9-1.1) Heparin Anti-Xa, Unfract 0.34 (0.3-0.7) IU/ml VBG pH (7.36-7.41) VBG pCO2 (38-50) mmHg VBG pO2 mmHg VBG HCO3 mmol/L VBG O2 Saturation % VBG Base Excess mEq/L Sodium 135 L (136-145) mmol/L Potassium 3.8 D (3.5-5.1) mmol/L Chloride 102 (98-107) mmol/L Carbon Dioxide 22 (21-32) mmol/L Anion Gap 11 (3-11) BUN 59 H (6-23) mg/dl Creatinine 1.20 D (0.6-1.2) mg/dl Est Cr Clr Drug Dosing 31.1 eGFR 44.91 BUN/Creatinine Ratio 49.2 H (10-20) Glucose 235 H (70-99(Fasting)) mg/dl POC Glucose 212 H (70-99) mg/dl Lactate (0.4-2.0) mmol/L Calcium 8.4 L (8.6-10.3) mg/dl Magnesium 2.8 H (1.7-2.4) mg/dl Total Bilirubin (0.2-1.0) mg/dl AST (13-39) U/L ALT (7-52) U/L Alkaline Phosphatase (34-104) U/L Troponin I High Sens (0-14) pg/ml Total Protein (6.0-8.3) gm/dl Albumin (3.4-5.0) gm/dl Globulin (2.5-4.0) gm/dl Albumin/Globulin Ratio (0.9-2) Lipase (11-82) U/L Procalcitonin (0-0.5) ng/ml Urine Color Urine Appearance (Clear) Urine pH (4.5-7.5) Ur Specific Garrett (1.000-1.030) Urine Protein (Negative) Urine Glucose (UA) (Negative) Urine Ketones (Negative) Urine Blood (Negative) Urine Nitrite (Negative) Urine Bilirubin (Negative) Urine Urobilinogen (Negative) Ur Leukocyte Esterase (Negative) Urine WBC (Auto) (0-5) /hpf Urine RBC (Auto) (0-2) /hpf U Hyaline Cast (Auto) (0-2) /lpf U Epithel Cells (Auto) (0-2) /hpf Urine Bacteria (Auto) (None Seen) Urine Mucus (None Prsent) Urine Comment Nasal Screen MRSA (PCR) (Negative) Adenovirus (PCR) (NotDetected) B. pertussis DNA (PCR) (NotDetected) B.parapertussis DNA PCR (NotDetected) C. pneumoniae DNA (PCR) (NotDetected) Coronavirus OC43 (PCR) (NotDetected) Coronavirus HKU1 (PCR) (NotDetected) Coronavirus 229E (PCR) (NotDetected) SARS-CoV-2 (PCR) (NotDetected) Coronavirus NL63 (PCR) (NotDetected) Human Metapneumovir PCR (NotDetected) Influenza Type A (PCR) (NotDetected) Influenza Type B (PCR) (NotDetected) M. pneumoniae (PCR) (NotDetected) Parainfluenza 1 (PCR) (NotDetected) Parainfluenza 2 (PCR) (NotDetected) Parainfluenza 3 (PCR) (NotDetected) Parainfluenza 4 (PCR) (NotDetected) RSV (PCR) (NotDetected) Entero/Rhino (PCR) (NotDetected) 10/18/25 10/18/25 10/17/25 Range/Units 00:11 00:06 19:53 WBC (4.8-10.8) K/ul RBC (4.20-5.40) M/uL Hgb (12.0-16.0) g/dL Hct (37.0-47.0) % MCV (80.0-100.0) fL MCH (25.0-34.0) pg MCHC (32.0-36.0) g/dL RDW Std Deviation (36.4-46.3) fL RDW Coeff of Thai (11.5-14.5) % Plt Count (130-400) K/uL MPV (9.4-12.4) fL Immature Gran % (Auto) % Neut % (Auto) % Lymph % (Auto) % [place] % (Auto) % Eos % (Auto) % Baso % (Auto) % Neut # (Auto) (1.40-6.50) K/uL Lymph # (Auto) (1.20-3.40) K/uL [place] # (Auto) (0.11-0.59) K/uL Eos # (Auto) (0.00-0.50) K/uL Baso # (Auto) (0.00-0.20) K/uL Immature Gran # (Auto) (0.01-0.20) K/uL PT (9.0-12.0) Seconds INR (0.9-1.1) Heparin Anti-Xa, Unfract 0.10 L 1.04 H* (0.3-0.7) IU/ml VBG pH (7.36-7.41) VBG pCO2 (38-50) mmHg VBG pO2 mmHg VBG HCO3 mmol/L VBG O2 Saturation % VBG Base Excess mEq/L Sodium (136-145) mmol/L Potassium (3.5-5.1) mmol/L Chloride (98-107) mmol/L Carbon Dioxide (21-32) mmol/L Anion Gap (3-11) BUN (6-23) mg/dl Creatinine (0.6-1.2) mg/dl Est Cr Clr Drug Dosing eGFR BUN/Creatinine Ratio (10-20) Glucose (70-99(Fasting)) mg/dl POC Glucose 230 H (70-99) mg/dl Lactate (0.4-2.0) mmol/L Calcium (8.6-10.3) mg/dl Magnesium (1.7-2.4) mg/dl Total Bilirubin (0.2-1.0) mg/dl AST (13-39) U/L ALT (7-52) U/L Alkaline Phosphatase (34-104) U/L Troponin I High Sens (0-14) pg/ml Total Protein (6.0-8.3) gm/dl Albumin (3.4-5.0) gm/dl Globulin (2.5-4.0) gm/dl Albumin/Globulin Ratio (0.9-2) Lipase (11-82) U/L Procalcitonin (0-0.5) ng/ml Urine Color Urine Appearance (Clear) Urine pH (4.5-7.5) Ur Specific Garrett (1.000-1.030) Urine Protein (Negative) Urine Glucose (UA) (Negative) Urine Ketones (Negative) Urine Blood (Negative) Urine Nitrite (Negative) Urine Bilirubin (Negative) Urine Urobilinogen (Negative) Ur Leukocyte Esterase (Negative) Urine WBC (Auto) (0-5) /hpf Urine RBC (Auto) (0-2) /hpf U Hyaline Cast (Auto) (0-2) /lpf U Epithel Cells (Auto) (0-2) /hpf Urine Bacteria (Auto) (None Seen) Urine Mucus (None Prsent) Urine Comment Nasal Screen MRSA (PCR) (Negative) Adenovirus (PCR) (NotDetected) B. pertussis DNA (PCR) (NotDetected) B.parapertussis DNA PCR (NotDetected) C. pneumoniae DNA (PCR) (NotDetected) Coronavirus OC43 (PCR) (NotDetected) Coronavirus HKU1 (PCR) (NotDetected) Coronavirus 229E (PCR) (NotDetected) SARS-CoV-2 (PCR) (NotDetected) Coronavirus NL63 (PCR) (NotDetected) Human Metapneumovir PCR (NotDetected) Influenza Type A (PCR) (NotDetected) Influenza Type B (PCR) (NotDetected) M. pneumoniae (PCR) (NotDetected) Parainfluenza 1 (PCR) (NotDetected) Parainfluenza 2 (PCR) (NotDetected) Parainfluenza 3 (PCR) (NotDetected) Parainfluenza 4 (PCR) (NotDetected) RSV (PCR) (NotDetected) Entero/Rhino (PCR) (NotDetected) 10/17/25 10/17/25 10/17/25 Range/Units 19:52 15:01 12:09 WBC (4.8-10.8) K/ul RBC (4.20-5.40) M/uL Hgb (12.0-16.0) g/dL Hct (37.0-47.0) % MCV (80.0-100.0) fL MCH (25.0-34.0) pg MCHC (32.0-36.0) g/dL RDW Std Deviation (36.4-46.3) fL RDW Coeff of Thai (11.5-14.5) % Plt Count (130-400) K/uL MPV (9.4-12.4) fL Immature Gran % (Auto) % Neut % (Auto) % Lymph % (Auto) % [place] % (Auto) % Eos % (Auto) % Baso % (Auto) % Neut # (Auto) (1.40-6.50) K/uL Lymph # (Auto) (1.20-3.40) K/uL [place] # (Auto) (0.11-0.59) K/uL Eos # (Auto) (0.00-0.50) K/uL Baso # (Auto) (0.00-0.20) K/uL Immature Gran # (Auto) (0.01-0.20) K/uL PT 11.9 (9.0-12.0) Seconds INR 1.1 (0.9-1.1) Heparin Anti-Xa, Unfract (0.3-0.7) IU/ml VBG pH (7.36-7.41) VBG pCO2 (38-50) mmHg VBG pO2 mmHg VBG HCO3 mmol/L VBG O2 Saturation % VBG Base Excess mEq/L Sodium (136-145) mmol/L Potassium (3.5-5.1) mmol/L Chloride (98-107) mmol/L Carbon Dioxide (21-32) mmol/L Anion Gap (3-11) BUN (6-23) mg/dl Creatinine (0.6-1.2) mg/dl Est Cr Clr Drug Dosing eGFR BUN/Creatinine Ratio (10-20) Glucose (70-99(Fasting)) mg/dl POC Glucose 247 H 344 H* (70-99) mg/dl Lactate (0.4-2.0) mmol/L Calcium (8.6-10.3) mg/dl Magnesium (1.7-2.4) mg/dl Total Bilirubin (0.2-1.0) mg/dl AST (13-39) U/L ALT (7-52) U/L Alkaline Phosphatase (34-104) U/L Troponin I High Sens (0-14) pg/ml Total Protein (6.0-8.3) gm/dl Albumin (3.4-5.0) gm/dl Globulin (2.5-4.0) gm/dl Albumin/Globulin Ratio (0.9-2) Lipase (11-82) U/L Procalcitonin (0-0.5) ng/ml Urine Color Urine Appearance (Clear) Urine pH (4.5-7.5) Ur Specific Garrett (1.000-1.030) Urine Protein (Negative) Urine Glucose (UA) (Negative) Urine Ketones (Negative) Urine Blood (Negative) Urine Nitrite (Negative) Urine Bilirubin (Negative) Urine Urobilinogen (Negative) Ur Leukocyte Esterase (Negative) Urine WBC (Auto) (0-5) /hpf Urine RBC (Auto) (0-2) /hpf U Hyaline Cast (Auto) (0-2) /lpf U Epithel Cells (Auto) (0-2) /hpf Urine Bacteria (Auto) (None Seen) Urine Mucus (None Prsent) Urine Comment Nasal Screen MRSA (PCR) (Negative) Adenovirus (PCR) (NotDetected) B. pertussis DNA (PCR) (NotDetected) B.parapertussis DNA PCR (NotDetected) C. pneumoniae DNA (PCR) (NotDetected) Coronavirus OC43 (PCR) (NotDetected) Coronavirus HKU1 (PCR) (NotDetected) Coronavirus 229E (PCR) (NotDetected) SARS-CoV-2 (PCR) (NotDetected) Coronavirus NL63 (PCR) (NotDetected) Human Metapneumovir PCR (NotDetected) Influenza Type A (PCR) (NotDetected) Influenza Type B (PCR) (NotDetected) M. pneumoniae (PCR) (NotDetected) Parainfluenza 1 (PCR) (NotDetected) Parainfluenza 2 (PCR) (NotDetected) Parainfluenza 3 (PCR) (NotDetected) Parainfluenza 4 (PCR) (NotDetected) RSV (PCR) (NotDetected) Entero/Rhino (PCR) (NotDetected) 10/17/25 10/17/25 10/17/25 Range/Units 11:00 10:56 10:51 WBC (4.8-10.8) K/ul RBC (4.20-5.40) M/uL Hgb (12.0-16.0) g/dL Hct (37.0-47.0) % MCV (80.0-100.0) fL MCH (25.0-34.0) pg MCHC (32.0-36.0) g/dL RDW Std Deviation (36.4-46.3) fL RDW Coeff of Thai (11.5-14.5) % Plt Count (130-400) K/uL MPV (9.4-12.4) fL Immature Gran % (Auto) % Neut % (Auto) % Lymph % (Auto) % [place] % (Auto) % Eos % (Auto) % Baso % (Auto) % Neut # (Auto) (1.40-6.50) K/uL Lymph # (Auto) (1.20-3.40) K/uL [place] # (Auto) (0.11-0.59) K/uL Eos # (Auto) (0.00-0.50) K/uL Baso # (Auto) (0.00-0.20) K/uL Immature Gran # (Auto) (0.01-0.20) K/uL PT (9.0-12.0) Seconds INR (0.9-1.1) Heparin Anti-Xa, Unfract (0.3-0.7) IU/ml VBG pH (7.36-7.41) VBG pCO2 (38-50) mmHg VBG pO2 mmHg VBG HCO3 mmol/L VBG O2 Saturation % VBG Base Excess mEq/L Sodium (136-145) mmol/L Potassium (3.5-5.1) mmol/L Chloride (98-107) mmol/L Carbon Dioxide (21-32) mmol/L Anion Gap (3-11) BUN (6-23) mg/dl Creatinine (0.6-1.2) mg/dl Est Cr Clr Drug Dosing eGFR BUN/Creatinine Ratio (10-20) Glucose (70-99(Fasting)) mg/dl POC Glucose 286 H (70-99) mg/dl Lactate (0.4-2.0) mmol/L Calcium (8.6-10.3) mg/dl Magnesium (1.7-2.4) mg/dl Total Bilirubin (0.2-1.0) mg/dl AST (13-39) U/L ALT (7-52) U/L Alkaline Phosphatase (34-104) U/L Troponin I High Sens 3379.0 H* (0-14) pg/ml Total Protein (6.0-8.3) gm/dl Albumin (3.4-5.0) gm/dl Globulin (2.5-4.0) gm/dl Albumin/Globulin Ratio (0.9-2) Lipase (11-82) U/L Procalcitonin (0-0.5) ng/ml Urine Color Dark Yellow Urine Appearance Cloudy A (Clear) Urine pH 5.0 (4.5-7.5) Ur Specific Garrett 1.024 (1.000-1.030) Urine Protein 2+ H (Negative) Urine Glucose (UA) Negative (Negative) Urine Ketones Trace H (Negative) Urine Blood 2+ H (Negative) Urine Nitrite Negative (Negative) Urine Bilirubin 1+ H (Negative) Urine Urobilinogen Negative (Negative) Ur Leukocyte Esterase 2+ H (Negative) Urine WBC (Auto) 21-50 H (0-5) /hpf Urine RBC (Auto) 6-10 H (0-2) /hpf U Hyaline Cast (Auto) 11-20 H (0-2) /lpf U Epithel Cells (Auto) 0-2 (0-2) /hpf Urine Bacteria (Auto) 2+ H (None Seen) Urine Mucus Present A (None Prsent) Urine Comment Nasal Screen MRSA (PCR) (Negative) Adenovirus (PCR) (NotDetected) B. pertussis DNA (PCR) (NotDetected) B.parapertussis DNA PCR (NotDetected) C. pneumoniae DNA (PCR) (NotDetected) Coronavirus OC43 (PCR) (NotDetected) Coronavirus HKU1 (PCR) (NotDetected) Coronavirus 229E (PCR) (NotDetected) SARS-CoV-2 (PCR) (NotDetected) Coronavirus NL63 (PCR) (NotDetected) Human Metapneumovir PCR (NotDetected) Influenza Type A (PCR) (NotDetected) Influenza Type B (PCR) (NotDetected) M. pneumoniae (PCR) (NotDetected) Parainfluenza 1 (PCR) (NotDetected) Parainfluenza 2 (PCR) (NotDetected) Parainfluenza 3 (PCR) (NotDetected) Parainfluenza 4 (PCR) (NotDetected) RSV (PCR) (NotDetected) Entero/Rhino (PCR) (NotDetected) 12/22/25 12/22/25 12/22/25 Range/Units 10:33 10:24 09:13 WBC (4.8-10.8) K/ul RBC (4.20-5.40) M/uL Hgb (12.0-16.0) g/dL Hct (37.0-47.0) % MCV (80.0-100.0) fL MCH (25.0-34.0) pg MCHC (32.0-36.0) g/dL RDW Std Deviation (36.4-46.3) fL RDW Coeff of Thai (11.5-14.5) % Plt Count (130-400) K/uL MPV (9.4-12.4) fL Immature Gran % (Auto) % Neut % (Auto) % Lymph % (Auto) % [place] % (Auto) % Eos % (Auto) % Baso % (Auto) % Neut # (Auto) (1.40-6.50) K/uL Lymph # (Auto) (1.20-3.40) K/uL [place] # (Auto) (0.11-0.59) K/uL Eos # (Auto) (0.00-0.50) K/uL Baso # (Auto) (0.00-0.20) K/uL Immature Gran # (Auto) (0.01-0.20) K/uL PT (9.0-12.0) Seconds INR (0.9-1.1) Heparin Anti-Xa, Unfract (0.3-0.7) IU/ml VBG pH (7.36-7.41) VBG pCO2 (38-50) mmHg VBG pO2 mmHg VBG HCO3 mmol/L VBG O2 Saturation % VBG Base Excess mEq/L Sodium (136-145) mmol/L Potassium (3.5-5.1) mmol/L Chloride (98-107) mmol/L Carbon Dioxide (21-32) mmol/L Anion Gap (3-11) BUN (6-23) mg/dl Creatinine (0.6-1.2) mg/dl Est Cr Clr Drug Dosing eGFR BUN/Creatinine Ratio (10-20) Glucose (70-99(Fasting)) mg/dl POC Glucose 289 H (70-99) mg/dl Lactate (0.4-2.0) mmol/L Calcium (8.6-10.3) mg/dl Magnesium (1.7-2.4) mg/dl Total Bilirubin (0.2-1.0) mg/dl AST (13-39) U/L ALT (7-52) U/L Alkaline Phosphatase (34-104) U/L Troponin I High Sens (0-14) pg/ml Total Protein (6.0-8.3) gm/dl Albumin (3.4-5.0) gm/dl Globulin (2.5-4.0) gm/dl Albumin/Globulin Ratio (0.9-2) Lipase (11-82) U/L Procalcitonin (0-0.5) ng/ml Urine Color Urine Appearance (Clear) Urine pH (4.5-7.5) Ur Specific Garrett (1.000-1.030) Urine Protein (Negative) Urine Glucose (UA) (Negative) Urine Ketones (Negative) Urine Blood (Negative) Urine Nitrite (Negative) Urine Bilirubin (Negative) Urine Urobilinogen (Negative) Ur Leukocyte Esterase (Negative) Urine WBC (Auto) (0-5) /hpf Urine RBC (Auto) (0-2) /hpf U Hyaline Cast (Auto) (0-2) /lpf U Epithel Cells (Auto) (0-2) /hpf Urine Bacteria (Auto) (None Seen) Urine Mucus (None Prsent) Urine Comment Nasal Screen MRSA (PCR) Negative (Negative) Adenovirus (PCR) Not Detected (NotDetected) B. pertussis DNA (PCR) Not Detected (NotDetected) B.parapertussis DNA PCR Not Detected (NotDetected) C. pneumoniae DNA (PCR) Not Detected (NotDetected) Coronavirus OC43 (PCR) Not Detected (NotDetected) Coronavirus HKU1 (PCR) Not Detected (NotDetected) Coronavirus 229E (PCR) Not Detected (NotDetected) SARS-CoV-2 (PCR) Not Detected (NotDetected) Coronavirus NL63 (PCR) Not Detected (NotDetected) Human Metapneumovir PCR Not Detected (NotDetected) Influenza Type A (PCR) Not Detected (NotDetected) Influenza Type B (PCR) Not Detected (NotDetected) M. pneumoniae (PCR) Not Detected (NotDetected) Parainfluenza 1 (PCR) Not Detected (NotDetected) Parainfluenza 2 (PCR) Not Detected (NotDetected) Parainfluenza 3 (PCR) Not Detected (NotDetected) Parainfluenza 4 (PCR) Not Detected (NotDetected) RSV (PCR) Not Detected (NotDetected) Entero/Rhino (PCR) Not Detected (NotDetected) 10/17/25 Range/Units 09:10 WBC 16.55 H (4.8-10.8) K/ul RBC 3.93 L (4.20-5.40) M/uL Hgb 11.8 L (12.0-16.0) g/dL Hct 34.6 L (37.0-47.0) % MCV 88.0 (80.0-100.0) fL MCH 30.0 (25.0-34.0) pg MCHC 34.1 (32.0-36.0) g/dL RDW Std Deviation 45.0 (36.4-46.3) fL RDW Coeff of Thai 14.0 (11.5-14.5) % Plt Count 157 (130-400) K/uL MPV 10.6 (9.4-12.4) fL Immature Gran % (Auto) 0.5 % Neut % (Auto) 86.1 % Lymph % (Auto) 7.4 % [place] % (Auto) 5.8 % Eos % (Auto) 0.0 % Baso % (Auto) 0.2 % Neut # (Auto) 14.23 H (1.40-6.50) K/uL Lymph # (Auto) 1.23 (1.20-3.40) K/uL [place] # (Auto) 0.96 H (0.11-0.59) K/uL Eos # (Auto) 0.00 (0.00-0.50) K/uL Baso # (Auto) 0.04 (0.00-0.20) K/uL Immature Gran # (Auto) 0.09 (0.01-0.20) K/uL PT (9.0-12.0) Seconds INR (0.9-1.1) Heparin Anti-Xa, Unfract (0.3-0.7) IU/ml VBG pH 7.31 L (7.36-7.41) VBG pCO2 46 (38-50) mmHg VBG pO2 27 mmHg VBG HCO3 23 mmol/L VBG O2 Saturation < 60.0 % VBG Base Excess -3.2 mEq/L Sodium 138 (136-145) mmol/L Potassium 5.4 H (3.5-5.1) mmol/L Chloride 104 (98-107) mmol/L Carbon Dioxide 25 (21-32) mmol/L Anion Gap 9 (3-11) BUN 61 H (6-23) mg/dl Creatinine 1.56 H (0.6-1.2) mg/dl Est Cr Clr Drug Dosing Not Reportable eGFR 32.78 BUN/Creatinine Ratio 39.1 H (10-20) Glucose 277 H (70-99(Fasting)) mg/dl POC Glucose (70-99) mg/dl Lactate 3.2 H* (0.4-2.0) mmol/L Calcium 9.6 (8.6-10.3) mg/dl Magnesium 1.5 L (1.7-2.4) mg/dl Total Bilirubin 0.7 (0.2-1.0) mg/dl AST 38 (13-39) U/L ALT 32 (7-52) U/L Alkaline Phosphatase 69 (34-104) U/L Troponin I High Sens 3839.0 H* (0-14) pg/ml Total Protein 6.6 (6.0-8.3) gm/dl Albumin 3.7 (3.4-5.0) gm/dl Globulin 2.9 (2.5-4.0) gm/dl Albumin/Globulin Ratio 1.3 (0.9-2) Lipase 13 (11-82) U/L Procalcitonin 0.88 H (0-0.5) ng/ml Urine Color Urine Appearance (Clear) Urine pH (4.5-7.5) Ur Specific Garrett (1.000-1.030) Urine Protein (Negative) Urine Glucose (UA) (Negative) Urine Ketones (Negative) Urine Blood (Negative) Urine Nitrite (Negative) Urine Bilirubin (Negative) Urine Urobilinogen (Negative) Ur Leukocyte Esterase (Negative) Urine WBC (Auto) (0-5) /hpf Urine RBC (Auto) (0-2) /hpf U Hyaline Cast (Auto) (0-2) /lpf U Epithel Cells (Auto) (0-2) /hpf Urine Bacteria (Auto) (None Seen) Urine Mucus (None Prsent) Urine Comment Nasal Screen MRSA (PCR) (Negative) Adenovirus (PCR) (NotDetected) B. pertussis DNA (PCR) (NotDetected) B.parapertussis DNA PCR (NotDetected) C. pneumoniae DNA (PCR) (NotDetected) Coronavirus OC43 (PCR) (NotDetected) Coronavirus HKU1 (PCR) (NotDetected) Coronavirus 229E (PCR) (NotDetected) SARS-CoV-2 (PCR) (NotDetected) Coronavirus NL63 (PCR) (NotDetected) Human Metapneumovir PCR (NotDetected) Influenza Type A (PCR) (NotDetected) Influenza Type B (PCR) (NotDetected) M. pneumoniae (PCR) (NotDetected) Parainfluenza 1 (PCR) (NotDetected) Parainfluenza 2 (PCR) (NotDetected) Parainfluenza 3 (PCR) (NotDetected) Parainfluenza 4 (PCR) (NotDetected) RSV (PCR) (NotDetected) Entero/Rhino (PCR) (NotDetected)
--- NOTE | 2025-10-18 08:59 | Palliative Care Consultation ---
Date of Consultation October 18, 2025 Assessment & Plan (1) Adult failure to thrive: (2) Acute encephalopathy: (3) Weakness: (4) Palliative care by specialist: Assessed pt at bedside, she was oriented to person only and no visitors present. (5) Counseling regarding goals of care: Patient has advanced dementia, oriented to person only and therefore lacks decisional capacity. Given the progressive and irreversible nature of dementia, it is unlikely that she will ever regain capacity for medical decisions. Pt DOES require a proxy for medical decisions. Hospital does not have written documentation of patient wishes concerning her chosen proxy for medical decisions. Per PA [id number], in absence of written documentation of patient wishes, pt's proxy for medical decisions would be her adult children with equally shared authority. Only one daughter on EMR as contact, Tennille Sandy. Unsuccessfully attempted to contact Tennille by phone to arrange a meeting time for ACP discussion - unable to leave message (mailbox full). I was able to reach patient's grandson Kristian by phone. He shared that the patient has two adult daughters and one son who is estranged. He said that his mother, Jil, is not well emotionally and cannot manage GOC discussions. Patient's other daughter Yoana is involved and visits often however Kristian states that he has legal guardianship for the patient and agreed to bring HCPOA document with him this evening. A copy will need to be added to chart. Kristian shared that the family understands that the patient has advanced dementia and "she will never get better". He shared that she has had a gradually decline over several months with a more rapid decline over past few weeks. He said that they all are worried she is suffering a great deal and questioned how and when it might be best to transition to comfort directed care. We discussed that she is critically ill and remains vasopressor dependent. Discussed transition to comfort care would involve stopping the vasopressors which likely result in in a matter of hours to days. Kristian verbalized understanding and stated that he would want to be with her prior to transition to [employer]. He works until 5pm today, but plans on visiting with pt tonight and will plan to transition to comfort care when he can stay with her. (6) Need for comfort care: If family arrives and opts to transition to [facility], please consider following rec's: Comfort plan of care parameters: 1. Patient/Family want hospice added to their care. 2. NO rehab/PT/OT 3. Strictly End of Life care only 4. NO escalation of care: do not increase oxygen, escalate therapies, etc. The focus is on comfort through end of life, assure this is accomplished with aggressive symptom management (i.e. relief of dyspnea, pain, etc.) 5. NO return to hospital 6. NO labs, imaging, surgery 7. Oral intake as desired for comfort and pleasure: NO dietary restriction, Allow permissive aspiration, do not withhold food or drink for concern of aspiration and allow PO for pleasure and comfort. 8. If difficulty urinating/commode/bedpan, ok to place Handy catheter for comfort/hygiene/skin protection AND/OR Continue Handy catheter for comfort/hygiene/skin protection 9. NO: calorie counts, artificial nutrition, feeding tubes or IV fluids EOL Symptom manamgement: Pain/dyspnea/tachypnea morphine 2mg IVP PRN [id number] Consider titratable morphine drip if pt requires >3 PRN doses in under two consecutive hours. Nausea/vomitting zofran 4mg IVP q4h PRN Agitation ativan 0.5mg IVP q4h PRN Hyperactive delirium haldol 5mg IVP q6h PRN Secretions - if repositioning not effective robinul 0.4mg IV q4h PRN atropine SL 3 drops Q1h PRN Nursing care: Discontinue all medications not directed towards comfort. Detether pt from IV tubing, monitor cables, and check vitals once per shift. Please continue HFNC and titrate down as able for patient comfort. Use medications above PRN for dyspnea/tachypnea and do not increase oxygen once titrated down. Assess q1h for pain/dyspnea and treat accordingly. Plan as above. DNR/DNI, with likely transition to [employer] arrival of pt's guardian/HCPMARCOS Townsend History of Present Illness Reason for Consultation: goals of care Requesting Physician: Lina Tejeda MD Attending Physician: Carlos Fox MD History of Present Illness Almita is a 85 y/o F with history of advanced dementia, who comes to the ED from [facility] after experiencing a syncopal episode, with associated hypotension. Family reports progressive confusion over several days. ED Course: given Cefepime 2 gm x1, ~1500mL bolus, Magnesium 2 gm IV, started He nick drip for possible PE (no CTA done due to hypotension and relative instability), patient developed refractory hypotension requiring Levophed and ICU admission. Of note, patient's last admission to [facility] was 10/26/24-10/29/24 due to right hip fracture (managed non-operatively) and UTI 2/2 Enterococcus and ESBL, She developed delirium and was discharged with 5-day course of Augmentin. Allergies Allergy/AdvReac Type Severity Reaction Status Date / Time duloxetine Allergy Intermediate BALANCE Verified 10/26/24 15:48 PROBLEMS gabapentin Allergy Intermediate BALANCE Verified 10/26/24 15:48 PROBLEMS nitrofurantoin Allergy Intermediate HIVES Verified 10/26/24 15:48 nortriptyline Allergy Intermediate balance Verified 10/26/24 15:48 problems pregabalin [From Lyrica] Allergy Intermediate BALANCE Verified 10/26/24 15:48 ISSUES sulfamethoxazole Allergy Intermediate RASH Verified 10/26/24 15:48 trimethoprim Allergy Intermediate RASH Verified 10/26/24 15:48 fluoride AdvReac Mild SICK Verified 10/17/25 15:02 STOMACH, MOUTH/THROAT SORENESS FROM FLUORIDE TREATMENT lisinopril AdvReac Mild COUGH Verified 10/26/24 15:48 repaglinide AdvReac Mild GI UPSET Verified 10/26/24 15:48 Home Medications Medication Instructions Recorded Confirmed Type latanoprost 0.005 % eye drops 1 drp OPB HS 06/02/19 10/17/25 History multivitamin (Multiple Vitamins 1 tab PO DAILY 06/02/19 10/17/25 History tablet) glucosamine-chondroitin 250 mg-200 2 tab PO QAM 02/28/21 10/17/25 History mg tablet (Osteo Bi-Flex) acetaminophen 325 mg tablet 650 mg PO Q6H PRN PAIN/FEVER 02/24/24 10/17/25 H istory (Tylenol) levothyroxine 88 mcg tablet 88 mcg PO DAILYBB 02/24/24 10/17/25 History losartan 100 mg tablet 100 mg PO QAM 02/24/24 10/17/25 History metformin 1,000 mg tablet 1,000 mg PO BIDM 02/24/24 10/17/25 History ondansetron HCl 4 mg tablet 4 mg PO Q6H PRN NAUSEA/VOMITING 02/24/24 10/17/25 History potassium chloride 20 mEq 20 meq PO QAM 02/24/24 10/17/25 History tablet,extended release(part/cryst) bisacodyl 10 mg rectal suppository 10 mg IL DAILY PRN Constipation 10/26/24 10/17/25 History (Dulcolax (bisacodyl)) glucagon 1 mg solution for 1 mg IM UD PRN Hypoglycemia 10/26/24 10/17/25 History injection (Glucagon Emergency Kit) magnesium hydroxide 400 mg/5 mL 30 ml PO ONCE PRN Constipation 10/26/24 10/17/25 History oral suspension (Milk of Magnesia) sodium phosphates 19 gram-7 118 ml IL DAILY PRN Constipation 10/26/24 10/17/25 History gram/118 mL enema (Fleet Enema) verapamil 120 mg tablet 120 mg PO BID 10/26/24 10/17/25 History ciprofloxacin HCl 250 mg tablet 250 mg PO AMHS 10/17/25 10/17/25 History Patient History Medical History History of colon polyps Arthritis Overactive bladder Diabetes mellitus, type 2 Hypothyroidism HX: breast cancer LEFT (SURGERY +RADIATION) History of anemia Glaucoma Hx of migraines "CLUSTER MIGRAINES" Transient ischemic attack (TIA) ? HX TIA'S "MANY YEARS AGO" Hypertension Hyperlipidemia Syncope Vaginal wall prolapse Surgical History Family history of reaction to anesthesia DAUGHTER-WAKES UP IN MIDDLE OF SURGERIES History of tooth extraction History of vaginal surgery anterior colporrhaphy, repair of cystocele History of breast biopsy History of knee surgery LEFT History of tubal ligation History of cataract surgery RT/LEFT History of total abdominal hysterectomy History of foot surgery LEFT History of lumpectomy LEFT BREAST Family History Family/Other Obstructive sleep apnea Ovarian cancer Breast cancer Father Diabetes Cardiac disorder Hypertension Family history of diabetes mellitus Grandmother Diabetes Mother Cardiac disorder Hypertension Family history of diabetes mellitus Grandfather Stroke Daughter Family history of diabetes mellitus Social History Smoking Status: Never smoker Second Hand Exposure: No; Hx Alcohol Use: No Hx Substance Use: No Preferred Language: Kinyarwanda Communication Ability: Impaired Transmission Tester Required: No Beliefs That Will Affect Care: Mosque marital status: / Current Living Situation: Personal Care Facility Current Living Situation Comment: WITH DAUGHTER current occupational status: retired Feels Safe at Home: Yes Safety Concerns: Feels Safe At This Time Assistive Devices: Glasses Review of Systems Review of Systems: All systems reviewed & are unremarkable except as noted in HPI & below Physical Exam Constitutional: + ill appearing, + thin, + altered menta l status, + frail appearing, cooperative and comfortable Eyes: PERRL, conjunctivae normal, anicteric sclerae ENMT: external ear and nose normal, oropharynx normal Respiratory: normal respiratory effort, lungs clear to auscultation Gastrointestinal (Abdomen): normal bowel sounds, soft, nontender, no hepatosplenomegaly Skin: no rashes, warm and dry + turgor decreased and + pallor Neurologic: moves all extremities, awake and + confused Speech / Cognition: + abnormal cognition Psychiatric: Orientation: alert and oriented to person Results & Data Vital Signs (Past 12 Hours) Vital Signs Temp Pulse Resp BP Pulse Ox O2 Del Method O2 Flow Rate 10/18/25 08:40 140 H 121/72 10/18/25 08:00 Room Air 10/18/25 08:00 36.2 C L 133 H 24 90/59 L 95 Room Air 10/18/25 07:30 36.3 C L 107 H 24 103/69 95 Room Air 10/18/25 07:27 36.4 C L 129 H 19 98/67 L 94 Room Air 10/18/25 07:10 95/64 L 10/18/25 07:10 95/64 L 10/18/25 07:10 95/64 L 10/18/25 07:10 95/64 L 10/18/25 07:10 95/64 L 10/18/25 07:09 36.4 C L 133 H 29 H 10/18/25 07:06 36.4 C L 126 H 22 10/18/25 07:06 103/66 10/18/25 07:06 103/66 10/18/25 07:06 103/66 10/18/25 07:06 103/66 10/18/25 07:06 103/66 10/18/25 07:02 92/54 L 10/18/25 07:02 92/54 L 10/18/25 07:02 92/54 L 10/18/25 07:02 92/54 L 10/18/25 07:00 36.4 C L 128 H 23 10/18/25 07:00 93/57 L 10/18/25 07:00 93/57 L 10/18/25 06:58 88/45 L 10/18/25 06:57 88/56 L 10/18/25 06:57 36.3 C L 133 H 23 10/18/25 06:48 36.0 C L 124 H 20 10/18/25 06:48 65/52 L 10/18/25 06:48 65/52 L 10/18/25 06:48 65/52 L 10/18/25 06:48 65/52 L 10/18/25 06:48 65/52 L 10/18/25 06:43 79/57 L 10/18/25 06:43 79/57 L 10/18/25 06:43 79/57 L 10/18/25 06:43 79/57 L 10/18/25 06:43 79/57 L 10/18/25 06:42 80/49 L 10/18/25 06:42 35.9 C L 114 H 32 H 70 L 10/18/25 06:32 73/51 L 10/18/25 06:32 73/51 L 10/18/25 06:32 73/51 L 10/18/25 06:32 73/51 L 10/18/25 06:32 73/51 L 10/18/25 06:31 72/50 L 10/18/25 06:31 72/50 L 10/18/25 06:30 36.4 C L 126 H 20 92 10/18/25 06:00 104/62 10/18/25 06:00 104/62 10/18/25 06:00 104/62 10/18/25 06:00 104/62 10/18/25 06:00 104/62 10/18/25 06:00 36.6 C 84 18 100 10/18/25 05:30 109/70 10/18/25 05:00 95/58 L 10/18/25 05:00 36.9 C 89 17 100 10/18/25 04:30 87/58 L 10/18/25 04:30 37.0 C 91 H 18 100 10/18/25 04:00 37.0 C 88 20 100 Oxymask 2 10/18/25 04:00 106/59 L 10/18/25 03:30 105/65 10/18/25 03:30 105/65 10/18/25 03:30 37.1 C 95 H 18 97 10/18/25 03:00 37.2 C 96 H 17 96 10/18/25 03:00 100/72 10/18/25 02:30 102/59 L 10/18/25 02:30 102/59 L 10/18/25 02:30 37.3 C 93 H 20 93 10/18/25 02:00 37.4 C 92 H 18 90 10/18/25 02:00 100/68 10/18/25 01:42 37.5 C 94 H 18 98 10/18/25 01:42 97/56 L 10/18/25 01:30 37.6 C H 94 H 19 93 10/18/25 01:30 148/73 H 10/18/25 01:00 124/54 L 10/18/25 01:00 37.8 C H 94 H 19 91 10/18/25 00:46 91/50 L 10/18/25 00:45 38.0 C H 94 H 21 100 10/18/25 00:30 127/72 10/18/25 00:30 38.1 C H 96 H 21 94 10/18/25 00:00 111/61 10/18/25 00:00 38.1 C H 101 H 21 98 10/18/25 00:00 102 H 10/17/25 23:30 114/56 L 10/17/25 23:30 114/56 L 10/17/25 23:30 38.4 C H 103 H 22 99 10/17/25 23:00 38.7 C H 103 H 22 98 10/17/25 23:00 102/59 L 10/17/25 22:30 93/44 L 10/17/25 22:30 93/44 L 10/17/25 22:30 38.8 C H 106 H 21 91 Oxymask 2 10/17/25 22:13 81/55 L 10/17/25 22:12 38.6 C H 109 H 31 H 96 10/17/25 22:12 79/52 L 10/17/25 22:00 38.6 C H 109 H 32 H 95 10/17/25 22:00 89/37 L 10/17/25 21:33 38.5 C H 109 H 28 H 95 10/17/25 21:31 95/43 L 10/17/25 21:30 38.5 C H 123 H 30 H 95 10/17/25 21:01 122/62 10/17/25 21:00 38.4 C H 131 H 30 H 93 Laboratory Results Abnormal lab results 10/17/25 10/17/25 10/17/25 Range/Units 10:51 10:56 15:01 WBC (4.8-10.8) K/ul RBC (4.20-5.40) M/uL Hgb (12.0-16.0) g/dL Hct (37.0-47.0) % Neut # (Auto) (1.40-6.50) K/uL Cooke # (Auto) (0.11-0.59) K/uL Heparin Anti-Xa, Unfract (0.3-0.7) IU/ml Sodium (136-145) mmol/L BUN (6-23) mg/dl BUN/Creatinine Ratio (10-20) Glucose (70-99(Fasting)) mg/dl POC Glucose 344 H* (70-99) mg/dl Calcium (8.6-10.3) mg/dl Magnesium (1.7-2.4) mg/dl Troponin I High Sens 3379.0 H* (0-14) pg/ml Urine Appearance Cloudy A (Clear) Urine Protein 2+ H (Negative) Urine Ketones Trace H (Negative) Urine Blood 2+ H (Negative) Urine Bilirubin 1+ H (Negative) Ur Leukocyte Esterase 2+ H (Negative) Urine WBC (Auto) 21-50 H (0-5) /hpf Urine RBC (Auto) 6-10 H (0-2) /hpf U Hyaline Cast (Auto) 11-20 H (0-2) /lpf Urine Bacteria (Auto) 2+ H (None Seen) Urine Mucus Present A (None Prsent) 10/17/25 10/17/25 10/18/25 Range/Units 19:52 19:53 00:06 WBC (4.8-10.8) K/ul RBC (4.20-5.40) M/uL Hgb (12.0-16.0) g/dL Hct (37.0-47.0) % Neut # (Auto) (1.40-6.50) K/uL Cooke # (Auto) (0.11-0.59) K/uL Heparin Anti-Xa, Unfract 1.04 H* (0.3-0.7) IU/ml Sodium (136-145) mmol/L BUN (6-23) mg/dl BUN/Creatinine Ratio (10-20) Glucose (70-99(Fasting)) mg/dl POC Glucose 247 H 230 H (70-99) mg/dl Calcium (8.6-10.3) mg/dl Magnesium (1.7-2.4) mg/dl Troponin I High Sens (0-14) pg/ml Urine Appearance (Clear) Urine Protein (Negative) Urine Ketones (Negative) Urine Blood (Negative) Urine Bilirubin (Negative) Ur Leukocyte Esterase (Negative) Urine WBC (Auto) (0-5) /hpf Urine RBC (Auto) (0-2) /hpf U Hyaline Cast (Auto) (0-2) /lpf Urine Bacteria (Auto) (None Seen) Urine Mucus (None Prsent) 10/18/25 10/18/25 10/18/25 Range/Units 00:11 04:30 06:22 WBC 14.81 H (4.8-10.8) K/ul RBC 3.49 L (4.20-5.40) M/uL Hgb 10.5 L (12.0-16.0) g/dL Hct 30.5 L (37.0-47.0) % Neut # (Auto) 12.14 H (1.40-6.50) K/uL Cooke # (Auto) 0.89 H (0.11-0.59) K/uL Heparin Anti-Xa, Unfract 0.10 L (0.3-0.7) IU/ml Sodium 135 L (136-145) mmol/L BUN 59 H (6-23) mg/dl BUN/Creatinine Ratio 49.2 H (10-20) Glucose 235 H (70-99(Fasting)) mg/dl POC Glucose 212 H (70-99) mg/dl Calcium 8.4 L (8.6-10.3) mg/dl Magnesium 2.8 H (1.7-2.4) mg/dl Troponin I High Sens (0-14) pg/ml Urine Appearance (Clear) Urine Protein (Negative) Urine Ketones (Negative) Urine Blood (Negative) Urine Bilirubin (Negative) Ur Leukocyte Esterase (Negative) Urine WBC (Auto) (0-5) /hpf Urine RBC (Auto) (0-2) /hpf U Hyaline Cast (Auto) (0-2) /lpf Urine Bacteria (Auto) (None Seen) Urine Mucus (None Prsent) Diagnostic Findings Chest X-Ray 10/17/25 09:05 XR chest 1V portable HISTORY: 85 years-old Female syncope COMPARISON: 10/26/2024 TECHNIQUE: AP view of the chest FINDINGS: Atherosclerosis of the aorta. The cardiomediastinal and hilar silhouettes are within normal limits. The patient is slightly rotated and side bending. No pneumothorax, large pleural effusion or overt pulmonary edema. Degenerative changes of the shoulders and spine. IMPRESSION: No acute process. ACT 112: Negative or not required by law. The above report was generated using voice recognition software. It may contain grammatical, syntax or spelling errors. Electronically signed by: Eduardo Payne M.D. 10/17/2025 9:45 AM Medications Administered Current Inpatient Medications Aspirin (Aspirin 81 Mg Chew) 81 mg PO DAILY [facility] Stop: 11/17/25 09:59 Dextrose (Dextrose 50% 50 Ml Syringe) 25 - 50 ml IV UD PRN; Protocol PRN Reason: Hypoglycemia Protocol Stop: 11/16/25 14:07 Glucagon (Glucagon For Inj 1 Mg Vial) 1 mg SQ UD PRN; Protocol PRN Reason: Hypoglycemia Protocol Stop: 11/16/25 14:07 Glucose (Glucose 40% Gel 15 Gm Tube) 15 - 30 gm PO UD PRN; Protocol PRN Reason: Hypoglycemia Protocol Stop: 11/16/25 14:07 Glucose (Glucose 10 Tab/Tube) 4 - 8 tab PO UD PRN; Protocol PRN Reason: Hypoglycemia Protocol Stop: 11/16/25 14:07 Norepinephrine Bitartrate (Levophed/D5w) 4 mg in 250 mls @ 16.17 mls/hr IV .[id number] [facility]; Protocol Stop: 11/16/25 10:14 Last Titration: 10/18/25 10:35 Dose: Infused Heparin Sodium/Dextrose (Heparin 38197 Unit/500 Ml D5w) 25,000 units in 500 mls @ 16 mls/hr IV .Q24H [facility]; Protocol Stop: 11/16/25 10:29 Last Titration: 10/18/25 07:08 Dose: 800 units/hr, 16 mls/hr Piperacillin Sod/Tazobactam Sod (Zosyn) 4.5 gm in 100 mls @ 25 mls/hr IV Q8H [facility]AKASH; Protocol Stop: 10/22/25 19:59 Last Infusion: 10/18/25 08:11 Dose: Infused Acetaminophen (Ofirmev) 1,000 mg in 100 mls @ 400 mls/hr IV Q8H PRN PRN Reason: pain/fever Stop: 10/20/25 20:01 Last Infusion: 10/17/25 20:51 Dose: Infused Phenylephrine HCl (Phenylephrine/Nss) 25 mg in 250 mls @ 80.1 mls/hr IV .Q3H8M [facility]AKASH; Protocol Stop: 11/17/25 09:44 Last Titration: 10/18/25 11:41 Dose: 2.5 mcg/kg/min, 80.1 mls/hr Insulin Aspart (Insulin Aspart Per Unit Charge) 0 units SC Q6 [facility] Stop: 11/17/25 05:59 Last Admin: 10/18/25 06:30 Dose: 3 units Miscellaneous (Carbohydrates For Hypoglycemia ) 15 - 30 gm PO UD PRN PRN Reason: Hypoglycemia Protocol Stop: 11/16/25 14:07 PG Care Time/CCT Total # of Minutes Spent Total Time Spent with Patient: Total time spent is greater than 50% in coordination of care (as documented) at patient's floor/unit and/or counseling patient: Advanced Care Planning 72187 Advanced Care Planning 30 [place] [address] IN/OBS CONSULT LVL 4,60M Patient Type New Medical Decision Making Moderate Complexity Diagnoses Adult failure to thrive R62.7 Acute encephalopathy G93.40 Weakness R53.1 Palliative care by specialist Z51.5 Counseling regarding goals of care Z71.89 Need for comfort care Additional Codes Advanced Care Planning - 22058 Advanced Care Planning 30 Min: 35825 Advanced Care Planning 30 Min ([id number])
[2025-10-18] MEDS ORDERED: STAT IV Infusion **Titration per Protocol STA (09:31)
--- NOTE | 2025-10-18 09:55 | Electrocardiogram Report ---
Test Reason : Blood Pressure : */* mmHG Vent. Rate : 125 BPM Atrial Rate : * BPM P-R Int : * ms QRS Dur : 128 ms QT Int : 326 ms P-R-T Axes : * -60 -63 degrees QTcB Int : 470 ms Atrial fibrillation with rapid ventricular response with premature ventricular or aberrantly conducte d complexes Left axis deviation Right bundle branch block possible Inferior infarct (cited on or before 17-Oct-2025) Abnormal ECG When compared with ECG of 17-Oct-2025 11:23, Atrial fibrillation has replaced Sinus rhythm QRS duration has decreased Criteria for Anterior infarct are no longer Present Confirmed by Marcos Garcia ([id number]) on 10/18/2025 9:54:51 AM Referred By: REFERRED SELF Confirmed By: Marcos Garcia
[2025-10-18] MEDS: PHENYLEPHRINE/NSS 25 MG/250 ML BAG IV SCH (09:57)
[2025-10-18] MEDS ORDERED: LANTUS PER UNIT CHARGE SC STA (10:25)
[2025-10-18] MEDS: PHENYLEPHRINE HCL 25 MG/250 ML NSS IV ONE (11:53)
[2025-10-18] MEDS: ASPIRIN 81 MG CHEW PO SCH (12:11)
--- NOTE | 2025-10-18 17:31 | Billing Data ---
Date of Service October 18, 2025 Coding Level of Care Code 44228 SUB INP/OBS CARE
[2025-10-18] MEDS ORDERED: ONDANSETRON INJ 2 MG/ML 2 ML VIAL IV PRN (18:16)
[2025-10-18] MEDS ORDERED: GLYCOPYRROLATE 0.2 MG/ML VIAL IV PRN (18:16)
[2025-10-18] MEDS ORDERED: Nursing to Pharmacy Communication SCH (18:30)
--- NOTE | 2025-10-18 19:06 | Communication Note ---
Date of Service: October 18, 2025 Was called by the nurse to talk to the family at the bedside. Family could not locate the however turning forms at home however the grandson, Kristian, who is a family spokesperson says he believes he brought it and it was scanned in the computer during one of her previous admissions. This was unable to be located. I did speak to some family that was not located at the bedside tonight previously and they had voiced their opinion that they are waiting on the grandson to make the final determination. After discussion at the bedside and understanding the depth and breath of this patient's illness and recent decline in her outpatient setting I feel comfortable pursuing comfort care measures as best wishes of her family and her immediate caregivers and the patient. Subsequently she was transition to full comfort care measures this evening with the expectation that she may as a result of her sepsis from urinary source and possible NSTEMI.
[2025-10-19] MEDS: LORazepam Inj 0.5 MG in SYRINGE 0.25 ML IV PRN (06:06)
[2025-10-19] MEDS: MoRPHine SULFATE 2 MG/ML CARP IV PRN (08:08)
--- NOTE | 2025-10-19 11:32 | Hospitalist Progress Note ---
Date of Service October 19, 2025 Assessment & Plan (1) Septic shock: (2) UTI (urinary tract infection): (3) Elevated troponin: (4) CHANCE (acute kidney injury): (5) Bedridden: Plan Patient is an 85 y/o F who was admitted for management of hypotension/septic shock. Septic Shock // UTI - Patient with septic shock thought to be related to UTI - Syncopal episode in senior care likely secondary to hypotension - S/p ~1500mL of IVF in ED w/o improvement in BP, therefore, Levophed started with subsequent attempt to wean off leading to hypotension of MAP < 65 (10/17/25). - MAP is currently 73 (10/18/25) - Suspect may have also lead to hypoxia, leading to use of HFNC; no acute changes on CXR - Admitted to ICU for vasopressors - Considering possible urinary source, as well as hx of ESBL in previous cultures, will cover with Zosyn for now; follow blood and urine cultures - Monitor am labs - Patient had episode of a.fib this AM (10/18/25). Gave aspirin 81mg. - Currently on comfort measures Elevated troponin - Troponin on 3839 at time of admission with 2-hr repeat showing 3379. - EKG w/o significant ST segment or T wave changes - Patient is on room air and family has declined any advanced imaging at this time. - Suspect likely secondary to shock - Continue to monitor - Currently on comfort measures CHANCE - Cr elevated to 1.5 from 0.4 a few weeks ago. Creatine on 10/18/25 went down to 1.20. - Likely secondary to shock - S/p fluid resuscitation - would avoid nephrotoxic medications Hyperkalemia - Noted to be 5.4 at time of admission - No EKG changes as mentioned above - s/p fluid administration Hypomagnesemia - S/p replacement in ED - Magnesium was 2.8 on 10/18/25. HTN - Hold home antihypertensives Dementia, severe - Daughters concerned this is now affecting her QOL - Started discussions to establish GOC, but family will discuss amongst themselves first - Palliative Care was consulted - Palliative care spoke with patient's grandson who will be giving his copy of the HCPOA today. Palliative care stated the family is in agreement that comfort directed care is appropriate. Dispo: ICU Patient currently DNR/DNI; patient's daughters who are at bedside state that patient has had a poor QOL due to her dementia, therefore, they have been discussing about whether or not to change to Hospice/[facility] status. They wanted to discuss with a nephew before making any decisions, therefore, will be admitting to ICU for pressor support until GOC are determined. Admission and Anticipated Discharge Date Admission Date: October 17, 2025 Supervising Physician Co-Signing Physician Notes Resident Physician Supervision Note: I personally examined the patient and verified all mathew points of history and exam, discussed case, and agree with decision making with Dr. Meyer Patient is on comfort care measures at this time she appears comfortable but does have recent symptoms with medication. Her is expected. She initia lly presented with concern for sepsis from urinary source and NSTEMI. She has shallow unlabored respirations at the present time she moans when she has tactile stimuli but no interaction definitely a decline from 1 day prior I discussed the case with the resident and agree with the findings and plan as documented in the note. Any exceptions or clarifications are listed here: Documented By: Carlos Fox MD Subjective Patient is currently on comfort care measures only. Spoke with Kristian, patient's grandson, this morning and reports that overnight she was given some morphine and ativan which helped her. Currently patient is resting comfortably at bedside. Review of Systems Review of Systems: As per HPI Physical Exam Respiratory: normal respiratory effort Skin: no rashes, warm and dry Resident Activity Tracking Resident Involvement: Resident Care Provided Care Provided: Adult Hospital Medicine
--- NOTE | 2025-10-19 13:55 | Billing Data ---
Date of Service October 19, 2025 Coding Level of Care Code 20799 SUB INP/OBS CARE
--- NOTE | 2025-10-19 14:30 | Palliative Care Progress Note ---
Date of Service October 19, 2025 Assessment & Plan (1) Adult failure to thrive: (2) Acute encephalopathy: (3) Weakness: (4) Palliative care by specialist: Plan: Assessed pt at bedside, she was oriented to person only and no visitors present. (5) Counseling regarding goals of care: Plan: On family request, patient was transitioned to comfort care overnight (6) Need for comfort care: Plan: Comfort plan of care parameters: 1. Patient/Family want hospice added to their care. 2. NO rehab/PT/OT 3. Strictly End of Life care only 4. NO escalation of care: do not increase oxygen, escalate therapies, etc. The focus is on comfort through end of life, assure this is accomplished with aggressive symptom management (i.e. relief of dyspnea, pain, etc.) 5. NO return to hospital 6. NO labs, imaging, surgery 7. Oral intake as desired for comfort and pleasure: NO dietary restriction, Allow permissive aspiration, do not withhold food or drink for concern of aspiration and allow PO for pleasure and comfort. 8. If difficulty urinating/commode/bedpan, ok to place Handy catheter for comfort/hygiene/skin protection AND/OR Continue Handy catheter for comfort/hygiene/skin protection 9. NO: calorie counts, artificial nutrition, feeding tubes or IV fluids EOL Symptom manamgement: Pain/dyspnea/tachypnea morphine 2mg IVP PRN [id number] Consider titratable morphine drip if pt requires >3 PRN doses in under two consecutive hours. Nausea/vomitting zofran 4mg IVP q4h PRN Agitation ativan 0.5mg IVP q4h PRN Hyperactive delirium haldol 5mg IVP q6h PRN Secretions - if repositioning not effective robinul 0.4mg IV q4h PRN atropine SL 3 drops Q1h PRN Nursing care: Discontinue all medications not directed towards comfort. Detether pt from IV tubing, monitor cables, and check vitals once per shift. Please continue HFNC and titrate down as able for patient comfort. Use medications above PRN for dyspnea/tachypnea and do not increase oxygen once titrated down. Assess q1h for pain/dyspnea and treat accordingly. Plan as above. DNR/DNI, with likely transition to [facility] arrival of pt's guardian/HCPOA Kristian Admission and Anticipated Discharge Date Admission Date: October 17, 2025 Subjective Assessed pt at bedside, she was transitioned to [facility] overnight on 10/18/25. Pt was sleeping soundly, did not attempt to awaken in concert with comfort directed care. She appears comfortable, pale skin, extremities cool. Respiratory effort normal, rate 16/min. NAD on RA Grand daughter at bedside. Review of Systems Review of Systems: All systems reviewed & are unremarkable except as noted in Subjective Physical Exam Constitutional: + ill appearing, + thin, + altered menta l status, + frail appearing, cooperative and comfortable Eyes: PERRL, conjunctivae normal, anicteric sclerae ENMT: external ear and nose normal, oropharynx normal Respiratory: normal respiratory effort, lungs clear to auscultation Gastrointestinal (Abdomen): normal bowel sounds, soft, nontender, no hepatosplenomegaly Skin: no rashes, warm and dry + turgor decreased and + pallor Neurologic: moves all extremities, awake and + confused Speech / Cognition: + abnormal cognition Psychiatric: Orientation: alert and oriented to person Results & Data Vital Signs (Past 12 Hours) Vital Signs Temp 38.1 C H 10/18/25 17:45 Pulse 82 10/18/25 17:39 Resp 13 10/18/25 17:45 BP 116/65 10/18/25 17:45 Pulse Ox 100 10/18/25 17:45 O2 Del Method Room Air 10/18/25 17:45 O2 Flow Rate 2 10/18/25 04:00 FiO2 80 10/17/25 13:15 Intake & Output 10/18/25 10/19/25 10/19/25 18:59 06:59 18:59 Intake Total 1305.417 / 1305.417 0 / 0 Output Total 282 / 882 600 / 882 Balance 1023.417 / 423.417 -600 / 423.417 0 / 0 Weight 53.4 kg Intake: IV 1305.417 / 1305.417 Acetaminophen 1,000 mg In 100 100 / 100 ml @ 400 mls/hr IV Q8H PRN Rx#: [id number] Heparin 45219 Unit/500 ml D5w 272.267 / 272.267 25,000 units In 500 ml @ 800 UNITS/HR 16 mls/hr IV .Q24H AAKASH Rx#:[id number] Norepinephrine/D5w 4 mg In 250 112.933 / 112.933 ml @ 0 MCG/KG/MIN IV .Q0M AAKASH Rx#:[id number] Phenylephrine/Nss 25 mg In 250 620.217 / 620.217 ml @ 2.5 MCG/KG/MIN 80.1 mls/hr IV .Q3H8M AAKASH Rx#:[id number] Piperacillin/Tazobactam 4.5 gm 200 / 200 In 100 ml @ 25 mls/hr IV Q8H AAKSAH Rx#:[id number] Oral 0 / 0 Output: Urine Amount (Catheter) 281 / 881 600 / 881 Temp Sensing Handy 281 / 881 600 / 881 # Bowel Movements Other: Weight Measurement Method Built in [facility] Laboratory Results No further labs or diagnostics in concert with comfort directed care. Diagnostic Findings No further labs or diagnostics in concert with comfort directed care. Medications Administered Current Inpatient Medications Dextrose (Dextrose 50% 50 Ml Syringe) 25 - 50 ml IV UD PRN; Protocol PRN Reason: Hypoglycemia Protocol Stop: 11/16/25 14:07 Glucagon (Glucagon For Inj 1 Mg Vial) 1 mg SQ UD PRN; Protocol PRN Reason: Hypoglycemia Protocol Stop: 11/16/25 14:07 Glucose (Glucose 40% Gel 15 Gm Tube) 15 - 30 gm PO UD PRN; Protocol PRN Reason: Hypoglycemia Protocol Stop: 11/16/25 14:07 Glucose (Glucose 10 Tab/Tube) 4 - 8 tab PO UD PRN; Protocol PRN Reason: Hypoglycemia Protocol Stop: 11/16/25 14:07 Glycopyrrolate (Glycopyrrolate 0.2 Mg/Ml Vial) 0.4 mg IV Q4H PRN PRN Reason: Rattling Secretions or Pulm Congestion Stop: 11/17/25 18:15 Acetaminophen (Ofirmev) 1,000 mg in 100 mls @ 400 mls/hr IV Q8H PRN PRN Reason: pain/fever Stop: 10/20/25 20:01 Last Infusion: 10/18/25 18:22 Dose: Infused Lorazepam 0.5 mg/ Syringe 0.5 mls @ 2 mls/min IV Q4H PRN PRN Reason: Anxiety/Agitation Stop: 11/17/25 18:15 Last Admin: 10/19/25 06:06 Dose: 2 mls/min Miscellaneous (Carbohydrates For Hypoglycemia ) 15 - 30 gm PO UD PRN PRN Reason: Hypoglycemia Protocol Stop: 11/16/25 14:07 Morphine Sulfate (Morphine Sulfate 2 Mg/Ml Carp) 2 mg IV Q2H PRN PRN Reason: Pain or Respiratory Distress Stop: 11/01/25 18:15 Last Admin: 10/19/25 11:39 Dose: 2 mg Ondansetron HCl (Ondansetron Inj 2 Mg/Ml 2 Ml Vial) 4 mg IV Q4H PRN PRN Reason: Nausea &/or Vomiting Stop: 11/17/25 18:15 PG Care Time/CCT Total # of Minutes Spent Total Time Spent with Patient: Total time spent is greater than 50% in coordination of care (as documented) at patient's floor/unit and/or counseling patient: [place] [address] SUB INP/OBS CARE 3/50MIN Patient Type Established History Expanded Problem Focused Exam Expanded Problem Focused Medical Decision Making Moderate Complexity Diagnoses Adult failure to thrive R62.7 Acute encephalopathy G93.40 Weakness R53.1 Palliative care by specialist Z51.5 Counseling regarding goals of care Z71.89 Need for comfort care
--- NOTE | 2025-10-20 09:27 | Hospitalist Progress Note ---
Date of Service October 20, 2025 Assessment & Plan (1) Septic shock: (2) UTI (urinary tract infection): (3) Elevated troponin: (4) CHANCE (acute kidney injury): (5) Bedridden: Plan Patient is an 85 y/o F who was admitted for management of hypotension/septic shock. Septic Shock // UTI - Patient with septic shock thought to be related to UTI - Syncopal episode in long-term likely secondary to hypotension - S/p ~1500mL of IVF in ED w/o improvement in BP, therefore, Levophed started with subsequent attempt to wean off leading to hypotension of MAP < 65 (10/17/25). 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 - Suspect may have also lead to hypoxia, leading to use of HFNC; no acute changes on CXR - Considering possible urinary source, as well as hx of ESBL in previous cultures. 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 - Currently on comfort measures. Palliative care is working on home-hospice Elevated troponin - Troponin on 3839 at time of admission with 2-hr repeat showing 3379. - EKG w/o significant ST segment or T wave changes - Patient is on room air and family has declined any advanced imaging at this time. - Suspect likely secondary to shock - Continue to monitor - Currently on comfort measures CHANCE - Cr elevated to 1.5 from 0.4 a few weeks ago. Creatine on 10/18/25 went down to 1.20. - Likely secondary to shock - S/p fluid resuscitation - would avoid nephrotoxic medications Hyperkalemia - Noted to be 5.4 at time of admission - No EKG changes as mentioned above - s/p fluid administration Hypomagnesemia - S/p replacement in ED - Magnesium was 2.8 on 10/18/25. HTN - Hold home antihypertensives Dementia, severe - Daughters concerned this is now affecting her QOL - Started discussions to establish GOC, but family will discuss amongst themselves first - Palliative Care was consulted - Palliative care spoke with patient's grandson who will be giving his copy of the HCPOA. Hospital nor family could not find document. 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 Palliative care stated the family is in agreement that comfort directed care is appropriate. Dispo: ICU Patient currently DNR/DNI and INFANT TEACHER. Family desires to add hospice to patient's care. Admission and Anticipated Discharge Date Admission Date: October 17, 2025 Supervising Physician Co-Signing Physician Notes Patient seen and examined, chart reviewed, case discussed with Dr. Meyer, DO and I agree with the assessment and plan as above except as otherwise noted above. Seen independently at the bedside. Sleeping comfortably. Mostly with adequate pain control, although sometimes has discomfort when rolling/moving. No doses of morphine needed overnight. CM following, --> Hospice [facility] pending. She is not currently in the active phase of dying, and is not with intractible pain. Does not quality for GIP at this time. Palliative following. Continue ativan for anxiety, morphine for pain/dyspnea. All labs and images reviewed Agree w/ above Subjective Patient is resting comfortably at bedside. No overnight events per nurse. Review of Systems Review of Systems: As per HPI Physical Exam Constitutional: WD/WN, vitals as above Eyes: + anicteric sclerae and EOM intact bilat erally Respiratory: normal respiratory effort Auscultation: lungs clear to auscultation bilaterally Cardiovascular: Rate/Rhythm: + abnormal rate and + abnormal rhythm Heart Sounds: normal S1 and normal S2; no murmur Skin: no rashes, warm and dry Results & Data Results & Data Vital Signs (Past 12 Hours) Vital Signs O2 Del Method 10/19/25 23:04 Room Air
[2025-10-20 18:48] VITALS: RESP 16; TEMP 97.9; O2SAT 92
--- NOTE | 2025-10-21 08:58 | Discharge Summary ---
Date of Service October 21, 2025 Admission HPI Per Admitting Provider Patient is a 85 y/o F who comes to the ED from [facility] after experiencing a syncopal episode, at which point she was noted to be significantly hypotensive. On arrival to ED, patient found to be normotensive but confused, and daughters who are at bedside provide hx as patient is poor historian. Patient with severe dementia at baseline but they state that she has been more confused that usual over the last few days. Of note, patient has recent admission to [facility] from 10/26/24-10/29/24 due to right hip fracture that that was managed non-operatively and was noted to have a UTI with cultures growing Enterococcus and ESBL, thus was discharged with 5-day course of Augmentin since she was experiencing delirium and increased urinary frequency. Daughters deny any noted fevers or other sxs prior to today. ED Course: given Cefepime 2 gm x1, ~1500mL bolus, Magnesium 2 gm IV, started Heparin drip for possible PE (no CTA done due to hypotension and relative instability), patient developed hypotension of 58/32 despite above mentioned fluid administration, therefore Levophed was started for BP support in the setting of possible septic shock; ICU physician notified of patient status Labs/Imaging:CBC w/ leukocytosis of 16.55 w/ neutrophilic predominance, Hgb of 11.8 (close to baseline), plt of 157. CMP w/ hyperkalemia of 5.4, Cr elevated at 1.56 (was 0.44 a few weeks ago), bsg of 277. Lactate elevated at 3.2. Procal of 0.88. Magnesium of 1.5 (before replacement). LFTs unremarkable. Troponin of 3839 w/ 2-hr repeat showing level of 944.3. U/A suggestive of UTI. MRSA nares negative. Respiratory biofire negative. Blood culture and Urine culture collected and pending. CXR unremarkable. Admission Exam Per Admitting Provider Physical Exam Physical Exam: GENERAL: awake and alert, confused, afebrile, thin, NAD CHEST: symmetric chest expansions with respirations, no tenderness to palpation of anterior chest wall CARDIO: tachycardic GI: soft, NT, ND : Handy in place draining slightly dark urine w/ no blood or sediment in line or collecting bag EXTREMITIES: no swelling in b/l LE Principal Diagnosis Septic Shock Discharge Exam Constitutional WD/WN, vitals as above Eyes + anicteric sclerae and EOM intact bilaterally Respiratory normal respiratory effort Auscultation: lungs clear to auscultation bilaterally Cardiovascular Rate/Rhythm: + abnormal rate and + abnormal rhythm Heart Sounds: normal S1 and normal S2; no murmur Skin no rashes, warm and dry Discharge Data Allergies Allergy/AdvReac Type Severity Reaction Status Date / Time duloxetine Allergy Intermediate BALANCE Verified 10/26/24 15:48 PROBLEMS gabapentin Allergy Intermediate BALANCE Verified 10/26/24 15:48 PROBLEMS nitrofurantoin Allergy Intermediate HIVES Verified 10/26/24 15:48 nortriptyline Allergy Intermediate balance Verified 10/26/24 15:48 problems pregabalin [From Lyrica] Allergy Intermediate BALANCE Verified 10/26/24 15:48 ISSUES sulfamethoxazole Allergy Intermediate RASH Verified 10/26/24 15:48 trimethoprim Allergy Intermediate RASH Verified 10/26/24 15:48 fluoride AdvReac Mild SICK Verified 10/17/25 15:02 STOMACH, MOUTH/THROAT SORENESS FROM FLUORIDE TREATMENT lisinopril AdvReac Mild COUGH Verified 10/26/24 15:48 repaglinide AdvReac Mild GI UPSET Verified 10/26/24 15:48 Consultations 10/17/25 11:48 ED Decision to Admit Stat 10/17/25 14:08 Consult Grocery Clerk Marking Routine 10/18/25 07:36 Consult Palliative Care Routine Hospital Course (1) Septic shock: (2) UTI (urinary tract infection): (3) Elevated troponin: (4) CHANCE (acute kidney injury): (5) Bedridden: Plan Patient is an 85 y/o F who was admitted for management of hypotension/septic shock. Septic Shock // UTI - Patient with septic shock thought to be related to UTI - Syncopal episode in prison likely secondary to hypotension - S/p ~1500mL of IVF in ED w/o improvement in BP, therefore, Levophed started with subsequent attempt to wean off leading to hypotension of MAP < 65 (10/17/25). 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 - Suspect may have also lead to hypoxia, leading to use of HFNC; no acute changes on CXR - Considering possible urinary source, as well as hx of ESBL in previous cultures. D/c zosyn due to SSN/SSBN ASSISTANT NAVIGATOR. - Currently on comfort measures. Will return to [facility] on Hosp[facility] Elevated troponin - Troponin on 3839 at time of admission with 2-hr repeat showing 3379. - EKG w/o significant ST segment or T wave changes - Patient is on room air and family has declined any advanced imaging at this time. - Suspect likely secondary to shock - Currently on comfort measures CHANCE - Cr elevated to 1.5 from 0.4 a few weeks ago. Creatine on 10/18/25 went down to 1.20. - Likely secondary to shock - S/p fluid resuscitation - would avoid nephrotoxic medications Hyperkalemia - Noted to be 5.4 at time of admission - No EKG changes as mentioned above - s/p fluid administration Hypomagnesemia - S/p replacement in ED - Magnesium was 2.8 on 10/18/25. HTN - Hold home antihypertensives Dementia, severe - Daughters concerned this is now affecting her QOL - Started discussions to establish GOC, but family will discuss amongst themselves first - Palliative Care was consulted - Palliative care spoke with patient's grandson who will be giving his copy of the HCPOA. Hospital nor family could not find document. 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 Palliative care stated the family is in agreement that comfort directed care is appropriate. Dispo: Home-Hospice Patient currently DNR/DNI and SSN/SSBN ASSISTANT NAVIGATOR. Family desires to add hospice to patient's care. Total Time Total Time Spent Total Time Spent (In Minutes): as per attending Discharge Plan Discharge Items Patient Disposition: Hospice - Medical Facility Reason For Visit: SYNCOPE, HYPOTENSION Discharge Diagnosis: Syncope, Hypotension Condition on Discharge: Critical Activity: Per Instructions section Non-emergency contact: Primary Care Provider Call non-emergency contact if: you have any medication questions Follow-up/Referrals: Garry Garcia III, MD [Primary Care Provider] - Diet: Regular Addtl Attending Provider Instructions: You were admitted into the hospital for passing out and low blood pressure. We provided imaging and IV fluids and antibiotics. Due to the low blood pressure we transferred you to the ICU. After speaking with the family, they decided you would like to be on comfort measures. This entails making sure you are pain free and comfortable. To make you feel even more comfortable, [facility] will come to transport you back to [facility] on hospice. It was a pleasure treating you and meeting your family here at [facility]. Pending Studies at Discharge: No Stand-Alone Forms: My [facility] Skilled Items Patient informed of condition?: Yes DNR: Yes Discharge Level of Care: Other Communicable Disease: No Discharge Prognosis: Deteriorating Lines: Peripheral IV Urinary Catheter: Yes Medications and DC Order Prescriptions: Continued latanoprost 0.005 % drops 1 drp OPB HS multivitamin [Multiple Vitamins] tablet 1 tab PO DAILY glucosamine-chondroitin [Osteo Bi-Flex] 250-200 mg Tablet 2 tab PO QAM acetaminophen [Tylenol] 325 mg Tablet 650 mg PO Q6H MDD 3gm/24hr PRN (Reason: PAIN/FEVER) ondansetron HCl 4 mg Tablet 4 mg PO Q6H PRN (Reason: NAUSEA/VOMITING) potassium chloride 20 mEq tablet,ER particles/crystals 20 meq PO QAM levothyroxine 88 mcg tablet 88 mcg PO DAILYBB Patient Comments: QAM metformin 1,000 mg tablet 1,000 mg PO BIDM losartan 100 mg tablet 100 mg PO QAM Patient Comments: TAKES QAM verapamil 120 mg tablet 120 mg PO BID magnesium hydroxide [Milk of Magnesia] 400 mg/5 mL Suspension 30 ml PO ONCE PRN (Reason: Constipation) Rx Instructions: Magnesia Marcy 7.75%: Give 30ml by mouth as needed for constipation if no BM in 3 days; administer on 7-3 shift bisacodyl [Dulcolax (bisacodyl)] 10 mg Suppository 10 mg SC DAILY PRN (Reason: Constipation) Rx Instructions: Give on day 3; 3-11 shift if no BM after MOM Fleet Enema 19-7 gram/118 mL Enema 118 ml SC DAILY PRN (Reason: Constipation) Rx Instructions: Give on day 4 ; 7-3 shift if no BM after Dulcolax Glucagon Emergency Kit (human) 1 mg Recon Soln 1 mg IM UD PRN (Reason: Hypoglycemia) ciprofloxacin HCl 250 mg tablet 250 mg PO AMHS Discharge Orders: Discharge Order (Routine); Ordered 10/21/25 Ordered By: Anderson Meyer Admission Data Admit Date/Time: 10/17/25 12:13 Attending Provider: Frederick Robins Admit Provider: Roxana Juan Primary Care Provider: Garry Garcia III Other Providers: [place],[facility]; Dennis Varela; Lina Tejeda; Giselle Mahoney; Sherita Lopez; [facility]Hospice Other Interventions: Discharge Summary Assessment (RN) Last Done: 10/21/25 10:41 Resident Activity Tracking Resident Involvement: Resident Care Provided Care Provided: Adult Hospital Medicine
[2025-10-21 10:44] VITALS: BP 85/43; PULSE 122
== END 2025-10-21 11:40 | disposition hospice, inpatient (51) | DRG 871 ==
LOC: ED 09:00 → 1E 12:13 → SUATTDRO 12:13 → 1E 13:25 → 2E 10-19 05:14 → 3W 10-19 18:25